=== PATIENT | male | born 1965 | race Caucasian/White ===

== ENCOUNTER 2016-08-06 07:11 | Day surgery (SDC) | payer OTHER ==
[2016-08-03 12:53] VITALS: BMI 48.6
[~2016-08-06 07:11] MED LIST: LACTATED RINGERS 1,000 ML IV SCH; LIDOCAINE 1% 20 ML VIAL (10MG/ML) FOR IV START INTRADERMA PRN
[2016-08-06 07:31] VITALS: RESP 16; TEMP 97.1
[2016-08-06] MEDS ORDERED: LACTATED RINGERS 1,000 ML IV ONE (07:31)
[2016-08-06 07:53] LABS: Glucose,Whole Blood 155 mg/dL (75-99)
[2016-08-06] MEDS ORDERED: PROPOFOL 10 MG/ML 20 ML VIAL IV ONE (08:14)
[2016-08-06] MEDS ORDERED: LIDOCAINE 1% INJ 10MG/ML (20 ML MDV) ONE (08:14)
--- NOTE | 2016-08-06 08:50 | P.PCN ---
Date of Procedure: 08/06/16 Procedure(s) Performed: Procedure: Total colonoscopy. Preoperative diagnosis: Screening for neoplasia. Postoperative diagnosis: Diverticulosis with no evidence of acute diverticulitis , strictures, polyps or cancer. Preparation: HalfLytely prep. Sedation: Was provided by anesthesia. Brief clinical history: The patient is a 51-year-old male who is scheduled for this evaluation for screening for neoplasia because of history of polyps. His last exam was around 5 years ago. He has no abdominal complaints, bleeding or anemia. Procedure: With the patient on his left lateral decubitus position and after informed consent and adequate sedation, the perianal area was inspected and it did not show any fissures or fistulas. There were no masses felt on digital rectal examination. The Olympus CFQ 160L video colonoscope was then inserted in the rectum in the usual fashion and advanced to the cecum. There was diffuse diverticulosis, mostly on the left side, with no evidence of acute diverticulitis or strictures. The mucosa appeared healthy. No polyps or tumors were seen. I retroflexed endoscope in the rectum before the endoscope was withdrawn. The patient tolerated the procedure well. Plan: The patient was reassured. Discussed dietary measures. He will follow up with you as planned and I recommended repeat exam in 5 years.
[2016-08-06 09:15] VITALS: BP 135/78; PULSE 78
== END 2016-08-06 09:51 | disposition home or self-care (01) ==
LOC: ORWHC2ENDO 07:11 → MERGE 07:30 → ORWHC2ENDO 09:51 → EDSEX 11:00
DX: Z12.11 Encounter for screening for malignant neoplasm of colon (principal); Z86.010 Personal history of colon polyps; K57.30 Diverticulosis of large intestine without perforation or abscess without bleeding; I10 Essential (primary) hypertension; E78.5 Hyperlipidemia, unspecified; G47.33 Obstructive sleep apnea (adult) (pediatric); J45.909 Unspecified asthma, uncomplicated; E11.8 Type 2 diabetes mellitus with unspecified complications; K76.0 Fatty (change of) liver, not elsewhere classified; Z79.84 Long term (current) use of oral hypoglycemic drugs; Z79.82 Long term (current) use of aspirin; Z79.51 Long term (current) use of inhaled steroids; Z79.899 Other long term (current) drug therapy; Z88.8 Allergy status to other drugs, medicaments and biological substances
CPT/HCPCS: J2001; J2704; G0105; 45378; 99153

== ENCOUNTER → 2016-08-13 | Outpatient (CLI) | payer OTHER ==
--- NOTE | 2016-08-13 12:24 | FL ---
EXAMINATION: Cervical and Thoracic Esophagram DATE OF EXAM: 08/13/2016 11:42 AM CLINICAL INDICATION: 51 year-old male with dysphasia and food getting stuck in mid chest for one year . COMPARISON: None Total Fluoroscopy Time: 2.2 minutes. FINDINGS: The swallowing mechanism is normal and hypopharyngeal anatomy is preserved. The cervical portion has a normal course and caliber. The thoracic portion has a normal course but shows mild focal indentation along the left lateral mid thoracic esophageal wall at the level of patient complaint. However, as the esophagus further distend s with contrast and air, the focal indentation does not persist. There is normal caliber with mild te rtiary peristalsis. The mucosa is normal and no persistent filling defect is encountered. No significant hiatal hernia seen. There is a single episode of trace gastroesophageal reflux. IMPRESSION: Focal indentation along the left lateral wall of the mid thoracic esophagus at the level of patient s ymptoms. As the esophagus further distends with contrast and air, no persistent filling defect or mas s is identified. Findings could represent extrinsic impression such from anatomic variations such as an aberrant right subclavian artery. Correlate as to the severity of patient's symptoms and the need for either direct visualization or cross-sectional imaging to further evaluate.
== END | disposition home or self-care (01) ==
LOC: RADFLWHC 10:24
PROVIDERS: ATTEND Family Medicine
DX: R13.19 Other dysphagia (principal)
CPT/HCPCS: 74220

== ENCOUNTER → 2016-08-28 | Outpatient (CLI) | payer OTHER ==
--- NOTE | 2016-08-28 08:23 | CT ---
EXAMINATION TYPE: CT chest w con DATE OF EXAM: 08/28/2016 8:17 AM COMPARISON: NONE HISTORY: Barretts esophagus, Lt sided rib pain CT DLP: 1398.8 mGycm Automated exposure control for dose reduction was used. CONTRAST: CT scan of the chest is performed with IV Contrast, patient injected with 100 ml mL of Omnipaque 300. FINDINGS: LUNGS: The lungs are grossly clear, there is no concerning parenchymal mass or nodule identified. T here is no pleural effusion or pneumothorax seen. The tracheobronchial tree is patent. MEDIASTINUM: There are no greater than 1 cm hilar or mediastinal lymph nodes. No pericardial effusi on is seen. Thoracic aorta is of normal caliber. The heart is not enlarged. Calcified hilar and medi astinal lymph nodes. UPPER ABDOMEN: There is evidence of fatty liver. No evidence for visible esophageal mass. OTHER: No additional significant abnormality is seen. IMPRESSION: 1. Remote granulomatous disease. 2. Fatty liver.
== END | disposition home or self-care (01) ==
LOC: RADCTMAIN 07:34
PROVIDERS: ATTEND Family Medicine
DX: K22.719 Barrett's esophagus with dysplasia, unspecified (principal)
CPT/HCPCS: 71260; Q9967

== ENCOUNTER 2016-10-22 06:55 | Day surgery (SDC) | payer OTHER ==
[2016-10-19 12:06] VITALS: BMI 50.6
[~2016-10-22 06:55] MED LIST changes: -LIDOCAINE 1% 20 ML VIAL (10MG/ML) FOR IV START INTRADERMA PRN
[2016-10-22] MEDS ORDERED: LACTATED RINGERS 1,000 ML IV ONE (07:11)
[2016-10-22 07:16] VITALS: RESP 16; TEMP 97.7
[2016-10-22 07:24] LABS: Glucose,Whole Blood 188 mg/dL (75-99)
[2016-10-22] MEDS ORDERED: LIDOCAINE 1% INJ 10MG/ML (20 ML MDV) ONE (07:51)
[2016-10-22] MEDS ORDERED: PROPOFOL 10 MG/ML 20 ML VIAL IV ONE (07:51)
--- NOTE | 2016-10-22 08:20 | P.PCN ---
Date of Procedure: 10/22/16 Procedure(s) Performed: Procedure: Esophagogastroduodenoscopy and biopsy. Preoperative diagnosis: Atypical chest pain and dysphagia. Postoperative diagnosis: Mild gastritis with no evidence of hiatal hernia, esophagitis or complicated reflux disease. Preparation and sedation: Was provided by anesthesia. Brief clinical history: The patient is a 51-year-old male who I have evaluated in the office earlier this month regarding history of reflux and 2 episodes of dysphagia, as well as history of atypical chest pain. This evaluation is to assess for complicated reflux disease or other pathology. Procedure: With the patient on his left lateral decubitus position and after informed consent and adequate sedation, I passed the Olympus-GIF 160 video upper endoscope through the cricopharyngeus down the esophagus. GE junction was around 43 cm from the incisors. The esophagus did not show any obvious erosions or ulcers. There were no strictures or Trivedi's esophagus and there was no obvious hiatal hernia. The endoscope was then passed into the stomach which was insufflated with air and inspected in detail including the retroflex view in the cardia. There was mottling, erythema and submucosal hemorrhage in the antrum consistent with gastritis but there was no ulcers. There may have been some healed erosions judging from the appearance of the mucosa. Pyloric channel did not show any ulcers. Duodenal bulb, post bulbar area and descending duodenum showed minimal erythema. I obtained biopsies from the duodenum, antrum and esophagus then the endoscope was withdrawn. The patient tolerated the procedure well. Plan: The patient was reassured. Will await pathology results. He is instructed to continue antireflux diet and measures. If he continues to be symptomatic I would consider motility studies and further evaluation of his dysphagia. I'll keep you updated on his progress.
[2016-10-22 08:37] VITALS: BP 123/80; PULSE 73
== END 2016-10-22 09:09 | disposition home or self-care (01) ==
LOC: ORWHC2ENDO 06:55
DX: K29.50 Unspecified chronic gastritis without bleeding (principal); K20.9 Esophagitis, unspecified; I10 Essential (primary) hypertension; E78.5 Hyperlipidemia, unspecified; J45.909 Unspecified asthma, uncomplicated; G47.33 Obstructive sleep apnea (adult) (pediatric); E11.9 Type 2 diabetes mellitus without complications; Z79.84 Long term (current) use of oral hypoglycemic drugs; Z79.82 Long term (current) use of aspirin; Z79.51 Long term (current) use of inhaled steroids; Z79.899 Other long term (current) drug therapy; Z88.8 Allergy status to other drugs, medicaments and biological substances
CPT/HCPCS: 88305; 88342; 43239; J2001; J2704

== ENCOUNTER → 2018-11-04 | Outpatient (CLI) | payer OTHER ==
--- NOTE | 2018-11-04 19:05 | P.STRESS ---
- Stress Test Note Stress Test Results/Findings: Exam Performed: stress test Exam Date: 11/04/18 Reason for Exam: SOB Height: 5 ft 8 in Weight: 149.685 kg Protocol: DOC Stage: 2 Duration of Exercise: 3:35 Resting Heart Rate: 74 Resting Blood Pressure: 124/73 Maximum Achieved Heart Rate: 145 Maximum Achieved Blood Pressure: 175/82 85% PMHR: 142 100% PMHR: 167 METS: 5.2 Technologist Comment: TEST STOPPED DUE TO LEG FATIGUE Stress Test Results/Findings: This is a 53-year-old gentleman with history of hypertension, diabetes, being evaluated for symptoms of chest pain and palpitations. Stress data: Baseline EKG showed sinus rhythm with a normal CT interval and QRS duration with occasional PVCs. Patient walked on the Doc protocol for 3 minutes and 35 seconds achieving a maximum heart rate of 145 with a blood pressure 175/82. The test was stopped because of fatigue. EKGs taken during and after exercise did not reveal any significant changes from the baseline. Patient continued to have occasional PVCs. Final impression #1. Limited excess capacity #2. Negative stress test #3. Patient did not express any chest pain #4. Patient had occasional PVCs
--- NOTE | 2018-11-07 17:29 | EST ---
Stress Test Results/Findings: Exam Performed: stress test Exam Date: 11/04/18 Reason for Exam: SOB Height: 5 ft 8 in Weight: 149.685 kg Protocol: DOC Stage: 2 Duration of Exercise: 3:35 Resting Heart Rate: 74 Resting Blood Pressure: 124/73 Maximum Achieved Heart Rate: 145 Maximum Achieved Blood Pressure: 175/82 85% PMHR: 142 100% PMHR: 167 METS: 5.2 Technologist Comment: TEST STOPPED DUE TO LEG FATIGUE Stress Test Results/Findings: This is a 53-year-old gentleman with history of hypertension, diabetes, being evaluated for symptoms of chest pain and palpitations. Stress data: Baseline EKG showed sinus rhythm with a normal MD interval and QRS duration with occasional PVCs. Patient walked on the Doc protocol for 3 minutes and 35 seconds achieving a maximum heart rate of 145 with a blood pressure 175/82. The test was stopped because of fatigue. EKGs taken during and after exercise did not reveal any significant changes from the baseline. Patient continued to have occasional PVCs. Final impression #1. Limited excess capacity #2. Negative stress test #3. Patient did not express any chest pain #4. Patient had occasional PVCs MTDD
== END | disposition home or self-care (01) ==
LOC: RADNMMAIN 10:52
PROVIDERS: ATTEND Family Medicine
DX: R06.02 Shortness of breath (principal)
CPT/HCPCS: 93017

== ENCOUNTER → 2018-11-08 | Outpatient (CLI) | payer OTHER ==
--- NOTE | 2018-11-08 22:41 | MR ---
EXAMINATION TYPE: MR brain wo con DATE OF EXAM: 11/08/2018 COMPARISON: NONE HISTORY: Headaches TECHNIQUE: Multiplanar, multisequence imaging of the brain and brainstem is performed without IV cont rast. FINDINGS: Diffusion weighted images demonstrate no evidence of a recent infarct or other diffusion abnormality. There is no worrisome extra-axial fluid collection. The ventricular system and cisternal spaces are normal in size and appearance. The brain volume is age appropriate. There are roughly 6 scattered wh ite matter lesions, largest is a 5 mm right frontal lesion axial image 21. They are nonspecific in ap pearance and distribution. Midline structures demonstrate normal morphology. The craniocervical junction appears within normal limits. Normal vascular flow voids are present. Dominant vertebral artery incidentally noted. There i s mild mucosal thickening in inferior left maxillary sinus otherwise paranasal sinuses are clear. The globes are intact bilaterally. Patchy fluid signal right mastoid air cells posteriorly axial image 7 is noted for reference. There is some patchy fluid signal towards the petrous apex axial image 4. IMPRESSION: 1. Mild to minimal nonspecific white matter changes may be product of altered vascular mechanics rela zeeshan to product of migraine headaches. 2. Possible right-sided mastoiditis and left-sided petrous apicitis, correlate clinically. 3. Mild left chronic maxillary sinus disease.
== END | disposition home or self-care (01) ==
LOC: RADMRIMAIN 15:39
PROVIDERS: ATTEND Family Medicine
DX: R51 Headache (principal)
CPT/HCPCS: 70551

== ENCOUNTER → 2019-06-16 | Outpatient (CLI) | payer OTHER ==
--- NOTE | 2019-06-16 12:55 | XR ---
EXAMINATION TYPE: XR lumbosacral spine min 4V DATE OF EXAM: 06/16/2019 CLINICAL HISTORY: Back pain TECHNIQUE: Frontal, lateral, and oblique images of the lumbar spine are obtained. COMPARISON: None FINDINGS: There are 5 lumbar type vertebral bodies identified. There is a mild compression deformity of L1 vertebral body and of the T12 vertebral body with vertebral body height loss of approximately 20% at both levels. Minimal grade 1 anterolisthesis of L4 on L5 of 3 mm. Vertebral body heights of th e lumbar spine are within normal limits. Spine with anterior osteophytes and multilevel facet arthro lynda. The oblique images demonstrate no pars interarticularis defects and demonstrate neural foramin al narrowing L3-L4 and L4-5 bilaterally, mild on x-ray. The overlying soft tissue appears unremarkab le. IMPRESSION: 1. Age-indeterminate compression deformities of the T12 and L1 vertebral bodies with height loss of a pproximately 20%. Correlate for point tenderness to determine acuity. 2. Grade 1 anterolisthesis of L4 on L5 is likely on a degenerative basis. 3. Moderate multilevel degenerative disc disease of the lumbar spine.
== END | disposition home or self-care (01) ==
LOC: RADXRYALE 10:22
PROVIDERS: ATTEND Nurse Practitioner
DX: M51.36 Other intervertebral disc degeneration, lumbar region (principal); M43.16 Spondylolisthesis, lumbar region; G95.29 Other cord compression
CPT/HCPCS: 72110

== ENCOUNTER → 2019-08-26 | Outpatient (CLI) | payer OTHER | END | disposition home or self-care (01) | LOC: RADMRIMAIN 14:10 | PROVIDERS: ATTEND Family Medicine | DX: Z53.9 Procedure and treatment not carried out, unspecified reason (principal) ==

== ENCOUNTER 2020-10-20 11:13 | Emergency (ER) | payer OTHER ==
[2020-10-20] MEDS ORDERED: ONDANSETRON 4 MG/2 ML VIAL IVP STA (11:49)
[2020-10-20] MEDS ORDERED: ACETAMINOPHEN TAB 500 MG TAB PO STA (11:50)
[2020-10-20] MEDS ORDERED: SODIUM CHLORIDE 0.9% 1,000 ML IV ONE (11:52)
--- NOTE | 2020-10-20 12:14 | ED ---
Fever HPI - General Chief Complaint: Fever Stated Complaint: SOB, TEMP Time Seen by Provider: 10/20/20 11:31 Source: patient, RN notes reviewed, old records reviewed Mode of arrival: ambulatory Limitations: no limitations - History of Present Illness Initial Comments: Patient's 55-year-old male who presents today for concern for nausea fever body aches. He reports symptoms since . Patient reports his been exposed to positive Covid contacts. Patient reports to have flashes. He does not take Motrin Tylenol today. His biggest concern is nausea. He has history of obesity, hypertension. He denies any previous history of lung problems. - Related Data Home Medications Medication Instructions Recorded Confirmed Atorvastatin [Lipitor] 40 mg PO HS 08/03/16 10/20/20 Baclofen [Lioresal] 20 mg PO TID PRN 08/03/16 10/20/20 Fluticasone Propionate [Flonase 1 spray EA NOSTRIL DAILY 08/03/16 10/20/20 Allergy Relief] Glimepiride [Amaryl] 4 mg PO BID 08/03/16 10/20/20 metFORMIN HCL 1,000 mg PO BID 08/03/16 10/20/20 Albuterol Nebulized [Ventolin 2.5 mg INHALATION RT-Q6H PRN 10/20/20 10/20/20 Nebulized] Budesonide/Formoterol Fumarate 2 puff INHALATION RT-BID 10/20/20 10/20/20 [Symbicort 80-4.5 Mcg Inhaler] Empagliflozin [Jardiance] 25 mg PO DAILY 10/20/20 10/20/20 Famotidine [Pepcid] 20 mg PO DAILY 10/20/20 10/20/20 Montelukast Sodium [Singulair] 10 mg PO DAILY 10/20/20 10/20/20 Valsartan/Hydrochlorothiazide 1 tab PO DAILY 10/20/20 10/20/20 [Valsartan-Hctz 320-25 mg Tab] guaiFENesin [Mucinex] 1,200 mg PO Q12H PRN 10/20/20 10/20/20 traMADol HCL 50 mg PO DAILY PRN 10/20/20 10/20/20 Previous Rx's Medication Instructions Recorded Albuterol Inhaler [Ventolin Hfa 1 puff INHALATION RT-QID #1 inhaler 10/20/20 Inhaler] Benzonatate [Tessalon Perles] 100 mg PO TID PRN #20 capsule 10/20/20 Ondansetron Odt [Zofran Odt] 4 mg PO Q8HR PRN #12 tab 10/20/20 Vit C/Vit D3/E/Zinc/Elderberry 1 each PO TID #30 tab.chew 10/20/20 [Airborne Elderberry Gummy] Allergies Allergy/AdvReac Type Severity Reaction Status Date / Time hydrochlorothiazide Allergy Unknown HEADACHE Verified 10/20/20 12:59 [From Hyzaar] losartan [From Hyzaar] Allergy Unknown HEADACHE Verified 10/20/20 12:59 Review of Systems ROS Statement: Those systems with pertinent positive or pertinent negative responses have been documented in the HPI. ROS Other: All systems not noted in ROS Statement are negative. Past Medical History Past Medical History: Asthma, Chest Pain / Angina, Diabetes Mellitus, Hyper lipidemia, Hypertension, Osteoarthritis (OA), Sleep Apnea/CPAP/BIPAP Additional Past Medical History / Comment(s): FATTY LIVER, USES C-PAP MACHINE, BACK PAIN, CONSTIPATION AND DIARRHEA. History of Any Multi-Drug Resistant Organisms: None Reported Past Surgical History: No Surgical Hx Reported Additional Past Surgical History / Comment(s): COLONOSCOPY Past Anesthesia/Blood Transfusion Reactions: Motion Sickness, No Reported Reaction Past Psychological History: Anxiety Smoking Status: Never smoker Past Alcohol Use History: None Reported Past Drug Use History: None Reported - Past Family History Mother Family Medical History: No Reported History General Exam - General Exam Comments Initial Comments: 55 year old male, no distress. Limitations: no limitations General appearance: alert, in no apparent distress Head exam: Present: atraumatic, normocephalic, normal inspection Eye exam: Present: normal appearance, PERRL, EOMI. Absent: scleral icterus, conjunctival injection, periorbital swelling ENT exam: Present: normal exam, mucous membranes moist Neck exam: Present: normal inspection. Absent: tenderness, meningismus, lymphadenopathy Respiratory exam: Present: normal lung sounds bilaterally. Absent: respiratory distress, wheezes, rales, rhonchi, stridor Cardiovascular Exam: Present: regular rate, normal rhythm, normal heart sounds. Absent: systolic murmur, diastolic murmur, rubs, gallop, clicks GI/Abdominal exam: Present: soft, normal bowel sounds. Absent: distended, tenderness, guarding, rebound, rigid Extremities exam: Present: normal inspection, full ROM, normal capillary refill. Absent: tenderness, pedal edema, joint swelling, calf tenderness Back exam: Present: normal inspection, full ROM Neurological exam: Present: alert, oriented X3, CN II-XII intact Psychiatric exam: Present: normal affect, normal mood Skin exam: Present: warm, dry, intact, normal color. Absent: rash Course Vital Signs 10/20/20 10/20/20 10/20/20 11:20 12:29 13:20 Temperature 99.2 F 99.9 F H Pulse Rate 98 96 88 Respiratory 20 18 18 Rate Blood Pressure 141/96 121/79 122/64 O2 Sat by Pulse 94 L 93 L 94 L Oximetry 10/20/20 14:25 Temperature 99.6 F Pulse Rate 80 Respiratory 18 Rate Blood Pressure 102/60 O2 Sat by Pulse 98 Oximetry Medical Decision Making - Medical Decision Making 55-year-old male presents emergency department today for fever nausea body aches cough. Patient's vital signs are stable oxygen 94% on room air. Chest x-ray shows no evidence of infiltrate. He does test positive for cold and pneumonia. He did receive BAM treatment and is stable for discharge. Counseled the Patient on strict murmur grandmother's worsening symptoms or severe shortness of breath to return to the ER. Patient will be discharged with supportive medication. - Lab Data Result diagrams: 10/20/20 12:14 10/20/20 12:14 Lab Results 10/20/20 10/20/20 10/20/20 Range/Units 11:26 12:14 12:14 WBC 3.3 L (3.8-10.6) k/uL RBC 5.42 (4.30-5.90) m/uL Hgb 17.5 (13.0-17.5) gm/dL Hct 49.7 (39.0-53.0) % MCV 91.7 (80.0-100.0) fL MCH 32.3 (25.0-35.0) pg MCHC 35.2 (31.0-37.0) g/dL RDW 12.7 (11.5-15.5) % Plt Count 163 (150-450) k/uL MPV 6.6 Neutrophils % 69 % Lymphocytes % 18 % Monocytes % 10 % Eosinophils % 0 % Basophils % 1 % Neutrophils # 2.3 (1.3-7.7) k/uL Lymphocytes # 0.6 L (1.0-4.8) k/uL Monocytes # 0.3 (0-1.0) k/uL Eosinophils # 0.0 (0-0.7) k/uL Basophils # 0.0 (0-0.2) k/uL Sodium 132 L (137-145) mmol/L Potassium 3.5 (3.5-5.1) mmol/L Chloride 95 L (98-107) mmol/L Carbon Dioxide 24 (22-30) mmol/L Anion Gap 13 mmol/L BUN 15 (9-20) mg/dL Creatinine 0.90 (0.66-1.25) mg/dL Est GFR (CKD-EPI)AfAm >90 (>60 ml/min/1.73 sqM) Est GFR (CKD-EPI)NonAf >90 (>60 ml/min/1.73 sqM) Glucose 194 H (74-99) mg/dL Calcium 8.9 (8.4-10.2) mg/dL Total Bilirubin 0.7 (0.2-1.3) mg/dL AST 50 (17-59) U/L ALT 54 H (4-49) U/L Alkaline Phosphatase 48 (38-126) U/L Total Protein 6.9 (6.3-8.2) g/dL Albumin 4.2 (3.5-5.0) g/dL Coronavirus (PCR) Detected A (Not Detectd) - Radiology Data Radiology results: report reviewed Chest x-ray is negative for any acute cardiopulmonary process. Disposition Clinical Impression: COVID-19 Disposition: HOME SELF-CARE Condition: Good Instructions (If sedation given, give patient instructions): Coronavirus Disease 2019 (COVID-19) Additional Instructions: Patient should alternate between Tylenol and Motrin every 4-6 hours. Patient can take nausea medication and use inhaler as prescribed. Recommended purc hasing pulse oximeter. A few have a low oxygen below 90% and having worsening symptoms or severe shortness of breath Patient can always return to the ER for reevaluation. Prescriptions: Vit C/Vit D3/E/Zinc/Elderberry [Airborne Elderberry Gummy] 1 each PO TID #30 tab.chew Benzonatate [Tessalon Perles] 100 mg PO TID PRN #20 capsule PRN Reason: Cough Albuterol Inhaler [Ventolin Hfa Inhaler] 1 puff INHALATION RT-QID #1 inhaler Ondansetron Odt [Zofran Odt] 4 mg PO Q8HR PRN #12 tab PRN Reason: Nausea Is patient prescribed a controlled substance at d/c from ED?: No Referrals: Slime Galvin DO [Primary Care Provider] - 1-2 days Time of Disposition: 13:36
[2020-10-20 12:30] VITALS: RESP 18
[2020-10-20 12:30] LABS: Basophils % (A) 1 %; Eosinophils % (A) 0 %; HCT 49.7 % (39.0-53.0); HGB 17.5 gm/dL (13.0-17.5); Lymphocytes # (A) 0.6 k/uL (1.0-4.8); Lymphocytes % (A) 18 %; MCH 32.3 pg (25.0-35.0); MCHC 35.2 g/dL (31.0-37.0); MCV 91.7 fL (80.0-100.0); Mean Platelet Volume 6.6; Monocytes # (A) 0.3 k/uL (0-1.0); Monocytes % (A) 10 %; Neutrophils # (A) 2.3 k/uL (1.3-7.7); Neutrophils % (A) 69 %; Platelet Count 163 k/uL (150-450); RBC 5.42 m/uL (4.30-5.90); RDW 12.7 % (11.5-15.5); WBC 3.3 k/uL (3.8-10.6)
[2020-10-20 12:44] LABS: Potassium 3.5 mmol/L (3.5-5.1)
[2020-10-20 12:45] LABS: ALT 54 U/L (4-49); AST 50 U/L (17-59); African American GFR (CKD) >90 (>60 ml/min/1.73 sqM); Albumin 4.2 g/dL (3.5-5.0); Alkaline Phosphatase 48 U/L (38-126); Anion Gap 13 mmol/L; Blood Urea Nitrogen 15 mg/dL (9-20); Calcium 8.9 mg/dL (8.4-10.2); Carbon Dioxide 24 mmol/L (22-30); Chloride 95 mmol/L (98-107); Glucose 194 mg/dL (74-99); Non-African American GFR(CKD) >90 (>60 ml/min/1.73 sqM); Sodium 132 mmol/L (137-145); Total Bilirubin 0.7 mg/dL (0.2-1.3); Total Protein 6.9 g/dL (6.3-8.2)
--- NOTE | 2020-10-20 12:57 | XR ---
EXAMINATION TYPE: XR chest 1V DATE OF EXAM: 10/20/2020 COMPARISON: NONE HISTORY: Cough TECHNIQUE: Single frontal view of the chest is obtained. FINDINGS: There is no focal air space opacity, pleural effusion, or pneumothorax seen. The cardiac silhouette size is within normal limits. The osseous structures are intact. IMPRESSION: No acute process.
[2020-10-20] MEDS ORDERED: BAMLANIVIMAB 700 MG in SODIUM CHLORIDE 0.9% 50 ML IVPB ONE (13:00)
[2020-10-20 14:27] VITALS: BP 102/60; PULSE 80; TEMP 99.6
== END 2020-10-20 15:11 | disposition home or self-care (01) ==
LOC: EC 11:13
DX: U07.1 COVID-19 (principal); F41.9 Anxiety disorder, unspecified; J45.909 Unspecified asthma, uncomplicated; E11.9 Type 2 diabetes mellitus without complications; E78.5 Hyperlipidemia, unspecified; I10 Essential (primary) hypertension; M19.90 Unspecified osteoarthritis, unspecified site; G47.33 Obstructive sleep apnea (adult) (pediatric); Z79.51 Long term (current) use of inhaled steroids; Z79.84 Long term (current) use of oral hypoglycemic drugs; Z79.899 Other long term (current) drug therapy; Z88.8 Allergy status to other drugs, medicaments and biological substances; Z99.89 Dependence on other enabling machines and devices
CPT/HCPCS: 36415; 80053; 85025; 87635; 71045; 99284; 96365; 96375; 96361; J2405; Q0239

== ENCOUNTER → 2020-11-08 | Outpatient (CLI) | payer OTHER ==
--- NOTE | 2020-11-08 16:01 | CT ---
EXAMINATION TYPE: CT sinus wo con DATE OF EXAM: 11/08/2020 COMPARISON: None HISTORY: Recurrent sinus infections. Headache x [address] DLP: 617 mGycm CONTRAST: 0 mL of Isovue 300 The paranasal sinuses are examined in the axial plane at 2 mm thick sections. Reconstructed images i n the coronal plane were obtained. There is dental amalgam scatter artifact There is opacification of the left maxillary sinus. Some mucosal thickening is within mid left ethmo id air cells. The sphenoid sinuses are clear. The frontal sinuses are clear. Mastoid air cells are clear. The septum is evaluated. There is septal deviation to the right. The ostiomeatal units are patent. Connor air cells are noted bilaterally. IMPRESSIONS: 1. Mucosal thickening left maxillary sinus. There is obstruction of the left ostiomeatal unit. Some mid left ethmoid air cell mucosal thickening is present.
== END | disposition home or self-care (01) ==
LOC: RADCTMAIN 13:31
PROVIDERS: ATTEND Otolaryngology
DX: J32.9 Chronic sinusitis, unspecified (principal)
CPT/HCPCS: 70486

== ENCOUNTER 2022-10-28 11:28 | Inpatient (IN) | payer OTHER ==
[2022-10-28] MEDS ORDERED: NITROGLYCERIN SL TABS 0.4 MG TAB SUBLINGUAL STA (11:55)
--- NOTE | 2022-10-28 12:02 | ED ---
Chest Pain HPI - General Source: patient, RN notes reviewed Mode of arrival: wheelchair - History of Present Illness MD Complaint: chest pain Onset: during rest Pain Location: substernal <Carrol Ramirez - Last Filed: 10/28/22 14:13> <Laurie Salinas Jaime - Last Filed: 10/29/22 12:43> - General Chief Complaint: Chest Pain Stated Complaint: High BP Time Seen by Provider: 10/28/22 11:31 - History of Present Illness Initial Comments: This is a 57-year-old male who presents to the emergency department for chest pain. States that around 3 AM, he had elevated blood pressure of approximately 215/111 and developed central chest pain/pressure that radiated into his back. Also had shortness of breath. This lasted approximately 45 minutes and then improved. When this occurred, he took an aspirin and one of his valsartan and his BP went down into the 140s-150s systolically. Also reports associated left jaw pain. States that this may be related to a dental abscess, as he has had some swelling to the left side of his face. Also reports pain to the right arm. Denies any personal or family history of cardiac issues. While the pain is better, he continues to have some residual chest pressure and also feels clammy. Denies any fevers, chills, sore throat, cough, palpitations, abdominal pain, nausea, vomiting, diarrhea, back pain, or headaches. (Carrol Ramirez) - Related Data Home Medications Medication Instructions Recorded Confirmed Atorvastatin [Lipitor] 40 mg PO HS 08/03/16 10/28/22 Baclofen [Lioresal] 20 mg PO TID PRN 08/03/16 10/28/22 Fluticasone Propionate [Flonase 1 spray EA NOSTRIL DAILY 08/03/16 10/28/22 Allergy Relief] Glimepiride [Amaryl] 4 mg PO BID 08/03/16 10/28/22 metFORMIN HCL [Glucophage] 1,000 mg PO BID 08/03/16 10/28/22 Albuterol Nebulized [Ventolin 2.5 mg INHALATION RT-Q6H PRN 10/20/20 10/28/22 Nebulized] Empagliflozin [Jardiance] 25 mg PO DAILY 10/20/20 10/28/22 Montelukast Sodium [Singulair] 10 mg PO DAILY 10/20/20 10/28/22 Valsartan/Hydrochlorothiazide 1 tab PO DAILY 10/20/20 10/28/22 [Valsartan-Hctz 320-25 mg Tab] Albuterol Inhaler [Ventolin Hfa 2 puff INHALATION RT-QID PRN 10/28/22 10/28/22 Inhaler] Cholecalciferol [Vitamin D3 (25 25 mcg PO DAILY 10/28/22 10/28/22 Mcg = 1000 Iu)] Fluticasone/Umeclidin/Vilanter 1 puff INHALATION RT-DAILY 10/28/22 10/28/22 [Trelegy Ellipta 100-62.5-25] L.acidoph,Paracasei, B.lactis 1 cap PO DAILY 10/28/22 10/28/22 [Probiotic] Ondansetron [Zofran] 4 mg PO TID PRN 10/28/22 10/28/22 Pantoprazole [Protonix] 40 mg PO DAILY 10/28/22 10/28/22 Testosterone Cypionate 200 mg IM Q14D 10/28/22 10/28/22 [Depo-Testosterone] armodafiniL [Armodafinil] 200 mg PO DAILY 10/28/22 10/28/22 clindamycin HCL [Cleocin] 300 mg PO BID 10/28/22 10/28/22 dilTIAZem HCL [dilTIAZem HCL 24Hr 120 mg PO HS 10/28/22 10/28/22 ER] polyethylene glycoL 3350 [Miralax] 17 gm PO DAILY 10/28/22 10/28/22 Allergies Allergy/AdvReac Type Severity Reaction Status Date / Time hydrochlorothiazide Allergy Unknown HEADACHE Verified 10/28/22 12:08 [From Hyzaar] losartan [From Hyzaar] Allergy Unknown HEADACHE Verified 10/28/22 12:08 Review of Systems ROS Other: All systems not noted in ROS Statement are negative. <Carrol Ramirez - Last Filed: 10/28/22 14:13> ROS Other: All systems not noted in ROS Statement are negative. <Laurie Salinas - Last Filed: 10/29/22 12:43> ROS Statement: Those systems with pertinent positive or pertinent negative responses have been documented in the HPI. Past Medical History Past Medical History: Asthma, Chest Pain / Angina, Diabetes Mellitus, Hyperlipidemia, Hypertension, Osteoarthritis (OA), Sleep Apnea/CPAP/BIPAP Additional Past Medical History / Comment(s): FATTY LIVER, USES C-PAP MACHINE, BACK PAIN, CONSTIPATION AND DIARRHEA. History of Any Multi-Drug Resistant Organisms: None Reported Past Surgical History: No Surgical Hx Reported Additional Past Surgical History / Comment(s): COLONOSCOPY Past Anesthesia/Blood Transfusion Reactions: Motion Sickness, No Reported Reaction Past Psychological History: Anxiety Smoking Status: Never smoker Past Alcohol Use History: None Reported Past Drug Use History: None Reported - Past Family History Mother Family Medical History: No Reported History <Carrol Ramirez - Last Filed: 10/28/22 14:13> General Exam Limitations: no limitations General appearance: alert, in no apparent distress Head exam: Present: atraumatic, normocephalic, normal inspection ENT exam: Present: other (No notable swelling to the left lower or upper jaw. There is also no tenderness to palpation or palpable abscess.) Respiratory exam: Present: normal lung sounds bilaterally. Absent: respiratory distress, wheezes, rales, rhonchi, stridor Cardiovascular Exam: Present: regular rate, normal rhythm, normal heart sounds. Absent: systolic murmur, diastolic murmur, rubs, gallop, clicks GI/Abdominal exam: Present: soft, normal bowel sounds. Absent: distended, tenderness, guarding, rebound, rigid Neurological exam: Present: alert, oriented X3, CN II-XII intact Psychiatric exam: Present: normal affect, normal mood Skin exam: Present: warm, dry, intact, normal color. Absent: rash <Carrol Ramirez - Last Filed: 10/28/22 14:13> Course Vital Signs 10/28/22 10/28/22 10/28/22 11:39 12:05 12:12 Temperature 98.4 F Pulse Rate 91 83 87 Pulse Rate [ Software Quality Tester ] Respiratory 18 18 17 Rate Blood Pressure 156/90 137/76 123/67 O2 Sat by Pulse 97 95 95 Oximetry 10/28/22 10/28/22 10/28/22 12:39 13:58 15:15 Temperature 99.2 F Pulse Rate 87 79 Pulse Rate [ 85 Software Quality Tester ] Respiratory 17 17 Rate Blood Pressure 125/76 129/83 O2 Sat by Pulse 95 95 Oximetry 10/28/22 10/28/22 10/28/22 16:57 17:07 17:22 Temperature Pulse Rate 82 84 92 Pulse Rate [ Software Quality Tester ] Respiratory 17 Rate Blood Pressure 116/82 O2 Sat by Pulse 96 Oximetry 10/28/22 10/28/22 18:20 19:35 Temperature 98.4 F Pulse Rate 82 80 Pulse Rate [ Software Quality Tester ] Respiratory 16 18 Rate Blood Pressure 120/73 134/88 O2 Sat by Pulse 96 93 L Oximetry Chest Pain MDM <Carrol Ramirez - Last Filed: 10/28/22 14:13> - MDM This is a 57-year-old male who presents to the emergency department for chest pain. Was pt. sent in by a medical professional or institution? @ -No Did you speak to anyone other than the patient for history? @ -No Did you review nursing and triage notes? @ -Yes, and I agree, it is accurate with regards to the patient's symptoms. Were old charts reviewed? @ -No Differential Diagnosis? @ -Differential Chest Pain: Stable Angina, Unstable Angina, STEMI, NSTEMI Aortic Dissection, Pneumothorax, Musculoskeletal, Esophageal Spasm GERD, Cholecystitis, Pancreatitis, Zoster, this is not meant to be an all-inclusive list. EKG interpreted by me (3pts min.)? @ -Sinus rhythm. Ventricular rate 83 beats per minute, WI interval 175 ms, QRS duration 82 ms, QTC 368 ms. X-rays interpreted by me (1pt min.)? @ -Chest x-ray obtained, my interpretation identifies no localized consolidations or infiltrates. What testing was considered but not performed? (CT, X-rays, U/S, labs)? Why? @ -None What meds were considered but not given? Why? @ -None Did you discuss the management of the patient with other professionals? @ -Yes, Dr. Boyd who accepts the patient for admission. Dr. Salinas also spoke with Dr. Pride, cardiology, to make him aware of the patient. Did you reconcile home meds? @ -No Was smoking cessation discussed for >3mins.? @ -No Was critical care preformed (if so, how long)? @ -No Were there social determinants of health that impacted care today? How? (Homelessness, low income, unemployed, alcoholism, drug addiction, transportation, low edu. Level, literacy, decrease access to med. care, half-way, rehab)? @ -No Was there de-escalation of care discussed even if they declined? (Discuss DNR or withdrawal of care, Hospice)? @ -No What co-morbidities impacted this encounter? (DM, HTN, Smoking, COPD, CAD, Cancer, CVA, Hep., AIDS, mental health diagnosis, sleep apnea, morbid obesity)? @ -DM, HTN, HLD, morbid obesity Was patient admitted / discharged? @ -Admitted. Nitroglycerin administered, which the patient states offered significant improvement in chest pain. Chest x-ray reveals no acute findings. Lab work obtained revealing an elevated troponin of 0.139. Lab work was otherwise nonactionable. Patient started on low intensity heparin protocol for possible NSTEMI. Heart score is 7. Cardiology was consulted and Dr. Salinas spoke with Dr. Pride directly to make him aware of the patient per Dr. Boyd's request Undiagnosed new problem with uncertain prognosis? @ -None Drug Therapy requiring intensive monitoring for toxicity (Heparin, Nitro, Insulin, Cardizem)? @ -None Were any procedures done? @ -None Diagnosis/symptom? @ -NSTEMI Acute, or Chronic, or Acute on Chronic? @ -Acute Uncomplicated (without systemic symptoms) or Complicated (systemic symptoms)? @ -Complicated Side effects of treatment? @ -None Exacerbation, Progression, or Severe Exacerbation] @ -Not applicable Poses a threat to life or bodily function? @ -Yes, patient is at risk for cardiac arrest. This case was discussed in detail with the attending ED physician, Dr. Salinas. Presentation, findings, and treatment plan discussed in detail as well. (Carrol Ramirez) Critical Care Time Critical Care Time: Yes <Laurie Salinas - Last Filed: 10/29/22 12:43> Critical Care Time: 35 minutes for NSTEMI and heparin gtt. Spoke with Dr. Pride (Laurie Salinas) Disposition <Carrol Ramirez - Last Filed: 10/28/22 14:13> <Laurie Salinas - Last Filed: 10/29/22 12:43> Clinical Impression: NSTEMI (non-ST elevated myocardial infarction) Disposition: ADMITTED IP TO THIS HOSP
[2022-10-28 12:16] LABS: Basophils % (A) 1 %; Eosinophils # (A) 0.1 k/uL (0-0.7); Eosinophils % (A) 2 %; HCT 51.6 % (39.0-53.0); HGB 17.9 gm/dL (13.0-17.5); Lymphocytes # (A) 0.9 k/uL (1.0-4.8); Lymphocytes % (A) 17 %; MCH 31.5 pg (25.0-35.0); MCHC 34.7 g/dL (31.0-37.0); MCV 90.8 fL (80.0-100.0); Mean Platelet Volume 6.7; Monocytes # (A) 0.6 k/uL (0-1.0); Monocytes % (A) 11 %; Neutrophils # (A) 3.4 k/uL (1.3-7.7); Neutrophils % (A) 67 %; Platelet Count 216 k/uL (150-450); RBC 5.68 m/uL (4.30-5.90); RDW 12.7 % (11.5-15.5); WBC 5.1 k/uL (3.8-10.6)
--- NOTE | 2022-10-28 12:16 | XR ---
EXAMINATION TYPE: XR chest 2V DATE OF EXAM: 10/28/2022 COMPARISON: Chest x-ray October 12, 2020 HISTORY: Chest pain. TECHNIQUE: Frontal and lateral views of the chest are obtained. FINDINGS: There is mild chronic parenchymal changes bilaterally without suspicious new focal air spa ce opacity, pleural effusion, or pneumothorax seen. The cardiac silhouette size is upper limits of n ormal currently. The osseous structures are intact. IMPRESSION: Chronic changes without acute pulmonary process.
[2022-10-28 12:27] LABS: INR 1.1 (<1.2); Partial Thromboplastin Time 23.6 sec (22.0-30.0)
[2022-10-28 12:31] LABS: ALT 44 U/L (4-49); AST 42 U/L (17-59); African American GFR (CKD) >90 (>60 ml/min/1.73 sqM); Albumin 4.2 g/dL (3.5-5.0); Alkaline Phosphatase 58 U/L (38-126); Anion Gap 9 mmol/L; Blood Urea Nitrogen 12 mg/dL (9-20); Calcium 9.1 mg/dL (8.4-10.2); Carbon Dioxide 27 mmol/L (22-30); Chloride 97 mmol/L (98-107); Glucose 212 mg/dL (74-99); Magnesium 1.8 mg/dL (1.6-2.3); Non-African American GFR(CKD) >90 (>60 ml/min/1.73 sqM); Sodium 133 mmol/L (137-145); Total Protein 7.1 g/dL (6.3-8.2)
[2022-10-28 12:34] LABS: Potassium 4.8 mmol/L (3.5-5.1)
[2022-10-28] MEDS ORDERED: HEPARIN SODIUM 1,000 UN/ML (10ML VL) IV ONE (12:59)
[2022-10-28] MEDS ORDERED: HEPARIN SODIUM 1,000 UN/ML (10ML VL) IV PRN (12:59)
[2022-10-28] MEDS ORDERED: NALOXONE 0.4 MG/ML 1 ML VIAL IV PRN (13:03)
[2022-10-28] MEDS ORDERED: ACETAMINOPHEN TAB 325 MG TAB PO PRN (13:03)
[2022-10-28] MEDS ORDERED: MORPHINE SULFATE 4 MG/ML SYRINGE IV PRN (13:03)
[2022-10-28] MEDS ORDERED: BACLOFEN 10 MG TAB PO PRN (13:44)
[2022-10-28] MEDS ORDERED: ALBUTEROL NEBULIZED 2.5 MG/3 ML INHALATION PRN (13:44)
[2022-10-28] MEDS ORDERED: ALBUTEROL HFA INHALER INHALATION PRN (13:44)
[2022-10-28] MEDS ORDERED: DEXTROSE 50% SYRINGE 50 ML IVP PRN ×2 (13:46)
[2022-10-28] MEDS: HEPARIN SOD,PORK IN 0.45% NACL 25,000 UNIT in 0.45% NACL 1 250ML.BAG IV SCH (13:52)
[2022-10-28 14:25] LABS: Glucose,Whole Blood 134 mg/dL (70-110)
[2022-10-28] MEDS: IPRATROPIUM 0.5 MG/2.5 ML NEBU INHALATION SCH ×2 (16:56→21:50)
[2022-10-28] MEDS ORDERED: METOPROLOL SUCCINATE (ER) 25 MG TAB.ER.24H PO STA (17:16)
[2022-10-28] MEDS: INSULIN ASPART (NovoLOG) 100 UNIT/ML VIAL SQ SCH ×2 (17:20→20:48)
[2022-10-28 17:27] LABS: Glucose,Whole Blood 100 mg/dL (70-110)
--- NOTE | 2022-10-28 17:58 | HP ---
HISTORY AND PHYSICAL CHIEF COMPLAINT: Chest pain. HISTORY OF PRESENT ILLNESS: This is a 57-year-old gentleman with a past medical history of asthma, diabetes mellitus, and multiple medical issues, who was having chest pains on and off for the last several days. Last night, the patient had significant pain of the right arm, and it started as a chest pain, discomfort in the anterior part of the chest and radiated to the back. The patient also had pain in the left cheek and jaw also. Lasted about 45 minutes. The patient came to [facility] and was found to have a troponin elevated up to 0.139. The patient was admitted for further evaluation and treatment. There is no history of any fever, rigors, or chills. EKG done shows nonspecific changes. PAST MEDICAL HISTORY: Reviewed including diabetes mellitus, hypertension, and hyperlipidemia. Rest of the history and rest of the chart are also reviewed. HOME MEDICATIONS: Reviewed include Jardiance. Doses and rest of the medications noted. ALLERGIES: Hyzaar. FAMILY HISTORY: No history of heart disease or strokes in the family. SOCIAL HISTORY: No history of smoking or alcohol. REVIEW OF SYSTEMS: Fourteen-point review is negative except as mentioned earlier. PHYSICAL EXAMINATION: VITAL SIGNS: Pulse 87, blood pressure 124/73, respirations 17. HEENT: Conjunctivae are normal. NECK: No jugular venous distention. CARDIOVASCULAR: S1 and S2 muffled. RESPIRATORY: Breath sounds diminished at the bases. No rhonchi. No crackles ABDOMEN: Soft, obese, and nontender. LEGS: No edema. NERVOUS SYSTEM: No focal deficits. SKIN: No ulcers or rashes. JOINTS: No active deforming arthropathy. LABORATORY DATA: Reviewed. ASSESSMENT: 1. Chest pain, possible acute ccp-UE-cxfyyny-elevation myocardial infarction with troponin 0.139. 2. Diabetes mellitus, type 2. 3. Hypertension. 4. Hyperlipidemia. 5. History of asthma. 6. Multiple medical issues. RECOMMENDATIONS AND DISCUSSION: In this 57-year-old gentleman, who presented with multiple complex medical issues, we will monitor the patient closely. We will initiate acute coronary syndrome protocol. Cardiology consultation, possible cardiac catheterization versus stress test. IV heparin. The prognosis is extremely guarded because of multiple complex medical issues. We will resume the home medications also once they are confirmed. Further recommendations to follow. Monitor blood sugars closely. Hold off metformin at this time. See orders for further details. MMODL / IJN: [id number] /
[2022-10-28] MEDS: HYDROcodone/APAP 5-325MG 1 EACH TAB PO PRN (19:40)
[2022-10-28] MEDS: ONDANSETRON 4 MG/2 ML VIAL IVP PRN (19:41)
[2022-10-28 20:39] LABS: Glucose,Whole Blood 173 mg/dL (70-110)
[2022-10-28] MEDS: GLIMEPIRIDE 4 MG TAB PO SCH (20:48)
[2022-10-28] MEDS: ATORVASTATIN 40 MG TAB PO SCH (20:48)
[2022-10-28] MEDS: CLINDAMYCIN 150 MG CAP PO SCH (20:48)
[2022-10-28] MEDS ORDERED: DILTIAZEM CD 120 MG CAP.ER.24H PO SCH (21:00)
--- NOTE | 2022-10-28 22:07 | CONS ---
CONSULTATION CHIEF COMPLAINT: Chest pain. HISTORY OF PRESENT ILLNESS: Anne is 57-year-old gentleman with history of hypertension, [id number]-[id number] diabetes, dyslipidemia, and asthma who presented to hospital with chest pain. He was woken up from sleep with chest pressure, discomfort in the interscapular area, bilateral arms and left side of his face. He took an extra dose of Diovan. Initially, his blood pressure was elevated, subsequently the blood pressure improved and he went to sleep, woke up, was concerned that the symptoms that he had, hence came to the emergency room. At the time of his evaluation in the ER, his blood pressures were in the 140s and 150s systolic. He had been started on intravenous heparin and has remained symptom free. An EKG shows sinus rhythm with poor R-wave progression suggestive of prior anteroseptal myocardial infarction. His first troponin was 0.13, second set of troponin is 0.2. Creatinine is normal at 0.9, hemoglobin is 17.9 . At the time of my evaluation this afternoon, the patient is chest pain-free and hemodynamically stable. PAST MEDICAL HISTORY: Significant for hypertension, diabetes, dyslipidemia, and asthma. MEDICATIONS AT HOME: 1. Jardiance. 2. Glucophage. 3. Valsartan. 4. Diltiazem. 5. Singulair. 6. MiraLax. 7. Lipitor. 8. Protonix. 9. Cleocin. 10.Zofran. 11.Flonase. 12.Ventolin. ALLERGIES: To Hyzaar. FAMILY HISTORY: Significant for coronary artery disease in his father. SOCIAL HISTORY: Negative for smoking, EtOH abuse or drug abuse. REVIEW OF SYSTEMS: HEENT: Unremarkable. CARDIAC: As described above. RESPIRATORY: As described above. GI: Negative. GENITOURINARY: Negative. ALLERGY/IMMUNOLOGY: Negative. SKIN: Negative. MUSCULOSKELETAL: Significant for arthritis. PSYCHOSOCIAL: Negative. DERM: Negative. CONSTITUTIONAL: Negative. ONCOLOGICAL: Negative. OPERATIONAL COMMUNICATION CHIEF: Negative Rest of the system review is not relevant. PHYSICAL EXAMINATION: GENERAL: Comfortable at rest. VITAL SIGNS: Stable. NECK: There is no jugular venous distention. Carotid upstroke is normal. There is no bruit. CHEST: Reveals good air entry bilaterally. HEART: Reveals first and second heart sounds. No gallop, no murmur, no rub. ABDOMEN: Soft, nontender. EXTREMITIES: Did not reveal any edema. Peripheral pulses are palpable. ASSESSMENT: 1. Acute ioj-CL-whidrjf elevation myocardial infarction. 2. Uncontrolled hypertension. PLAN: I will treat the patient with intravenous heparin. Continue current medications and schedule him for a cardiac cath tomorrow morning. I explained risks, benefits, and alternatives, understood and accepted. YULISA / BAM: [id number] /
[2022-10-29 04:54] LABS: Basophils # (A) 0.1 k/uL (0-0.2); Basophils % (A) 1 %; Eosinophils # (A) 0.2 k/uL (0-0.7); Eosinophils % (A) 3 %; HCT 51.3 % (39.0-53.0); HGB 17.5 gm/dL (13.0-17.5); Lymphocytes # (A) 1.5 k/uL (1.0-4.8); Lymphocytes % (A) 23 %; MCH 31.1 pg (25.0-35.0); MCHC 34.2 g/dL (31.0-37.0); MCV 90.9 fL (80.0-100.0); Mean Platelet Volume 6.5; Monocytes # (A) 0.9 k/uL (0-1.0); Monocytes % (A) 13 %; Neutrophils # (A) 3.9 k/uL (1.3-7.7); Neutrophils % (A) 58 %; Platelet Count 205 k/uL (150-450); RBC 5.65 m/uL (4.30-5.90); RDW 12.8 % (11.5-15.5); WBC 6.7 k/uL (3.8-10.6)
[2022-10-29 04:58] LABS: INR 1.1 (<1.2); Partial Thromboplastin Time 37.9 sec (22.0-30.0); Prothrombin Time 11.8 sec (9.0-12.0)
[2022-10-29 05:50] LABS: African American GFR (CKD) >90 (>60 ml/min/1.73 sqM); Anion Gap 10 mmol/L; Blood Urea Nitrogen 12 mg/dL (9-20); Calcium 9.1 mg/dL (8.4-10.2); Carbon Dioxide 28 mmol/L (22-30); Chloride 97 mmol/L (98-107); Glucose 115 mg/dL (74-99); Non-African American GFR(CKD) 84 (>60 ml/min/1.73 sqM); Potassium 4.3 mmol/L (3.5-5.1); Sodium 135 mmol/L (137-145)
[2022-10-29 06:13] LABS: Glucose,Whole Blood 125 mg/dL (70-110)
[2022-10-29] MEDS: PANTOPRAZOLE 40 MG TABLET PO SCH (06:15)
[2022-10-29] MEDS: INSULIN ASPART (NovoLOG) 100 UNIT/ML VIAL SQ SCH ×4 (06:16→20:46)
[2022-10-29] MEDS: IPRATROPIUM 0.5 MG/2.5 ML NEBU INHALATION SCH ×4 (07:50→20:57)
[2022-10-29] MEDS: SYMBICORT 80-4.5 MCG INHALER INHALATION SCH ×2 (07:54→20:57)
[2022-10-29] MEDS ORDERED: ATORVASTATIN 80 MG TAB PO STA (08:14)
[2022-10-29] MEDS ORDERED: ALPRAZolam 0.5 MG TAB PO PRN (08:14)
[2022-10-29] MEDS ORDERED: ASPIRIN 325 MG TAB PO STA (08:14)
[2022-10-29] MEDS ORDERED: NITROGLYCERIN SL TABS 0.4 MG TAB SUBLINGUAL PRN (08:14)
[2022-10-29] MEDS ORDERED: ALPRAZolam 0.25 MG TAB PO PRN (08:14)
[2022-10-29] MEDS: polyethylene glycoL 3350 17 GM POWD.PACK PO SCH (08:51)
[2022-10-29] MEDS: METOPROLOL SUCCINATE (ER) 25 MG TAB.ER.24H PO SCH (08:51)
[2022-10-29] MEDS: CHOLECALCIFEROL 25 MCG (1000 IU) TABLET PO SCH (08:51)
[2022-10-29] MEDS: VALSARTAN 160 MG TAB PO SCH (08:51)
[2022-10-29] MEDS: LACTOBACILLUS ACIDOPH & BULGAR 1 EACH PACKET PO SCH (08:51)
[2022-10-29] MEDS: MONTELUKAST 10 MG TAB PO SCH (08:51)
[2022-10-29] MEDS: DAPAGLIFLOZIN PROPANEDIOL 10 MG TABLET PO SCH (08:52)
[2022-10-29] MEDS: FLUTICASONE 50MCG/SPRAY NASAL 16GM EA NOSTRIL SCH (08:52)
[2022-10-29] MEDS: GLIMEPIRIDE 4 MG TAB PO SCH ×2 (08:52→20:45)
[2022-10-29] MEDS: CLINDAMYCIN 150 MG CAP PO SCH ×2 (08:52→20:45)
[2022-10-29] MEDS: ARMODAFINIL 200 MG PO SCH (08:53)
[2022-10-29] MEDS: hydroCHLOROthiazide 25 MG TAB PO SCH (08:56)
[2022-10-29] MEDS ORDERED: VALSARTAN 160 MG TAB PO SCH (09:00)
[2022-10-29] MEDS ORDERED: VERAPAMIL 2.5 MG/ML 2 ML AMP ONE (10:05)
[2022-10-29] MEDS ORDERED: HEPARIN SODIUM 1,000 UN/ML (10ML VL) ONE ×3 (10:06→18:46)
[2022-10-29] MEDS ORDERED: fentaNYL (PF) 50 MCG/ML 2 ML AMP ONE ×6 (10:23→18:49)
[2022-10-29] MEDS ORDERED: IV FLUID CONTINUATION 1,000 ML IV ONE (10:32)
[2022-10-29] MEDS ORDERED: fentaNYL (PF) 50 MCG/ML 2 ML AMP IV ONE (10:32)
[2022-10-29] MEDS ORDERED: MIDAZOLAM 2 MG/2 ML VIAL IV ONE ×2 (10:32→18:34)
[2022-10-29] MEDS ORDERED: LIDOCAINE 1% INJ 10MG/ML (5 ML VIAL-PF) SQ ONE (10:33)
[2022-10-29] MEDS ORDERED: VERAPAMIL SYRINGE (5 MG/10 ML) INTRAARTER ONE ×2 (10:34→12:16)
[2022-10-29] MEDS ORDERED: HEPARIN SODIUM 1,000 UN/ML (10ML VL) IV ONE ×2 (10:40→17:44)
[2022-10-29] MEDS ORDERED: IOPAMIDOL-370 125ML BTL INJ ONE ×3 (11:06→19:02)
[2022-10-29] MEDS ORDERED: SODIUM CHLORIDE 0.9% 1,000 ML IV ONE ×2 (11:15→19:21)
[2022-10-29] MEDS: MIDAZOLAM 2 MG/2 ML VIAL IVP ONE ×6 (12:16→14:37)
[2022-10-29] MEDS: fentaNYL (PF) 50 MCG/ML 2 ML AMP IVP ONE ×5 (12:16→14:07)
[2022-10-29] MEDS: HEPARIN SODIUM 1,000 UN/ML (10ML VL) IVP ONE ×4 (12:19→14:40)
[2022-10-29] MEDS: NITROGLYCERIN 1000MCG/10ML SYRINGE INTRACORON ONE ×2 (12:30→12:47)
[2022-10-29] MEDS ORDERED: PRASUGREL 10 MG TAB ONE ×2 (12:32→12:33)
[2022-10-29] MEDS ORDERED: PRASUGREL 10 MG TAB PO ONE (12:35)
[2022-10-29] MEDS ORDERED: NITROGLYCERIN 1000MCG/10ML SYRINGE INTRACORON ONE ×2 (14:08→19:19)
[2022-10-29] MEDS ORDERED: hydrALAZINE HCL 20 MG/ML 1 ML VIAL ONE (14:26)
[2022-10-29] MEDS ORDERED: hydrALAZINE HCL 20 MG/ML 1 ML VIAL IVP ONE (14:28)
[2022-10-29] MEDS ORDERED: fentaNYL (PF) 50 MCG/ML 2 ML AMP IVP ONE (14:36)
[2022-10-29] MEDS ORDERED: TIROFIBAN 12.5MG-250ML NS 250 ML IV ONE (14:45)
[2022-10-29] MEDS ORDERED: TIROFIBAN BOLUS 12.5MG/250 ML BAG IV ONE (14:45)
[2022-10-29] MEDS ORDERED: NITROGLYCERIN-D5W PMX 50 MG in DEXTROSE/WATER 1 250ML.BAG IV ONE (14:45)
--- NOTE | 2022-10-29 14:56 | P.PRCINT ---
Percutaneous Coronary Int. - Percutaneous Coronary Intervention Percutaneous Coronary Intervention: PROCEDURES PERFORMED: Left coronary angiography, PCI mid LAD with a 3.0 x 33mm Xience MELLISA, IVUS LAD, IVUS LAD, iFR LAD, circumflex INDICATION: Non-STEMI PROCEDURE: After the risks, benefits and alternatives of the above mentioned procedure explained in detail with the patient, informed consent was obtained. Patient was taken to the catheterization lab and prepped and draped in usual fashion. A 6-Andorran sheath had already been placed in the right radial artery using modified Seldinger technique. A 6-Andorran CLS 4.0 guide was used to engage the left main. The decision was made to perform iFR of the LAD and circumflex. A 0.014 PressureWire was placed in the left main and then normalized. He was then advanced distal to the LAD was noted to be abnormal at 0.81. He was then advanced into the mid circumflex 1 cm past the lesion and was normal at 0.93. The decision was made to therefore perform PCI of LAD. A 0.014 BMW wire was advanced in the distal LAD. Using a guideliner predilation was performed with a 2.0 x 12 mm, 2.5 x 20 mm and 3.0 noncompliant balloon. Next with some difficulty a 3.0 x 33 mm Xience MELLISA was advanced and deployed in the mid LAD overlapping the small caliber diagonal 1 branch. Initial attempts at postdilated with a 3.0 noncompliant balloon were unsuccessful passing the balloon which appeared mainly related to the tortuosity of the proximal segment along with calcium. Despite the use of Guideliner unable to pass a 2.5 mm balloon and the catheter became disengaged from the left main. Therefore a 4.5 CLS guide was used to engage the left main. The artery was re wired with a 0.014 was for wire, pallor 200 and BMW wire. Numerous attempts were made at passing equipment however able to engage the proximal portion was spent however not able to pass any balloons past the mid or distal portion. IVUS was able to be performed up to the proximal edge of the stent with no dissection noted and calcified plaque. Eventually able to pass a 2.5 x 12 mm noncompliant balloon which was used to post dilate the proximal and distal edge of the stent. The small caliber diagonal branch was jailed and patient did have chest pain with jailing of the diagonal branch. Given Contrast use, radiation and complexity of lesion felt best treated medically. Preintervention there was 80% mid LAD stenosis with KARL 3 flow and postintervention there was less than 10% stenosis of the mid LAD portion with residual 30-40% stenosis of the proximal and distal edge of the stent with jailed diagonal 1 branch with KARL 3 flow with LAD. The right radial sheath was removed and a TR band was placed with hemostasis achieved. The patient tolerated the procedure well. Patient was transported back to the post catheterization holding area in stable condition. Conscious Sedation: Patient was monitored under the direct supervision of myself for conscious sedation using Versed and fentanyl for a total duration of 124 minutes HEMODYNAMICS: Ao: 144/78 SELECTIVE CORONARY ARTERIOGRAPHY: LEFT MAIN: The left main is a large caliber vessel which bifurcates into the LAD and circumflex. There is no significant stenosis. LEFT ANTERIOR DESCENDING CORONARY ARTERY: LAD is a large caliber vessel which wraps around to the apex. There is diffuse mid LAD 40-80% stenosis with more distal 20-30% stenosis. There is a small caliber diagonal 1 branch which has a proximal 80-90% stenosis LEFT CIRCUMFLEX CORONARY ARTERY: Left circumflex is a large caliber vessel with a mid circumflex 60-70% stenosis. RIGHT CORONARY ARTERY: The right coronary artery was not imaged, see separate report FINAL IMPRESSION: 1. CAD as described above with 80% mid LAD stenosis, 70% mid circumflex stenosis 2. iFR abnormal of LAD at 0.81, normal of circumflex at 0.93 3. S/p PCI mid LAD with a 3.0 x 33mm Xience MELLISA 4. Jailed diagonal branch, felt best treated medically 5. Extreme difficulty advancing equipment past the mid LAD stent PLAN: 1. Aggressive risk factor modification per most recent ACC/AHA guidelines. 2. Continue dual antiplatelets for 12 months with aspirin and Effient 3. Continue Aggrastat drip for 24 hours and monitor clinically 4. If further chest pain or recurrent LAD stenosis would have lower threshold for CABG
[2022-10-29] MEDS: HEPARIN SOD,PORK IN 0.45% NACL 25,000 UNIT in 0.45% NACL 1 250ML.BAG IV SCH (15:58)
[2022-10-29 16:36] LABS: Glucose,Whole Blood 148 mg/dL (70-110)
[2022-10-29 17:10] LABS: Glucose,Whole Blood 172 mg/dL (70-110)
[2022-10-29] MEDS ORDERED: SODIUM CHLORIDE 0.9% 500 ML 500 ML IV ONE (17:15)
[2022-10-29] MEDS: fentaNYL (PF) 50 MCG/1 ML VIAL IV ONE ×2 (17:28→18:21)
[2022-10-29] MEDS: MIDAZOLAM 2 MG/2 ML VIAL IV ONE ×2 (17:30→18:40)
[2022-10-29] MEDS ORDERED: LIDOCAINE 1% INJ 10MG/ML (20 ML MDV) SQ ONE (17:30)
[2022-10-29] MEDS: fentaNYL (PF) 50 MCG/ML 2 ML AMP IV ONE ×2 (18:50→19:08)
[2022-10-29] MEDS ORDERED: IOPAMIDOL-370 100ML BTL INJ ONE (19:26)
[2022-10-29] MEDS ORDERED: RX INFO: IV CONTRAST WAS GIVEN 1 EACH MISC MISCELLANE PRN (19:51)
--- NOTE | 2022-10-29 19:51 | P.PRCINT ---
Percutaneous Coronary Int. - Percutaneous Coronary Intervention Percutaneous Coronary Intervention: PROCEDURES PERFORMED: Left coronary angiography, IVUS LAD, PCI proximal to mid LAD with a 3.5 x 28mm Xience MELLISA, PCI mid to distal LAD with a 2.5 x 15mm Xience MELLISA INDICATION: Ongoing chest pain status post PCI with EKG changes HPI: Patient is pleasant 57-year-old male who has been having off-and-on chest pain and was found to have non-STEMI. He underwent diagnostic heart catheterization which showed a mid LAD 80% stenosis and iFR was abnormal. Therefore patient underwent stenting of the mid LAD with a 3.0 x 33 mm stent. Unfortunately there was difficulty advancing equipment past the mid LAD, proximal portion of the stent somewhat related to calcium as well as angulation and tortuosity. There was jailing of the diagonal 1 branch and felt best treated medically. Patient was placed on Aggrastat drip and Nitrol and appeared stable with only 30-40% proximal and distal edge stenosis. On the floor patient had more significant chest pain and EKG showed ST elevations in the inferior leads. Therefore patient emergently brought back to the Pulling [facility] Floor[facility]. By the time patient recently [facility] chest pain is somewhat improved and EKG changes and ST elevations inferiorly had improved. ST elevations felt related to wraparound LAD. CONSENT:I have discussed the risks, benefits and alternative therapies for the above-mentioned procedure and for both sedation/analgesia as well as necessary blood product administration, if indicated, as they pertain to this patient. The patient has indicated understanding and acceptance of the risks and procedures discussed. PROCEDURE: After the risks, benefits and alternatives of the above mentioned procedure explained in detail with the patient, informed consent was obtained. Patient was taken to the catheterization lab and prepped and draped in usual fashion. 1% lidocaine was used to anesthetize the right femoral artery. A 8- Czech sheath was placed in the right femoral artery using modified Seldinger technique, an ultrasound guidance and micro puncture technique. A 8-Czech EBU 4.0 guide disease to engage the left main. Angiography showed a proximal edge dissection as well as distal edge dissection. Using a 0.014 BMW wire with a Corsair microcatheter the dissection was able to be wired. There was difficulty advancing balloons past the distal lesion. Therefore jass wire with a 0.014 whisper wire was attempted. The BMW wire was attempted to be exchanged for a wiggle wire as well as for a mailman wire without success advancing across the mailman. With the help of the mailman as these supports and working across the whisper wire the distal lesion was able to be ballooned with a 1.0, 1.5, 2.5 and 3.0 noncompliant balloons. Next IVUS was performed which showed diffuse calcium throughout the proximal to mid LAD, dissection proximally and distally and distal add calcium. Next a 2.5 x 15 mm Xience MELLISA was placed in the mid to distal LAD overlapping the distal edge of the first stent. The overlap was postdilated at 20 mmHg with the 2.5 balloon. Next a 3.5 x 28 mm Xience MELLISA was placed from the proximal to mid LAD overlapping the proximal edge of the first stent. The 3.5 balloon was advanced in used to post- dilate the overlap. IVUS was performed which showed excellent stent apposition and no dissection. Final cholangiogram as were performed. Preintervention there is 90% stenosis in KARL 3 flow and postintervention there was less than 10% stenosis and KARL-3 flow. The patient tolerated the procedure well. Patient was transported back to the post catheterization holding area in stable condition. Conscious Sedation: Patient was monitored under the direct supervision of myself for conscious sedation using Versed and fentanyl for a total duration of 123 minutes HEMODYNAMICS: Ao: 143/97 SELECTIVE CORONARY ARTERIOGRAPHY: LEFT MAIN: The left main is a large caliber vessel which bifurcates into the LAD and circumflex. There is no significant stenosis. LEFT ANTERIOR DESCENDING CORONARY ARTERY: LAD is a large caliber vessel which wraps around to the apex. There is diffuse proximal to mid LAD 20-30% stenosis and at the proximal edge of the mid LAD stent there is a dissection resulting in 90% stenosis and at the distal edge of the stent there is a dissection with 90% stenosis. LEFT CIRCUMFLEX CORONARY ARTERY: Left circumflex is a moderate to large caliber vessel with 70% mid circumflex stenosis. RIGHT CORONARY ARTERY: The right coronary artery was not imaged. FINAL IMPRESSION: 1. CAD as described above with 90% mid and distal edge stenosis/ dissection 2. S/p PCI proximal to mid LAD with a 3.5 x 28mm Xience MELLISA, PCI mid to distal LAD with a 2.5 x 15mm Xience MELLISA PLAN: 1. Aggressive risk factor modification per most recent ACC/AHA guidelines. 2. Continue dual antiplatelets with aspirin and Effient for 12 months.
[2022-10-29 20:02] LABS: Glucose,Whole Blood 142 mg/dL (70-110)
[2022-10-29] MEDS: ATORVASTATIN 40 MG TAB PO SCH (20:45)
--- NOTE | 2022-10-29 21:31 | CC ---
CARDIAC CATHETERIZATION REPORT INDICATION: Acute non ST-segment elevation WA. PROCEDURE NOTE: After obtaining informed consent, left heart catheterization and coronary angiogram were performed via the right radial artery using standard Lesley catheters. The patient tolerated the procedure well without any obvious immediate complications, received moderate conscious sedation. Total sedation time was 20 minutes. The right radial artery access was obtained using Seldinger technique. A 6-Frisian sheath was placed. Catheters and wires were floated into the ascending aorta under fluoroscopic guidance. The patient received 5 mg of verapamil and 5500 units of heparin as per protocol. He was on heparin and the heparin was just stopped 1.5 hours ago. FINDINGS: 1. HEMODYNAMICS: Left ventricular end-diastolic pressure is 24 mm. There is no significant gradient across the aortic valve. 2. LEFT VENTRICULOGRAM: Left ventriculogram is not performed. 3. ANGIOGRAPHIC DATA: a.Left main coronary artery: Left main coronary artery is a normal-sized vessel and is free of stenosis. Divides into left anterior descending coronary artery and circumflex coronary artery. LAD shows a long segment of narrowing in its midportion with an area of plaque rupture that its worst seems to be a 90% stenosis. There is [id number] atherosclerotic plaque in the ostial portion of the LAD. Circumflex coronary artery and its branches are free of significant stenosis. It is a large dominant vessel. b.Right coronary artery is a nondominant vessel and is free of significant stenosis. CONCLUSION: Focal 90% stenosis in the mid LAD. PLAN: I am going to review the angiographic data with Dr. Dee, the on-call clothing trades workers and proceed with angioplasty of the LAD. He is currently scrubbed in a case at another hospital and will proceed with this as soon as he is available. MMODL / IJN: [id number] /
[2022-10-29] MEDS: HYDROcodone/APAP 5-325MG 1 EACH TAB PO PRN (22:28)
[2022-10-29] MEDS: ONDANSETRON 4 MG/2 ML VIAL IVP PRN (22:30)
--- NOTE | 2022-10-29 22:31 | PN ---
PROGRESS NOTE DATE OF SERVICE: 10/29/2022 SUBJECTIVE: This is a 57-year-old gentleman admitted with acute ebf-KO-gilnmwf-elevation myocardial infarction, had a chest pain last night, scheduled for cardiac catheterization today by Cardiology. OBJECTIVE: VITAL SIGNS: Pulse 74, blood pressure 129/70, respirations 16. CHEST: Clear to auscultation. CARDIOVASCULAR: S1, S2. ABDOMEN: Soft. NERVOUS SYSTEM: Nonfocal. LABORATORY DATA: Reviewed. ASSESSMENT: 1. Chest pain, possible acute gmp-GO-dqjomkw-elevation myocardial infarction. Troponin 0.139. 2. Diabetes mellitus, type 2. 3. Hypertension. 4. Hyperlipidemia. 5. Multiple medical issues. RECOMMENDATIONS AND DISCUSSION: Recommend to continue current management and symptomatic treatment. Cardiac catheterization with possible stenting. Repeat labs. Further recommendations to follow. Continue with antiplatelet agents and beta jorge a. MMODL / IJN: [id number] /
[2022-10-29] MEDS: SODIUM CHLORIDE 0.9% 1,000 ML in EMPTY BAG 1 BAG IV SCH (23:09)
[2022-10-30] MEDS: SODIUM CHLORIDE 0.9% 1,000 ML in EMPTY BAG 1 BAG IV SCH ×4 (03:03→23:40)
[2022-10-30 05:44] LABS: Glucose,Whole Blood 117 mg/dL (70-110)
[2022-10-30] MEDS: INSULIN ASPART (NovoLOG) 100 UNIT/ML VIAL SQ SCH ×4 (05:45→20:40)
[2022-10-30] MEDS: PANTOPRAZOLE 40 MG TABLET PO SCH (05:48)
[2022-10-30] MEDS ORDERED: HEPARIN SODIUM,PORCINE 10,000 UNIT in SODIUM CHLORIDE 0.9% 1,000 ML IRRIGATION PRN (07:00)
[2022-10-30] MEDS ORDERED: HEPARIN SODIUM,PORCINE 2,500 UNIT in SODIUM CHLORIDE 0.9% 250 ML IRRIGATION PRN (07:00)
[2022-10-30] MEDS: IPRATROPIUM 0.5 MG/2.5 ML NEBU INHALATION SCH ×4 (08:18→22:13)
[2022-10-30] MEDS: SYMBICORT 80-4.5 MCG INHALER INHALATION SCH ×2 (08:19→22:13)
[2022-10-30 08:46] LABS: Basophils % (A) 0 %; Eosinophils # (A) 0.1 k/uL (0-0.7); Eosinophils % (A) 1 %; HCT 46.2 % (39.0-53.0); HGB 15.7 gm/dL (13.0-17.5); Lymphocytes # (A) 1.1 k/uL (1.0-4.8); Lymphocytes % (A) 12 %; MCH 31.2 pg (25.0-35.0); MCV 91.7 fL (80.0-100.0); Mean Platelet Volume 6.9; Monocytes # (A) 0.9 k/uL (0-1.0); Monocytes % (A) 10 %; Neutrophils # (A) 6.7 k/uL (1.3-7.7); Neutrophils % (A) 74 %; Platelet Count 211 k/uL (150-450); RBC 5.04 m/uL (4.30-5.90); WBC 9.1 k/uL (3.8-10.6)
[2022-10-30] MEDS: ARMODAFINIL 200 MG PO SCH (09:20)
[2022-10-30 10:08] LABS: African American GFR (CKD) >90 (>60 ml/min/1.73 sqM); Anion Gap 12 mmol/L; Blood Urea Nitrogen 14 mg/dL (9-20); Calcium 8.7 mg/dL (8.4-10.2); Carbon Dioxide 25 mmol/L (22-30); Chloride 98 mmol/L (98-107); Glucose 120 mg/dL (74-99); Non-African American GFR(CKD) >90 (>60 ml/min/1.73 sqM); Sodium 135 mmol/L (137-145)
[2022-10-30 10:11] LABS: Potassium 4.7 mmol/L (3.5-5.1)
[2022-10-30] MEDS: ASPIRIN 81 MG PO SCH (10:19)
[2022-10-30] MEDS: PRASUGREL 10 MG TAB PO SCH (10:19)
[2022-10-30] MEDS: CLINDAMYCIN 150 MG CAP PO SCH ×2 (10:20→20:39)
[2022-10-30] MEDS: CHOLECALCIFEROL 25 MCG (1000 IU) TABLET PO SCH (10:20)
[2022-10-30] MEDS: VALSARTAN 160 MG TAB PO SCH (10:20)
[2022-10-30] MEDS: GLIMEPIRIDE 4 MG TAB PO SCH ×2 (10:20→20:39)
[2022-10-30] MEDS: DAPAGLIFLOZIN PROPANEDIOL 10 MG TABLET PO SCH (10:20)
[2022-10-30] MEDS: METOPROLOL SUCCINATE (ER) 25 MG TAB.ER.24H PO SCH (10:20)
[2022-10-30] MEDS: hydroCHLOROthiazide 25 MG TAB PO SCH (10:21)
[2022-10-30] MEDS: LACTOBACILLUS ACIDOPH & BULGAR 1 EACH PACKET PO SCH (10:21)
[2022-10-30] MEDS: polyethylene glycoL 3350 17 GM POWD.PACK PO SCH (10:22)
[2022-10-30] MEDS: FLUTICASONE 50MCG/SPRAY NASAL 16GM EA NOSTRIL SCH (10:29)
[2022-10-30] MEDS: MONTELUKAST 10 MG TAB PO SCH (10:29)
[2022-10-30 11:59] LABS: Glucose,Whole Blood 228 mg/dL (70-110)
[2022-10-30] MEDS: ONDANSETRON 4 MG/2 ML VIAL IVP PRN (12:50)
[2022-10-30 12:55] VITALS: BMI 48.6
--- NOTE | 2022-10-30 13:16 | P.PN ---
Subjective Progress Note Date: 10/30/22 HISTORY OF PRESENT ILLNESS: This is a 57-year-old patient of Dr. Cobos who presented to the emergency room and chest pain. Patient was found to have non-STEMI. Patient underwent cardiac catheterization yesterday with Dr. Pride and Dr. Dee with 80% mid LAD stenosis, 70% mid circumflex stenosis, iFR abnormal of LAD at 0.81. Patient underwent stenting of the mid LAD. Patient was found to have a jailed diagonal branch which was felt to best treated medically. Yesterday evening the patient developed chest pain again. EKG was performed revealing ST changes and patient was returned to the cardiac Device Sales Consultant. Repeat cardiac catheterization was performed by Dr. Dee revealing CAD with 90% mid and distal LAD stenosis/dissection. Patient underwent PCI of the proximal to mid LAD. Patient examined this morning at the bedside. Patient has had no further episodes of chest pain or pressure. He denies shortness of breath. Vital signs are stable. Right groin and right radial Sites with pulse present. No hematoma noted. PHYSICAL EXAM: VITAL SIGNS: Reviewed. GENERAL: Well-developed in no acute distress. NECK: Supple. No JVD or thyromegaly LUNGS: Respirations even and unlabored. Lungs essentially clear to auscultation bilaterally. HEART: Regular rate and rhythm. S1 and S2 heard. EXTREMITIES: Normal range of motion. No clubbing or cyanosis. Peripheral pulses intact. No lower extremity edema ASSESSMENT: Non-STEMI, status post cardiac catheterization as above Hypertension Hyperlipidemia PLAN: Obtain 2-D echo to assess cardiac structure and function Continue dual antiplatelet therapy with aspirin and Effient Continue high intensity statin Continue additional cardiac medications Further recommendations pending patient course Nurse practitioner note has been reviewed by physician. Signing provider agrees with the documented findings, assessment, and plan of care. Objective - Vital Signs Vital signs: Vital Signs Temp 98 F 10/30/22 12:00 Pulse 65 10/30/22 12:51 Resp 17 10/30/22 12:51 BP 104/69 10/30/22 12:00 Pulse Ox 97 10/30/22 12:00 FiO2 21 10/30/22 08:20 Intake & Output 10/29/22 10/30/22 10/30/22 18:59 06:59 18:59 Intake Total 810 Output Total 750 Balance 810 -750 Weight 145.15 kg Intake: IV 610 Intake, IV Titration 200 Amount Sodium Chloride 0.9% 1, 200 000 ml @ 0 mls/hr IV .[employer] ONE Rx#:[id number] Output: Urine 750 Other: Voiding Method Toilet Toilet Toilet - Labs CBC & Chem 7: 10/30/22 07:38 10/30/22 09:17 Labs: Abnormal Lab Results - Last 24 Hours (Table) 10/29/22 10/29/22 10/29/22 Range/Units 16:33 17:08 19:58 Sodium (137-145) mmol/L Glucose (74-99) mg/dL POC Glucose (mg/dL) 148 H 172 H 142 H (70-110) mg/dL 10/30/22 10/30/22 10/30/22 Range/Units 05:42 09:17 11:58 Sodium 135 L (137-145) mmol/L Glucose 120 H (74-99) mg/dL POC Glucose (mg/dL) 117 H 228 H (70-110) mg/dL
[2022-10-30] MEDS ORDERED: ONDANSETRON 4 MG/2 ML VIAL IVP PRN (14:33)
[2022-10-30 16:24] LABS: Glucose,Whole Blood 169 mg/dL (70-110)
--- NOTE | 2022-10-30 16:57 | CA ---
Transthoracic Echo Report Name: Anne Sheehan Age: 57 Gender: M : 1965 Exam Date: 10/30/2022 13:41 Exam Location: [facility] Ht (in): 68 Wt (lb): 320 Ordering Physician: Leslie Escobedo Attending/Referring Phys: [id number], Gregg Cdl Service Technician Porsha Moseley, LIZ Procedure CPT: Indications: LV function Cardiac Hx: Technical Quality: Technically difficult study Contrast 1: Total Dose (mL): Contrast 2: Total Dose (mL): MEASUREMENTS (Male / Female) Normal Values 2D ECHO LV Diastolic Diameter PLAX 5.3 cm 4.2 - 5.9 / 3.9 - 5.3 cm LV Systolic Diameter PLAX 3.4 cm IVS Diastolic Thickness 1.6 cm 0.6 - 1.0 / 0.6 - 0.9 cm LVPW Diastolic Thickness 1.6 cm 0.6 - 1.0 / 0.6 - 0.9 cm LV Relative Wall Thickness 0.6 RV Internal Dim ED PLAX 3.9 cm LA Systolic Diameter LX 4.2 cm 3.0 - 4.0 / 2.7 - 3.8 cm M-MODE Aortic Root Diameter MM 3.5 cm MV E Point Septal Separation 0.8 cm AV Cusp Separation MM 1.7 cm DOPPLER AV Peak Velocity 131.9 cm/s AV Peak Gradient 7.0 mmHg MV Area PHT 4.8 cm??? Mitral E Point Velocity 79.5 cm/s Mitral A Point Velocity 73.2 cm/s Mitral E to A Ratio 1.1 MV Deceleration Time 159.1 ms TR Peak Velocity 320.5 cm/s TR Peak Gradient 41.1 mmHg Right Ventricular Systolic Press 46.1 mmHg FINDINGS Left Ventricle Left ventricular ejection fraction is estimated at 45-50 %. Left ventricular cavity size normal. Apical septum hypokinesis Right Ventricle Moderate right ventricular dilatation. Moderate pulmonary hypertension. Right Atrium Right atrium not well visualized. Left Atrium Mildly increased left atrial diameter. Mildly increased left atrial area. Mitral Valve Mitral valve not well visualized. Mild mitral regurgitation. Aortic Valve Trileaflet aortic valve. Aortic valve sclerosis. Tricuspid Valve Tricuspid valve not well visualized. Mild tricuspid regurgitation. Pulmonic Valve Pulmonic valve not well visualized. Pericardium Normal pericardium. No pericardial effusion. Aorta Normal size aortic root and proximal ascending aorta. CONCLUSIONS Mild LV systolic dysfunction with an ejection fraction of 45% Apical septal hypokinesis RV systolic pressure is 45 mm Technically suboptimal study secondary to poor echo windows Previewed by: Dr. Shan Pride MD (Electronically Signed) Final Date: 30 October 2022 16:56
[2022-10-30 20:23] LABS: Glucose,Whole Blood 205 mg/dL (70-110)
[2022-10-30] MEDS: PANTOPRAZOLE 40 MG/10 ML VIAL IVP SCH (20:39)
[2022-10-30] MEDS: HYDROcodone/APAP 5-325MG 1 EACH TAB PO PRN (20:39)
[2022-10-30] MEDS ORDERED: ATORVASTATIN 80 MG TAB PO SCH (21:00)
--- NOTE | 2022-10-31 05:26 | P.PN ---
Subjective Progress Note Date: 10/30/22 This is a 57-year-old male who was recently admitted with chest pain and had nstemi. Cardiology following the patient and underwent cardiac catheterization with stenting to the LAD and required additional stenting to the proximal and mid LAD as patient continued to have changes on EKG and chest pain. Cardiology following with medication adjustments recommending follow-up echo today which is currently pending. Patient denies chest pain or shortness of breath at this time and asking when he can go home. Patient is afebrile with no reports of nausea or vomiting. We'll continue to monitor Accu-Cheks discuss further with cardiology about discharge planning. Recommend continue telemetry monitoring and close monitoring overnight for any further arrhythmias. Review of systems: Constitutional: No reports of fatigue, fever, or chills Cardiovascular: No reports of chest pain or palpitations Respiratory: No reports of shortness of breath or cough GI: reports of intermittent nausea and he reports he chronically gets nausea from gastritis, no reports of of vomiting, No diarrhea : No reports of dysuria or retention Neurovascular: no reports of generalized weakness All medications have been reviewed Active Medications Acetaminophen (Acetaminophen Tab 325 Mg Tab) 650 mg PO Q6HR PRN PRN Reason: Mild Pain or Fever > 100.5 Last Admin: 10/30/22 12:50 Dose: 650 mg Hydrocodone Bitart/Acetaminophen (Hydrocodone/Apap 5-325mg 1 Each Tab) 1 each PO Q4HR PRN PRN Reason: Moderate Pain (Scale 4 to 6) Last Admin: 10/30/22 20:39 Dose: 1 each Albuterol Sulfate (Albuterol Nebulized 2.5 Mg/3 Ml) 2.5 mg INHALATION RT-Q6H PRN PRN Reason: Shortness Of Breath Alprazolam (Alprazolam 0.25 Mg Tab) 0.25 mg PO Q6HR PRN PRN Reason: Mild Anxiety Alprazolam (Alprazolam 0.5 Mg Tab) 0.5 mg PO Q6HR PRN PRN Reason: Moderate Anxiety Aspirin (Aspirin 81 Mg) 81 mg PO DAILY [facility] Last Admin: 10/30/22 10:19 Dose: 81 mg Atorvastatin Calcium (Atorvastatin 80 Mg Tab) 80 mg PO HS [facility] Last Admin: 10/30/22 20:39 Dose: 80 mg Baclofen (Baclofen 10 Mg Tab) 20 mg PO TID PRN PRN Reason: Muscle Spasm Budesonide/Formoterol Fumarate (Symbicort 80-4.5 Mcg Inhaler) 2 puff INHALATION RT-BID [facility] Last Admin: 10/30/22 22:13 Dose: Not Given Cholecalciferol (Cholecalciferol 25 Mcg (1000 Iu) Tablet) 25 mcg PO DAILY [facility] Last Admin: 10/30/22 10:20 Dose: 25 mcg Clindamycin HCl (Clindamycin 150 Mg Cap) 300 mg PO BID [facility] Stop: 11/02/22 21:01 Last Admin: 10/30/22 20:39 Dose: 300 mg Dapagliflozin (Dapagliflozin Propanediol 10 Mg Tablet) 10 mg PO DAILY [facility] Last Admin: 10/30/22 10:20 Dose: 10 mg Dextrose/Water (Dextrose 50% Syringe 50 Ml) 25 ml IVP PER PROTOCOL PRN; Protocol PRN Reason: Hypoglycemia Dextrose/Water (Dextrose 50% Syringe 50 Ml) 50 ml IVP PER PROTOCOL PRN; Protocol PRN Reason: Hypoglycemia Fluticasone Propionate (Fluticasone 50mcg/[place] Nasal 16gm) 1 spray EA NOSTRIL DAILY [facility] Last Admin: 10/30/22 10:29 Dose: Not Given Glimepiride (Glimepiride 4 Mg Tab) 4 mg PO BID [facility] Last Admin: 10/30/22 20:39 Dose: 4 mg Hydrochlorothiazide (Hydrochlorothiazide 25 Mg Tab) 25 mg PO DAILY [facility] Last Admin: 10/30/22 10:21 Dose: 25 mg Sodium Chloride 1,000 ml/ IV (Solution) 1,000 mls @ 145.15 mls/hr IV .Q6H54M [facility] Last Admin: 10/30/22 23:40 Dose: Not Given Insulin Aspart (Insulin Aspart (Novolog) 100 Unit/Ml Vial) 0 unit SQ ACHS [facility]; Protocol Last Admin: 10/30/22 20:40 Dose: 2 unit Ipratropium [place] (Ipratropium 0.5 Mg/2.5 Ml Nebu) 0.5 mg INHALATION RT-QID [facility] Last Admin: 10/30/22 22:13 Dose: Not Given Lactobacillus Acidoph/Bulgaricus (Lactobacillus Acidoph & Bulgar 1 Each Packet) 1 each PO DAILY [facility] Last Admin: 10/30/22 10:21 Dose: 1 each Metoprolol Succinate (Metoprolol Succinate (Er) 25 Mg Tab.Er.24h) 25 mg PO DAILY [facility] Last Admin: 10/30/22 10:20 Dose: 25 mg Miscellaneous Information (Rx Info: Iv Contrast Was Given 1 Each Misc) 1 each MISCELLANE DAILY PRN PRN Reason: Per Protocol Stop: 10/31/22 19:51 Montelukast Sodium (Montelukast 10 Mg Tab) 10 mg PO DAILY [facility] Last Admin: 10/30/22 10:29 Dose: Not Given Morphine Sulfate (Morphine Sulfate 4 Mg/Ml Syringe) 4 mg IV Q4HR PRN PRN Reason: Severe Pain (Scale 7 to 10) Naloxone HCl (Naloxone 0.4 Mg/Ml 1 Ml Vial) 0.2 mg IV Q2M PRN PRN Reason: Opioid Reversal Nitroglycerin (Nitroglycerin Sl Tabs 0.4 Mg Tab) 0.4 mg SUBLINGUAL Q5M PRN PRN Reason: Chest Pain Non-Formulary Medication (Armodafinil [Armodafinil]) 200 mg PO DAILY [facility] Last Admin: 10/30/22 09:20 Dose: Not Given Ondansetron HCl (Ondansetron 4 Mg/2 Ml Vial) 4 mg IVP Q6H PRN PRN Reason: Nausea And Vomiting Pantoprazole Sodium (Pantoprazole 40 Mg/10 Ml Vial) 40 mg IVP BID [facility] Last Admin: 10/30/22 20:39 Dose: 40 mg Polyethylene Glycol (Polyethylene Glycol 3350 17 Gm Powd.Pack) 17 gm PO DAILY [facility] Last Admin: 10/30/22 10:22 Dose: 17 gm Prasugrel (Prasugrel 10 Mg Tab) 10 mg PO DAILY [facility]; Protocol Last Admin: 10/30/22 10:19 Dose: 10 mg Valsartan (Valsartan 160 Mg Tab) 160 mg PO DAILY [facility] Last Admin: 10/30/22 10:20 Dose: 160 mg There PHYSICAL EXAMINATION: GENERAL: The patient is alert and oriented x4, Well developed, well nourished. HEENT: Pupils are round and equally reacting to light. EOMI. no scleral icterus. No conjunctival pallor. Normocephalic, atraumatic. No pharyngeal erythema. No thyromegaly. CARDIOVASCULAR: S1 and S2 muffled PULMONARY: diminished breath sounds bilaterally with no wheezing or rhonchi noted. ABDOMEN: soft. Nontender on exam. obese. non-distended, normoactive bowel sounds. No palpable organomegaly. MUSCULOSKELETAL: No joint swelling or deformity. EXTREMITIES: No cyanosis, clubbing, or pedal edema. NEUROLOGICAL: Gross neurological examination did not reveal any focal deficits. SKIN: No rashes. Assessment: Chest pain, acute NSTEMI status post PTCI stenting to the proximal and mid LAD Diabetes mellitus, type II Hypertension Hyperlipidemia Morbid obesity with BMI of 48.7. GI prophylaxis DVT prophylaxis Full code Plan: Recommend to continue with current medications and management per cardiology services. Patient did have cardiac catheterization requiring stenting and repea t stenting with Dr. Dee and had ANODIZER stenting to the proximal and mid LAD Cardiology following the patient with medication adjustments recommending repeat echo and continue telemetry monitoring Will follow-up with repeat labs and await cardiology clearance Due to multiple complex medical issues, prognosis is guarded Possible discharge in the next 24-48 hours The impression and plan of care has been dictated by Jessica Anton, nurse practitioner as directed. Dr. Oliver MD I have performed a history and examination and MDM of this patient, discussed the same with the dictator, and agree with the dictator's assessment and plan as written ,documented as a scribe. Based on total visit time, I have performed more than 50% of the visit. Any additional findings or plans will be noted. Objective - Vital Signs Vital signs: Vital Signs Temp 98.3 F 10/30/22 20:35 Pulse 93 10/31/22 04:25 Resp 19 10/31/22 04:25 BP 114/73 10/31/22 04:25 Pulse Ox 97 10/31/22 04:25 FiO2 21 10/30/22 08:20 Intake & Output 10/30/22 10/30/22 10/31/22 06:59 18:59 06:59 Intake Total 660 Output Total 750 1 Balance -750 660 -1 Weight 145.15 kg Intake: Oral 660 Output: Urine 750 1 Other: Voiding Method Toilet Toilet Toilet # Voids 1 - Labs CBC & Chem 7: 10/30/22 07:38 10/30/22 09:17 Labs: Abnormal Lab Results - Last 24 Hours (Table) 10/30/22 10/30/22 10/30/22 Range/Units 05:42 09:17 11:58 Sodium 135 L (137-145) mmol/L Glucose 120 H (74-99) mg/dL POC Glucose (mg/dL) 117 H 228 H (70-110) mg/dL 10/30/22 10/30/22 Range/Units 16:23 20:22 Sodium (137-145) mmol/L Glucose (74-99) mg/dL POC Glucose (mg/dL) 169 H 205 H (70-110) mg/dL
[2022-10-31 06:27] LABS: Glucose,Whole Blood 123 mg/dL (70-110)
[2022-10-31] MEDS: SODIUM CHLORIDE 0.9% 1,000 ML in EMPTY BAG 1 BAG IV SCH (06:30)
[2022-10-31] MEDS: INSULIN ASPART (NovoLOG) 100 UNIT/ML VIAL SQ SCH (06:30)
[2022-10-31 07:59] LABS: Basophils % (A) 0 %; Eosinophils # (A) 0.1 k/uL (0-0.7); Eosinophils % (A) 1 %; HCT 44.7 % (39.0-53.0); HGB 15.2 gm/dL (13.0-17.5); Lymphocytes # (A) 0.9 k/uL (1.0-4.8); Lymphocytes % (A) 12 %; Mean Platelet Volume 6.8; Monocytes # (A) 0.7 k/uL (0-1.0); Monocytes % (A) 9 %; Neutrophils # (A) 5.8 k/uL (1.3-7.7); Neutrophils % (A) 74 %; Platelet Count 182 k/uL (150-450); RBC 4.91 m/uL (4.30-5.90); RDW 13.3 % (11.5-15.5); WBC 7.9 k/uL (3.8-10.6)
[2022-10-31] MEDS: IPRATROPIUM 0.5 MG/2.5 ML NEBU INHALATION SCH (08:12)
[2022-10-31] MEDS: SYMBICORT 80-4.5 MCG INHALER INHALATION SCH (08:12)
[2022-10-31 08:28] LABS: Albumin 3.7 g/dL (3.5-5.0); Calcium 8.4 mg/dL (8.4-10.2); Potassium 4.5 mmol/L (3.5-5.1); Total Protein 6.3 g/dL (6.3-8.2)
[2022-10-31] MEDS: ARMODAFINIL 200 MG PO SCH (08:42)
[2022-10-31] MEDS: CLINDAMYCIN 150 MG CAP PO SCH (08:48)
[2022-10-31] MEDS: PRASUGREL 10 MG TAB PO SCH (08:48)
[2022-10-31] MEDS: DAPAGLIFLOZIN PROPANEDIOL 10 MG TABLET PO SCH (08:49)
[2022-10-31] MEDS: FLUTICASONE 50MCG/SPRAY NASAL 16GM EA NOSTRIL SCH (08:49)
[2022-10-31] MEDS: hydroCHLOROthiazide 25 MG TAB PO SCH (08:49)
[2022-10-31] MEDS: VALSARTAN 160 MG TAB PO SCH (08:49)
[2022-10-31] MEDS: GLIMEPIRIDE 4 MG TAB PO SCH (08:49)
[2022-10-31] MEDS: ASPIRIN 81 MG PO SCH (08:49)
[2022-10-31] MEDS: CHOLECALCIFEROL 25 MCG (1000 IU) TABLET PO SCH (08:49)
[2022-10-31] MEDS: LACTOBACILLUS ACIDOPH & BULGAR 1 EACH PACKET PO SCH (08:49)
[2022-10-31] MEDS: METOPROLOL SUCCINATE (ER) 25 MG TAB.ER.24H PO SCH (08:49)
[2022-10-31] MEDS: polyethylene glycoL 3350 17 GM POWD.PACK PO SCH (08:49)
[2022-10-31] MEDS: MONTELUKAST 10 MG TAB PO SCH (08:51)
[2022-10-31 08:54] VITALS: BP 107/65; PULSE 109; RESP 18; TEMP 98.1
--- NOTE | 2022-10-31 10:12 | P.PN ---
Subjective Progress Note Date: 10/31/22 HISTORY OF PRESENT ILLNESS: This is a 57-year-old patient of Dr. Cobos who presented to the emergency room and chest pain. Patient was found to have non-STEMI. Patient underwent cardiac catheterization yesterday with Dr. Pride and Dr. Dee with 80% mid LAD stenosis, 70% mid circumflex stenosis, iFR abnormal of LAD at 0.81. Patient underwent stenting of the mid LAD. Patient was found to have a jailed diagonal branch which was felt to best treated medically. Yesterday evening the patient developed chest pain again. EKG was performed revealing ST changes and patient was returned to the cardiac Professional Housing Consultant. Repeat cardiac catheterization was performed by Dr. Dee revealing CAD with 90% mid and distal LAD stenosis/dissection. Patient underwent PCI of the proximal to mid LAD. Patient examined this morning at the bedside. Patient has had no further episodes of chest pain or pressure. He denies shortness of breath. Vital signs are stable. Right groin and right radial Sites with pulse present. No hematoma noted. 10/31/2022 Patient examined this morning. He is sitting up in the chair. Patient states he had issues with constipation yesterday which has since resolved. He denies chest pain or pressure. He denies shortness of breath. Echocardiogram comple zeeshan revealing ejection fraction 45-50%. Vital signs are stable. Patient is hoping to be discharged home today. PHYSICAL EXAM: VITAL SIGNS: Reviewed. GENERAL: Well-developed in no acute distress. NECK: Supple. No JVD or thyromegaly LUNGS: Respirations even and unlabored. Lungs essentially clear to auscultation bilaterally. HEART: Regular rate and rhythm. S1 and S2 heard. EXTREMITIES: Normal range of motion. No clubbing or cyanosis. Peripheral pulses intact. No lower extremity edema ASSESSMENT: Non-STEMI, status post cardiac catheterization as above Hypertension Hyperlipidemia PLAN: Continue dual antiplatelet therapy with aspirin and Effient Continue high intensity statin Continue additional cardiac medications Patient is stable for discharge home today He is to follow up on an outpatient basis with Dr. Pride Nurse practitioner note has been reviewed by physician. Signing provider agrees with the documented findings, assessment, and plan of care. Objective - Vital Signs Vital signs: Vital Signs Temp 98.1 F 10/31/22 08:00 Pulse 104 H 10/31/22 08:27 Resp 18 10/31/22 08:00 BP 107/65 10/31/22 08:00 Pulse Ox 96 10/31/22 08:16 FiO2 21 10/30/22 08:20 Intake & Output 10/30/22 10/31/22 10/31/22 18:59 06:59 18:59 Intake Total 660 Output Total 1 Balance 660 -1 Weight 145.15 kg Intake: Oral 660 Output: Urine 1 Other: Voiding Method Toilet Toilet # Voids 1 - Labs CBC & Chem 7: 10/31/22 07:12 10/31/22 07:12 Labs: Abnormal Lab Results - Last 24 Hours (Table) 10/30/22 10/30/22 10/30/22 Range/Units 09:17 11:58 16:23 Lymphocytes # (1.0-4.8) k/uL Sodium 135 L (137-145) mmol/L Chloride (98-107) mmol/L Carbon Dioxide (22-30) mmol/L Glucose 120 H (74-99) mg/dL POC Glucose (mg/dL) 228 H 169 H (70-110) mg/dL AST (17-59) U/L ALT (4-49) U/L 10/30/22 10/31/22 10/31/22 Range/Units 20:22 06:26 07:12 Lymphocytes # 0.9 L (1.0-4.8) k/uL Sodium (137-145) mmol/L Chloride (98-107) mmol/L Carbon Dioxide (22-30) mmol/L Glucose (74-99) mg/dL POC Glucose (mg/dL) 205 H 123 H (70-110) mg/dL AST (17-59) U/L ALT (4-49) U/L 10/31/22 Range/Units 07:12 Lymphocytes # (1.0-4.8) k/uL Sodium 135 L (137-145) mmol/L Chloride 96 L (98-107) mmol/L Carbon Dioxide 34 H (22-30) mmol/L Glucose 110 H (74-99) mg/dL POC Glucose (mg/dL) (70-110) mg/dL AST 176 H (17-59) U/L ALT 55 H (4-49) U/L
--- NOTE | 2022-10-31 20:09 | P.DS ---
Providers Date of admission: 10/28/22 13:43 Expected date of discharge: 10/31/22 Attending physician: Steve Boyd Consults: 10/28/22 12:59 Consult Physician Urgent Consulting Provider: Shan Pride Consult Reason/Comments: NSTEMI, chest pain, elevated troponin Do you want consulting provider notified?: Yes 10/29/22 19:51 Consult Physician Routine Consulting Provider: [facility] Consult Reason/Comments: Post Interventional Patient Do you want consulting provider notified?: Already Contacted Primary care physician: Slime Galvin Hospital Course: Final diagnosis Chest pain, acute NSTEMI status post PTCI stenting to the proximal and mid LAD Diabetes mellitus, type II Hypertension Hyperlipidemia Morbid obesity with BMI of 48.7. GI prophylaxis DVT prophylaxis Full code Discharge disposition Patient is being discharged in a stable condition with guarded prognosis to home. [place] Patient will follow-up with in the outpatient setting upon discharge. Patient is to continue with current medication regimen and outpatient follow-up with cardiology now as scheduled. Total time taken is greater than 35 minutes. Hospital course This is a 57year-old male who was recently admitted Chest pain and found to have nstemi and was being closely monitored with cardiology following. Patient underwent cardiac catheterization and had stenting to the LAD requiring restenting to the mid to proximal LAD with Dr. Dee. Patient is continued on current medication as mentioned below and close outpatient follow-up with cardiology this week. Patient instructed to follow-up with primary care provider upon discharge. Patient has been cleared by cardiology for outpatient follow-up. Please refer to cardiology note for further HPI. Currently no reports of chest pain, shortness of breath, or palpitations. Patient is afebrile. No reports of nausea or vomiting and patient is tolerating diet. Patient will be discharged home today. Guarded prognosis. Physical exam: Gen: This is a 57-year-old male who is awake, alert and oriented 3, well- developed, well-nourished, morbidly obese HEENT: Head is atraumatic, normocephalic. Pupils equal, round. Sclerae is anicteric. NECK: Supple. No JVD. No lymphadenopathy. No thyromegaly. LUNGS:Diminished breath sounds bilaterally. No wheezes or rhonchi. No intercostal retractions. HEART:S1, S2 are muffled. ABDOMEN: Soft. obese. Bowel sounds are present. No masses. No tenderness. EXTREMITIES: No pedal edema. No calf tenderness. NEUROLOGICAL: Patient is awake, alert and oriented x3. Cranial nerves 2 through 12 are grossly intact. Please refer to medication reconciliation sheet for a list of medications. The impression and plan of care has been dictated by Jessica Anton, Nurse Practitioner as directed. Dr. Oliver MD I have performed a history and examination and MDM of this patient, discussed the same with the dictator, and agree with the dictator's assessment and plan as written ,documented as a scribe. Based on total visit time, I have performed more than 50% of the visit. Patient Condition at Discharge: Fair Plan - Discharge Summary Discharge Rx Participant: No New Discharge Prescriptions: New Valsartan [Diovan] 160 mg PO DAILY #30 tab hydroCHLOROthiazide [Hydrodiuril] 25 mg PO DAILY 30 Days #30 tab Metoprolol Succinate (ER) [Toprol XL] 25 mg PO DAILY #30 tab Aspirin 81 mg PO DAILY #30 tab Prasugrel [Effient] 10 mg PO DAILY #30 tab Nitroglycerin Sl Tabs [Nitrostat] 0.4 mg SUBLINGUAL Q5M PRN #30 tab PRN Reason: Chest Pain Acetaminophen Tab [Tylenol] 650 mg PO Q6HR PRN tab PRN Reason: Mild Pain Or Fever > 100.5 Continue Glimepiride [Amaryl] 4 mg PO BID Fluticasone Propionate [Flonase Allergy Relief] 1 spray EA NOSTRIL DAILY Baclofen [Lioresal] 20 mg PO TID PRN PRN Reason: Muscle Spasm metFORMIN HCL [Glucophage] 1,000 mg PO BID Atorvastatin [Lipitor] 40 mg PO HS Albuterol Nebulized [Ventolin Nebulized] 2.5 mg INHALATION RT-Q6H PRN PRN Reason: Shortness Of Breath Cholecalciferol [Vitamin D3 (25 Mcg = 1000 Iu)] 25 mcg PO DAILY armodafiniL [Armodafinil] 200 mg PO DAILY Testosterone Cypionate [Depo-Testosterone] 200 mg IM Q14D Pantoprazole [Protonix] 40 mg PO DAILY Fluticasone/Umeclidin/Vilanter [Trelegy Ellipta 100-62.5-25] 1 puff INHALATION RT-DAILY L.acidoph,Paracasei, B.lactis [Probiotic] 1 cap PO DAILY Montelukast Sodium [Singulair] 10 mg PO DAILY Empagliflozin [Jardiance] 25 mg PO DAILY polyethylene glycoL 3350 [Miralax] 17 gm PO DAILY clindamycin HCL [Cleocin] 300 mg PO BID Ondansetron [Zofran] 4 mg PO TID PRN PRN Reason: Nausea Albuterol Inhaler [Ventolin Hfa Inhaler] 2 puff INHALATION RT-QID PRN PRN Reason: Shortness Of Breath Discontinued Valsartan/Hydrochlorothiazide [Valsartan-Hctz 320-25 mg Tab] 1 tab PO DAILY dilTIAZem HCL [dilTIAZem HCL 24Hr ER] 120 mg PO HS Discharge Medication List Atorvastatin [Lipitor] 40 mg PO HS 08/03/16 [History] Baclofen [Lioresal] 20 mg PO TID PRN 08/03/16 [History] Fluticasone Propionate [Flonase Allergy Relief] 1 spray EA NOSTRIL DAILY 08/03/16 [History] Glimepiride [Amaryl] 4 mg PO BID 08/03/16 [History] metFORMIN HCL [Glucophage] 1,000 mg PO BID 08/03/16 [History] Albuterol Nebulized [Ventolin Nebulized] 2.5 mg INHALATION RT-Q6H PRN 10/20/20 [History] Empagliflozin [Jardiance] 25 mg PO DAILY 10/20/20 [History] Montelukast Sodium [Singulair] 10 mg PO DAILY 10/20/20 [History] Albuterol Inhaler [Ventolin Hfa Inhaler] 2 puff INHALATION RT-QID PRN 10/28/22 [History] Cholecalciferol [Vitamin D3 (25 Mcg = 1000 Iu)] 25 mcg PO DAILY 10/28/22 [History] Fluticasone/Umeclidin/Vilanter [Trelegy Ellipta 100-62.5-25] 1 puff INHALATION RT-DAILY 10/28/22 [History] L.acidoph,Paracasei, B.lactis [Probiotic] 1 cap PO DAILY 10/28/22 [History] Ondansetron [Zofran] 4 mg PO TID PRN 10/28/22 [History] Pantoprazole [Protonix] 40 mg PO DAILY 10/28/22 [History] Testosterone Cypionate [Depo-Testosterone] 200 mg IM Q14D 10/28/22 [History] armodafiniL [Armodafinil] 200 mg PO DAILY 10/28/22 [History] clindamycin HCL [Cleocin] 300 mg PO BID 10/28/22 [History] polyethylene glycoL 3350 [Miralax] 17 gm PO DAILY 10/28/22 [History] Acetaminophen Tab [Tylenol] 650 mg PO Q6HR PRN tab 10/31/22 [Rx] Aspirin 81 mg PO DAILY #30 tab 10/31/22 [Rx] Metoprolol Succinate (ER) [Toprol XL] 25 mg PO DAILY #30 tab 10/31/22 [Rx] Nitroglycerin Sl Tabs [Nitrostat] 0.4 mg SUBLINGUAL Q5M PRN #30 tab 10/31/22 [Rx] Prasugrel [Effient] 10 mg PO DAILY #30 tab 10/31/22 [Rx] Valsartan [Diovan] 160 mg PO DAILY #30 tab 10/31/22 [Rx] hydroCHLOROthiazide [Hydrodiuril] 25 mg PO DAILY 30 Days #30 tab 10/31/22 [Rx] Follow up Appointment(s)/Referral(s): Slime Galvin DO [Primary Care Provider] - 1-2 days Shan Pride MD [STAFF PHYSICIAN] - 1 Week Patient Instructions/Handouts: Heart Attack (DC) Activity/Diet/Wound Care/Special Instructions: OK for discharge Prescription sent to [facility] yuliya Activity Limited until follow-up Follow-up with primary care provider on discharge Follow-up with cardiology in one week Continue taking medications as prescribed Continue heart healthy diet Discharge Disposition: HOME SELF-CARE
== END 2022-10-31 11:21 | disposition home or self-care (01) | DRG 174 ==
LOC: EC 11:28 → 3SCARD 13:43
PROVIDERS: ADMIT Hospitalist; ATTEND Hospitalist
PROC: B241ZZ3 Ultrasonography of Multiple Coronary Arteries, Intravascular (ICD-10-PCS; 2022-10-29)
PROC: 027035Z Dilation of Coronary Artery, One Artery with Two Drug-eluting Intraluminal Devices, Percutaneous Approach (ICD-10-PCS; 2022-10-29)
PROC: 4A023N7 Measurement of Cardiac Sampling and Pressure, Left Heart, Percutaneous Approach (ICD-10-PCS; 2022-10-29)
PROC: B2111ZZ Fluoroscopy of Multiple Coronary Arteries using Low Osmolar Contrast (ICD-10-PCS; 2022-10-29)
PROC: 027034Z Dilation of Coronary Artery, One Artery with Drug-eluting Intraluminal Device, Percutaneous Approach (ICD-10-PCS; principal; 2022-10-29 08:30)
PROC: B2111ZZ Fluoroscopy of Multiple Coronary Arteries using Low Osmolar Contrast (ICD-10-PCS; 2022-10-29 11:00)
PROC: 4A033BC Measurement of Arterial Pressure, Coronary, Percutaneous Approach (ICD-10-PCS; 2022-10-29 11:00)
DX: I21.4 Non-ST elevation (NSTEMI) myocardial infarction (principal); K76.0 Fatty (change of) liver, not elsewhere classified; E11.9 Type 2 diabetes mellitus without complications; I10 Essential (primary) hypertension; J45.909 Unspecified asthma, uncomplicated; E66.01 Morbid (severe) obesity due to excess calories; Z68.42 Body mass index [BMI] 45.0-49.9, adult; E78.5 Hyperlipidemia, unspecified; G47.30 Sleep apnea, unspecified; I25.119 Atherosclerotic heart disease of native coronary artery with unspecified angina pectoris; Z79.899 Other long term (current) drug therapy; Z79.84 Long term (current) use of oral hypoglycemic drugs; Z82.49 Family history of ischemic heart disease and other diseases of the circulatory system; Z28.311 Partially vaccinated for COVID-19
CPT/HCPCS: 36415; 71046; 80048; 80053; 83036; 83735; 84484; 85025; 85610; 85730; 92978; 93005; 93306; 93454; 93458; 93799; 94640; 94660; 94760; 96365; 96366; 96375; 99291

== ENCOUNTER 2022-11-25 10:38 | Inpatient (IN) | payer OTHER ==
[2022-11-25] MEDS ORDERED: NITROGLYCERIN OINT 1 INCH/GM PACKET TOPICAL STA (11:22)
[2022-11-25] MEDS ORDERED: ASPIRIN 81 MG PO STA (11:22)
--- NOTE | 2022-11-25 11:25 | ED ---
General Adult HPI - General Chief complaint: Chest Pain Stated complaint: Doctor sent over for testing Time Seen by Provider: 11/25/22 11:08 Source: patient, RN notes reviewed Mode of arrival: ambulatory Limitations: no limitations - History of Present Illness Initial comments: Patient is a pleasant 57-year-old male presenting to the emergency Department with chest discomfort. Patient did have stenting done a month ago with similar symptoms. Symptoms this time have been present for the past one week. Symptoms usually occur at nighttime or with exertion. Patient states nitroglycerin does help with his symptoms. Discomfort is minimal at this time. Discomfort is felt like an ache. Patient does get associated dyspnea. Patient did feel some n ausea this morning earlier. No diaphoresis. No leg pain or leg swelling. - Related Data Home Medications Medication Instructions Recorded Confirmed Atorvastatin [Lipitor] 40 mg PO HS 08/03/16 11/25/22 Baclofen [Lioresal] 20 mg PO TID PRN 08/03/16 11/25/22 Fluticasone Propionate [Flonase 1 spray EA NOSTRIL DAILY 08/03/16 11/25/22 Allergy Relief] Glimepiride [Amaryl] 4 mg PO BID 08/03/16 11/25/22 metFORMIN HCL [Glucophage] 1,000 mg PO BID 08/03/16 11/25/22 Albuterol Nebulized [Ventolin 2.5 mg INHALATION RT-Q6H PRN 10/20/20 11/25/22 Nebulized] Empagliflozin [Jardiance] 25 mg PO DAILY 10/20/20 11/25/22 Montelukast Sodium [Singulair] 10 mg PO DAILY 10/20/20 11/25/22 Albuterol Inhaler [Ventolin Hfa 2 puff INHALATION RT-QID PRN 10/28/22 11/25/22 Inhaler] Cholecalciferol [Vitamin D3 (25 25 mcg PO DAILY 10/28/22 11/25/22 Mcg = 1000 Iu)] Fluticasone/Umeclidin/Vilanter 1 puff INHALATION RT-DAILY 10/28/22 11/25/22 [Trelegy Ellipta 100-62.5-25] L.acidoph,Paracasei, B.lactis 1 cap PO DAILY 10/28/22 11/25/22 [Probiotic] Ondansetron [Zofran] 4 mg PO TID PRN 10/28/22 11/25/22 Pantoprazole [Protonix] 40 mg PO DAILY 10/28/22 11/25/22 Testosterone Cypionate 200 mg IM Q14D 10/28/22 11/25/22 [Depo-Testosterone] armodafiniL [Armodafinil] 200 mg PO DAILY 10/28/22 11/25/22 clindamycin HCL [Cleocin] 300 mg PO BID 10/28/22 11/25/22 polyethylene glycoL 3350 [Miralax] 17 gm PO DAILY 10/28/22 11/25/22 Previous Rx's Medication Instructions Recorded Acetaminophen Tab [Tylenol] 650 mg PO Q6HR PRN tab 10/31/22 Aspirin 81 mg PO DAILY #30 tab 10/31/22 Metoprolol Succinate (ER) [Toprol 25 mg PO DAILY #30 tab 10/31/22 XL] Nitroglycerin Sl Tabs [Nitrostat] 0.4 mg SUBLINGUAL Q5M PRN #30 tab 10/31/22 Prasugrel [Effient] 10 mg PO DAILY #30 tab 10/31/22 Valsartan [Diovan] 160 mg PO DAILY #30 tab 10/31/22 hydroCHLOROthiazide [Hydrodiuril] 25 mg PO DAILY 30 Days #30 tab 10/31/22 Allergies Allergy/AdvReac Type Severity Reaction Status Date / Time hydrochlorothiazide Allergy Unknown HEADACHE Verified 11/25/22 13:03 [From Hyzaar] losartan [From Hyzaar] Allergy Unknown HEADACHE Verified 11/25/22 13:03 Review of Systems ROS Statement: Those systems with pertinent positive or pertinent negative responses have been documented in the HPI. ROS Other: All systems not noted in ROS Statement are negative. Constitutional: Denies: fever Eyes: Denies: eye pain ENT: Denies: ear pain Respiratory: Reports: as per HPI Cardiovascular: Reports: as per HPI, chest pain Endocrine: Denies: fatigue Gastrointestinal: Denies: abdominal pain, vomiting Genitourinary: Denies: dysuria Musculoskeletal: Denies: back pain Past Medical History Past Medical History: Asthma, Chest Pain / Angina, Diabetes Mellitus, Hyperlipidemia, Hypertension, Osteoarthritis (OA), Sleep Apnea/CPAP/BIPAP Additional Past Medical History / Comment(s): FATTY LIVER, USES C-PAP MACHINE, BACK PAIN, CONSTIPATION AND DIARRHEA. History of Any Multi-Drug Resistant Organisms: None Reported Past Surgical History: No Surgical Hx Reported Additional Past Surgical History / Comment(s): COLONOSCOPY Past Anesthesia/Blood Transfusion Reactions: Motion Sickness, No Reported Reaction Past Psychological History: Anxiety Smoking Status: Never smoker Past Alcohol Use History: None Reported Past Drug Use History: None Reported - Past Family History Mother Family Medical History: No Reported History General Exam Limitations: no limitations General appearance: alert, in no apparent distress Head exam: Present: normocephalic Eye exam: Present: normal appearance Neck exam: Present: normal inspection Respiratory exam: Present: normal lung sounds bilaterally. Absent: chest wall tenderness Cardiovascular Exam: Present: regular rate, normal rhythm Expanded Peripheral pulses: 2+: Radial (R), Radial (L), Posterior Tibialis (R), Posterior Tibialis (L) GI/Abdominal exam: Present: soft. Absent: tenderness Extremities exam: Present: normal inspection. Absent: pedal edema, calf tend erness Back exam: Present: normal inspection Neurological exam: Present: alert Psychiatric exam: Present: normal affect, normal mood Skin exam: Present: normal color Course Vital Signs 11/25/22 11/25/22 11:02 13:23 Temperature 98 F 98.6 F Pulse Rate 97 80 Respiratory 22 17 Rate Blood Pressure 111/74 110/58 O2 Sat by Pulse 98 100 Oximetry EKG Findings - EKG Results: EKG: interpreted by ERMD (Septal Q waves. Borderline inferior ST depression), sinus rhythm, normal axis Medical Decision Making - Medical Decision Making Was pt. sent in by a medical professional or institution (, PA, RETAIL BAKERY MANAGER, urgent care, hospital, or custodial...) When possible be specific @ -No Did you speak to anyone other than the patient for history (EMS, parent, family, police, friend...)? What history was obtained from this source @ -No Did you review nursing and triage notes (agree or disagree)? Why? @ -I reviewed and agree with nursing and triage notes Were old charts reviewed (outside hosp., previous admission, EMS record, old EKG, old radiological studies, urgent care reports/EKG's, custodial records)? Report findings @ -Prior admission reviewed Differential Diagnosis (chest pain, altered mental status, abdominal pain women, abdominal pain men, vaginal bleeding, weakness, fever, dyspnea, syncope, headache, dizziness, GI bleed, back pain, seizure, CVA, palpatations, mental health)? @ -Differential Chest Pain: Stable Angina, Unstable Angina, STEMI, NSTEMI Aortic Dissection, Pneumothorax, Musculoskeletal, Esophageal Spasm GERD, Cholecystitis, Pancreatitis, Zoster, this is not meant to be an all-inclusive list. EKG interpreted by me (3pts min.). @ -As above X-rays interpreted by me (1pt min.). @ -Chest x-ray shows cardio megally CT interpreted by me (1pt min.). @ -None done U/S interpreted by me (1pt. min.). @ -None done What testing was considered but not performed or refused? (CT, X-rays, U/S, labs)? Why? @ -None What meds were considered but not given or refused? Why? @ -None Did you discuss the management of the patient with other professionals (professionals i.e. , PA, RETAIL BAKERY MANAGER, lab, RT, psych nurse, social media assistant, glass mold repairer, teacher, health officer, ed case manager)? Give summary @ -Case was discussed with Dr. spencer, who will admit covering Dr. Ulrich Was smoking cessation discussed for >3mins.? @ -No Was critical care preformed (if so, how long)? @ -31 minutes could care time Were there social determinants of health that impacted care today? How? (Homelessness, low income, unemployed, alcoholism, drug addiction, transpor tation, low edu. Level, literacy, decrease access to med. care, correction, rehab)? @ -No Was there de-escalation of care discussed even if they declined (Discuss DNR or withdrawal of care, Hospice)? DNR status @ -No What co-morbidities impacted this encounter? (DM, HTN, Smoking, COPD, CAD, Cancer, CVA, ARF, Chemo, Hep., AIDS, mental health diagnosis, sleep apnea, morbid obesity)? @ -None Was patient admitted / discharged? Hospital course, mention meds given and route, prescriptions, significant lab abnormalities, going to OR and other pertinent info. @ -Patient reevaluated and patient is updated. Patient resting comfortably at bedside. There is concern for elevated troponin as this should've normalized from previous admission. Patient will be admitted with heparin and cardiac consultation. Undiagnosed new problem with uncertain prognosis? @ -No Drug Therapy requiring intensive monitoring for toxicity (Heparin, Nitro, Insulin, Cardizem)? @ -Patient will be started on heparin drip and will need to be monitored Were any procedures done? @ -No Diagnosis/symptom? @ -Unstable angina Acute, or Chronic, or Acute on Chronic? @ -Acute Uncomplicated (without systemic symptoms) or Complicated (systemic symptoms)? @ -default Side effects of treatment? @ -No Exacerbation, Progression, or Severe Exacerbation? @ -No Poses a threat to life or bodily function? How? (Chest pain, USA, NV, pneumonia, PE, COPD, DKA, ARF, appy, cholecystitis, CVA, Diverticulitis, Homicidal, Suicidal, threat to staff... and all critical care pts) @ -No - Lab Data Result diagrams: 11/25/22 11:30 11/25/22 11:30 Lab Results 11/25/22 11/25/22 11/25/22 Range/Units 11:30 11:30 11:30 WBC 6.1 (3.8-10.6) k/uL RBC 5.30 (4.30-5.90) m/uL Hgb 15.0 (13.0-17.5) gm/dL Hct 45.9 (39.0-53.0) % MCV 86.6 (80.0-100.0) fL MCH 28.4 (25.0-35.0) pg MCHC 32.8 (31.0-37.0) g/dL RDW 13.4 (11.5-15.5) % Plt Count 249 (150-450) k/uL MPV 7.0 Neutrophils % 66 % Lymphocytes % 19 % Monocytes % 7 % Eosinophils % 4 % Basophils % 1 % Neutrophils # 4.0 (1.3-7.7) k/uL Lymphocytes # 1.2 (1.0-4.8) k/uL Monocytes # 0.4 (0-1.0) k/uL Eosinophils # 0.3 (0-0.7) k/uL Basophils # 0.0 (0-0.2) k/uL Hypochromasia Slight Poikilocytosis Slight PT 11.1 (9.0-12.0) sec INR 1.1 (<1.2) APTT 23.3 (22.0-30.0) sec Sodium 137 (137-145) mmol/L Potassium 4.5 (3.5-5.1) mmol/L Chloride 99 (98-107) mmol/L Carbon Dioxide 27 (22-30) mmol/L Anion Gap 11 mmol/L BUN 12 (9-20) mg/dL Creatinine 0.89 (0.66-1.25) mg/dL Est GFR (CKD-EPI)AfAm >90 (>60 ml/min/1.73 sqM) Est GFR (CKD-EPI)NonAf >90 (>60 ml/min/1.73 sqM) Glucose 155 H (74-99) mg/dL Calcium 9.2 (8.4-10.2) mg/dL Magnesium 2.0 (1.6-2.3) mg/dL Total Bilirubin 1.0 (0.2-1.3) mg/dL AST 33 (17-59) U/L ALT 37 (4-49) U/L Alkaline Phosphatase 49 (38-126) U/L Troponin I (0.000-0.034) ng/mL NT-Pro-B Natriuret Pep pg/mL Total Protein 7.1 (6.3-8.2) g/dL Albumin 4.3 (3.5-5.0) g/dL 11/25/22 11/25/22 Range/Units 11:30 11:30 WBC (3.8-10.6) k/uL RBC (4.30-5.90) m/uL Hgb (13.0-17.5) gm/dL Hct (39.0-53.0) % MCV (80.0-100.0) fL MCH (25.0-35.0) pg MCHC (31.0-37.0) g/dL RDW (11.5-15.5) % Plt Count (150-450) k/uL MPV Neutrophils % % Lymphocytes % % Monocytes % % Eosinophils % % Basophils % % Neutrophils # (1.3-7.7) k/uL Lymphocytes # (1.0-4.8) k/uL Monocytes # (0-1.0) k/uL Eosinophils # (0-0.7) k/uL Basophils # (0-0.2) k/uL Hypochromasia Poikilocytosis PT (9.0-12.0) sec INR (<1.2) APTT (22.0-30.0) sec Sodium (137-145) mmol/L Potassium (3.5-5.1) mmol/L Chloride (98-107) mmol/L Carbon Dioxide (22-30) mmol/L Anion Gap mmol/L BUN (9-20) mg/dL Creatinine (0.66-1.25) mg/dL Est GFR (CKD-EPI)AfAm (>60 ml/min/1.73 sqM) Est GFR (CKD-EPI)NonAf (>60 ml/min/1.73 sqM) Glucose (74-99) mg/dL Calcium (8.4-10.2) mg/dL Magnesium (1.6-2.3) mg/dL Total Bilirubin (0.2-1.3) mg/dL AST (17-59) U/L ALT (4-49) U/L Alkaline Phosphatase (38-126) U/L Troponin I 0.072 H* (0.000-0.034) ng/mL NT-Pro-B Natriuret Pep 256 pg/mL Total Protein (6.3-8.2) g/dL Albumin (3.5-5.0) g/dL Critical Care Time Critical Care Time: Yes Total Critical Care Time: 31 Disposition Clinical Impression: Unstable angina Disposition: ADMITTED IP TO THIS [facility] Is patient prescribed a controlled substance at d/c from ED?: No Referrals: Slime Ulrich DO [Primary Care Provider] - 1-2 days Time of Disposition: 13:29
[2022-11-25 11:48] LABS: Basophils % (A) 1 %; Eosinophils # (A) 0.3 k/uL (0-0.7); Eosinophils % (A) 4 %; HCT 45.9 % (39.0-53.0); Hypochromasia Slight; Lymphocytes # (A) 1.2 k/uL (1.0-4.8); Lymphocytes % (A) 19 %; MCH 28.4 pg (25.0-35.0); MCHC 32.8 g/dL (31.0-37.0); MCV 86.6 fL (80.0-100.0); Monocytes # (A) 0.4 k/uL (0-1.0); Monocytes % (A) 7 %; Neutrophils % (A) 66 %; Platelet Count 249 k/uL (150-450); Poikilocytosis Slight; RDW 13.4 % (11.5-15.5); WBC 6.1 k/uL (3.8-10.6)
--- NOTE | 2022-11-25 11:56 | XR ---
EXAMINATION TYPE: XR chest 2V DATE OF EXAM: 11/25/2022 COMPARISON: 10/28/2022 HISTORY: 57-year-old male with chest pain TECHNIQUE: PA and lateral views FINDINGS: Heart mildly enlarged. Interstitial prominence. Some strandy atelectasis in the lower lungs. Hyperinf lation with flattening of the hemidiaphragms. No pleural effusion. [facility] mid thoracic spine. IMPRESSION: Mild cardiomegaly and COPD. Interstitial prominence could reflect mild pulmonary vascular congestion. Clinically correlate. Otherwise, no acute process seen.
[2022-11-25 11:57] LABS: ALT 37 U/L (4-49); AST 33 U/L (17-59); African American GFR (CKD) >90 (>60 ml/min/1.73 sqM); Albumin 4.3 g/dL (3.5-5.0); Alkaline Phosphatase 49 U/L (38-126); Anion Gap 11 mmol/L; Blood Urea Nitrogen 12 mg/dL (9-20); Calcium 9.2 mg/dL (8.4-10.2); Carbon Dioxide 27 mmol/L (22-30); Chloride 99 mmol/L (98-107); Glucose 155 mg/dL (74-99); Non-African American GFR(CKD) >90 (>60 ml/min/1.73 sqM); Potassium 4.5 mmol/L (3.5-5.1); Sodium 137 mmol/L (137-145); Total Protein 7.1 g/dL (6.3-8.2)
[2022-11-25 12:05] LABS: INR 1.1 (<1.2); Partial Thromboplastin Time 23.3 sec (22.0-30.0); Prothrombin Time 11.1 sec (9.0-12.0)
--- NOTE | 2022-11-25 13:23 | P.HPIM ---
History of Present Illness Patient is a pleasant 57-year-old male with with the recent cardiac original stenting came in with symptoms of left-sided chest pain and midsternal chest pain radiating to the back patient doesn't have gallbladder anymore this chest pain is nonexertional started last night and was having on and off episodes reviewed by nitroglycerin radiating to the jaw as well as left arm no associated shortness of breath or diaphoresis or nausea. Patient just pain is nonpleuritic not associated with food. EKG showed a mild nonspecific ST depressions in lead 2 in lead 3 which were not present in the previous EKG. Patient has mild elevation of troponin to 0.072. REVIEW OF SYSTEMS: CONSTITUTIONAL: No fever, no malaise, no fatigue. HEENT: No recent visual problems or hearing problems. Denied any sore throat. CARDIOVASCULAR: No orthopnea, PND, no palpitations, no syncope. PULMONARY: No shortness of breath, no cough, no hemoptysis. GASTROINTESTINAL: No diarrhea, no nausea, no vomiting, no abdominal pain. NEUROLOGICAL: No headaches, no weakness, no numbness. HEMATOLOGICAL: Denies any bleeding or petechiae. GENITOURINARY: Denies any burning micturition, frequency, or urgency. MUSCULOSKELETAL/RHEUMATOLOGICAL: Denies any joint pain, swelling, or any muscle pain. ENDOCRINE: Denies any polyuria or polydipsia. The rest of the 14-point review of systems is negative. PHYSICAL EXAMINATION: GENERAL: The patient is alert and oriented x3, not in any acute distress. Well developed, well nourished. Obese HEENT: Pupils are round and equally reacting to light. EOMI. No scleral icterus. No conjunctival pallor. Normocephalic, atraumatic. No pharyngeal erythema. No thyromegaly. CARDIOVASCULAR: S1 and S2 present. No murmurs, rubs, or gallops. PULMONARY: Chest is clear to auscultation, no wheezing or crackles. ABDOMEN: Soft, nontender, nondistended, normoactive bowel sounds. No palpable organomegaly. MUSCULOSKELETAL: No joint swelling or deformity. EXTREMITIES: No cyanosis, clubbing, or pedal edema. NEUROLOGICAL: Gross neurological examination did not reveal any focal deficits. SKIN: No rashes. Assessment and plan -Chest pain: Possible non-ST elevation myocardial infarction recent cardiac catheterization patient admits any of his medications. We'll repeat 2 more sets of troponins patient was started on IV heparin cardiology will evaluate the patient. -Obesity -Asthma without any good etc. Plan diabetes mellitus patient will be resumed on home regimen titrate the regimen depending on blood sugars here -Hyperlipidemia Hypertension Sleep apnea and uses CPAP machine at home DVT prophylaxis: Early ambulation, patient will be on IV heparin Past Medical History Past Medical History: Asthma, Chest Pain / Angina, Diabetes Mellitus, Hyperlipidemia, Hypertension, Osteoarthritis (OA), Sleep Apnea/CPAP/BIPAP Additional Past Medical History / Comment(s): FATTY LIVER, USES C-PAP MACHINE, BACK PAIN, CONSTIPATION AND DIARRHEA. History of Any Multi-Drug Resistant Organisms: None Reported Past Surgical History: No Surgical Hx Reported Additional Past Surgical History / Comment(s): COLONOSCOPY Past Anesthesia/Blood Transfusion Reactions: Motion Sickness, No Reported Reaction Past Psychological History: Anxiety Smoking Status: Never smoker Past Alcohol Use History: None Reported Past Drug Use History: None Reported - Past Family History Mother Family Medical History: No Reported History Medications and Allergies Home Medications Medication Instructions Recorded Confirmed Type Atorvastatin [Lipitor] 40 mg PO HS 08/03/16 11/25/22 History Baclofen [Lioresal] 20 mg PO TID PRN 08/03/16 11/25/22 History Fluticasone Propionate [Flonase 1 spray EA NOSTRIL DAILY 08/03/16 11/25/22 History Allergy Relief] Glimepiride [Amaryl] 4 mg PO BID 08/03/16 11/25/22 History metFORMIN HCL [Glucophage] 1,000 mg PO BID 08/03/16 11/25/22 History Albuterol Nebulized [Ventolin 2.5 mg INHALATION RT-Q6H PRN 10/20/20 11/25/22 History Nebulized] Empagliflozin [Jardiance] 25 mg PO DAILY 10/20/20 11/25/22 History Montelukast Sodium [Singulair] 10 mg PO DAILY 10/20/20 11/25/22 History Albuterol Inhaler [Ventolin Hfa 2 puff INHALATION RT-QID PRN 10/28/22 11/25/22 History Inhaler] Cholecalciferol [Vitamin D3 (25 25 mcg PO DAILY 10/28/22 11/25/22 History Mcg = 1000 Iu)] Fluticasone/Umeclidin/Vilanter 1 puff INHALATION RT-DAILY 10/28/22 11/25/22 History [Trelegy Ellipta 100-62.5-25] L.acidoph,Paracasei, B.lactis 1 cap PO DAILY 10/28/22 11/25/22 History [Probiotic] Ondansetron [Zofran] 4 mg PO TID PRN 10/28/22 11/25/22 History Pantoprazole [Protonix] 40 mg PO DAILY 10/28/22 11/25/22 History Testosterone Cypionate 200 mg IM Q14D 10/28/22 11/25/22 History [Depo-Testosterone] armodafiniL [Armodafinil] 200 mg PO DAILY 10/28/22 11/25/22 History clindamycin HCL [Cleocin] 300 mg PO BID 10/28/22 11/25/22 History polyethylene glycoL 3350 [Miralax] 17 gm PO DAILY 10/28/22 11/25/22 History Acetaminophen Tab [Tylenol] 650 mg PO Q6HR PRN tab 10/31/22 11/25/22 Rx Aspirin 81 mg PO DAILY #30 tab 10/31/22 11/25/22 Rx Metoprolol Succinate (ER) [Toprol 25 mg PO DAILY #30 tab 10/31/22 11/25/22 Rx XL] Nitroglycerin Sl Tabs [Nitrostat] 0.4 mg SUBLINGUAL Q5M PRN #30 tab 10/31/22 11/25/22 Rx Prasugrel [Effient] 10 mg PO DAILY #30 tab 10/31/22 11/25/22 Rx Valsartan [Diovan] 160 mg PO DAILY #30 tab 10/31/22 11/25/22 Rx hydroCHLOROthiazide [Hydrodiuril] 25 mg PO DAILY 30 Days #30 tab 10/31/22 11/25/22 Rx Allergies Allergy/AdvReac Type Severity Reaction Status Date / Time hydrochlorothiazide Allergy Unknown HEADACHE Verified 11/25/22 13:03 [From Hyzaar] losartan [From Hyzaar] Allergy Unknown HEADACHE Verified 11/25/22 13:03 Physical Exam Vitals: Vital Signs Temp Pulse Resp BP Pulse Ox 11/25/22 11:02 98 F 97 22 111/74 98 Intake and Output 11/24/22 11/25/2211/25/23 22:59 06:59 14:59 Other: Weight 148.325 kg Results CBC & Chem 7: 11/25/22 11:30 11/25/22 11:30 Labs: Abnormal Lab Results - Last 24 Hours (Table) 11/25/22 11/25/22 Range/Units 11:30 11:30 Glucose 155 H (74-99) mg/dL Troponin I 0.072 H* (0.000-0.034) ng/mL
[2022-11-25] MEDS ORDERED: HEPARIN SODIUM 1,000 UN/ML (10ML VL) IV ONE (13:29)
[2022-11-25] MEDS ORDERED: NITROGLYCERIN SL TABS 0.4 MG TAB SUBLINGUAL PRN ×2 (13:29→13:31)
[2022-11-25] MEDS ORDERED: polyethylene glycoL 3350 17 GM POWD.PACK PO PRN (13:31)
[2022-11-25] MEDS ORDERED: ALBUTEROL NEBULIZED 2.5 MG/3 ML INHALATION PRN (13:31)
[2022-11-25] MEDS ORDERED: BACLOFEN 10 MG TAB PO PRN (13:31)
[2022-11-25] MEDS: HEPARIN SOD,PORK IN 0.45% NACL 25,000 UNIT in 0.45% NACL 1 250ML.BAG IV SCH (13:52)
[2022-11-25] MEDS: NITROGLYCERIN OINT 1 INCH/GM PACKET TOPICAL SCH (17:02)
[2022-11-25 19:58] LABS: Glucose,Whole Blood 186 mg/dL (70-110)
[2022-11-25] MEDS ORDERED: ATORVASTATIN 40 MG TAB PO SCH (21:00)
[2022-11-25] MEDS ORDERED: CALCIUM CARBONATE 500 MG CHEWABLE PO PRN (21:00)
[2022-11-25] MEDS: FAMOTIDINE 20 MG TAB PO SCH (21:56)
[2022-11-26] MEDS: NITROGLYCERIN OINT 1 INCH/GM PACKET TOPICAL SCH ×2 (00:31→05:52)
[2022-11-26] MEDS: HEPARIN SOD,PORK IN 0.45% NACL 25,000 UNIT in 0.45% NACL 1 250ML.BAG IV SCH ×2 (05:52→11:07)
[2022-11-26] MEDS: PANTOPRAZOLE 40 MG TABLET PO SCH (05:52)
[2022-11-26 05:57] LABS: Glucose,Whole Blood 117 mg/dL (70-110)
[2022-11-26] MEDS ORDERED: HEPARIN SODIUM,PORCINE 2,500 UNIT in SODIUM CHLORIDE 0.9% 250 ML IRRIGATION PRN (07:00)
[2022-11-26] MEDS ORDERED: HEPARIN SODIUM,PORCINE 10,000 UNIT in SODIUM CHLORIDE 0.9% 1,000 ML IRRIGATION PRN (07:00)
[2022-11-26] MEDS ORDERED: ATORVASTATIN 80 MG TAB PO STA (07:14)
[2022-11-26] MEDS ORDERED: NITROGLYCERIN SL TABS 0.4 MG TAB SUBLINGUAL PRN (07:14)
[2022-11-26] MEDS: ASPIRIN 81 MG PO SCH (07:19)
[2022-11-26] MEDS ORDERED: fentaNYL (PF) 50 MCG/ML 2 ML AMP IV ONE (07:40)
[2022-11-26] MEDS ORDERED: MIDAZOLAM 2 MG/2 ML VIAL IV ONE (07:40)
[2022-11-26] MEDS ORDERED: VERAPAMIL SYRINGE (5 MG/10 ML) INTRAARTER ONE (07:44)
[2022-11-26] MEDS ORDERED: LIDOCAINE 1% INJ 10MG/ML (20 ML MDV) SQ ONE (07:44)
[2022-11-26] MEDS: IPRATROPIUM 0.5 MG/2.5 ML NEBU INHALATION SCH ×4 (07:49→20:36)
[2022-11-26] MEDS: SYMBICORT 80-4.5 MCG INHALER INHALATION SCH ×2 (07:49→20:36)
[2022-11-26] MEDS ORDERED: IV FLUID CONTINUATION 1,000 ML IV ONE (07:50)
[2022-11-26] MEDS: HEPARIN SODIUM 1,000 UN/ML (10ML VL) IV ONE (07:50)
[2022-11-26] MEDS ORDERED: NITROGLYCERIN-D5W PMX 50 MG in DEXTROSE/WATER 1 250ML.BAG IV ONE (08:37)
[2022-11-26] MEDS ORDERED: hydrALAZINE HCL 20 MG/ML 1 ML VIAL IV ONE (08:42)
[2022-11-26] MEDS ORDERED: IOPAMIDOL-370 100ML BTL INJ ONE (08:45)
[2022-11-26] MEDS ORDERED: METOPROLOL SUCCINATE (ER) 25 MG TAB.ER.24H PO SCH (09:00)
[2022-11-26] MEDS ORDERED: ASPIRIN 325 MG TAB PO SCH (09:00)
[2022-11-26] MEDS ORDERED: PRASUGREL 10 MG TAB PO SCH (09:00)
[2022-11-26] MEDS ORDERED: RX INFO: IV CONTRAST WAS GIVEN 1 EACH MISC MISCELLANE PRN (09:01)
[2022-11-26 09:43] LABS: Basophils % (A) 0 %; Eosinophils # (A) 0.2 k/uL (0-0.7); Eosinophils % (A) 4 %; HCT 42.6 % (39.0-53.0); HGB 13.9 gm/dL (13.0-17.5); Hypochromasia Slight; Lymphocytes % (A) 18 %; MCH 28.3 pg (25.0-35.0); MCHC 32.8 g/dL (31.0-37.0); MCV 86.4 fL (80.0-100.0); Monocytes # (A) 0.4 k/uL (0-1.0); Monocytes % (A) 7 %; Neutrophils # (A) 3.9 k/uL (1.3-7.7); Neutrophils % (A) 67 %; Platelet Count 216 k/uL (150-450); Poikilocytosis Slight; RBC 4.92 m/uL (4.30-5.90); RDW 13.6 % (11.5-15.5); WBC 5.8 k/uL (3.8-10.6)
[2022-11-26] MEDS: NITROGLYCERIN-D5W PMX 50 MG in DEXTROSE/WATER 1 250ML.BAG IV SCH (10:42)
[2022-11-26] MEDS: MONTELUKAST 10 MG TAB PO SCH (10:42)
[2022-11-26] MEDS: FAMOTIDINE 20 MG TAB PO SCH ×2 (10:42→21:11)
[2022-11-26] MEDS: SODIUM CHLORIDE 0.9% 1,000 ML in EMPTY BAG 1 BAG IV SCH ×2 (10:43→14:40)
[2022-11-26] MEDS: ACETAMINOPHEN TAB 325 MG TAB PO PRN (10:43)
[2022-11-26] MEDS: DAPAGLIFLOZIN PROPANEDIOL 10 MG TABLET PO SCH (10:44)
[2022-11-26] MEDS: VALSARTAN 160 MG TAB PO SCH (10:44)
[2022-11-26 11:38] LABS: Glucose,Whole Blood 149 mg/dL (70-110)
[2022-11-26] MEDS ORDERED: MD COMMUNICATION TO PHARMACY 1 EACH MISC PO ONE (12:00)
[2022-11-26 12:34] LABS: ALT 40 U/L (4-49); AST 34 U/L (17-59); African American GFR (CKD) >90 (>60 ml/min/1.73 sqM); Albumin 3.9 g/dL (3.5-5.0); Alkaline Phosphatase 49 U/L (38-126); Anion Gap 13 mmol/L; Blood Urea Nitrogen 11 mg/dL (9-20); Calcium 8.9 mg/dL (8.4-10.2); Carbon Dioxide 23 mmol/L (22-30); Chloride 98 mmol/L (98-107); Glucose 133 mg/dL (74-99); Non-African American GFR(CKD) >90 (>60 ml/min/1.73 sqM); Potassium 4.3 mmol/L (3.5-5.1); Sodium 134 mmol/L (137-145); Total Bilirubin 1.2 mg/dL (0.2-1.3); Total Protein 6.6 g/dL (6.3-8.2)
--- NOTE | 2022-11-26 12:34 | P.GSCN ---
History of Present Illness Consult date: 11/26/22 Reason for Consult: Coronary artery disease, evaluation for myocardial revascularization surgery Requesting physician: Shan Pride History of present illness: This is a 57-year-old gentleman who follows on an outpatient basis with Dr. Slime Ulrich for his primary care service and Dr. Farida Pride for his cardiology ca re. He has a past medical history significant for coronary artery disease and is status post PCI to his mid and distal LAD on 10/28/2022 on Effient for anticoagulation, hypertension, hyperlipidemia, morbid obesity with a BMI of 52.2 kg/m, type 2 diabetes mellitus, GERD, obstructive sleep apnea with home CPAP use, asthma, family history of early onset coronary artery disease with his dad being diagnosed at age 52 and is a lifetime nonsmoker. The patient reports that he has been having chest pain from his mid sternum radiating to his mid back, radiating down his bilateral upper extremities, to his jaw and is associated with some shortness of breath. He reports the pain has been coming and going even with periods of rest and has been taking nitroglycerin with some relief. He he denies any nausea, vomiting, diarrhea, constipation, headache, diaphoresis, palpitations, edema, presyncope or syncope. Due to the complaints of chest pain the patient presented to the emergency department here at [facility] yesterday 11/25/2022. A 12-lead EKG showed mild nonspecific ST depressions in lead II and in lead III with a heart rate of 74 BPM. Initial laboratory results showed a WBC count 16.1, hemoglobin 15.0, hematocrit 45.9, platelets 249, PT 11.1, INR 1.1, PTT 23.3, sodium 137, potassium 4.5, BUN 12, creatinine 0.89, glucose 155, calcium 9.2, magnesium 2.0, proBNP 256, and positive serial troponins as high as 0.113 revealing him in for a non-ST elevated myocardial infarction. A chest x-ray was completed which showed mild cardiomegaly and COPD with no acute process seen. Subsequently, due to the patient's presenting symptoms, history of recent stent to his LAD and positive troponins cardiology cardiology was consulted and the patient was recommended to undergo a cardiac catheterization which was completed today. His cardiac catheterization revealed ostial lesions to his left anterior descending coronary artery and circumflex coronary artery. Due to the findings on the heart catheterization a consult was placed to cardiothoracic surgery for further eval uation and treatment recommendations. Review of Systems A 14 point review of systems was completed and was negative except as mentioned in the HPI. Past Medical History Past Medical History: Asthma, Coronary Artery Disease (CAD) (Stent to his left anterior descending coronary artery 2 on 10/29/2022), Chest Pain / Angina, Diabetes Mellitus, GERD/Reflux, Hyperlipidemia, Hypertension, Myocardial Infarction (non Q-wave), Osteoarthritis (OA), Sleep Apnea/CPAP/BIPAP Additional Past Medical History / Comment(s): FATTY LIVER, USES C-PAP MACHINE, BACK PAIN, CONSTIPATION AND DIARRHEA. History of Any Multi-Drug Resistant Organisms: None Reported Past Surgical History: No Surgical Hx Reported, Heart Catheterization With Stent (10/29/2022) Additional Past Surgical History / Comment(s): COLONOSCOPY Past Anesthesia/Blood Transfusion Reactions: Motion Sickness, No Reported Reaction Date of Last Stent Placement:: 10/29/2022 Past Psychological History: Anxiety, Depression Smoking Status: Never smoker Past Alcohol Use History: None Reported Additional Past Alcohol Use History / Comment(s): SMOKED 1-2 YEARS A TEENAGER. Past Drug Use History: None Reported - Past Family History Mother Additional Family Medical History / Comment(s): Alzheimer's Father Family Medical History: Coronary Artery Disease (CAD) (Early onset coronary artery disease, diagnosed at age 52, history of CABG) Medications and Allergies Home Medications Medication Instructions Recorded Confirmed Type Atorvastatin [Lipitor] 40 mg PO HS 08/03/16 11/25/22 History Baclofen [Lioresal] 20 mg PO TID PRN 08/03/16 11/25/22 History Fluticasone Propionate [Flonase 1 spray EA NOSTRIL DAILY 08/03/16 11/25/22 History Allergy Relief] Glimepiride [Amaryl] 4 mg PO BID 08/03/16 11/25/22 History metFORMIN HCL [Glucophage] 1,000 mg PO BID 08/03/16 11/25/22 History Albuterol Nebulized [Ventolin 2.5 mg INHALATION RT-Q6H PRN 10/20/20 11/25/22 H istory Nebulized] Empagliflozin [Jardiance] 25 mg PO DAILY 10/20/20 11/25/22 History Montelukast Sodium [Singulair] 10 mg PO DAILY 10/20/20 11/25/22 History Albuterol Inhaler [Ventolin Hfa 2 puff INHALATION RT-QID PRN 10/28/22 11/25/22 History Inhaler] Cholecalciferol [Vitamin D3 (25 25 mcg PO DAILY 10/28/22 11/25/22 History Mcg = 1000 Iu)] Fluticasone/Umeclidin/Vilanter 1 puff INHALATION RT-DAILY 10/28/22 11/25/22 History [Trelegy Ellipta 100-62.5-25] L.acidoph,Paracasei, B.lactis 1 cap PO DAILY 10/28/22 11/25/22 History [Probiotic] Ondansetron [Zofran] 4 mg PO TID PRN 10/28/22 11/25/22 History Pantoprazole [Protonix] 40 mg PO DAILY 10/28/22 11/25/22 History Testosterone Cypionate 200 mg IM Q14D 10/28/22 11/25/22 History [Depo-Testosterone] armodafiniL [Armodafinil] 200 mg PO DAILY 10/28/22 11/25/22 History clindamycin HCL [Cleocin] 300 mg PO BID 10/28/22 11/25/22 History polyethylene glycoL 3350 [Miralax] 17 gm PO DAILY 10/28/22 11/25/22 History Acetaminophen Tab [Tylenol] 650 mg PO Q6HR PRN tab 10/31/22 11/25/22 Rx Aspirin 81 mg PO DAILY #30 tab 10/31/22 11/25/22 Rx Metoprolol Succinate (ER) [Toprol 25 mg PO DAILY #30 tab 10/31/22 11/25/22 Rx XL] Nitroglycerin Sl Tabs [Nitrostat] 0.4 mg SUBLINGUAL Q5M PRN #30 tab 10/31/22 11/25/22 Rx Prasugrel [Effient] 10 mg PO DAILY #30 tab 10/31/22 11/25/22 Rx Valsartan [Diovan] 160 mg PO DAILY #30 tab 10/31/22 11/25/22 Rx hydroCHLOROthiazide [Hydrodiuril] 25 mg PO DAILY 30 Days #30 tab 10/31/22 11/25/22 Rx Allergies Allergy/AdvReac Type Severity Reaction Status Date / Time hydrochlorothiazide Allergy Unknown HEADACHE Verified 11/25/22 13:03 [From Hyzaar] losartan [From Hyzaar] Allergy Unknown HEADACHE Verified 11/25/22 13:03 Surgical - Exam Vital Signs Temp Pulse Resp BP Pulse Ox 98 F 97 22 111/74 98 11/25/22 11:02 11/25/22 11:02 11/25/22 11:02 11/25/22 11:02 11/25/22 11:02 - General well developed, well nourished, no distress, no pain, obese (Morbidly obese) - Eyes PERRL, normal ocular movement, no pale, no icteric - ENT normal pinna, normal nares, normal mucosa, no hearing loss, no congestion - Neck Neck is supple, no lymphadenopathy. no masses, no bruits, trachea midline, no venous distension - Respiratory Lungs sounds essentially clear throughout. No wheezes, rhonchi or crackles. Respirations are symmetrical and nonlabored. - Cardiovascular Regular rhythm and rate. S1 and S2 present, negative for S3, gallop or murmur. No edema present. - Abdomen Abdomen is soft, nontender and nondistended. Active bowel sounds present in all 4 abdominal quadrants. No guarding or rigidity. No organomegaly appreciated. Obese. - Genitourinary Deferred - Rectum Deferred - Integumentary Skin is warm and dry. No clubbing or cyanosis is present. no rash, no growths, no abnormal pigmentation - Musculoskeletal Moves all 4 extremities with equal strength bilaterally. - Psychiatric Flat affect oriented to time, oriented to person, oriented to place, speech is normal, memory intact Results - Labs 11/26/22 09:24 11/25/22 11:30 Abnormal Lab Results - Last 24 Hours (Table) 11/25/22 11/25/22 11/25/22 Range/Units 11:30 11:30 13:57 APTT 76.5 H (22.0-30.0) sec Glucose 155 H (74-99) mg/dL POC Glucose (mg/dL) (70-110) mg/dL Troponin I 0.072 H* (0.000-0.034) ng/mL 11/25/22 11/25/22 11/25/22 Range/Units 13:57 15:50 17:42 APTT 30.3 H (22.0-30.0) sec Glucose (74-99) mg/dL POC Glucose (mg/dL) (70-110) mg/dL Troponin I 0.101 H* 0.113 H* (0.000-0.034) ng/mL 11/25/22 11/25/22 11/26/22 Range/Units 19:54 19:56 01:03 APTT 35.0 H (22.0-30.0) sec Glucose (74-99) mg/dL POC Glucose (mg/dL) 186 H (70-110) mg/dL Troponin I 0.101 H* (0.000-0.034) ng/mL 11/26/22 11/26/22 Range/Units 05:55 09:24 APTT 51.6 H (22.0-30.0) sec Glucose (74-99) mg/dL POC Glucose (mg/dL) 117 H (70-110) mg/dL Troponin I (0.000-0.034) ng/mL Diabetes panel 11/25/22 Range/Units 11:30 Sodium 137 (137-145) mmol/L Potassium 4.5 (3.5-5.1) mmol/L Chloride 99 (98-107) mmol/L Carbon Dioxide 27 (22-30) mmol/L BUN 12 (9-20) mg/dL Creatinine 0.89 (0.66-1.25) mg/dL Glucose 155 H (74-99) mg/dL Calcium 9.2 (8.4-10.2) mg/dL AST 33 (17-59) U/L ALT 37 (4-49) U/L Alkaline Phosphatase 49 (38-126) U/L Total Protein 7.1 (6.3-8.2) g/dL Albumin 4.3 (3.5-5.0) g/dL Calcium panel 11/25/22 Range/Units 11:30 Calcium 9.2 (8.4-10.2) mg/dL Albumin 4.3 (3.5-5.0) g/dL Pituitary panel 11/25/22 Range/Units 11:30 Sodium 137 (137-145) mmol/L Potassium 4.5 (3.5-5.1) mmol/L Chloride 99 (98-107) mmol/L Carbon Dioxide 27 (22-30) mmol/L BUN 12 (9-20) mg/dL Creatinine 0.89 (0.66-1.25) mg/dL Glucose 155 H (74-99) mg/dL Calcium 9.2 (8.4-10.2) mg/dL Adrenal panel 11/25/22 Range/Units 11:30 Sodium 137 (137-145) mmol/L Potassium 4.5 (3.5-5.1) mmol/L Chloride 99 (98-107) mmol/L Carbon Dioxide 27 (22-30) mmol/L BUN 12 (9-20) mg/dL Creatinine 0.89 (0.66-1.25) mg/dL Glucose 155 H (74-99) mg/dL Calcium 9.2 (8.4-10.2) mg/dL Total Bilirubin 1.0 (0.2-1.3) mg/dL AST 33 (17-59) U/L ALT 37 (4-49) U/L Alkaline Phosphatase 49 (38-126) U/L Total Protein 7.1 (6.3-8.2) g/dL Albumin 4.3 (3.5-5.0) g/dL - Imaging Chest x-ray: report reviewed, image reviewed EKG: image reviewed Assessment and Plan Assessment: Coronary artery disease with history of recent stent placement to his left anterior descending coronary artery on 10/29/2022, last dose of Effient was yesterday 11/25/2022 Non-ST elevated myocardial infarction this admission Episodes of chest pain, likely secondary to above History of hypertension Hyperlipidemia Diabetes mellitus type 2 Obstructive sleep apnea with home CPAP use Morbid obesity with BMI of 52.2 kg/m Asthma Family history of early onset coronary artery disease with his dad being diagnosed at age 52 GERD Never smoker Plan: The patient was seen and examined at his bedside on the cardiac stepdown unit. His chart and diagnostics were reviewed. This case was discussed in detail with Dr. Garo Gutierrez from cardiothoracic surgery. Preoperative teaching and preoperative testing has been initiated. Continue to hold Effient. Nitroglycerin drip management per cardiology recommendations. Continue to maximize medical management with aspirin, statin and beta jorge a. Usual course of myocardial revascularization surgery was discussed with the patient. Once the patient is able to ambulate a five-year walk test will be completed with the patient. Once the patient's preoperative testing has been completed an STS risk score will be calculated discussed with the patient. More recommendations to follow based on patient's clinical course, once his preoperative testing has been completed and once he has been seen and evaluated by Dr. Gutierrez. Thank you Dr. Pride for this consult and we'll look for to working with you in the care of this patient. I have personally seen and examined the patient, performed the documentation and the assessment and plan as written. 30 minutes spent on the visit . Esau BLACK
--- NOTE | 2022-11-26 14:02 | CC ---
CARDIAC CATHETERIZATION REPORT INDICATIONS: Non ST-segment elevation AK. PROCEDURE NOTE: After obtaining informed consent, left heart catheterization and coronary angiogram were performed via the right radial artery using 3.5 left Lesley catheter and Marcellus catheter. Pressures were obtained using the right Lesley catheter. The patient tolerated the procedure well without any obvious immediate complications, received moderate conscious sedation. Total sedation time was 20 minutes. Right radial artery access was obtained using Seldinger technique. A 6-Chinese sheath was placed. Catheters and wires were floated into the ascending aorta under fluoroscopic guidance. The patient received verapamil and heparin per protocol. A TR band was used for hemostasis at the end of the procedure. FINDINGS: 1. Hemodynamics: Left ventricular end-diastolic pressure is 18 mm. There is no significant gradient across the aortic valve. 2. Left Ventriculogram: Left ventriculogram is not performed. 3. Angiographic Data: a.Right coronary artery is a small nondominant vessel and is free of significant stenosis. b.Left main coronary artery is a large vessel and is free of stenosis. Divides into left anterior descending coronary artery and circumflex coronary artery. Circumflex coronary artery bifurcates into an AV groove circ and an OM branch. While it is not very well documented on the current study, he has a tight stenosis in the ostial portion of the AV groove circ and the OM branch, it is at least 70-80% stenosis. LAD was previously stented from proximal to mid LAD and the stent itself appears patent but in the ostial portion of the LAD there is a 70% to 80% stenosis. CONCLUSION: Severe two-vessel coronary artery disease as described above. PLAN: The patient had angioplasty of the LAD about 4 weeks ago. The intervention is Dr. Dee who performed the angioplasty, has reviewed the angiographic data and felt that the circumflex coronary angioplasty is technically challenging and the ostial LAD will also be difficult to do, hence we decided to seek surgical opinion. I am going to consult Dr. Park, the cardiothoracic surgeon to evaluate the patient and advise on bypass surgery. I discussed these issues at length with the patient. He understands and is in agreement with the plan. MMODL / IJN: [id number] /
[2022-11-26 16:11] LABS: Appearance,Urine Clear (Clear); Bilirubin,Urine Negative (Negative); Blood,Urine Negative (Negative); Color,Urine Yellow; Glucose,Urine (UA) 4+ (Negative); Leukocyte Esterase,Urine Negative (Negative); Nitrite,Urine Negative (Negative); Protein,Urine Negative (Negative); Specific Gravity,Urine 1.034 (1.001-1.035); Urobilinogen,Urine <2.0 mg/dL (<2.0)
[2022-11-26 16:15] LABS: Ketones,Urine 2+ (Negative)
[2022-11-26 16:32] LABS: Glucose,Whole Blood 118 mg/dL (70-110)
[2022-11-26 16:58] LABS: Chol/HDL Ratio 2.92 Ratio; LDL Cholesterol,Calculated 29.6 mg/dL (0.0-131.0)
--- NOTE | 2022-11-26 16:59 | US ---
EXAMINATION TYPE: US carotid duplex BILAT DATE OF EXAM: 11/26/2022 COMPARISON: NONE CLINICAL INDICATION: Male, 57 years old with history of PreOp Cardiac Surgery; heart surgery TECHNIQUE: Carotid duplex ultrasound examination. Indirect Doppler criteria was utilized. FINDINGS: EXAM MEASUREMENTS: RIGHT: Peak Systolic Velocity (PSV) cm/sec ----- Right CCA: 118 ----- Right ICA: 147.5 ----- Right ECA: 219.5 ICA/CCA ratio: 1.2 RIGHT: End Diastole cm/sec ----- Right CCA: 27.4 ----- Right ICA: 49.9 ----- Right ECA: 0 LEFT: Peak Systolic Velocity (PSV) cm/sec ----- Left CCA: 114.1 ----- Left ICA: 141.5 ----- Left ECA: 267.5 ICA/CCA ratio: 1.2 LEFT: End Diastole cm/sec ----- Left CCA: 29.4 ----- Left ICA: 34.6 ----- Left ECA: 49.5 VERTEBRALS (direction of flow): Right Vertebral: Antegrade Left Vertebral: Antegrade Rhythm: Normal SALES HOST NOTES: No significant stenosis seen IMPRESSION: 50-69% stenosis of the bilateral carotid bifurcations by peak systolic velocity. Criteria for Assigning % of Stenosis / Diameter reduction (Estimation based on the indirect measurements of the internal carotid artery velocities (ICA PSV). 1. Normal (no stenosis)=ICA PSV < 125 cm/s: ratio < 2.0: ICA EDV<40 cm/s. 2. Less than 50% stenosis=ICA PSV < 125 cm/s: ratio < 2.0: ICA EDV<40 cm/s. 3. 50 to 69% stenosis=ICA PSV of 125 to 230 cm/s: ration 2.0 ? 4.0: ICA EDV 40-100 cm/s. 4. Greater than 70% stenosis to near occlusion= ICA PSV > 230 cm/s: ratio > 4.0: ICA EDV > 100 cm/s. 5. Near occlusion= ICA PSV velocities may be low or undetectable: variable ratio and ICA EDV. 6. Total occlusion=unable to detect flow.
[2022-11-26 17:32] LABS: Hepatitis A Antibody IgM Nonreactive (Nonreactive); Hepatitis B Core IgM Nonreactive (Nonreactive); Hepatitis B Surface Antigen Nonreactive (Nonreactive); Hepatitis C IgG Antibody Nonreactive (Nonreactive)
[2022-11-26] MEDS ORDERED: HEPARIN SODIUM 1,000 UN/ML (10ML VL) IV PRN (17:58)
[2022-11-26 20:29] LABS: Glucose,Whole Blood 143 mg/dL (70-110)
[2022-11-26] MEDS: METOPROLOL TARTRATE 25 MG TAB PO SCH (21:11)
[2022-11-26] MEDS: ATORVASTATIN 80 MG TAB PO SCH (21:11)
[2022-11-27] MEDS: MUPIROCIN 2% OINT 22 GM TUBE NASAL SCH ×3 (00:10→23:01)
[2022-11-27] MEDS: SODIUM CHLORIDE 0.9% 1,000 ML in EMPTY BAG 1 BAG IV SCH ×5 (00:11→22:59)
[2022-11-27 06:02] LABS: Glucose,Whole Blood 124 mg/dL (70-110)
--- NOTE | 2022-11-27 06:24 | P.PN ---
Subjective Progress Note Date: 11/26/22 Patient is a pleasant 57-year-old male with with the recent cardiac original stenting came in with symptoms of left-sided chest pain and midsternal chest pain radiating to the back patient doesn't have gallbladder anymore this chest pain is nonexertional started last night and was having on and off episodes reviewed by nitroglycerin radiating to the jaw as well as left arm no associated shortness of breath or diaphoresis or nausea. Patient just pain is nonpleuritic not associated with food. EKG showed a mild nonspecific ST depressions in lead 2 in lead 3 which were not present in the previous EKG. Patient has mild elevation of troponin to 0.072. 11/26/2022 Patient is seen in follow-up today with cardiology following maintained on heparin drip along with nitro and just recently underwent cardiac catheterization with no new stenting noted. Patient with ostial lesions to the LAD and circumflex recommending cardiothoracic evaluation for possible CABG. Patient is afebrile currently denies chest pain or palpitations. Patient denies shortness of breath and is currently nothing by mouth. Patient is a diabetic and would recommend monitoring Accu-Cheks and continue with current protocol. Patient is currently on bedrest per cardiac catheterization protocol and continues with catheterization banding on the right wrist. Review of systems: Constitutional: No reports of fatigue, fever, or chills Cardiovascular: No reports of chest pain or palpitations Respiratory: No reports of shortness of breath or cough GI: No reports of nausea, vomiting, or diarrhea : No reports of dysuria or retention Neurovascular: No reports of weakness or numbness All medications have been reviewed PHYSICAL EXAMINATION: GENERAL: The patient is alert and oriented x3, not in any acute distress. Well developed, well nourished. Morbidly Obese HEENT: Pupils are round and equally reacting to light. EOMI. No scleral icterus. No conjunctival pallor. Normocephalic, atraumatic. No pharyngeal erythema. No thyromegaly. CARDIOVASCULAR: S1 and S2 present. No murmurs, rubs, or gallops. PULMONARY: Chest is clear to auscultation, no wheezing or crackles. ABDOMEN: Soft, obese, nontender, nondistended, normoactive bowel sounds. No palpable organomegaly. MUSCULOSKELETAL: No joint swelling or deformity. EXTREMITIES: No cyanosis, clubbing, or pedal edema. NEUROLOGICAL: Gross neurological examination did not reveal any focal deficits. SKIN: No rashes. Assessment: -Chest pain: non-ST elevation myocardial infarction recent cardiac catheterization requiring stenting. Status post cardiac catheterization today with ostial lesions noted to the LAD and circumflex -Morbid Obesity with a BMI of 52.2 -Asthma without exacerbation -diabetes mellitus , type II -Hyperlipidemia -Hypertension -Sleep apnea and uses CPAP machine at home -DVT prophylaxis: Early ambulation, patient on IV heparin Plan: Recommend continue telemetry monitoring with cardiology and no cardiothoracic surgery following Patient is maintained on nitro drip along with IV heparin per cardiology and will continue Patient undergo initiation of CABG with presurgical testing and imaging ordered Patient is a diabetic recommend continue with Accu-Cheks before meals and at bedtime and current regimen Will await CT surgery evaluation and completed testing to determine if patient is a candidate for CABG The impression and plan of care has been dictated by Jessica Anton, Nurse Practitioner as directed. Dr. Jorge A MD I have performed a history and examination and MDM of this patient, discussed the same with the dictator, and agree with the dictator's assessment and plan as written ,documented as a scribe. Based on total visit time, I have performed more than 50% of the visit. Objective - Vital Signs Vital signs: Vital Signs Temp 98.4 F 11/26/22 09:14 Pulse 88 11/26/22 09:46 Resp 16 11/26/22 09:46 BP 106/67 11/26/22 09:46 Pulse Ox 93 L 11/26/22 09:46 FiO2 21 11/26/22 04:14 Intake & Output 11/25/22 11/26/22 11/26/22 18:59 06:59 18:59 Intake Total 287.667 173.790 126.092 Balance 287.667 173.790 126.092 Weight 148.325 kg 155.8 kg Intake: IV 102 Intake, IV Titration 47.667 173.790 24.092 Amount Heparin Sod,Pork in 0.45% 47.667 173.790 24.092 NaCl 25,000 unit In 0.45 % NaCl 1 250ml.bag @ 6. 742 UNITS/KG/HR 10 mls/hr IV .Q24H [facility] Rx#: [id number] Oral 240 Other: # Voids 1 1 - Labs CBC & Chem 7: 11/26/22 09:24 11/26/22 11:31 Labs: Abnormal Lab Results - Last 24 Hours (Table) 11/25/22 11/25/22 11/25/22 Range/Units 11:30 11:30 13:57 APTT 76.5 H (22.0-30.0) sec Glucose 155 H (74-99) mg/dL POC Glucose (mg/dL) (70-110) mg/dL Troponin I 0.072 H* (0.000-0.034) ng/mL 11/25/22 11/25/22 11/25/22 Range/Units 13:57 15:50 17:42 APTT 30.3 H (22.0-30.0) sec Glucose (74-99) mg/dL POC Glucose (mg/dL) (70-110) mg/dL Troponin I 0.101 H* 0.113 H* (0.000-0.034) ng/mL 11/25/22 11/25/22 11/26/22 Range/Units 19:54 19:56 01:03 APTT 35.0 H (22.0-30.0) sec Glucose (74-99) mg/dL POC Glucose (mg/dL) 186 H (70-110) mg/dL Troponin I 0.101 H* (0.000-0.034) ng/mL 11/26/22 Range/Units 05:55 APTT (22.0-30.0) sec Glucose (74-99) mg/dL POC Glucose (mg/dL) 117 H (70-110) mg/dL Troponin I (0.000-0.034) ng/mL
[2022-11-27] MEDS: PANTOPRAZOLE 40 MG TABLET PO SCH (06:52)
--- NOTE | 2022-11-27 07:27 | US ---
EXAMINATION TYPE: US vein mapping BILAT DATE OF EXAM: 11/26/2022 4:33 PM COMPARISON: NONE CLINICAL INDICATION: Male, 57 years old with history of PreOp Cardiac Surgery; Open heart SIDE PERFORMED: Bilateral TECHNIQUE: Lower extremity saphenous vein is examined and measured utilizing real time linear array sonography. DUPLEX FINDINGS: Greater Saphenous: Color flow seen Lesser Saphenous: Color flow seen Measurements in mm: Right Greater Saphenous: Groin: 8.4 x 6.8 mm High Thigh: 3.9 x 2.8 mm Mid Thigh: 5.0 x 3.2 mm Above Knee: 3.9 x 3.3 mm Knee: 6.1 x 4.1 mm Below Knee: 6.2 x 3.7 mm Mid Calf: 4.5 x 4.1 mm At Ankle: 3.6 x 2.9 mm Left Greater Saphenous: Groin: 9.3 x 5.4 mm High Thigh:2.8 x 2.1 mm Mid Thigh: 3.0 x 2.2 mm Above Knee: 1.9 x 1.7 mm Knee: 2.5 x 2.7 mm Below Knee: 1.3 x 1.3 mm Mid Calf: 3.0 x 2.3 mm At Ankle: 4.0 x 2.3 mm IMPRESSION: 1. Bilateral GSV measurements listed above. 2. Performing surgeon to determine viability as conduit.
--- NOTE | 2022-11-27 07:28 | US ---
EXAMINATION TYPE: Pre-Operative Non-Invasive Evaluation of the hand for Potential Radial Artery Claire maria, Measurements only DATE OF EXAM: 11/26/2022 4:33 PM CLINICAL INDICATION: Male, 57 years old with history of Pre-Op Cardiac Surgery; Open heart SIDE PERFORMED: Left TECHNIQUE: Radial artery is measured utilizing real time linear array sonography. Dominant hand: right Duplex Findings: Radial Artery: Color flow seen Measurements in mm, transverse view: Left Radial Proximal: 3.5 x 4.0 mm Mid: 3.9 x 4.1 mm Distal: 3.5 x 2.4 mm IMPRESSION: Patent left radial artery measurements listed above.
--- NOTE | 2022-11-27 07:30 | US ---
EXAMINATION TYPE: US arterial LE multi level DATE OF EXAM: 11/26/2022 8:39 PM CLINICAL INDICATION: Male, 57 years old with history of Ankle Brachial Index (MAYELA) ; open heart vashti date Right Brachial Pressure: Deferred due to IV Left Brachial Pressure: 115 Ankle-Brachial Indices: Right: 1.22 Left: 1.35 Toe Brachial Indices: Right: 1.26 Left: 1.02 Multiphasic waveforms throughout. Monophasic waveforms involving the left digit. IMPRESSION: Normal ankle brachial indexes bilaterally. Monophasic waveforms involving the left digit . Cannot exclude distal left lower extremity peripheral arterial disease.
--- NOTE | 2022-11-27 08:16 | P.PN ---
Subjective Progress Note Date: 11/27/22 Principal diagnosis: Coronary artery disease, NSTEMI this admission. History of CAD with recent PCI to the LAD 10/29/2022, hypertension, hyperlipidemia, diabetes mellitus type 2, obstructive sleep apnea with home CPAP use, morbid obesity, asthma, never smoker, GERD, family history of premature CAD The patient was seen and examined sitting up in bed in the cardiac stepdown unit in no acute distress. Currently denies chest pain or shortness of breath. Remains in sinus rhythm on room air. IV heparin and nitroglycerin infusing. Was seen and examined by Dr. Gutierrez yesterday, Dr. Gutierrez had discussion with Dr. Pride yesterday afternoon, felt patient is better suited for stenting. This was discussed with the patient. He appears in a hurry to be discharged, patient adamantly states "I need to go home today, I have financial things to take care of". Informed patient that he had a heart attack and likely needs intervention this admission. Will defer to cardiology. Objective - Vital Signs Vital signs: Vital Signs Temp 97.0 F L 11/27/22 04:00 Pulse 82 11/27/22 04:00 Resp 18 11/27/22 04:00 BP 108/68 11/27/22 04:00 Pulse Ox 94 L 11/27/22 04:00 FiO2 21 11/27/22 03:50 Intake & Output 11/26/22 11/27/22 11/27/22 18:59 06:59 18:59 Intake Total 763.058 Output Total 400 Balance 363.058 Weight 143.3 kg Intake: IV 102 Intake, IV Titration 181.058 Amount Heparin Sod,Pork in 0.45% 181.058 NaCl 25,000 unit In 0.45 % NaCl 1 250ml.bag @ 6. 742 UNITS/KG/HR 10 mls/hr IV .Q24H [facility] Rx#: [id number] Oral 480 Output: Urine 400 Other: Voiding Method Toilet Toilet Urinal Urinal # Voids 2 2 - Exam CONSTITUTIONAL: Appears comfortable, cooperative, no acute distress RESPIRATORY: Lungs sounds diminished bilaterally. Respirations even, nonlabored. Currently on room air with oxygen saturation 93%. Able to achieve 1500 mL on incentive spirometry. Strong cough. CARDIOVASCULAR: S1, S2 present. Regular rate and rhythm, sinus rhythm on telemetry. Palpable peripheral pulses bilaterally. No edema present. No calf pain or tenderness noted. GASTROINTESTINAL: Abdomen soft, nontender, nondistended, obese. Active bowel sounds present 4 quadrants. Tolerating diet GENITOURINARY: Continues to void INTEGUMENTARY: Skin is warm and dry NEUROLOGIC: Cranial nerves II through XII intact MUSKULOSKELETAL: Able to move all extremities, strength equal bilaterally PSYCHIATRIC: Alert and oriented to person place and time, appropriate affect - Allied health notes Allied health notes reviewed: nursing - Labs CBC & Chem 7: 11/26/22 09:24 11/26/22 11:31 Labs: Abnormal Lab Results - Last 24 Hours (Table) 11/26/22 11/26/22 11/26/22 Range/Units 09:24 09:24 11:31 APTT 51.6 H (22.0-30.0) sec Sodium 134 L (137-145) mmol/L Glucose 133 H (74-99) mg/dL POC Glucose (mg/dL) (70-110) mg/dL Hemoglobin A1c (0.0-6.0) % HDL Cholesterol 26.30 L (40.00-60.00) mg/dL Urine Glucose (UA) (Negative) Urine Ketones (Negative) 11/26/22 11/26/22 11/26/22 Range/Units 11:31 11:37 13:14 APTT 34.2 H (22.0-30.0) sec Sodium (137-145) mmol/L Glucose (74-99) mg/dL POC Glucose (mg/dL) 149 H (70-110) mg/dL Hemoglobin A1c 7.2 H (0.0-6.0) % HDL Cholesterol (40.00-60.00) mg/dL Urine Glucose (UA) (Negative) Urine Ketones (Negative) 11/26/22 11/26/22 11/26/22 Range/Units 15:45 16:30 16:53 APTT 39.3 H (22.0-30.0) sec Sodium (137-145) mmol/L Glucose (74-99) mg/dL POC Glucose (mg/dL) 118 H (70-110) mg/dL Hemoglobin A1c (0.0-6.0) % HDL Cholesterol (40.00-60.00) mg/dL Urine Glucose (UA) 4+ H (Negative) Urine Ketones 2+ H (Negative) 11/26/22 11/27/22 11/27/22 Range/Units 20:28 00:34 05:49 APTT 71.3 H (22.0-30.0) sec Sodium (137-145) mmol/L Glucose (74-99) mg/dL POC Glucose (mg/dL) 143 H 124 H (70-110) mg/dL Hemoglobin A1c (0.0-6.0) % HDL Cholesterol (40.00-60.00) mg/dL Urine Glucose (UA) (Negative) Urine Ketones (Negative) Microbiology - Last 24 Hours (Table) 11/26/22 16:40 Nasal Screen MRSA/MSSA - Preliminary Nasopharyngeal Swab - Imaging and Cardiology Results of carotid doppler, vein mapping, radial artery mapping and bedside spirometry reviewed Assessment and Plan Assessment: Coronary artery disease with recent PCI to the LAD 10/29/2022, NSTEMI this admission History of hypertension Hyperlipidemia, treated, cholesterol 77, LDL 30 Diabetes mellitus type 2, hgbA1c 7.2% Obstructive sleep apnea with home CPAP use Morbid obesity Asthma, FEV1 60% of predicted Never smoker GERD Family history of premature CAD Plan: Continue to maximize medical therapy with ASA, statin, beta jorge a, heparin and nitrate Will defer to cardiology for coronary revascularization and discharge plans Encourage increased activity Medical management of other comorbidities per internal medicine, cardiology
[2022-11-27] MEDS: FAMOTIDINE 20 MG TAB PO SCH ×2 (08:32→20:16)
[2022-11-27] MEDS: VALSARTAN 160 MG TAB PO SCH (08:32)
[2022-11-27] MEDS: ASPIRIN 81 MG PO SCH (08:32)
[2022-11-27] MEDS: METOPROLOL TARTRATE 25 MG TAB PO SCH ×2 (08:32→20:16)
[2022-11-27] MEDS: MONTELUKAST 10 MG TAB PO SCH (08:32)
[2022-11-27] MEDS: DAPAGLIFLOZIN PROPANEDIOL 10 MG TABLET PO SCH (08:32)
[2022-11-27] MEDS: IPRATROPIUM 0.5 MG/2.5 ML NEBU INHALATION SCH ×4 (08:42→19:49)
[2022-11-27] MEDS: SYMBICORT 80-4.5 MCG INHALER INHALATION SCH ×2 (08:42→19:51)
[2022-11-27 09:16] LABS: Platelet Count 207 k/uL (150-450)
[2022-11-27] MEDS: ONDANSETRON 4 MG TAB PO PRN (11:22)
[2022-11-27 11:52] LABS: Glucose,Whole Blood 109 mg/dL (70-110)
--- NOTE | 2022-11-27 12:37 | P.CNPUL ---
History of Present Illness Consult date: 11/27/22 Requesting physician: Reynaldo Vargas Reason for consult: dyspnea, asthma, other Chief complaint: Coronary disease. History of present illness: Pulmonary consult dated 11/27/2022. 57-year-old male who presented to the emergency department, on 11/25/2022, chest pain. We were consulted, for possible preoperative evaluation, in anticipation of a bypass grafting. The patient apparently has a history of a recent PCI with stent placement, and the LAD, about 1 month ago. He sees a primary care p pushpa by the name of Dr. Galvin. The patient is currently on nitroglycerin at 10 mcg/m, saline at 50 mL an hour, and IV heparin. Today he tells us that he is going for stent, rather than open heart surgery. He is receiving a room air, and he is a lifelong nonsmoker. He apparently does have a history of asthma, but doesn't really take any medication for. At one point, he was taking Trelegy , but it did not agree with him. Since he had his stents placed, his breathing is much improved. In addition to asthma, he has a history of CAD, angina, diabetes mellitus, hyperlipidemia, hypertension, osteoarthritis, sleep apnea, currently on CPAP, and chronic anxiety. Labs include a platelet count of 207,000. PTT is 71.3. Glucose 109. The rest of the labs from 2 days ago, and yesterday, all reviewed. Chest x-ray shows mild cardiomegaly, and changes of COPD. In addition, there may be some interstitial edema. Review of Systems REVIEW OF SYSTEMS: CONSTITUTIONAL: [Negative.] NEUROLOGIC: [ Negative.] HEENT: [ Negative.] CARDIAC: Chest pain. PULMONARY: Intermittent shortness of breath, better since having PCI with stent placement, 1 month ago. GI: [Negative.] : [Negative.] RHEUMATOLOGIC: [ Negative.] IMMUNOLOGIC: [ Negative.] ENDOCRINE: [Negative. ] DERMATOLOGIC: [Negative.] Past Medical History Past Medical History: Asthma, Coronary Artery Disease (CAD) (Stent to his left anterior descending coronary artery 2 on 10/29/2022), Chest Pain / Angina, Diabetes Mellitus, GERD/Reflux, Hyperlipidemia, Hypertension, Myocardial Infarction (non Q-wave), Osteoarthritis (OA), Sleep Apnea/CPAP/BIPAP Additional Past Medical History / Comment(s): FATTY LIVER, USES C-PAP MACHINE, BACK PAIN, CONSTIPATION AND DIARRHEA. History of Any Multi-Drug Resistant Organisms: None Reported Past Surgical History: No Surgical Hx Reported, Heart Catheterization With Stent (10/29/2022) Additional Past Surgical History / Comment(s): COLONOSCOPY Past Anesthesia/Blood Transfusion Reactions: Motion Sickness, No Reported Reaction Date of Last Stent Placement:: 10/29/2022 Past Psychological History: Anxiety, Depression Smoking Status: Never smoker Past Alcohol Use History: None Reported Additional Past Alcohol Use History / Comment(s): SMOKED 1-2 YEARS A TEENAGER. Past Drug Use History: None Reported - Past Family History Mother Family Medical History: No Reported History Additional Family Medical History / Comment(s): Alzheimer's Father Family Medical History: Coronary Artery Disease (CAD) (Early onset coronary artery disease, diagnosed at age 52, history of CABG) Medications and Allergies Home Medications Medication Instructions Recorded Confirmed Type Atorvastatin [Lipitor] 40 mg PO HS 08/03/16 11/25/22 History Baclofen [Lioresal] 20 mg PO TID PRN 08/03/16 11/25/22 History Fluticasone Propionate [Flonase 1 spray EA NOSTRIL DAILY 08/03/16 11/25/22 History Allergy Relief] Glimepiride [Amaryl] 4 mg PO BID 08/03/16 11/25/22 History metFORMIN HCL [Glucophage] 1,000 mg PO BID 08/03/16 11/25/22 History Albuterol Nebulized [Ventolin 2.5 mg INHALATION RT-Q6H PRN 10/20/20 11/25/22 History Nebulized] Empagliflozin [Jardiance] 25 mg PO DAILY 10/20/20 11/25/22 History Montelukast Sodium [Singulair] 10 mg PO DAILY 10/20/20 11/25/22 History Albuterol Inhaler [Ventolin Hfa 2 puff INHALATION RT-QID PRN 10/28/22 11/25/22 History Inhaler] Cholecalciferol [Vitamin D3 (25 25 mcg PO DAILY 10/28/22 11/25/22 History Mcg = 1000 Iu)] Fluticasone/Umeclidin/Vilanter 1 puff INHALATION RT-DAILY 10/28/22 11/25/22 History [Trelegy Ellipta 100-62.5-25] L.acidoph,Paracasei, B.lactis 1 cap PO DAILY 10/28/22 11/25/22 History [Probiotic] Ondansetron [Zofran] 4 mg PO TID PRN 10/28/22 11/25/22 History Pantoprazole [Protonix] 40 mg PO DAILY 10/28/22 11/25/22 History Testosterone Cypionate 200 mg IM Q14D 10/28/22 11/25/22 History [Depo-Testosterone] armodafiniL [Armodafinil] 200 mg PO DAILY 10/28/22 11/25/22 History clindamycin HCL [Cleocin] 300 mg PO BID 10/28/22 11/25/22 History polyethylene glycoL 3350 [Miralax] 17 gm PO DAILY 10/28/22 11/25/22 History Acetaminophen Tab [Tylenol] 650 mg PO Q6HR PRN tab 10/31/22 11/25/22 Rx Aspirin 81 mg PO DAILY #30 tab 10/31/22 11/25/22 Rx Metoprolol Succinate (ER) [Toprol 25 mg PO DAILY #30 tab 10/31/22 11/25/22 Rx XL] Nitroglycerin Sl Tabs [Nitrostat] 0.4 mg SUBLINGUAL Q5M PRN #30 tab 10/31/22 11/25/22 Rx Prasugrel [Effient] 10 mg PO DAILY #30 tab 10/31/22 11/25/22 Rx Valsartan [Diovan] 160 mg PO DAILY #30 tab 10/31/22 11/25/22 Rx hydroCHLOROthiazide [Hydrodiuril] 25 mg PO DAILY 30 Days #30 tab 10/31/22 11/25/22 Rx Allergies Allergy/AdvReac Type Severity Reaction Status Date / Time hydrochlorothiazide Allergy Unknown HEADACHE Verified 11/25/22 13:03 [From Hyzaar] losartan [From Hyzaar] Allergy Unknown HEADACHE Verified 11/25/22 13:03 Physical Exam Osteopathic Statement: *. No significant issues noted on an osteopathic structural exam other than those noted in the History and Physical/Consult. Vitals: Vital Signs Temp Pulse Pulse Resp BP Pulse Ox FiO2 11/27/22 11:20 78 18 96/57 95 11/27/22 08:43 94 L 21 11/27/22 08:30 98.2 F 82 18 122/71 96 11/27/22 04:00 97.0 F L 82 18 108/68 94 L 11/27/22 03:50 21 11/27/22 02:00 18 11/27/22 00:33 21 11/27/22 00:00 97.5 F L 81 18 113/72 93 L 11/26/22 21:00 76 18 113/73 94 L 11/26/22 20:45 99 11/26/22 20:36 74 11/26/22 20:00 75 18 108/68 96 11/26/22 18:59 85 18 109/71 93 L 11/26/22 18:17 91 18 100/61 92 L 11/26/22 17:05 92 18 116/74 94 L 11/26/22 16:05 98.0 F 87 18 118/76 94 L 11/26/22 15:54 85 11/26/22 15:45 83 11/26/22 15:05 87 18 115/74 94 L 11/26/22 14:05 82 18 109/67 95 11/26/22 13:14 90 16 134/69 93 L Intake and Output 11/26/22 11/27/22 11/27/22 22:59 06:59 14:59 Intake Total 360.133 Balance 360.133 Intake: Intake, IV Titration 120.133 Amount Heparin Sod,Pork in 0.45% 120.133 NaCl 25,000 unit In 0.45 % NaCl 1 250ml.bag @ 6. 742 UNITS/KG/HR 10 mls/hr IV .Q24H [facility] Rx#: [id number] Oral 240 Other: Voiding Method Toilet Toilet Toilet Urinal Urinal Urinal # Voids 2 2 Weight 143.3 kg No acute distress, oriented 3. No respiratory distress. Currently on room air. Saturations are 96%. HEENT examination is grossly unremarkable. Neck supple. Full range of motion. No adenopathy thyromegaly or neck vein distention. Cardiovascular examination reveals regular rhythm rate. S1-S2 normal. No S3 or S4. No discernible murmur noted. Heart rate 78 bpm. Lungs reveal clear breath sounds. Breath sounds are equal bilaterally. No adventitious lung sounds including wheezes rhonchi or crackles. Abdomen soft bowel sounds are heard. No masses or tenderness. Extremities are intact. No cyanosis clubbing or edema. Skin is without rash or lesion. Neurologic examination is brief but nonfocal. Results - Laboratory Findings CBC and BMP: 11/27/22 08:35 11/26/22 11:31 PT/INR, D-dimer PT 11.1 sec (9.0-12.0) 11/25/22 11:30 INR 1.1 (<1.2) 11/25/22 11:30 Abnormal lab findings: Abnormal Labs 11/25/22 11/25/22 11/25/22 11:30 11:30 13:57 APTT 76.5 H Sodium Glucose 155 H POC Glucose (mg/dL) Hemoglobin A1c Troponin I 0.072 H* HDL Cholesterol Urine Glucose (UA) Urine Ketones 11/25/22 11/25/22 11/25/22 13:57 15:50 17:42 APTT 30.3 H Sodium Glucose POC Glucose (mg/dL) Hemoglobin A1c Troponin I 0.101 H* 0.113 H* HDL Cholesterol Urine Glucose (UA) Urine Ketones 11/25/22 11/25/22 11/26/22 19:54 19:56 01:03 APTT 35.0 H Sodium Glucose POC Glucose (mg/dL) 186 H Hemoglobin A1c Troponin I 0.101 H* HDL Cholesterol Urine Glucose (UA) Urine Ketones 11/26/22 11/26/22 11/26/22 05:55 09:24 09:24 APTT 51.6 H Sodium Glucose POC Glucose (mg/dL) 117 H Hemoglobin A1c Troponin I HDL Cholesterol 26.30 L Urine Glucose (UA) Urine Ketones 11/26/22 11/26/22 11/26/22 11:31 11:31 11:37 APTT Sodium 134 L Glucose 133 H POC Glucose (mg/dL) 149 H Hemoglobin A1c 7.2 H Troponin I HDL Cholesterol Urine Glucose (UA) Urine Ketones 11/26/22 11/26/22 11/26/22 13:14 15:45 16:30 APTT 34.2 H Sodium Glucose POC Glucose (mg/dL) 118 H Hemoglobin A1c Troponin I HDL Cholesterol Urine Glucose (UA) 4+ H Urine Ketones 2+ H 11/26/22 11/26/22 11/27/22 16:53 20:28 00:34 APTT 39.3 H 71.3 H Sodium Glucose POC Glucose (mg/dL) 143 H Hemoglobin A1c Troponin I HDL Cholesterol Urine Glucose (UA) Urine Ketones 11/27/22 05:49 APTT Sodium Glucose POC Glucose (mg/dL) 124 H Hemoglobin A1c Troponin I HDL Cholesterol Urine Glucose (UA) Urine Ketones - Diagnostic Findings Chest x-ray: image reviewed Assessment and Plan Assessment: Coronary artery disease, with anticipated attempted PCI and stent placement today. Recent stent placement, October 2022. History of mild asthma. Lifelong nonsmoker. History of angina pectoris. History of diabetes mellitus. History of hyperlipidemia. History of hypertension. History of obstructive sleep apnea syndrome, maintained on CPAP. Plan: Plan dated 11/27/2022. Initially saw this patient, we thought we were seeing him because he was going to have bypass surgery. Rather, he tells us that he is having a cathet erization, and possible stent placement instead. The patient does have a history of asthma, which seems be relatively mild, maintained on a rescue inhaler as needed. At one point, he was on Trelegy, but he did not agree with him. Should he have an open heart procedure, we'll follow along. Additional recommendations and suggestions are forthcoming. Time with Patient: Greater than 30
[2022-11-27] MEDS ORDERED: LIDOCAINE 1% INJ 10MG/ML (30 ML VIAL-PF) SQ ONE ×2 (12:41→12:44)
[2022-11-27] MEDS: MIDAZOLAM 2 MG/2 ML VIAL IV ONE ×2 (12:44→13:04)
[2022-11-27] MEDS: fentaNYL (PF) 50 MCG/ML 2 ML AMP IV ONE ×2 (12:44→13:04)
[2022-11-27] MEDS ORDERED: SODIUM CHLORIDE 0.9% 1,000 ML IV ONE (12:45)
[2022-11-27] MEDS: HEPARIN SODIUM 1,000 UN/ML (10ML VL) IV ONE ×6 (12:48→15:16)
[2022-11-27] MEDS ORDERED: PRASUGREL 10 MG TAB PO ONE (12:58)
[2022-11-27] MEDS: hydrALAZINE HCL 20 MG/ML 1 ML VIAL IV ONE ×2 (13:04→13:14)
[2022-11-27] MEDS ORDERED: hydrALAZINE HCL 20 MG/ML 1 ML VIAL IV ONE (13:21)
[2022-11-27] MEDS ORDERED: MIDAZOLAM 2 MG/2 ML VIAL IV ONE (13:31)
[2022-11-27] MEDS ORDERED: fentaNYL (PF) 50 MCG/ML 2 ML AMP IV ONE (13:31)
[2022-11-27] MEDS ORDERED: FUROSEMIDE 10 MG/ML 4 ML VIAL IV ONE ×2 (13:43)
--- NOTE | 2022-11-27 13:45 | P.PN ---
Subjective Progress Note Date: 11/27/22 HISTORY OF PRESENT ILLNESS: This is a 57-year-old male who follows in the office with Dr. Pride. Patient has a history of coronary artery disease, hypertension, hyperlipidemia, diabe marcell, obstructive sleep apnea, and morbid obesity. Patient was seen in the office by Dr. Cobos was having chest pain and he was recommended to come to the hospital for further evaluation and cardiac catheterization. He is s/p cardiac cath revealing ostial lesions of the left anterior descending coronary artery and circumflex coronary artery. Cardiothoracic surgery was consulted for evaluation and felt that the patient was best suited for stenting rather than CABG. Patient examined this morning at the bedside. He remains on IV heparin and IV nitro. Patient denies any shortness of breath. He currently denies any chest pain or pressure. However he states that his nitro drip is turned off his chest pain returns. Vital signs are stable. PHYSICAL EXAM: VITAL SIGNS: Reviewed. GENERAL: Well-developed in no acute distress. NECK: Supple. No JVD or thyromegaly LUNGS: Respirations even and unlabored. Lungs essentially clear to auscultation bilaterally. HEART: Regular rate and rhythm. S1 and S2 heard. EXTREMITIES: Normal range of motion. No clubbing or cyanosis. Peripheral pulses intact. No lower extremity edema ASSESSMENT: Chest pain Non-STEMI Coronary artery disease with recent stenting of the proximal to mid LAD and mid to distal LAD Hypertension Hyperlipidemia Diabetes Obstructive sleep apnea Morbid obesity PLAN: Continue current cardiac medications Continue IV heparin Continue IV nitro Patient evaluated by CTS and felt not to be a candidate for CABG and suited for stenting instead Resume Effient as patient is not going for open heart surgery Patient to undergo PCI today with Dr. Dee Further recommendations pending patient course Nurse practitioner note has been reviewed by physician. Signing provider agrees with the documented findings, assessment, and plan of care. Objective - Vital Signs Vital signs: Vital Signs Temp 98.2 F 11/27/22 08:30 Pulse 78 11/27/22 11:20 Resp 18 11/27/22 11:20 BP 96/57 11/27/22 11:20 Pulse Ox 95 11/27/22 11:20 FiO2 21 11/27/22 08:43 Intake & Output 11/26/22 11/27/22 11/27/22 18:59 06:59 18:59 Intake Total 763.058 Output Total 400 Balance 363.058 Weight 143.3 kg Intake: IV 102 Intake, IV Titration 181.058 Amount Heparin Sod,Pork in 0.45% 181.058 NaCl 25,000 unit In 0.45 % NaCl 1 250ml.bag @ 6. 742 UNITS/KG/HR 10 mls/hr IV .Q24H [facility] Rx#: [id number] Oral 480 Output: Urine 400 Other: Voiding Method Toilet Toilet Toilet Urinal Urinal Urinal # Voids 2 2 - Labs CBC & Chem 7: 11/27/22 08:35 11/26/22 11:31 Labs: Abnormal Lab Results - Last 24 Hours (Table) 11/26/22 11/26/22 11/26/22 Range/Units 09:24 11:31 13:14 APTT 34.2 H (22.0-30.0) sec POC Glucose (mg/dL) (70-110) mg/dL Hemoglobin A1c 7.2 H (0.0-6.0) % HDL Cholesterol 26.30 L (40.00-60.00) mg/dL Urine Glucose (UA) (Negative) Urine Ketones (Negative) 11/26/22 11/26/22 11/26/22 Range/Units 15:45 16:30 16:53 APTT 39.3 H (22.0-30.0) sec POC Glucose (mg/dL) 118 H (70-110) mg/dL Hemoglobin A1c (0.0-6.0) % HDL Cholesterol (40.00-60.00) mg/dL Urine Glucose (UA) 4+ H (Negative) Urine Ketones 2+ H (Negative) 11/26/22 11/27/22 11/27/22 Range/Units 20:28 00:34 05:49 APTT 71.3 H (22.0-30.0) sec POC Glucose (mg/dL) 143 H 124 H (70-110) mg/dL Hemoglobin A1c (0.0-6.0) % HDL Cholesterol (40.00-60.00) mg/dL Urine Glucose (UA) (Negative) Urine Ketones (Negative) Microbiology - Last 24 Hours (Table) 11/26/22 16:40 Nasal Screen MRSA/MSSA - Preliminary Nasopharyngeal Swab
[2022-11-27] MEDS ORDERED: IOPAMIDOL-370 125ML BTL INJ ONE (15:30)
[2022-11-27] MEDS ORDERED: IOPAMIDOL-370 100ML BTL INJ ONE (15:37)
[2022-11-27] MEDS ORDERED: RX INFO: IV CONTRAST WAS GIVEN 1 EACH MISC MISCELLANE PRN (16:57)
--- NOTE | 2022-11-27 16:57 | P.PRCINT ---
Percutaneous Coronary Int. - Percutaneous Coronary Intervention Percutaneous Coronary Intervention: PROCEDURES PERFORMED: Left heart catheterization, left coronary angiography, iFR LAD, PCI proximal LAD with a 4.0 x 18mm Xience MELLISA, post dilated with a 4.5 NC balloon, balloon angioplasty OM1 with a 2.25 x 12mm NC balloon, PCI mid circumflex with a 3.5 x 38mm Xience MELLISA, post dilated with a 4.0 NC balloon, Shockwave lithotripsy balloon angioplasty circumflex, Impella CP placement, IVUS LAD, IVUS circumflex INDICATION: NSTEMI, deemed high risk for CABG CONSENT:I have discussed the risks, benefits and alternative therapies for the above-mentioned procedure and for both sedation/analgesia as well as necessary blood product administration, if indicated, as they pertain to this patient. The patient has indicated understanding and acceptance of the risks and procedures discussed. PROCEDURE: After the risks, benefits and alternatives of the above mentioned procedure explained in detail with the patient, informed consent was obtained. Patient was taken to the catheterization lab and prepped and draped in usual fashion. 1% lidocaine was used to anesthetize the right femoral artery. A 6- Khmer sheath was placed in the right femoral artery using modified Seldinger technique. Left coronary angiography was performed with a 6-FR CLS 4.5 catheter. The decision was made initially to perform PCI of OM1. There was steep angulation of the OM1 branch and therefore a super cross 90 microcatheter was used in addition to a 0.014 was required. Balloon angioplasty was performed with 2.0 and 2.25 x 12 mm noncompliant balloon. There was loss of the superior branch with angioplasty and patient developed chest pain. Patient's chest pain worsened and additionally having worsening heart failure symptoms. This was felt additionally likely related to the LAD stenosis. A 0.014 pressure wire was advanced in the left main and normalized. Next the 0.014 wire was advanced into the mid LAD and iFR was performed and was abnormal at 0.83. Therefore the decision was made to perform PCI of LAD. Balloon angioplasty was performed with a 3.5 noncompliant balloon. Next IVUS was performed of the proximal LAD which showed reference vessel approximately 4.0 mm. Patient developed continued chest pain and worsening respiratory status as well as becoming hypotensive consistent with cardiogenic shock. Repeat angiography showed thrombus in the proximal LAD. Therefore left femoral axis was obtained with micropuncture technique and ultrasound guidance. A 6-Khmer sheath was placed in the left femoral artery. Next one Perclose was placed and then the 14-Khmer Impella sheath was placed over the wire. Next a 6-Khmer pigtail catheter was placed in the left ventricle and pressure measurements were obtained. LVEDP was noted to be elevated at 32. The Impella CP was placed and turned on. This helped s ignificantly with his respiratory status and patient not need intubation. Next PCI of the proximal LAD was performed with a 4.0 x 18 mm Xience MELLISA which was postdilated with a 4.5 NC balloon. Balloon angioplasty was performed of the mid circumflex with a 4.0 x 12 NC balloon. IVUS was performed however significant difficulty getting IVUS down due to calcification. There was diffuse calcification. Therefore Lithortipsy shockwave angioplasty was performed with a 4.0 x 12 mm Shockwave balloon. PCI was performed with a 3.5 x 38 mm Xience MELLISA of the mid circumflex. The stent was postdilated with a 4.0 x 12 mm NC balloon. Preintervention there was 90% OM1 stenosis with KARL 3 flow and postintervention there was 30% stenosis with KARL 3 flow in the inferior branch however KARL 0 flow on the superior branch. Given patient a high risk multiple difficulties and angulation felt best treated medically. There is significantly difficult visualization secondary patient's body habitus. Preintervention of the circumflex lesion there is 90% stenosis with KARL 3 flow and postintervention there was less than 10% stenosis and KARL-3 flow. Preintervention of the LAD lesion there was 75% proximal LAD stenosis and AKRL-3 flow and postintervention there was less than 10% stenosis and KARL-3 flow. Patient was chest pain-free by the end of the procedure however with weaning Impella from P7 to P2 he did develop more chest pain and therefore best treated for 24 hrs on Impella. The pull away sheath was removed and the Impella was sutured in place. There was a Doppler pulse of the dorsalis pedis. Patient transferred to ICU on nitro drip as well as Impella chest pain free. The patient tolerated the procedure well. Patient was transported back to the post catheterization holding area in stable condition. Conscious Sedation: Patient was monitored under the direct supervision of myself for conscious sedation using Versed and fentanyl for a total duration of 176 minutes HEMODYNAMICS: Aorta: 122/89 LV: 83/32 SELECTIVE CORONARY ARTERIOGRAPHY: LEFT MAIN: The left main is a large caliber vessel which bifurcates into the LAD and circumflex. There is no significant stenosis. LEFT ANTERIOR DESCENDING CORONARY ARTERY: LAD is a large caliber vessel which wraps around to the apex. There is a long proximal and mid LAD stents with mild 20% in-stent stenosis. There is a proximal LAD 75% stenosis and otherwise distal LAD has diffuse 30-40% stenosis. Diagonal 1 branch is subtotally occluded. LEFT CIRCUMFLEX CORONARY ARTERY: Left circumflex is a large caliber vessel with OM1 a proximal 90% stenosis and shortly thereafter splits into the superior branch and an inferior branch. The OM1 and takes off at a acute angle. Just after OM1 there is a 90% circumflex stenosis. This is heavily calcified. The circumflex then gives off on 2 and on 3 and the PDA and is the dominant vessel. RIGHT CORONARY ARTERY: The right coronary artery was not imaged however known to be nondominant. FINAL IMPRESSION: 1. CAD as described above including 75% proximal LAD stenosis, diagonal 1 branch subtotally occluded, circumflex 90% mid, OM1 proximal 90% stenoses 2. iFR proximal LAD abnormal at 0.83 3. Chest pain with respiratory distress and cardiogenic shock during PCI, status post Impella CP placement 4. S/p PCI proximal LAD with a 4.0 x 18mm Xience MELLISA, post dilated with a 4.5 NC balloon, balloon angioplasty OM1 with a 2.25 x 12mm NC balloon, PCI mid circumflex with a 3.5 x 38mm Xience MELLISA, post dilated with a 4.0 NC balloon, Shockwave lithotripsy balloon angioplasty circumflex PLAN: 1. Aggressive risk factor modification per most recent ACC/AHA guidelines. 2. Continue dual antiplatelets with aspirin and Effient for 12 months. 3. Continue heparin drip and Impella CP for another 24 hrs and hopefully wean and discontinue tomorrow.
[2022-11-27] MEDS: SODIUM BICARB (1 MEQ/ML) 12.5 ML in DEXTROSE 5% IN WATER 500 ML IV SCH ×2 (17:34)
[2022-11-27] MEDS: NITROGLYCERIN-D5W PMX 50 MG in DEXTROSE/WATER 1 250ML.BAG IV SCH (17:47)
[2022-11-27] MEDS: NOREPINEPHRINE 4 MG in SODIUM CHLORIDE 0.9% 250 ML IV SCH (18:24)
[2022-11-27 18:35] LABS: Glucose,Whole Blood 163 mg/dL (70-110)
[2022-11-27 18:54] LABS: Basophils % (A) 0 %; Eosinophils # (A) 0.1 k/uL (0-0.7); Eosinophils % (A) 0 %; HCT 47.1 % (39.0-53.0); HGB 14.7 gm/dL (13.0-17.5); Hypochromasia Moderate; Lymphocytes # (A) 0.6 k/uL (1.0-4.8); Lymphocytes % (A) 4 %; MCH 28.3 pg (25.0-35.0); MCHC 31.1 g/dL (31.0-37.0); MCV 90.8 fL (80.0-100.0); Monocytes # (A) 0.8 k/uL (0-1.0); Monocytes % (A) 5 %; Neutrophils % (A) 90 %; Platelet Count 258 k/uL (150-450); RBC 5.19 m/uL (4.30-5.90); RDW 13.7 % (11.5-15.5); WBC 15.6 k/uL (3.8-10.6)
[2022-11-27 19:35] LABS: INR 1.1 (<1.2); Partial Thromboplastin Time 48.2 sec (22.0-30.0); Prothrombin Time 11.7 sec (9.0-12.0)
[2022-11-27] MEDS: HEPARIN SOD,PORK IN 0.45% NACL 25,000 UNIT in 0.45% NACL 1 250ML.BAG IV SCH (20:08)
--- NOTE | 2022-11-27 20:13 | P.PN ---
Subjective Progress Note Date: 11/27/22 Patient is a pleasant 57-year-old male with with the recent cardiac original stenting came in with symptoms of left-sided chest pain and midsternal chest pain radiating to the back patient doesn't have gallbladder anymore this chest pain is nonexertional started last night and was having on and off episodes reviewed by nitroglycerin radiating to the jaw as well as left arm no associated shortness of breath or diaphoresis or nausea. Patient just pain is nonpleuritic not associated with food. EKG showed a mild nonspecific ST depressions in lead 2 in lead 3 which were not present in the previous EKG. Patient has mild elevation of troponin to 0.072. 11/26/2022 Patient is seen in follow-up today with cardiology following maintained on heparin drip along with nitro and just recently underwent cardiac catheterization with no new stenting noted. Patient with ostial lesions to the LAD and circumflex recommending cardiothoracic evaluation for possible CABG. Patient is afebrile currently denies chest pain or palpitations. Patient denies shortness of breath and is currently nothing by mouth. Patient is a diabetic and would recommend monitoring Accu-Cheks and continue with current protocol. Patient is currently on bedrest per cardiac catheterization protocol and continues with catheterization banding on the right wrist. 11/27/2022 Patient is seen in follow-up this morning has been evaluated by cardiothoracic surgery and reports not a candidate for CABG with cardiology following and plan for cardiac catheterization with stenting again today. Patient is currently afebrile denies chest pain or shortness of breath. Patient is maintained on IV heparin along with IV nitro drip and awaiting cardiac catheterization. Patient is nothing by mouth and will resume diet after procedure. Recommend close monitoring of blood sugars and try glycemic control. Review of systems: Constitutional: No reports of fatigue, fever, or chills Cardiovascular: No reports of chest pain or palpitations Respiratory: No reports of shortness of breath or cough GI: No reports of nausea, vomiting, or diarrhea : No reports of dysuria or retention Neurovascular: No reports of weakness or numbness All medications have been reviewed PHYSICAL EXAMINATION: GENERAL: The patient is alert and oriented x3, Well developed, well nourished. Morbidly Obese HEENT: Pupils are round and equally reacting to light. EOMI. No scleral icterus. No conjunctival pallor. Normocephalic, atraumatic. No pharyngeal erythema. No thyromegaly. CARDIOVASCULAR: S1 and S2 present. No murmurs, rubs, or gallops. PULMONARY: Chest is clear to auscultation, no wheezing or crackles. ABDOMEN: Soft, obese, nontender, nondistended, normoactive bowel sounds. No palpable organomegaly. MUSCULOSKELETAL: No joint swelling or deformity. EXTREMITIES: No cyanosis, clubbing, or pedal edema. NEUROLOGICAL: Gross neurological examination did not reveal any focal deficits. SKIN: No rashes. Assessment: -Chest pain: non-ST elevation myocardial infarction recent cardiac catheterization requiring stenting. Status post cardiac catheterization 11/26/2022 day with ostial lesions noted to the LAD and circumflex -Morbid Obesity with a BMI of 52.2 -Asthma without exacerbation -diabetes mellitus , type II -Hyperlipidemia -Hypertension -Sleep apnea and uses CPAP machine at home -DVT prophylaxis: Early ambulation, patient on IV heparin -Full code Plan: Recommend continue telemetry monitoring with cardiology and cardiothoracic surgery following and evaluated for possible CABG although deemed not to be a candidate at this time and cardiology planning on cardiac catheterization with PCI stenting today along with maximizing medical management. Patient is currently maintained on a nitro drip along with IV heparin and will await cardiology report from catheterization Patient is a diabetic recommend continue with Accu-Cheks before meals and at bedtime and current regimen Overall prognosis is guarded at this time Recommend follow-up labs in a.m. The impression and plan of care has been dictated by Jessica Anton, Nurse Practitioner as directed. Dr. Jorge A MD I have performed a history and examination and MDM of this patient, discussed the same with the dictator, and agree with the dictator's assessment and plan as written ,documented as a scribe. Based on total visit time, I have performed more than 50% of the visit. Objective - Vital Signs Vital signs: Vital Signs Temp 97.0 F L 11/27/22 04:00 Pulse 82 11/27/22 04:00 Resp 18 11/27/22 04:00 BP 108/68 11/27/22 04:00 Pulse Ox 94 L 11/27/22 08:43 FiO2 21 11/27/22 08:43 Intake & Output 11/26/22 11/27/22 11/27/22 18:59 06:59 18:59 Intake Total 763.058 Output Total 400 Balance 363.058 Weight 143.3 kg Intake: IV 102 Intake, IV Titration 181.058 Amount Heparin Sod,Pork in 0.45% 181.058 NaCl 25,000 unit In 0.45 % NaCl 1 250ml.bag @ 6. 742 UNITS/KG/HR 10 mls/hr IV .Q24H [facility] Rx#: [id number] Oral 480 Output: Urine 400 Other: Voiding Method Toilet Toilet Urinal Urinal # Voids 2 2 - Labs CBC & Chem 7: 11/27/22 18:31 11/26/22 11:31 Labs: Abnormal Lab Results - Last 24 Hours (Table) 11/26/22 11/26/22 11/26/22 Range/Units 09:24 09:24 11:31 APTT 51.6 H (22.0-30.0) sec Sodium 134 L (137-145) mmol/L Glucose 133 H (74-99) mg/dL POC Glucose (mg/dL) (70-110) mg/dL Hemoglobin A1c (0.0-6.0) % HDL Cholesterol 26.30 L (40.00-60.00) mg/dL Urine Glucose (UA) (Negative) Urine Ketones (Negative) 11/26/22 11/26/22 11/26/22 Range/Units 11:31 11:37 13:14 APTT 34.2 H (22.0-30.0) sec Sodium (137-145) mmol/L Glucose (74-99) mg/dL POC Glucose (mg/dL) 149 H (70-110) mg/dL Hemoglobin A1c 7.2 H (0.0-6.0) % HDL Cholesterol (40.00-60.00) mg/dL Urine Glucose (UA) (Negative) Urine Ketones (Negative) 11/26/22 11/26/22 11/26/22 Range/Units 15:45 16:30 16:53 APTT 39.3 H (22.0-30.0) sec Sodium (137-145) mmol/L Glucose (74-99) mg/dL POC Glucose (mg/dL) 118 H (70-110) mg/dL Hemoglobin A1c (0.0-6.0) % HDL Cholesterol (40.00-60.00) mg/dL Urine Glucose (UA) 4+ H (Negative) Urine Ketones 2+ H (Negative) 11/26/22 11/27/22 11/27/22 Range/Units 20:28 00:34 05:49 APTT 71.3 H (22.0-30.0) sec Sodium (137-145) mmol/L Glucose (74-99) mg/dL POC Glucose (mg/dL) 143 H 124 H (70-110) mg/dL Hemoglobin A1c (0.0-6.0) % HDL Cholesterol (40.00-60.00) mg/dL Urine Glucose (UA) (Negative) Urine Ketones (Negative) Microbiology - Last 24 Hours (Table) 11/26/22 16:40 Nasal Screen MRSA/MSSA - Preliminary Nasopharyngeal Swab
[2022-11-27] MEDS: ATORVASTATIN 80 MG TAB PO SCH (20:16)
[2022-11-27] MEDS: ALPRAZolam 0.25 MG TAB PO PRN (20:28)
--- NOTE | 2022-11-27 20:29 | XR ---
EXAMINATION TYPE: XR chest 1V portable DATE OF EXAM: 11/27/2022 8:25 PM COMPARISON: Chest radiographs from 11/25/2022 TECHNIQUE: XR chest 1V portable Frontal view of the chest. CLINICAL INDICATION:Male, 57 years old with history of Shortness of breath; FINDINGS: Lungs/Pleura: There is no evidence of pleural effusion, focal consolidation, or pneumothorax. Pulmonary vascularity: Pulmonary vascular congestion. Heart/mediastinum: Cardiomediastinal silhouette is enlarged and stable. Musculoskeletal: No acute osseous pathology. Other findings: None Lines/Tubes: Left ventricular assist device in appropriate position. IMPRESSION: 1. Cardiomegaly and mild pulmonary vascular congestion. Correlate with BNP for congestive heart fail ure. 2. Left ventricular assist device in appropriate position.
[2022-11-27 21:34] LABS: African American GFR (CKD) >90 (>60 ml/min/1.73 sqM); Anion Gap 15 mmol/L; Blood Urea Nitrogen 16 mg/dL (9-20); Calcium 8.2 mg/dL (8.4-10.2); Carbon Dioxide 19 mmol/L (22-30); Chloride 101 mmol/L (98-107); Glucose 139 mg/dL (74-99); Magnesium 2.1 mg/dL (1.6-2.3); Non-African American GFR(CKD) 79 (>60 ml/min/1.73 sqM); Sodium 135 mmol/L (137-145)
[2022-11-27 21:48] LABS: LDH 1388 U/L (120-246)
[2022-11-27 21:50] LABS: Partial Thromboplastin Time 26.8 sec (22.0-30.0)
[2022-11-27] MEDS ORDERED: FUROSEMIDE 10 MG/ML 2 ML VIAL IV ONE (22:54)
[2022-11-27] MEDS: SODIUM CHLORIDE 0.9% 1,000 ML IV SCH (23:07)
[2022-11-28 01:35] LABS: Partial Thromboplastin Time 27.5 sec (22.0-30.0)
[2022-11-28] MEDS: ALPRAZolam 0.25 MG TAB PO PRN (01:36)
[2022-11-28] MEDS: HEPARIN SODIUM 1,000 UN/ML (10ML VL) IV PRN ×2 (02:55→10:28)
[2022-11-28] MEDS: HEPARIN SOD,PORK IN 0.45% NACL 25,000 UNIT in 0.45% NACL 1 250ML.BAG IV SCH ×2 (02:56→14:18)
[2022-11-28 03:12] LABS: Calcium 8.2 mg/dL (8.4-10.2); Magnesium 2.2 mg/dL (1.6-2.3)
[2022-11-28 03:14] LABS: Potassium 5.3 mmol/L (3.5-5.1)
[2022-11-28 05:13] LABS: Basophils % (A) 0 %; Eosinophils # (A) 0.1 k/uL (0-0.7); Eosinophils % (A) 1 %; HCT 44.3 % (39.0-53.0); HGB 13.4 gm/dL (13.0-17.5); Hypochromasia Marked; Lymphocytes # (A) 1.1 k/uL (1.0-4.8); Lymphocytes % (A) 7 %; MCH 27.8 pg (25.0-35.0); MCHC 30.2 g/dL (31.0-37.0); Mean Platelet Volume 7.5; Monocytes # (A) 1.2 k/uL (0-1.0); Monocytes % (A) 8 %; Neutrophils # (A) 12.4 k/uL (1.3-7.7); Neutrophils % (A) 81 %; Platelet Count 251 k/uL (150-450); RBC 4.81 m/uL (4.30-5.90); WBC 15.2 k/uL (3.8-10.6)
[2022-11-28 05:21] LABS: Partial Thromboplastin Time 51.2 sec (22.0-30.0)
[2022-11-28] MEDS: SODIUM CHLORIDE 0.9% 1,000 ML in EMPTY BAG 1 BAG IV SCH ×3 (05:24→17:34)
[2022-11-28 05:50] LABS: Calcium 7.8 mg/dL (8.4-10.2); Potassium 4.9 mmol/L (3.5-5.1)
[2022-11-28] MEDS ORDERED: FUROSEMIDE 10 MG/ML 2 ML VIAL IV ONE ×2 (07:00→11:30)
[2022-11-28] MEDS: SYMBICORT 80-4.5 MCG INHALER INHALATION SCH ×2 (07:30→19:45)
[2022-11-28] MEDS: IPRATROPIUM 0.5 MG/2.5 ML NEBU INHALATION SCH ×4 (07:30→19:45)
[2022-11-28] MEDS: NOREPINEPHRINE 4 MG in SODIUM CHLORIDE 0.9% 250 ML IV SCH (07:43)
--- NOTE | 2022-11-28 07:49 | XR ---
EXAMINATION TYPE: XR chest 1V portable DATE OF EXAM: 11/28/2022 6:35 AM COMPARISON: Chest radiographs from by 12/12/2022 TECHNIQUE: XR chest 1V portable Frontal view of the chest. CLINICAL INDICATION:Male, 57 years old with history of LVAD placement. Perform with HOB at 0 degrees. ; FINDINGS: Lungs/Pleura: There is no evidence of pleural effusion, focal consolidation, or pneumothorax. Pulmonary vascularity: Pulmonary vascular congestion. Heart/mediastinum: Cardiomediastinal silhouette is enlarged and stable. Musculoskeletal: No acute osseous pathology. Other findings: None Lines/Tubes: Left ventricular assist device is in stable/appropriate position. IMPRESSION: Cardiomegaly and stable pulmonary vascular congestion. Correlate with BNP for congestive heart failur e.
[2022-11-28] MEDS: ALPRAZolam 0.5 MG TAB PO PRN ×3 (08:00→23:30)
[2022-11-28] MEDS: PANTOPRAZOLE 40 MG TABLET PO SCH (08:01)
[2022-11-28] MEDS: ACETAMINOPHEN TAB 325 MG TAB PO PRN ×2 (08:01→16:13)
--- NOTE | 2022-11-28 08:27 | P.PN ---
Subjective Progress Note Date: 11/28/22 Principal diagnosis: Chest pain, unstable angina. Pulmonary consult dated 11/27/2022. 57-year-old male who presented to the emergency department, on 11/25/2022, chest pain. We were consulted, for possible preoperative evaluation, in anticipation of a bypass grafting. The patient apparently has a history of a recent PCI with stent placement, and the LAD, about 1 month ago. He sees a primary care physician by the name of Dr. Galvin. The patient is currently on nitroglycerin at 10 mcg/m, saline at 50 mL an hour, and IV heparin. Today he tells us that he is going for stent, rather than open heart surgery. He is receiving a room air, and he is a lifelong nonsmoker. He apparently does have a history of asthma, but doesn't really take any medication for. At one point, he was taking Trelegy, but it did not agree with him. Since he had his stents placed, his breathing is much improved. In addition to asthma, he has a history of CAD, angina, diabetes mellitus, hyperlipidemia, hypertension, osteoarthritis, sleep apnea, currently on CPAP, and chronic anxiety. Labs include a platelet count of 207,000. PTT is 71.3. Glucose 109. The rest of the labs from 2 days ago, and yesterday, all reviewed. Chest x-ray shows mild cardiomegaly, and changes of COPD. In addition, there may be some interstitial edema. Progress note dated 11/28/2022. The patient is seen today in room 251. He was seen in consultation yesterday. The patient is currently on BiPAP, with settings of IPAP 14, EPAP 5, and 40%. The patient had a stent placed in his LAD and circumflex coronary artery, yesterday, by Dr. Dee. He is currently on IV heparin, saline at 75 mL an hour, and norepinephrine at 5.8 mcg/m. He had a Impella device inserted. I told the nurse, the patient could be transferred over to nasal prongs. Clinically, he is doing reasonably well. Chest x-ray shows fluid overload. I will give him some additional Lasix today. Currently labs include a white count 15.2, hemoglobin 13.4, hematocrit 44.3, and a platelet count of 251,000. Sodium 134, potassium 4.9, chlorides 100, CO2 19, anion gap 15, BUN 17, and creatinine 1.15. The patient's LDH is 1935. Chest x-ray is consistent with cardiomegaly, and pulmonary vascular congestion. Objective - Vital Signs Vital signs: Vital Signs Temp 98.0 F 11/28/22 08:00 Pulse 75 11/28/22 08:00 Resp 23 11/28/22 08:00 BP 126/84 11/28/22 08:00 Pulse Ox 98 11/28/22 08:00 FiO2 40 11/28/22 08:00 Intake & Output 11/27/22 11/28/22 11/28/22 18:59 06:59 18:59 Intake Total 1250.20 1332.310 155.896 Output Total 1145 1695 450 Balance 105.20 -362.690 -294.104 Weight 147.2 kg Intake: IV 1000 Intake, IV Titration 250.20 1332.310 155.896 Amount Heparin Sod,Pork in 0.45% 68.014 NaCl 25,000 unit In 0.45 % NaCl 1 250ml.bag @ 6.98 UNITS/KG/HR 10.002 mls/ hr IV .Q24H [facility] Rx#: [id number] Nitroglycerin-D5w Pmx 50 95.20 mg In Dextrose/Water 1 250ml.bag @ 10 MCG/MIN 3 mls/hr IV .Q24H [facility] Rx#: [id number] Norepinephrine 4 mg In 124.296 80.896 Sodium Chloride 0.9% 250 ml @ 0.03 MCG/KG/MIN 16. 379 mls/hr IV .[id number] [facility] Rx#:[id number] Sodium Chloride 0.9% 1, 155 1140 75 000 ml @ 0 mls/hr IV .[facility] -[facility] Rx#:[id number] Output: Urine 1145 1695 450 Other: Voiding Method Toilet Indwelling Catheter Urinal - Exam No acute distress, oriented 3. No respiratory distress. Currently on BiPAP. HEENT examination is grossly unremarkable. Neck supple. Full range of motion. No adenopathy thyromegaly or neck vein distention. Cardiovascular examination reveals regular rhythm rate. S1-S2 normal. No S3 or S4. No discernible murmur noted. Heart rate 75 bpm. Lungs reveal mostly clear breath sounds. No wheezes or rhonchi. Minimal basilar crackles are noted. Saturations are 98%. Abdomen soft bowel sounds are heard. No masses or tenderness. Extremities are intact. No cyanosis clubbing or edema. Skin is without rash or lesion. Neurologic examination is brief but nonfocal. - Labs CBC & Chem 7: 11/28/22 04:53 11/28/22 04:53 Labs: Abnormal Lab Results - Last 24 Hours (Table) 11/27/22 11/27/22 11/27/22 Range/Units 18:31 18:31 18:34 WBC 15.6 H (3.8-10.6) k/uL MCHC (31.0-37.0) g/dL Neutrophils # 14.0 H (1.3-7.7) k/uL Lymphocytes # 0.6 L (1.0-4.8) k/uL Monocytes # (0-1.0) k/uL APTT 48.2 H (22.0-30.0) sec Sodium (137-145) mmol/L Potassium (3.5-5.1) mmol/L Carbon Dioxide (22-30) mmol/L Glucose (74-99) mg/dL POC Glucose (mg/dL) 163 H (70-110) mg/dL Calcium (8.4-10.2) mg/dL Lactate Dehydrogenase (120-246) U/L 11/27/22 11/28/22 11/28/22 Range/Units 21:03 01:01 01:01 WBC (3.8-10.6) k/uL MCHC (31.0-37.0) g/dL Neutrophils # (1.3-7.7) k/uL Lymphocytes # (1.0-4.8) k/uL Monocytes # (0-1.0) k/uL APTT (22.0-30.0) sec Sodium 135 L 135 L (137-145) mmol/L Potassium 5.3 H (3.5-5.1) mmol/L Carbon Dioxide 19 L 17 L (22-30) mmol/L Glucose 139 H 160 H (74-99) mg/dL POC Glucose (mg/dL) (70-110) mg/dL Calcium 8.2 L 8.2 L (8.4-10.2) mg/dL Lactate Dehydrogenase 1388 H 1819 H (120-246) U/L 11/28/22 11/28/22 11/28/22 Range/Units 04:53 04:53 04:53 WBC 15.2 H (3.8-10.6) k/uL MCHC 30.2 L (31.0-37.0) g/dL Neutrophils # 12.4 H (1.3-7.7) k/uL Lymphocytes # (1.0-4.8) k/uL Monocytes # 1.2 H (0-1.0) k/uL APTT 51.2 H (22.0-30.0) sec Sodium 134 L (137-145) mmol/L Potassium (3.5-5.1) mmol/L Carbon Dioxide 19 L (22-30) mmol/L Glucose 161 H (74-99) mg/dL POC Glucose (mg/dL) (70-110) mg/dL Calcium 7.8 L (8.4-10.2) mg/dL Lactate Dehydrogenase 1935 H (120-246) U/L Microbiology - Last 24 Hours (Table) 11/26/22 16:40 Nasal Screen MRSA/MSSA - Final Nasopharyngeal Swab Assessment and Plan Assessment: Coronary artery disease,S/P PCI with stenting of his LAD and circumflex coronary artery, and insertion of an Impella device. Recent stent placement, October 2022. History of mild asthma. Lifelong nonsmoker. History of angina pectoris. History of diabetes mellitus. History of hyperlipidemia. History of hypertension. History of obstructive sleep apnea syndrome, maintained on CPAP. Plan: Plan dated 11/27/2022. Initially saw this patient, we thought we were seeing him because he was going to have bypass surgery. Rather, he tells us that he is having a catheterization, and possible stent placement instead. The patient does have a history of asthma, which seems be relatively mild, maintained on a rescue inhaler as needed. At one point, he was on Trelegy, but he did not agree with him. Should he have an open heart procedure, we'll follow along. Additional recommendations and suggestions are forthcoming. Plan dated 11/28/2022. The patient came back to the intensive care unit, on BiPAP. The settings are 14/508%. Get some additional Lasix today, 20 mm IV push. He's currently on IV heparin, and norepinephrine 5.8 mcg/m. The patient is currently on an Impella device for cardiovascular support. Labs, x-rays, and medications are reviewed. We will continue to follow the patient and make recommendations were appropriate. Prognosis is guarded. Time with Patient: Greater than 30
[2022-11-28] MEDS: ASPIRIN 81 MG PO SCH (08:41)
[2022-11-28] MEDS: MONTELUKAST 10 MG TAB PO SCH (08:41)
[2022-11-28] MEDS: FAMOTIDINE 20 MG TAB PO SCH ×2 (08:42→20:01)
[2022-11-28] MEDS: METOPROLOL TARTRATE 25 MG TAB PO SCH ×2 (08:42→20:01)
[2022-11-28] MEDS: PRASUGREL 10 MG TAB PO SCH (08:42)
[2022-11-28] MEDS: DAPAGLIFLOZIN PROPANEDIOL 10 MG TABLET PO SCH (08:42)
[2022-11-28] MEDS: VALSARTAN 160 MG TAB PO SCH (08:43)
--- NOTE | 2022-11-28 08:45 | P.PN ---
Subjective Progress Note Date: 11/28/22 PROGRESS NOTE The patient is a 57-year-old male with a known history of CAD status post stenting of the LAD who presented with non-STEMI and underwent complex PCI yesterday by Dr. Dee, received stenting to the left circumflex and ostial LAD with placement of Impella catheter. He is hemodynamically stable this morning, he is in sinus mechanism and denies any chest discomfort. He is complaining of back discomfort and discomfort in the left groin at the site of the catheter insertion. He received IV diuretics with improvement in his urinary output. He continues to be on BiPAP. He denies any dizziness or palpitation. He is anxious to sit up. Medications: IV heparin, aspirin, Lipitor 80 mg daily, metoprolol 25 mg twice a day, Effient 10 mg daily, Diovan 160 mg daily, on hold, Singulair,Farxiga, low-dose norepinephrine PHYSICAL EXAMINATION: Blood pressure 126/80 heart rate 75 LUNGS: Clear to auscultation HEART: Regular rate and rhythm, S1, S2. No S3. systolic ejection murmur ABDOMEN: Soft, nontender, no organomegaly, obese EXTREMETIES: No edema, catheter in left groin, pulse noted LAB: BUN 17, creatinine 1.15, hemoglobin 13.4, LDH 1935 IMPRESSION: 1. Status post non-STEMI stenting of the LAD and left circumflex 2. Impella catheter placement during procedure because of hemodynamic instability, stable at this time 3. History of hypertension 4. And obesity PLAN: 1. Wean Impella and if stable removed today 2. Continue dual antiplatelet treatment 3. Wean oxygen supplementation as tolerated 4. Add Aldactone 5. Depending on his progress further recommendations will be made. Objective - Vital Signs Vital signs: Vital Signs Temp 98.0 F 11/28/22 08:00 Pulse 75 11/28/22 08:00 Resp 23 11/28/22 08:00 BP 126/84 11/28/22 08:00 Pulse Ox 98 11/28/22 08:00 FiO2 40 11/28/22 08:00 Intake & Output 11/27/22 11/28/22 11/28/22 18:59 06:59 18:59 Intake Total 1250.20 1332.310 155.896 Output Total 1145 1695 450 Balance 105.20 -362.690 -294.104 Weight 147.2 kg Intake: IV 1000 Intake, IV Titration 250.20 1332.310 155.896 Amount Heparin Sod,Pork in 0.45% 68.014 NaCl 25,000 unit In 0.45 % NaCl 1 250ml.bag @ 6.98 UNITS/KG/HR 10.002 mls/ hr IV .Q24H [facility] Rx#: [id number] Nitroglycerin-D5w Pmx 50 95.20 mg In Dextrose/Water 1 250ml.bag @ 10 MCG/MIN 3 mls/hr IV .Q24H [facility] Rx#: [id number] Norepinephrine 4 mg In 124.296 80.896 Sodium Chloride 0.9% 250 ml @ 0.03 MCG/KG/MIN 16. 379 mls/hr IV .[id number] [facility] Rx#:[id number] Sodium Chloride 0.9% 1, 155 1140 75 000 ml @ 0 mls/hr IV .STK -[facility] Rx#:[id number] Output: Urine 1145 1695 450 Other: Voiding Method Toilet Indwelling Catheter Urinal - Labs CBC & Chem 7: 11/28/22 04:53 11/28/22 04:53 Labs: Abnormal Lab Results - Last 24 Hours (Table) 11/27/22 11/27/22 11/27/22 Range/Units 18:31 18:31 18:34 WBC 15.6 H (3.8-10.6) k/uL MCHC (31.0-37.0) g/dL Neutrophils # 14.0 H (1.3-7.7) k/uL Lymphocytes # 0.6 L (1.0-4.8) k/uL Monocytes # (0-1.0) k/uL APTT 48.2 H (22.0-30.0) sec Sodium (137-145) mmol/L Potassium (3.5-5.1) mmol/L Carbon Dioxide (22-30) mmol/L Glucose (74-99) mg/dL POC Glucose (mg/dL) 163 H (70-110) mg/dL Calcium (8.4-10.2) mg/dL Lactate Dehydrogenase (120-246) U/L 11/27/22 11/28/22 11/28/22 Range/Units 21:03 01:01 01:01 WBC (3.8-10.6) k/uL MCHC (31.0-37.0) g/dL Neutrophils # (1.3-7.7) k/uL Lymphocytes # (1.0-4.8) k/uL Monocytes # (0-1.0) k/uL APTT (22.0-30.0) sec Sodium 135 L 135 L (137-145) mmol/L Potassium 5.3 H (3.5-5.1) mmol/L Carbon Dioxide 19 L 17 L (22-30) mmol/L Glucose 139 H 160 H (74-99) mg/dL POC Glucose (mg/dL) (70-110) mg/dL Calcium 8.2 L 8.2 L (8.4-10.2) mg/dL Lactate Dehydrogenase 1388 H 1819 H (120-246) U/L 11/28/22 11/28/22 11/28/22 Range/Units 04:53 04:53 04:53 WBC 15.2 H (3.8-10.6) k/uL MCHC 30.2 L (31.0-37.0) g/dL Neutrophils # 12.4 H (1.3-7.7) k/uL Lymphocytes # (1.0-4.8) k/uL Monocytes # 1.2 H (0-1.0) k/uL APTT 51.2 H (22.0-30.0) sec Sodium 134 L (137-145) mmol/L Potassium (3.5-5.1) mmol/L Carbon Dioxide 19 L (22-30) mmol/L Glucose 161 H (74-99) mg/dL POC Glucose (mg/dL) (70-110) mg/dL Calcium 7.8 L (8.4-10.2) mg/dL Lactate Dehydrogenase 1935 H (120-246) U/L Microbiology - Last 24 Hours (Table) 11/26/22 16:40 Nasal Screen MRSA/MSSA - Final Nasopharyngeal Swab
[2022-11-28] MEDS: MUPIROCIN 2% OINT 22 GM TUBE NASAL SCH ×2 (09:12→20:02)
[2022-11-28] MEDS: SPIRONOLACTONE 25 MG TAB PO SCH (09:19)
[2022-11-28 10:01] LABS: Partial Thromboplastin Time 39.4 sec (22.0-30.0)
[2022-11-28] MEDS: NITROGLYCERIN-D5W PMX 50 MG in DEXTROSE/WATER 1 250ML.BAG IV SCH (11:09)
[2022-11-28] MEDS: SODIUM CHLORIDE 0.9% 1,000 ML IV SCH (12:03)
--- NOTE | 2022-11-28 13:08 | CA ---
Transthoracic Echo Report Name: Anne Sheehan Age: 57 Gender: M : 1965 Exam Date: 11/28/2022 10:32 Exam Location: [place] [facility] Ht (in): 68 Wt (lb): 324 Ordering Physician: Laurence Shook MD ([id number]) Attending/Referring Phys: General Scrap Worker Porsha Moseley RDCS Procedure CPT: Indications: impella placement/LV function Cardiac Hx: Technical Quality: Technically difficult study Contrast 1: Lumason Total Dose (mL): 3 Contrast 2: Total Dose (mL): MEASUREMENTS (Male / Female) Normal Values 2D ECHO LV Diastolic Volume MOD BP 108.7 cm??? 67 - 155 / 56 - 104 cm??? LV Systolic Volume MOD BP 63.7 cm??? 22 - 58 / 19 - 49 cm??? LV Ejection Fraction MOD BP 41.4 % >= 55 % LV Diastolic Volume MOD 4C 120.6 cm??? LV Systolic Volume MOD 4C 65.3 cm??? LV Ejection Fraction MOD 4C 45.8 % LV Diastolic Length 4C 9.1 cm LV Systolic Length 4C 6.4 cm LV Diastolic Volume MOD 2C 84.9 cm??? LV Systolic Volume MOD 2C 58.5 cm??? LV Ejection Fraction MOD 2C 31.1 % LV Diastolic Length 2C 7.8 cm LV Systolic Length 2C 6.9 cm FINDINGS Left Ventricle Left ventricular ejection fraction is estimated at 40-45 %. Mildly increased left ventricular systolic volume. Moderately decreased left ventricular ejection fraction. Lateral wall hypokinesis. Impella catheter in place Right Ventricle Right Atrium Left Atrium Mitral Valve Aortic Valve Tricuspid Valve Pulmonic Valve Pericardium No pericardial effusion. Normal pericardium. Aorta CONCLUSIONS 1. Moderately impaired systolic function with segmental wall motion abnormality 2. A catheter was noted in the LV outflow track Previewed by: Dr. Laurence Shook MD (Electronically Signed) Final Date: 28 Nov 2022 13:07
--- NOTE | 2022-11-28 13:29 | CA ---
Transthoracic Echo Report Name: Anne Sheehan Age: 57 Gender: M : 1965 Exam Date: 11/27/2022 17:40 Exam Location: [place] [facility] Ht (in): 68 Wt (lb): 315 Ordering Physician: Bry Dee DO ([id number]) Attending/Referring Phys: Trawl Net Maker Porsha Moseley RDCS Procedure CPT: Indications: re: LVAD placement Cardiac Hx: Technical Quality: Technically difficult study Contrast 1: Lumason Total Dose (mL): 3 Contrast 2: Total Dose (mL): MEASUREMENTS (Male / Female) Normal Values 2D ECHO LV Diastolic Volume MOD BP 58.4 cm??? 67 - 155 / 56 - 104 cm??? LV Systolic Volume MOD BP 38.5 cm??? 22 - 58 / 19 - 49 cm??? LV Ejection Fraction MOD BP 34.1 % >= 55 % LV Diastolic Volume MOD 4C 44.9 cm??? LV Systolic Volume MOD 4C 34.2 cm??? LV Ejection Fraction MOD 4C 23.9 % LV Diastolic Length 4C 6.8 cm LV Systolic Length 4C 6.5 cm LV Diastolic Volume MOD 2C 70.8 cm??? LV Systolic Volume MOD 2C 42.1 cm??? LV Ejection Fraction MOD 2C 40.5 % LV Diastolic Length 2C 7.4 cm LV Systolic Length 2C 7.1 cm DOPPLER TR Peak Velocity 271.8 cm/s TR Peak Gradient 29.5 mmHg Right Ventricular Systolic Press 34.5 mmHg FINDINGS Left Ventricle Left ventricular ejection fraction is estimated at 35-40 %. Moderately decreased left ventricular ejection fraction. Impala catheter in LVOT in place Right Ventricle Right ventricle not well visualized. Mild pulmonary hypertension. Right Atrium Left Atrium Mitral Valve Mild mitral regurgitation. Aortic Valve Tricuspid Valve Mild tricuspid regurgitation. Pulmonic Valve Pericardium Normal pericardium. No pericardial effusion. Aorta CONCLUSIONS Limited echo. Moderately impaired systolic function with inferolateral hypokinesis A catheter is noted in the outflow tract of the left ventricle Previewed by: Dr. Laurence Shook MD (Electronically Signed) Final Date: 28 Nov 2022 13:28
--- NOTE | 2022-11-28 13:33 | P.PN ---
Subjective Progress Note Date: 11/28/22 Patient is a pleasant 57-year-old male with with the recent cardiac original stenting came in with symptoms of left-sided chest pain and midsternal chest pain radiating to the back patient doesn't have gallbladder anymore this chest pain is nonexertional started last night and was having on and off episodes reviewed by nitroglycerin radiating to the jaw as well as left arm no associated shortness of breath or diaphoresis or nausea. Patient just pain is nonpleuritic not associated with food. EKG showed a mild nonspecific ST depressions in lead 2 in lead 3 which were not present in the previous EKG. Patient has mild elevation of troponin to 0.072. 11/26/2022 Patient is seen in follow-up today with cardiology following maintained on heparin drip along with nitro and just recently underwent cardiac catheterization with no new stenting noted. Patient with ostial lesions to the LAD and circumflex recommending cardiothoracic evaluation for possible CABG. Patient is afebrile currently denies chest pain or palpitations. Patient denies shortness of breath and is currently nothing by mouth. Patient is a diabetic and would recommend monitoring Accu-Cheks and continue with current protocol. Patient is currently on bedrest per cardiac catheterization protocol and continues with catheterization banding on the right wrist. 11/27/2022 Patient is seen in follow-up this morning has been evaluated by cardiothoracic surgery and reports not a candidate for CABG with cardiology following and plan for cardiac catheterization with stenting again today. Patient is currently afebrile denies chest pain or shortness of breath. Patient is maintained on IV heparin along with IV nitro drip and awaiting cardiac catheterization. Patient is nothing by mouth and will resume diet after procedure. Recommend close monitoring of blood sugars and try glycemic control. 11/28/22. Patient seen and examined. Labs this morning showed white count of 15.2, hemoglobin of 13.4. Sodium 134, potassium 4.9, chloride 100, CO2 19. Vital signs heart rate 87, respiratory rate 18, blood pressure 120/80, Patient currently on BiPAP with FiO2 40%. REVIEW OF SYSTEMS: CONSTITUTIONAL: No fever, no malaise,. CARDIOVASCULAR: No chest pain, no palpitations, no syncope. PULMONARY: No shortness of breath, no cough, GASTROINTESTINAL: No diarrhea, no nausea, no vomiting, no abdominal pain. NEUROLOGICAL: No headaches, no weakness, PHYSICAL EXAMINATION: GENERAL: The patient is alert and oriented x3, not in any acute distress. Well developed, well nourished. HEENT: Pupils are round and equally reacting to light. EOMI. No scleral icterus. No conjunctival pallor. Normocephalic, atraumatic. No pharyngeal erythema. No thyromegaly. CARDIOVASCULAR: S1 and S2 present. No murmurs, rubs, or gallops. PULMONARY: Chest is clear to auscultation, no wheezing or crackles. ABDOMEN: Soft, nontender, nondistended, normoactive bowel sounds. No palpable organomegaly. MUSCULOSKELETAL: No joint swelling or deformity. EXTREMITIES: No cyanosis, clubbing, or pedal edema. NEUROLOGICAL: Gross neurological examination did not reveal any focal deficits. SKIN: No rashes. Assessment and plan Status post non-STEMI stenting of the LAD and left circumflex Impella catheter placement during procedure because of hemodynamic instability, stable at this time -Morbid Obesity with a BMI of 52.2 -Asthma without exacerbation -diabetes mellitus , type II -Hyperlipidemia -Hypertension -Sleep apnea and uses CPAP machine at home Plan; Monitor vital signs Monitor CBC Monitor CMP Continue telemetry monitoring Wean Impella by cardiology Continue dual antiplatelet treatment Currently on Levothroid and heparin Patient given Lasix 20 mg once Follow-up on critical care recommendation follow up on cardiology recommendations Objective - Vital Signs Vital signs: Vital Signs Temp 98.0 F 11/28/22 08:00 Pulse 87 11/28/22 09:00 Resp 18 11/28/22 09:00 BP 120/80 11/28/22 09:00 Pulse Ox 94 L 11/28/22 09:00 FiO2 40 11/28/22 08:20 Intake & Output 11/27/22 11/28/22 11/28/22 18:59 06:59 18:59 Intake Total 1250.20 1332.310 637.175 Output Total 1145 1695 575 Balance 105.20 -362.690 62.175 Weight 147.2 kg Intake: IV 1000 Intake, IV Titration 250.20 1332.310 237.175 Amount Heparin Sod,Pork in 0.45% 68.014 NaCl 25,000 unit In 0.45 % NaCl 1 250ml.bag @ 6.98 UNITS/KG/HR 10.002 mls/ hr IV .Q24H [facility] Rx#: [id number] Nitroglycerin-D5w Pmx 50 95.20 mg In Dextrose/Water 1 250ml.bag @ 10 MCG/MIN 3 mls/hr IV .Q24H [facility] Rx#: [id number] Norepinephrine 4 mg In 124.296 87.175 Sodium Chloride 0.9% 250 ml @ 0.03 MCG/KG/MIN 16. 379 mls/hr IV .[id number] [facility] Rx#:[id number] Sodium Chloride 0.9% 1, 155 1140 150 000 ml @ 0 mls/hr [facility] Rx#:[id number] Oral 400 Output: Urine 1145 2384 575 Other: Voiding Method Toilet Indwelling Catheter Urinal - Labs CBC & Chem 7: 11/28/22 04:53 11/28/22 04:53 Labs: Abnormal Lab Results - Last 24 Hours (Table) 11/27/22 11/27/22 11/27/22 Range/Units 18:31 18:31 18:34 WBC 15.6 H (3.8-10.6) k/uL MCHC (31.0-37.0) g/dL Neutrophils # 14.0 H (1.3-7.7) k/uL Lymphocytes # 0.6 L (1.0-4.8) k/uL Monocytes # (0-1.0) k/uL APTT 48.2 H (22.0-30.0) sec Sodium (137-145) mmol/L Potassium (3.5-5.1) mmol/L Carbon Dioxide (22-30) mmol/L Glucose (74-99) mg/dL POC Glucose (mg/dL) 163 H (70-110) mg/dL Calcium (8.4-10.2) mg/dL Lactate Dehydrogenase (120-246) U/L 11/27/22 11/28/22 11/28/22 Range/Units 21:03 01:01 01:01 WBC (3.8-10.6) k/uL MCHC (31.0-37.0) g/dL Neutrophils # (1.3-7.7) k/uL Lymphocytes # (1.0-4.8) k/uL Monocytes # (0-1.0) k/uL APTT (22.0-30.0) sec Sodium 135 L 135 L (137-145) mmol/L Potassium 5.3 H (3.5-5.1) mmol/L Carbon Dioxide 19 L 17 L (22-30) mmol/L Glucose 139 H 160 H (74-99) mg/dL POC Glucose (mg/dL) (70-110) mg/dL Calcium 8.2 L 8.2 L (8.4-10.2) mg/dL Lactate Dehydrogenase 1388 H 1819 H (120-246) U/L 11/28/22 11/28/22 11/28/22 Range/Units 04:53 04:53 04:53 WBC 15.2 H (3.8-10.6) k/uL MCHC 30.2 L (31.0-37.0) g/dL Neutrophils # 12.4 H (1.3-7.7) k/uL Lymphocytes # (1.0-4.8) k/uL Monocytes # 1.2 H (0-1.0) k/uL APTT 51.2 H (22.0-30.0) sec Sodium 134 L (137-145) mmol/L Potassium (3.5-5.1) mmol/L Carbon Dioxide 19 L (22-30) mmol/L Glucose 161 H (74-99) mg/dL POC Glucose (mg/dL) (70-110) mg/dL Calcium 7.8 L (8.4-10.2) mg/dL Lactate Dehydrogenase 1935 H (120-246) U/L Microbiology - Last 24 Hours (Table) 11/26/22 16:40 Nasal Screen MRSA/MSSA - Final Nasopharyngeal Swab
[2022-11-28] MEDS: ONDANSETRON 4 MG TAB PO PRN ×2 (14:51→21:26)
[2022-11-28 15:59] VITALS: BMI 49.3
[2022-11-28] MEDS ORDERED: IV FLUID CONTINUATION 1,000 ML IV ONE (16:54)
--- NOTE | 2022-11-28 17:10 | P.PCN ---
Date of Procedure: 11/28/22 Description of Procedure: Removal of Impella catheter AsstJluis Dee Patient was brought to the microbiology lab technician, he was draped and prepped in the conventional fashion, the Impella catheter was removed, hemostasis was obtained with closure of the Perclose that was placed prior at the time of his cardiac catheterization. There was no immediate complications. No hematoma was noted. The patient was returned to his room in stable condition.
[2022-11-28] MEDS: ATORVASTATIN 80 MG TAB PO SCH (20:01)
[2022-11-28] MEDS: FUROSEMIDE 10 MG/ML 4 ML VIAL IV SCH (20:01)
[2022-11-29] MEDS: SODIUM CHLORIDE 0.9% 1,000 ML in EMPTY BAG 1 BAG IV SCH ×4 (01:29→19:13)
[2022-11-29 03:49] LABS: Basophils % (A) 0 %; Eosinophils % (A) 0 %; HGB 11.7 gm/dL (13.0-17.5); Hypochromasia Moderate; Lymphocytes % (A) 8 %; MCH 28.1 pg (25.0-35.0); MCHC 30.8 g/dL (31.0-37.0); MCV 91.2 fL (80.0-100.0); Mean Platelet Volume 7.3; Monocytes % (A) 8 %; Neutrophils # (A) 9.9 k/uL (1.3-7.7); Neutrophils % (A) 81 %; Platelet Count 197 k/uL (150-450); RBC 4.16 m/uL (4.30-5.90); RDW 14.3 % (11.5-15.5); WBC 12.2 k/uL (3.8-10.6)
[2022-11-29 03:56] LABS: Albumin 3.4 g/dL (3.5-5.0); Potassium 4.5 mmol/L (3.5-5.1); Total Bilirubin 1.7 mg/dL (0.2-1.3); Total Protein 5.8 g/dL (6.3-8.2)
[2022-11-29] MEDS: ACETAMINOPHEN TAB 325 MG TAB PO PRN (05:27)
--- NOTE | 2022-11-29 07:34 | XR ---
EXAMINATION TYPE: XR chest 1V portable DATE OF EXAM: 11/29/2022 5:31 AM COMPARISON: Chest radiograph from one day prior. TECHNIQUE: XR chest 1V portable Frontal view of the chest. CLINICAL INDICATION:Male, 57 years old with history of assess lungs; FINDINGS: Lungs/Pleura: Low lung volumes are present. Generalized haziness which is felt to be mildly improved from one day prior. There is no evidence of pleural effusion, focal consolidation, or pneumothorax. Pulmonary vascularity: Unremarkable. Heart/mediastinum: Cardiomediastinal silhouette is enlarged and stable. Musculoskeletal: No acute osseous pathology. Interval removal of left ventricular assist device. IMPRESSION: 1. Low lung volumes with a generalized hazy appearance which could represent atelectasis versus pulm onary edema correlate with serum BNP. 2. Interval removal of left ventricular assist device.
[2022-11-29] MEDS: IPRATROPIUM 0.5 MG/2.5 ML NEBU INHALATION SCH ×4 (07:54→20:23)
[2022-11-29] MEDS: SYMBICORT 80-4.5 MCG INHALER INHALATION SCH ×2 (07:54→20:23)
[2022-11-29] MEDS: NOREPINEPHRINE 4 MG in SODIUM CHLORIDE 0.9% 250 ML IV SCH ×2 (08:27→19:30)
[2022-11-29] MEDS: METOPROLOL TARTRATE 25 MG TAB PO SCH ×3 (08:44→20:11)
[2022-11-29] MEDS: MONTELUKAST 10 MG TAB PO SCH (08:44)
[2022-11-29] MEDS: SPIRONOLACTONE 25 MG TAB PO SCH (08:44)
[2022-11-29] MEDS: PANTOPRAZOLE 40 MG TABLET PO SCH (08:45)
[2022-11-29] MEDS: FAMOTIDINE 20 MG TAB PO SCH ×2 (08:45→20:11)
[2022-11-29] MEDS: ENOXAPARIN 40 MG/0.4 ML SYRINGE SQ SCH (08:45)
[2022-11-29] MEDS: ASPIRIN 81 MG PO SCH (08:45)
[2022-11-29] MEDS: PRASUGREL 10 MG TAB PO SCH (08:49)
[2022-11-29] MEDS: DAPAGLIFLOZIN PROPANEDIOL 10 MG TABLET PO SCH (08:49)
--- NOTE | 2022-11-29 09:12 | P.PN ---
Subjective Progress Note Date: 11/29/22 PROGRESS NOTE The patient is a 57-year-old male with a known history of CAD status post stenting of the LAD who presented with non-STEMI and underwent complex PCI yesterday by Dr. Dee, received stenting to the left circumflex and ostial LAD with placement of Impella catheter. He is hemodynamically stable this morning, he is in sinus mechanism and denies any chest discomfort. He is complaining of back discomfort and discomfort in the left groin at the site of the catheter insertion. He received IV diuretics with improvement in his urinary output. He continues to be on BiPAP. He denies any dizziness or palpitation. He is anxious to sit up. November 29: The patient sitting up in the chair, feels better. His Impella catheter was removed yesterday. He denies any chest discomfort. His breathing is stable. He denies any dizziness or palpitations. He denies any nausea. He is in sinus mechanism with episodes of sinus tachycardia. He has no evidence of ventricular ectopic activity.. Medications: aspirin, Lipitor 80 mg daily, metoprolol 25 mg twice a day, Effient 10 mg daily, on hold, Singulair,Farxiga, Aldactone 25 mg daily, Lasix 40 mg IV every 12 hours PHYSICAL EXAMINATION: Blood pressure 92/50 heart rate 100 LUNGS: Clear to auscultation HEART: Regular rate and rhythm, S1, S2. No S3. systolic ejection murmur ABDOMEN: Soft, nontender, no organomegaly, obese EXTREMETIES: No edema, left groin no hematoma with mild ecchymosis LAB: BUN 21, creatinine 1.29, hemoglobin 11.7, potassium 4.5 IMPRESSION: 1. Status post non-STEMI stenting of the LAD and left circumflex 2. Impella catheter placement during procedure because of hemodynamic instability, stable at this time, removed, stable 3. History of hypertension, now mild hypotension 4. Symptoms of CHF, patient probably hypovolemic at this time. PLAN: 1. Change to oral diuretics 2. IV fluid bolus 1 3. Follow blood pressure and renal functions 4. Increase activity as tolerated 5. Depending on his progress further recommendations will be made. Objective - Vital Signs Vital signs: Vital Signs Temp 98.9 F 11/29/22 04:00 Pulse 100 11/29/22 07:00 Resp 23 11/29/22 06:00 BP 92/50 11/29/22 07:00 Pulse Ox 100 11/29/22 07:35 FiO2 40 11/29/22 01:16 Intake & Output 11/28/22 11/29/22 11/29/22 18:59 06:59 18:59 Intake Total 1331.603 753.188 Output Total 1610 1370 Balance -278.397 -616.812 Weight 147.2 kg 142.3 kg Intake: IV 50 Intake, IV Titration 881.603 753.188 Amount Heparin Sod,Pork in 0.45% 194.428 NaCl 25,000 unit In 0.45 % NaCl 1 250ml.bag @ 6.98 UNITS/KG/HR 10.002 mls/ hr IV .Q24H [facility] Rx#: [id number] Norepinephrine 4 mg In 87.175 103.188 Sodium Chloride 0.9% 250 ml @ 0.03 MCG/KG/MIN 16. 379 mls/hr IV .[id number] [facility] Rx#:[id number] Sodium Chloride 0.9% 1, 300 000 ml @ 0 mls/hr IV .STK -MED ONE Rx#:[id number] Sodium Chloride 0.9% 1, 300 650 000 ml @ 50 mls/hr IV . Q20H [facility] Rx#:[id number] Oral 400 Output: Urine 1610 1370 Other: Voiding Method Indwelling Catheter Urinal - Labs CBC & Chem 7: 11/29/22 03:10 11/29/22 03:10 Labs: Abnormal Lab Results - Last 24 Hours (Table) 11/28/22 11/28/22 11/29/22 Range/Units 09:34 09:34 03:10 WBC (3.8-10.6) k/uL RBC (4.30-5.90) m/uL Hgb (13.0-17.5) gm/dL Hct (39.0-53.0) % MCHC (31.0-37.0) g/dL Neutrophils # (1.3-7.7) k/uL APTT 39.4 H (22.0-30.0) sec Sodium 134 L (137-145) mmol/L Chloride 96 L (98-107) mmol/L BUN 21 H (9-20) mg/dL Creatinine 1.29 H (0.66-1.25) mg/dL Glucose 176 H (74-99) mg/dL Calcium 8.0 L (8.4-10.2) mg/dL Total Bilirubin 1.7 H (0.2-1.3) mg/dL AST 331 H (17-59) U/L ALT 74 H (4-49) U/L Lactate Dehydrogenase 2069 H (120-246) U/L Total Protein 5.8 L (6.3-8.2) g/dL Albumin 3.4 L (3.5-5.0) g/dL 11/29/22 Range/Units 03:10 WBC 12.2 H (3.8-10.6) k/uL RBC 4.16 L (4.30-5.90) m/uL Hgb 11.7 L (13.0-17.5) gm/dL Hct 38.0 L (39.0-53.0) % MCHC 30.8 L (31.0-37.0) g/dL Neutrophils # 9.9 H (1.3-7.7) k/uL APTT (22.0-30.0) sec Sodium (137-145) mmol/L Chloride (98-107) mmol/L BUN (9-20) mg/dL Creatinine (0.66-1.25) mg/dL Glucose (74-99) mg/dL Calcium (8.4-10.2) mg/dL Total Bilirubin (0.2-1.3) mg/dL AST (17-59) U/L ALT (4-49) U/L Lactate Dehydrogenase (120-246) U/L Total Protein (6.3-8.2) g/dL Albumin (3.5-5.0) g/dL
[2022-11-29] MEDS ORDERED: SODIUM CHLORIDE 0.9% 500 ML 250 ML IV ONE ×2 (09:21→09:57)
[2022-11-29] MEDS ORDERED: HYDROCORTISONE SUCCINATE 100 MG/2 ML VIAL IV STA (09:54)
[2022-11-29] MEDS: MUPIROCIN 2% OINT 22 GM TUBE NASAL SCH (09:56)
--- NOTE | 2022-11-29 10:42 | US ---
EXAMINATION TYPE: US abdomen limited DATE OF EXAM: 11/29/2022 COMPARISON: CT 12/05/2014 CLINICAL INDICATION: Male, 57 years old with history of Elevated LFTs; Elevated LFT's TECHNIQUE: Multiple sonographic images of the right upper quadrant are obtained. FINDINGS: EXAM MEASUREMENTS: Liver Length: 25.1 cm Gallbladder Wall: 0.2 cm CBD: 0.6 cm Right Kidney: 12.6 x 6.2 x 6.2 cm JAMMER HOOKER NOTES: Severely, morbidly obese pt Pancreas: wnl, tail obscured by overlying bowel gas Liver: Enlarged, heterogeneous Gallbladder: wnl, pt unable to roll LLD position Evidence for sonographic Higgins's sign: No CBD: wnl Right Kidney: wnl IMPRESSION: 1. Hepatic steatosis. 2. No evidence for acute process.
[2022-11-29] MEDS: SODIUM CHLORIDE 0.9% 1,000 ML IV SCH (11:30)
--- NOTE | 2022-11-29 12:13 | P.PN ---
Subjective Progress Note Date: 11/29/22 Principal diagnosis: Chest pain, unstable angina. Pulmonary consult dated 11/27/2022. 57-year-old male who presented to the emergency department, on 11/25/2022, chest pain. We were consulted, for possible preoperative evaluation, in anticipation of a bypass grafting. The patient apparently has a history of a recent PCI with stent placement, and the LAD, about 1 month ago. He sees a primary care physician by the name of Dr. Galvin. The patient is currently on nitroglycerin at 10 mcg/m, saline at 50 mL an hour, and IV heparin. Today he tells us that he is going for stent, rather than open heart surgery. He is receiving a room air, and he is a lifelong nonsmoker. He apparently does have a history of asthma, but doesn't really take any medication for. At one point, he was taking Trelegy, but it did not agree with him. Since he had his stents placed, his breathing is much improved. In addition to asthma, he has a history of CAD, angina, diabetes mellitus, hyperlipidemia, hypertension, osteoarthritis, sleep apnea, currently on CPAP, and chronic anxiety. Labs include a platelet count of 207,000. PTT is 71.3. Glucose 109. The rest of the labs from 2 days ago, and yesterday, all reviewed. Chest x-ray shows mild cardiomegaly, and changes of COPD. In addition, there may be some interstitial edema. Progress note dated 11/28/2022. The patient is seen today in room 251. He was seen in consultation yesterday. The patient is currently on BiPAP, with settings of IPAP 14, EPAP 5, and 40%. The patient had a stent placed in his LAD and circumflex coronary artery, yesterday, by Dr. Dee. He is currently on IV heparin, saline at 75 mL an hour, and norepinephrine at 5.8 mcg/m. He had a Impella device inserted. I told the nurse, the patient could be transferred over to nasal prongs. Clinically, he is doing reasonably well. Chest x-ray shows fluid overload. I will give him some additional Lasix today. Currently labs include a white count 15.2, hemoglobin 13.4, hematocrit 44.3, and a platelet count of 251,000. Sodium 134, potassium 4.9, chlorides 100, CO2 19, anion gap 15, BUN 17, and creatinine 1.15. The patient's LDH is 1935. Chest x-ray is consistent with cardiomegaly, and pulmonary vascular congestion. Progress note dated 11/29/2022. The patient is again seen today in room 251. Yesterday, the Impella device was removed. The patient is currently on 2 L of oxygen, and saline at 50 mL an hour. The patient is also on norepinephrine at 13 mcg/m. He did get a fluid bolus given to him by cardiology. We will give another fluid bolus, in addition, we'll check a cortisol level and a TSH. In addition, we will give him some hydrocortisone 100 mg IV push. The patient had a stent placed in his LAD, and circumflex coronary artery. This was done on November 27. Currently labs include a white count 12.2, hemoglobin 11.7, hematocrit 38, and platelet count 197,000. Sodium 134, potassium 4.5, chlorides 96, CO2 28, BUN 21, creatinine 1.29. His AST is 331. ALT is 74. TSH is normal. Cortisol was only 15. Chest x-ray show ed diffuse haziness. Objective - Vital Signs Vital signs: Vital Signs Temp 98.8 F 11/29/22 08:00 Pulse 110 H 11/29/22 10:30 Resp 17 11/29/22 10:30 BP 97/58 11/29/22 10:30 Pulse Ox 96 11/29/22 10:30 FiO2 40 11/29/22 01:16 Intake & Output 11/28/22 11/29/22 11/29/22 18:59 06:59 18:59 Intake Total 1331.603 753.188 3.640 Output Total 1610 1370 Balance -278.397 -616.812 3.640 Weight 147.2 kg 142.3 kg Intake: IV 50 Intake, IV Titration 881.603 753.188 3.640 Amount Heparin Sod,Pork in 0.45% 194.428 NaCl 25,000 unit In 0.45 % NaCl 1 250ml.bag @ 6.98 UNITS/KG/HR 10.002 mls/ hr IV .Q24H [facility] Rx#: [id number] Norepinephrine 4 mg In 87.175 103.188 3.640 Sodium Chloride 0.9% 250 ml @ 0.03 MCG/KG/MIN 16. 379 mls/hr IV .[id number] [facility] Rx#:[id number] Sodium Chloride 0.9% 1, 300 000 ml @ 0 mls/hr IV .STK -[facility] ONE Rx#:[id number] Sodium Chloride 0.9% 1, 300 650 000 ml @ 50 mls/hr IV . Q20H [facility] Rx#:[id number] Oral 400 Output: Urine 1610 1370 Other: Voiding Method Indwelling Catheter Urinal - Exam No acute distress, oriented 3. No respiratory distress. Currently on nasal O2 at 2 L. HEENT examination is grossly unremarkable. Neck supple. Full range of motion. No adenopathy thyromegaly or neck vein distention. Cardiovascular examination reveals regular rhythm rate. S1-S2 normal. No S3 or S4. No discernible murmur noted. Heart rate 100 bpm. Lungs reveal mostly clear breath sounds. No wheezes or rhonchi. Minimal basilar crackles are noted. Saturations are 97 %. Abdomen soft bowel sounds are heard. No masses or tenderness. Extremities are intact. No cyanosis clubbing or edema. Skin is without rash or lesion. Neurologic examination is brief but nonfocal. - Labs CBC & Chem 7: 11/29/22 03:10 11/29/22 03:10 Labs: Abnormal Lab Results - Last 24 Hours (Table) 11/29/22 11/29/22 Range/Units 03:10 03:10 WBC 12.2 H (3.8-10.6) k/uL RBC 4.16 L (4.30-5.90) m/uL Hgb 11.7 L (13.0-17.5) gm/dL Hct 38.0 L (39.0-53.0) % MCHC 30.8 L (31.0-37.0) g/dL Neutrophils # 9.9 H (1.3-7.7) k/uL Sodium 134 L (137-145) mmol/L Chloride 96 L (98-107) mmol/L BUN 21 H (9-20) mg/dL Creatinine 1.29 H (0.66-1.25) mg/dL Glucose 176 H (74-99) mg/dL Calcium 8.0 L (8.4-10.2) mg/dL Total Bilirubin 1.7 H (0.2-1.3) mg/dL AST 331 H (17-59) U/L ALT 74 H (4-49) U/L Total Protein 5.8 L (6.3-8.2) g/dL Albumin 3.4 L (3.5-5.0) g/dL Assessment and Plan Assessment: Coronary artery disease,S/P PCI with stenting of his LAD and circumflex coronary artery, and insertion of an Impella device, 11/27/2022. Recent stent placement, October 2022. Possible adrenal insufficiency. History of mild asthma. Lifelong nonsmoker. History of angina pectoris. History of diabetes mellitus. History of hyperlipidemia. History of hypertension. History of obstructive sleep apnea syndrome, maintained on CPAP. Plan: Plan dated 11/27/2022. Initially saw this patient, we thought we were seeing him because he was going t o have bypass surgery. Rather, he tells us that he is having a catheterization, and possible stent placement instead. The patient does have a history of asthma, which seems be relatively mild, maintained on a rescue inhaler as needed. At one point, he was on Trelegy, but he did not agree with him. Should he have an open heart procedure, we'll follow along. Additional recommendations and suggestions are forthcoming. Plan dated 11/28/2022. The patient came back to the intensive care unit, on BiPAP. The settings are 14/508%. Get some additional Lasix today, 20 mm IV push. He's currently on IV heparin, and norepinephrine 5.8 mcg/m. The patient is currently on an Impella device for cardiovascular support. Labs, x-rays, and medications are reviewed. We will continue to follow the patient and make recommendations were appropriate. Prognosis is guarded. Plan dated 11/29/2022. The patient's Impella device was removed yesterday. The patient is currently on 2 L of oxygen, and saline at 50 mL an hour. In addition, the patient's on norepinephrine at 13 g per his cortisol level was only 15, so I gave the patient 100 mg of hydrocortisone, to see if there is any response and blood pressure. In addition, both cardiology and I felt the patient may of been a bit dry, we gave him some additional volume. Labs, x-rays, and medications are reviewed. Prognosis is guarded. No surgery for now. We will continue to follow the patient and make recommendations along the way. Time with Patient: Greater than 30
--- NOTE | 2022-11-29 12:31 | P.PN ---
Subjective Progress Note Date: 11/29/22 Patient is a pleasant 57-year-old male with with the recent cardiac original stenting came in with symptoms of left-sided chest pain and midsternal chest pain radiating to the back patient doesn't have gallbladder anymore this chest pain is nonexertional started last night and was having on and off episodes reviewed by nitroglycerin radiating to the jaw as well as left arm no associated shortness of breath or diaphoresis or nausea. Patient just pain is nonpleuritic not associated with food. EKG showed a mild nonspecific ST depressions in lead 2 in lead 3 which were not present in the previous EKG. Patient has mild elevation of troponin to 0.072. 11/26/2022 Patient is seen in follow-up today with cardiology following maintained on heparin drip along with nitro and just recently underwent cardiac catheterization with no new stenting noted. Patient with ostial lesions to the LAD and circumflex recommending cardiothoracic evaluation for possible CABG. Patient is afebrile currently denies chest pain or palpitations. Patient denies shortness of breath and is currently nothing by mouth. Patient is a diabetic and would recommend monitoring Accu-Cheks and continue with current protocol. Patient is currently on bedrest per cardiac catheterization protocol and continues with catheterization banding on the right wrist. 11/27/2022 Patient is seen in follow-up this morning has been evaluated by cardiothoracic surgery and reports not a candidate for CABG with cardiology following and plan for cardiac catheterization with stenting again today. Patient is currently afebrile denies chest pain or shortness of breath. Patient is maintained on IV heparin along with IV nitro drip and awaiting cardiac catheterization. Patient is nothing by mouth and will resume diet after procedure. Recommend close monitoring of blood sugars and try glycemic control. 11/28/22. Patient seen and examined. Labs this morning showed white count of 15.2, hemoglobin of 13.4. Sodium 134, potassium 4.9, chloride 100, CO2 19. Vital signs heart rate 87, respiratory rate 18, blood pressure 120/80, Patient currently on BiPAP with FiO2 40%. 11/29/22. Patient seen and examined. Patient impalla was removed. Denies any chest pain. Patient was ambulating in the room without any difficulty, Labs this morning showed WBC 12.2, hemoglobin 11.7, sodium 134, bilirubin 1.7, AST 331, ALT 74 REVIEW OF SYSTEMS: CONSTITUTIONAL: No fever, no malaise,. CARDIOVASCULAR: No chest pain, no palpitations, no syncope. PULMONARY: No shortness of breath, no cough, GASTROINTESTINAL: No diarrhea, no nausea, no vomiting, no abdominal pain. NEUROLOGICAL: No headaches, no weakness, PHYSICAL EXAMINATION: GENERAL: The patient is alert and oriented x3, not in any acute distress. Well developed, well nourished. HEENT: Pupils are round and equally reacting to light. EOMI. No scleral icterus. No conjunctival pallor. Normocephalic, atraumatic. No pharyngeal erythema. No thyromegaly. CARDIOVASCULAR: S1 and S2 present. No murmurs, rubs, or gallops. PULMONARY: Chest is clear to auscultation, no wheezing or crackles. ABDOMEN: Soft, nontender, nondistended, normoactive bowel sounds. No palpable organomegaly. MUSCULOSKELETAL: No joint swelling or deformity. EXTREMITIES: No cyanosis, clubbing, or pedal edema. NEUROLOGICAL: Gross neurological examination did not reveal any focal deficits. SKIN: No rashes. Assessment and plan Status post non-STEMI stenting of the LAD and left circumflex Impella catheter placement during procedure because of hemodynamic instability , stable at this time -Morbid Obesity with a BMI of 52.2 -Asthma without exacerbation -diabetes mellitus , type II -Hyperlipidemia -Hypertension -Sleep apnea and uses CPAP machine at home Elevated LFTs Plan; Monitor vital signs Monitor CBC Monitor CMP Continue telemetry monitoring Continue dual antiplatelet treatment Continue Lopressor 25 twice a day Continue Lasix 20 twice a day Ordered ultrasound abdominal for elevated LFTs Follow-up on critical care recommendation follow up on cardiology recommendations Objective - Vital Signs Vital signs: Vital Signs Temp 98.9 F 11/29/22 04:00 Pulse 100 11/29/22 07:00 Resp 23 11/29/22 06:00 BP 92/50 11/29/22 07:00 Pulse Ox 100 11/29/22 07:35 FiO2 40 11/29/22 01:16 Intake & Output 11/28/22 11/29/22 11/29/22 18:59 06:59 18:59 Intake Total 1331.603 753.188 Output Total 1610 1370 Balance -278.397 -616.812 Weight 147.2 kg 142.3 kg Intake: IV 50 Intake, IV Titration 881.603 753.188 Amount Heparin Sod,Pork in 0.45% 194.428 NaCl 25,000 unit In 0.45 % NaCl 1 250ml.bag @ 6.98 UNITS/KG/HR 10.002 mls/ hr IV .Q24H [facility] Rx#: [id number] Norepinephrine 4 mg In 87.175 103.188 Sodium Chloride 0.9% 250 ml @ 0.03 MCG/KG/MIN 16. 379 mls/hr IV .[id number] [facility] Rx#:[id number] Sodium Chloride 0.9% 1, 300 000 ml @ 0 mls/hr IV .STK -MED ONE Rx#:[id number] Sodium Chloride 0.9% 1, 300 650 000 ml @ 50 mls/hr IV . Q20H [facility] Rx#:[id number] Oral 400 Output: Urine 1610 1370 Other: Voiding Method Indwelling Catheter Urinal - Labs CBC & Chem 7: 11/29/22 03:10 11/29/22 03:10 Labs: Abnormal Lab Results - Last 24 Hours (Table) 11/28/22 11/28/22 11/29/22 Range/Units 09:34 09:34 03:10 WBC (3.8-10.6) k/uL RBC (4.30-5.90) m/uL Hgb (13.0-17.5) gm/dL Hct (39.0-53.0) % MCHC (31.0-37.0) g/dL Neutrophils # (1.3-7.7) k/uL APTT 39.4 H (22.0-30.0) sec Sodium 134 L (137-145) mmol/L Chloride 96 L (98-107) mmol/L BUN 21 H (9-20) mg/dL Creatinine 1.29 H (0.66-1.25) mg/dL Glucose 176 H (74-99) mg/dL Calcium 8.0 L (8.4-10.2) mg/dL Total Bilirubin 1.7 H (0.2-1.3) mg/dL AST 331 H (17-59) U/L ALT 74 H (4-49) U/L Lactate Dehydrogenase 2069 H (120-246) U/L Total Protein 5.8 L (6.3-8.2) g/dL Albumin 3.4 L (3.5-5.0) g/dL 11/29/22 Range/Units 03:10 WBC 12.2 H (3.8-10.6) k/uL RBC 4.16 L (4.30-5.90) m/uL Hgb 11.7 L (13.0-17.5) gm/dL Hct 38.0 L (39.0-53.0) % MCHC 30.8 L (31.0-37.0) g/dL Neutrophils # 9.9 H (1.3-7.7) k/uL APTT (22.0-30.0) sec Sodium (137-145) mmol/L Chloride (98-107) mmol/L BUN (9-20) mg/dL Creatinine (0.66-1.25) mg/dL Glucose (74-99) mg/dL Calcium (8.4-10.2) mg/dL Total Bilirubin (0.2-1.3) mg/dL AST (17-59) U/L ALT (4-49) U/L Lactate Dehydrogenase (120-246) U/L Total Protein (6.3-8.2) g/dL Albumin (3.5-5.0) g/dL
[2022-11-29] MEDS: ONDANSETRON 4 MG TAB PO PRN (17:52)
[2022-11-29] MEDS: FUROSEMIDE 20 MG TAB PO SCH (20:11)
[2022-11-29] MEDS: ATORVASTATIN 80 MG TAB PO SCH (20:11)
[2022-11-30] MEDS: NOREPINEPHRINE 4 MG in SODIUM CHLORIDE 0.9% 250 ML IV SCH ×2 (04:00→13:22)
[2022-11-30] MEDS: MUPIROCIN 2% OINT 22 GM TUBE NASAL SCH (04:21)
[2022-11-30] MEDS: SODIUM CHLORIDE 0.9% 1,000 ML IV SCH (04:30)
[2022-11-30 05:36] LABS: Basophils % (A) 0 %; Eosinophils # (A) 0.1 k/uL (0-0.7); Eosinophils % (A) 1 %; HGB 11.7 gm/dL (13.0-17.5); Hypochromasia Moderate; Lymphocytes # (A) 1.3 k/uL (1.0-4.8); Lymphocytes % (A) 12 %; MCH 28.3 pg (25.0-35.0); MCHC 31.6 g/dL (31.0-37.0); MCV 89.4 fL (80.0-100.0); Mean Platelet Volume 7.8; Monocytes # (A) 0.8 k/uL (0-1.0); Monocytes % (A) 7 %; Neutrophils # (A) 8.6 k/uL (1.3-7.7); Neutrophils % (A) 77 %; Platelet Count 182 k/uL (150-450); Poikilocytosis Slight; RBC 4.14 m/uL (4.30-5.90); RDW 14.5 % (11.5-15.5); WBC 11.3 k/uL (3.8-10.6)
[2022-11-30 05:53] LABS: ALT 58 U/L (4-49); AST 124 U/L (17-59); African American GFR (CKD) >90 (>60 ml/min/1.73 sqM); Albumin 3.4 g/dL (3.5-5.0); Alkaline Phosphatase 53 U/L (38-126); Anion Gap 13 mmol/L; Blood Urea Nitrogen 16 mg/dL (9-20); Carbon Dioxide 23 mmol/L (22-30); Chloride 100 mmol/L (98-107); Glucose 128 mg/dL (74-99); Non-African American GFR(CKD) >90 (>60 ml/min/1.73 sqM); Potassium 4.4 mmol/L (3.5-5.1); Sodium 136 mmol/L (137-145); Total Bilirubin 1.2 mg/dL (0.2-1.3); Total Protein 5.8 g/dL (6.3-8.2)
[2022-11-30] MEDS: SODIUM CHLORIDE 0.9% 1,000 ML in EMPTY BAG 1 BAG IV SCH ×2 (06:32→10:26)
--- NOTE | 2022-11-30 07:41 | XR ---
EXAMINATION TYPE: XR chest 1V portable DATE OF EXAM: 11/30/2022 COMPARISON: 11/29/2022 INDICATION: Dyspnea TECHNIQUE: Single frontal view of the chest is obtained. FINDINGS: The heart size is enlarged. The pulmonary vasculature is prominent. Diffuse increased lung markings are present. Costophrenic angles are excluded from the [id number]. IMPRESSION: 1. Clinical correlation recommended for congestive heart failure.
--- NOTE | 2022-11-30 08:02 | P.PN ---
Subjective Progress Note Date: 11/30/22 57-year-old male patient was being seen in the intensive care unit. The patient is established to have multivessel coronary artery disease. The patient declined having a bypass surgery. The patient has undergone further intervention via supported with impela device. The patient underwent stent to LAD and circumflex. The impela device was removed. Is being monitored in the intensive care unit. He is known to have severe persistent bronchial asthma .He has been maintained on Trelegy Ellipta on an outpatient basis. He also has diabetes mellitus, hypertension hyperlipidemia and obstructive sleep apnea maintained on CPAP therapy and he has chronic anxiety disorder. The patient this morning is hypotensive. Overnight, he developed hypotension and he was started on norepinephrine and currently norepinephrine is running at 0.06 mcg/kg/m. Urine output is in order of 30-40 mL an hour. He is still on a combination of metoprolol and Lasix. Chest x-ray shows cardiomegaly and pulmonary vascular congestion. No echocardiogram is available from this recent admission. Nevertheless, his previous echocardiogram from 10/30/2022 showed mild LV dysfunction. His ejection fraction is 45%. He does have apical septal hypokinesis. RV systolic pressure was 45 mmHg. This was a technically diffic ult window. The nares cause of 11.3 hemoglobin 11.7 and a platelet count is 182. BUN 16 with a creatinine of 0.9 and sodium is at 136. In terms of treatment, the patient is currently on a combination of aspirin and Effient. He is also on metoprolol as long as the blood pressure tolerates. He is supposed to take 25 mg by mouth twice a day. Lasix has been switched to 20 mg orally twice a day. IV fluids are currently at 50 mL an hour. He is also on Aldactone 25 mg by mouth daily. Oxygen is at room air with a pulse ox of 98%. The patient utilizing BiPAP overnight as the patient is known to have obstructive sleep apnea. He is free of any chest pain. Objective - Vital Signs Vital signs: Vital Signs Temp 99.0 F 11/30/22 04:00 Pulse 76 11/30/22 07:00 Resp 10 L 11/30/22 06:15 BP 119/56 11/30/22 07:00 Pulse Ox 98 11/30/22 06:45 FiO2 50 11/30/22 04:15 Intake & Output 11/29/22 11/30/22 11/30/22 18:59 06:59 18:59 Intake Total 130.229 3252.000 50 Output Total 2850 1900 0 Balance -2162.838 -556.000 50 Weight 141.3 kg Intake: IV 550 600 50 Sodium Chloride 0.9% 1, 550 600 50 000 ml @ 50 mls/hr IV . Q20H [facility] Rx#:[id number] Intake, IV Titration 137.162 254.000 Amount Norepinephrine 4 mg In 137.162 254.000 Sodium Chloride 0.9% 250 ml @ 0.03 MCG/KG/MIN 16. 379 mls/hr IV .[id number] [facility] Rx#:[id number] Oral 490 Output: Urine 2850 1900 0 Other: Voiding Method Urinal Urinal # Voids 1 1 - Exam No acute distress, oriented 3. No respiratory distress. Currently on nasal O2 at [facility] examination is grossly unremarkable. Neck supple. Full range of motion. No adenopathy thyromegaly or neck vein distention. Cardiovascular examination reveals regular rhythm rate. S1-S2 normal. No S3 or S4. No discernible murmur noted. Lungs reveal mostly clear breath sounds. No wheezes or rhonchi. Minimal basilar crackles are noted. S Abdomen soft bowel sounds are heard. No masses or tenderness. Extremities are intact. No cyanosis clubbing or edema. Skin is without rash or lesion. Neurologic examination is brief but nonfocal. - Labs CBC & Chem 7: 11/30/22 04:46 11/30/22 04:46 Labs: Abnormal Lab Results - Last 24 Hours (Table) 11/30/22 11/30/22 Range/Units 04:46 04:46 WBC 11.3 H (3.8-10.6) k/uL RBC 4.14 L (4.30-5.90) m/uL Hgb 11.7 L (13.0-17.5) gm/dL Hct 37.0 L (39.0-53.0) % Neutrophils # 8.6 H (1.3-7.7) k/uL Sodium 136 L (137-145) mmol/L Glucose 128 H (74-99) mg/dL Calcium 8.0 L (8.4-10.2) mg/dL AST 124 H (17-59) U/L ALT 58 H (4-49) U/L Total Protein 5.8 L (6.3-8.2) g/dL Albumin 3.4 L (3.5-5.0) g/dL Assessment and Plan Plan: Coronary artery disease,S/P PCI with stenting of his LAD and circumflex coronary artery, and insertion of an Impella device, 11/27/2022. The patient is curr ently free of any chest pain. He is known to have multivessel disease. Declined bypass surgery. Hypotension, currently on low-dose norepinephrine. Likely cardiogenic in nature. Obesity with a BMI of 47 Obstructive sleep apnea Previous coronary intervention and stenting from October 2022 History of severe persistent bronchial asthma and the patient has limited on trilogy and Singulair and outpatient basis Lifelong nonsmoker. History of angina pectoris. History of diabetes mellitus. History of hyperlipidemia. History of hypertension. Plan: Condition is rather stable for now and the norepinephrine is running at a low- dose Wean off norepinephrine Continue metoprolol Continue diuretics Cardiac rhythm is sinus Oxygen patient is stable Blood sugars are under adequate control We'll move the patient ultimately intensive care unit once is off pressors. History of any chest pain He is currently on combination of aspirin and Effient Time with Patient: Greater than 30
[2022-11-30] MEDS: MONTELUKAST 10 MG TAB PO SCH (08:57)
[2022-11-30] MEDS: FAMOTIDINE 20 MG TAB PO SCH ×2 (08:58→19:48)
[2022-11-30] MEDS: PANTOPRAZOLE 40 MG TABLET PO SCH (08:58)
[2022-11-30] MEDS: ASPIRIN 81 MG PO SCH (08:59)
[2022-11-30] MEDS: ENOXAPARIN 40 MG/0.4 ML SYRINGE SQ SCH (09:00)
[2022-11-30] MEDS: DAPAGLIFLOZIN PROPANEDIOL 10 MG TABLET PO SCH (09:03)
[2022-11-30] MEDS: PRASUGREL 10 MG TAB PO SCH (09:04)
[2022-11-30] MEDS: SYMBICORT 80-4.5 MCG INHALER INHALATION SCH ×2 (09:14→20:45)
[2022-11-30] MEDS: IPRATROPIUM 0.5 MG/2.5 ML NEBU INHALATION SCH ×4 (09:14→20:44)
[2022-11-30] MEDS: FUROSEMIDE 20 MG TAB PO SCH ×2 (10:47→19:48)
[2022-11-30] MEDS: SPIRONOLACTONE 25 MG TAB PO SCH (10:48)
[2022-11-30] MEDS: METOPROLOL TARTRATE 25 MG TAB PO SCH ×2 (10:51→23:51)
--- NOTE | 2022-11-30 12:52 | P.PN ---
Subjective Patient is a pleasant 57-year-old male with with the recent cardiac original stenting came in with symptoms of left-sided chest pain and midsternal chest pain radiating to the back patient doesn't have gallbladder anymore this chest pain is nonexertional started last night and was having on and off episodes reviewed by nitroglycerin radiating to the jaw as well as left arm no associated shortness of breath or diaphoresis or nausea. Patient just pain is nonpleuritic not associated with food. EKG showed a mild nonspecific ST depressions in lead 2 in lead 3 which were not present in the previous EKG. Patient has mild elevation of troponin to 0.072. 11/26/2022 Patient is seen in follow-up today with cardiology following maintained on hepa rin drip along with nitro and just recently underwent cardiac catheterization with no new stenting noted. Patient with ostial lesions to the LAD and circumflex recommending cardiothoracic evaluation for possible CABG. Patient is afebrile currently denies chest pain or palpitations. Patient denies shortness of breath and is currently nothing by mouth. Patient is a diabetic and would recommend monitoring Accu-Cheks and continue with current protocol. Patient is currently on bedrest per cardiac catheterization protocol and continues with catheterization banding on the right wrist. 11/27/2022 Patient is seen in follow-up this morning has been evaluated by cardiothoracic surgery and reports not a candidate for CABG with cardiology following and plan for cardiac catheterization with stenting again today. Patient is currently afebrile denies chest pain or shortness of breath. Patient is maintained on IV heparin along with IV nitro drip and awaiting cardiac catheterization. Patient is nothing by mouth and will resume diet after procedure. Recommend close monitoring of blood sugars and try glycemic control. 11/28/22. Patient seen and examined. Labs this morning showed white count of 15.2, hemoglobin of 13.4. Sodium 134, potassium 4.9, chloride 100, CO2 19. Vital signs heart rate 87, respiratory rate 18, blood pressure 120/80, Patient currently on BiPAP with FiO2 40%. 11/29/22. Patient seen and examined. Patient impalla was removed. Denies any chest pain. Patient was ambulating in the room without any difficulty, Labs this morning showed WBC 12.2, hemoglobin 11.7, sodium 134, bilirubin 1.7, AST 331, ALT 74 11/30/22. Patient seen and examined. Patient developed hypotension overnight, had to started on Levothroid. Used BiPAP overnight. Labs this morning sodium 136, potassium 4.4, AST 124, ALT 58. Currently sitting upright in the chair. Denies any chest pain at rest, get short of breath on exertion REVIEW OF SYSTEMS: CONSTITUTIONAL: No fever, no malaise,. CARDIOVASCULAR: no palpitations, no syncope. PULMONARY: no cough, GASTROINTESTINAL: No diarrhea, no nausea, no vomiting, no abdominal pain. NEUROLOGICAL: No headaches, no weakness, PHYSICAL EXAMINATION: GENERAL: The patient is alert and oriented x3, not in any acute distress. Well developed, well nourished. HEENT: Pupils are round and equally reacting to light. EOMI. No scleral icterus. No conjunctival pallor. Normocephalic, atraumatic. No pharyngeal erythema. No thyromegaly. CARDIOVASCULAR: S1 and S2 present. No murmurs, rubs, or gallops. PULMONARY: Chest is clear to auscultation, no wheezing or crackles. ABDOMEN: Soft, nontender, nondistended, normoactive bowel sounds. No palpable organomegaly. MUSCULOSKELETAL: No joint swelling or deformity. EXTREMITIES: No cyanosis, clubbing, or pedal edema. NEUROLOGICAL: Gross neurological examination did not reveal any focal deficits. SKIN: No rashes. Assessment and plan Status post non-STEMI stenting of the LAD and left circumflex Impella catheter placement during procedure because of hemodynamic instability, stable at this time -Morbid Obesity with a BMI of 52.2 -Asthma without exacerbation -diabetes mellitus , type II -Hyperlipidemia -Hypertension -Sleep apnea and uses CPAP machine at home Elevated LFTs Plan; Monitor vital signs Monitor CBC Monitor CMP Continue telemetry monitoring Continue to wean off Levophed Continue dual antiplatelet treatment in the form of aspirin and Effient Continue Lopressor 25 twice a day Continue Lasix 20 twice a day Ultrasound abdomin, showed hepatic steatosis Follow-up on critical care recommendation follow up on cardiology recommendations Objective - Vital Signs Vital signs: Vital Signs Temp 99.0 F 11/30/22 04:00 Pulse 89 11/30/22 09:16 Resp 19 11/30/22 09:00 BP 92/65 11/30/22 09:00 Pulse Ox 93 L 11/30/22 09:16 FiO2 21 05/08/23 09:16 Intake & Output 11/29/22 11/30/22 11/30/22 18:59 06:59 18:59 Intake Total 254.338 0198.000 311.061 Output Total 2850 1900 450 Balance -2162.838 -556.000 -138.939 Weight 141.3 kg Intake: IV 550 600 150 Sodium Chloride 0.9% 1, 550 600 150 000 ml @ 50 mls/hr IV . Q20H [facility] Rx#:[id number] Intake, IV Titration 137.162 254.000 161.061 Amount Norepinephrine 4 mg In 137.162 254.000 161.061 Sodium Chloride 0.9% 250 ml @ 0.03 MCG/KG/MIN 16. 379 mls/hr IV .[id number] [facility] Rx#:[id number] Oral 490 Output: Urine 2850 1900 450 Other: Voiding Method Urinal Urinal # Voids 1 1 - Labs CBC & Chem 7: 11/30/22 04:46 11/30/22 04:46 Labs: Abnormal Lab Results - Last 24 Hours (Table) 11/30/22 11/30/22 Range/Units 04:46 04:46 WBC 11.3 H (3.8-10.6) k/uL RBC 4.14 L (4.30-5.90) m/uL Hgb 11.7 L (13.0-17.5) gm/dL Hct 37.0 L (39.0-53.0) % Neutrophils # 8.6 H (1.3-7.7) k/uL Sodium 136 L (137-145) mmol/L Glucose 128 H (74-99) mg/dL Calcium 8.0 L (8.4-10.2) mg/dL AST 124 H (17-59) U/L ALT 58 H (4-49) U/L Total Protein 5.8 L (6.3-8.2) g/dL Albumin 3.4 L (3.5-5.0) g/dL
--- NOTE | 2022-11-30 19:07 | P.PN ---
Subjective Patient is stable. He is walking around the room in the bathroom He suffered a non-Q-wave DC status post stenting to the LAD and left circumflex and underwent in [place] placement Impala has been removed now His blood pressure is low and he was receiving IV fluids initially He remains on Lasix low-dose Blood pressure 101/69 190/60 mmHg pulse rate 109 beats a minute Sodium 136 potassium 4.4 Admitting 0.93 AST 124 and ALT 58 Hemoglobin 11.7 Impression acute myocardial infarction Stenting to the LAD and left circumflex Cardiac shock status post Impala placement which has been removed Suggest Based upon his blood pressure response his cardiac medications will be maximized gradually Continue ICU stay and management Objective - Vital Signs Vital signs: Vital Signs Temp 100.0 F H 11/30/22 16:00 Pulse 104 H 11/30/22 19:00 Resp 22 11/30/22 19:00 BP 119/68 11/30/22 19:00 Pulse Ox 92 L 11/30/22 19:00 FiO2 21 11/30/22 09:16 Intake & Output 11/30/22 11/30/22 12/01/22 06:59 18:59 06:59 Intake Total 1344.000 854.000 50 Output Total 1900 701 Balance -556.000 153.000 50 Weight 141.3 kg Intake: IV 600 600 50 Sodium Chloride 0.9% 1, 600 600 50 000 ml @ 50 mls/hr IV . Q20H [facility] Rx#:[id number] Intake, IV Titration 254.000 254.000 Amount Norepinephrine 4 mg In 254.000 254.000 Sodium Chloride 0.9% 250 ml @ 0.03 MCG/KG/MIN 16. 379 mls/hr IV .[id number] [facility] Rx#:[id number] Oral 490 Output: Urine 1900 701 Other: Voiding Method Urinal Urinal # Voids 1 1 - Labs CBC & Chem 7: 11/30/22 04:46 11/30/22 04:46 Labs: Abnormal Lab Results - Last 24 Hours (Table) 11/30/22 11/30/22 Range/Units 04:46 04:46 WBC 11.3 H (3.8-10.6) k/uL RBC 4.14 L (4.30-5.90) m/uL Hgb 11.7 L (13.0-17.5) gm/dL Hct 37.0 L (39.0-53.0) % Neutrophils # 8.6 H (1.3-7.7) k/uL Sodium 136 L (137-145) mmol/L Glucose 128 H (74-99) mg/dL Calcium 8.0 L (8.4-10.2) mg/dL AST 124 H (17-59) U/L ALT 58 H (4-49) U/L Total Protein 5.8 L (6.3-8.2) g/dL Albumin 3.4 L (3.5-5.0) g/dL
[2022-11-30] MEDS: ACETAMINOPHEN TAB 325 MG TAB PO PRN (19:48)
[2022-11-30] MEDS: ATORVASTATIN 80 MG TAB PO SCH (19:49)
[2022-11-30] MEDS ORDERED: bisacodyL 10 MG SUPP RECTAL STA (23:14)
[2022-12-01 06:25] LABS: Basophils % (A) 0 %; Eosinophils # (A) 0.1 k/uL (0-0.7); Eosinophils % (A) 1 %; HCT 34.9 % (39.0-53.0); HGB 10.8 gm/dL (13.0-17.5); Hypochromasia Moderate; Lymphocytes # (A) 0.9 k/uL (1.0-4.8); Lymphocytes % (A) 12 %; MCH 27.9 pg (25.0-35.0); MCHC 30.8 g/dL (31.0-37.0); MCV 90.8 fL (80.0-100.0); Mean Platelet Volume 7.6; Monocytes # (A) 0.6 k/uL (0-1.0); Monocytes % (A) 7 %; Neutrophils # (A) 5.7 k/uL (1.3-7.7); Neutrophils % (A) 77 %; Platelet Count 190 k/uL (150-450); RBC 3.85 m/uL (4.30-5.90); RDW 14.6 % (11.5-15.5); WBC 7.5 k/uL (3.8-10.6)
[2022-12-01 06:33] LABS: African American GFR (CKD) >90 (>60 ml/min/1.73 sqM); Anion Gap 7 mmol/L; Blood Urea Nitrogen 15 mg/dL (9-20); Calcium 7.8 mg/dL (8.4-10.2); Carbon Dioxide 27 mmol/L (22-30); Chloride 101 mmol/L (98-107); Glucose 113 mg/dL (74-99); Non-African American GFR(CKD) >90 (>60 ml/min/1.73 sqM); Potassium 3.9 mmol/L (3.5-5.1); Sodium 135 mmol/L (137-145)
[2022-12-01] MEDS: SYMBICORT 80-4.5 MCG INHALER INHALATION SCH ×2 (07:39→21:43)
[2022-12-01] MEDS: IPRATROPIUM 0.5 MG/2.5 ML NEBU INHALATION SCH ×4 (07:39→21:44)
--- NOTE | 2022-12-01 07:53 | XR ---
EXAMINATION TYPE: XR chest 1V portable DATE OF EXAM: 12/01/2022 5:48 AM COMPARISON: Chest radiographs from 11/30/2022 TECHNIQUE: XR chest 1V portable Frontal view of the chest. CLINICAL INDICATION:Male, 57 years old with history of chf; FINDINGS: Lungs/Pleura: There is no evidence of pleural effusion, focal consolidation, or pneumothorax. Pulmonary vascularity: Improved pulmonary vascular congestion Heart/mediastinum: Cardiomediastinal silhouette is unremarkable. Musculoskeletal: No acute osseous pathology. Degenerative changes of the thoracic spine. IMPRESSION: Cardiomegaly with improved part vascular congestion from prior exam.
--- NOTE | 2022-12-01 09:06 | P.PN ---
Subjective Progress Note Date: 12/01/22 57-year-old male patient was being seen in the intensive care unit. The patient is established to have multivessel coronary artery disease. The patient declined having a bypass surgery. The patient has undergone further intervention via supported with impela device. The patient underwent stent to LAD and circumflex. The impela device was removed. Is being monitored in the intensive care unit. He is known to have severe persistent bronchial asthma .He has been maintained on Trelegy Ellipta on an outpatient basis. He also has diabetes mellitus, hypertension hyperlipidemia and obstructive sleep apnea maintained on CPAP therapy and he has chronic anxiety disorder. The patient this morning is hypotensive. Overnight, he developed hypotension and he was started on norepinephrine and currently norepinephrine is running at 0.06 mcg/kg/m. Urine output is in order of 30-40 mL an hour. He is still on a combination of metoprolol and Lasix. Chest x-ray shows cardiomegaly and pulmonary vascular congestion. No echocardiogram is available from this recent admission. Nevertheless, his previous echocardiogram from 10/30/2022 showed mild LV dysfunction. His ejection fraction is 45%. He does have apical septal hypokinesis. RV systolic pressure was 45 mmHg. This was a technically diffic ult window. The nares cause of 11.3 hemoglobin 11.7 and a platelet count is 182. BUN 16 with a creatinine of 0.9 and sodium is at 136. In terms of treatment, the patient is currently on a combination of aspirin and Effient. He is also on metoprolol as long as the blood pressure tolerates. He is supposed to take 25 mg by mouth twice a day. Lasix has been switched to 20 mg orally twice a day. IV fluids are currently at 50 mL an hour. He is also on Aldactone 25 mg by mouth daily. Oxygen is at room air with a pulse ox of 98%. The patient utilizing BiPAP overnight as the patient is known to have obstructive sleep apnea. He is free of any chest pain. On today's evaluation of 12/01/2022, the patient is doing extremely well. No complaints. His been off the norepinephrine and is maintaining his own blood pressure. History of any chest pain. Hemodynamically stable. No cardiac arr hythmias. Medications remain unchanged. The white cell count is down to 7.5 with a hemoglobin of 10.8. BUN is a 50 with a creatinine of 0.9 and a sodium level is at 135. The patient remains on a combination of aspirin and Effient. The patient is also on diuretics and a combination of Lasix 20 mg twice a day and Aldactone 25 mg by mouth daily. He is taking metoprolol 25 mg twice a day. He is using his CPAP overnight is also on Symbicort and Ventolin on an as-needed basis. He is on high-dose statins and is on Lipitor 80 mg by mouth daily. Blood sugars under adequate control for now. The patient was started on Farxiga Objective - Vital Signs Vital signs: Vital Signs Temp 99.0 F 12/01/22 04:00 Pulse 95 12/01/22 07:55 Resp 24 12/01/22 06:00 BP 97/61 12/01/22 06:00 Pulse Ox 98 12/01/22 06:00 FiO2 40 12/01/22 04:45 Intake & Output 11/30/22 12/01/22 12/01/22 18:59 06:59 18:59 Intake Total 599.463 7670 50 Output Total 701 350 Balance 648.741 4927 50 Weight 143.7 kg Intake: IV 600 600 50 Sodium Chloride 0.9% 1, 600 600 50 000 ml @ 50 mls/hr IV . Q20H [facility] Rx#:[id number] Intake, IV Titration 254.000 Amount Norepinephrine 4 mg In 254.000 Sodium Chloride 0.9% 250 ml @ 0.03 MCG/KG/MIN 16. 379 mls/hr IV .[id number] [facility] Rx#:[id number] Oral 1070 Output: Urine 701 350 Other: Voiding Method Urinal Urinal # Voids 1 1 1 - Exam No acute distress, oriented 3. No respiratory distress. Currently on nasal O2 at [facility] examination is grossly unremarkable. Neck supple. Full range of motion. No adenopathy thyromegaly or neck vein distention. Cardiovascular examination reveals regular rhythm rate. S1-S2 normal. No S3 or S4. No discernible murmur noted. Lungs reveal mostly clear breath sounds. No wheezes or rhonchi. Minimal basilar crackles are noted. S Abdomen soft bowel sounds are heard. No masses or tenderness. Extremities are intact. No cyanosis clubbing or edema. Skin is without rash or lesion. Neurologic examination is brief but nonfocal. - Labs CBC & Chem 7: 12/01/22 05:40 12/01/22 05:40 Labs: Abnormal Lab Results - Last 24 Hours (Table) 12/01/22 12/01/22 Range/Units 05:40 05:40 RBC 3.85 L (4.30-5.90) m/uL Hgb 10.8 L (13.0-17.5) gm/dL Hct 34.9 L (39.0-53.0) % MCHC 30.8 L (31.0-37.0) g/dL Lymphocytes # 0.9 L (1.0-4.8) k/uL Sodium 135 L (137-145) mmol/L Glucose 113 H (74-99) mg/dL Calcium 7.8 L (8.4-10.2) mg/dL Assessment and Plan Plan: Coronary artery disease,S/P PCI with stenting of his LAD and circumflex coronary artery, and insertion of an Impella device, 11/27/2022. The patient is currently free of any chest pain. He is known to have multivessel disease. Declined bypass surgery. Remains hemodynamically stable. No cardiac arrhythmias. Off pressors this morning. Hypotension, currently on low-dose norepinephrine. Likely cardiogenic in nature. The patient is normotensive for now and the patient is off pressors. Obesity with a BMI of 47 Obstructive sleep apnea Previous coronary intervention and stenting from October 2022 History of severe persistent bronchial asthma and the patient has limited on Trelegy Ellipta and Singulair and outpatient basis Lifelong nonsmoker. History of angina pectoris. History of diabetes mellitus. History of hyperlipidemia. History of hypertension. Plan: Clinically stable and hemodynamically stable Continue metoprolol Continue diuretics Cardiac rhythm is sinus Oxygenation is stable and the patient is currently on room air oxygen Blood sugars are under adequate control No chest pain He is currently on combination of aspirin and Effient Transfer the patient to a medical floor with telemetry monitoring. We will also initiate discharge planning.
--- NOTE | 2022-12-01 10:12 | P.PN ---
Subjective Progress Note Date: 12/01/22 The patient is a 57-year-old male who is currently admitted with non-ST elevated myocardial infarction. He underwent stenting of the proximal LAD, OM1, and mid circumflex with the use of Impella on 11/27/22. Initial echocardiogram showed ejection fraction of 35-40% with follow-up echocardiogram showing improvement to 45% post Impella removal. The patient was interviewed and examined sitting up in the recliner chair. He states he was up ambulating the unit. Heart rates her resting in the 90s. He denies any chest pain or chest pressure. No difficulty breathing. GENERAL: Well-appearing, well-nourished and in no acute distress. NECK: Supple without JVD or thyromegaly. LUNGS: Breath sounds clear to auscultation bilaterally. Respiration equal and unlabored. No wheezes, rales or rhonchi. HEART: Regular rate and rhythm without murmurs, rubs or gallops. S1 and S2 heard. EXTREMITIES: Normal range of motion, no edema. No clubbing or cyanosis. Peripheral pulses intact and strong. VITALS: Blood pressure 100/66, respiratory rate 32, pulse 100, SpO2 99% on room air TELEMETRY: Sinus rhythm to sinus tachycardia IMPRESSION: Non-ST elevated myocardial infarction Status post stenting of proximal LAD, OM1, and mid circumflex with use of impella Ischemic cardiomyopathy, EF 40-45% History of hypertension History of hyperlipidemia History diabetes Obstructive sleep apnea Morbid obesity PLAN: Continue current medication regimen Maximize beta blockers as tolerated Encourage ambulation and monitor for NSVT Further recommendations to be based upon clinical course Patient may be transferred to [facility]. I am dictating on behalf of Dr Alphonso Calhoun's history/physical and assessment/plan. Objective - Vital Signs Vital signs: Vital Signs Temp 98.7 F 12/01/22 08:00 Pulse 100 12/01/22 08:00 Resp 32 H 12/01/22 08:00 BP 100/66 12/01/22 08:00 Pulse Ox 99 12/01/22 08:00 FiO2 40 12/01/22 04:45 Intake & Output 11/30/22 12/01/22 12/01/22 18:59 06:59 18:59 Intake Total 595.842 8938 500 Output Total 701 350 Balance 562.146 8642 500 Weight 143.7 kg Intake: IV 600 600 50 Sodium Chloride 0.9% 1, 600 600 50 000 ml @ 50 mls/hr IV . Q20H [facility] Rx#:[id number] Intake, IV Titration 254.000 50 Amount Norepinephrine 4 mg In 254.000 Sodium Chloride 0.9% 250 ml @ 0.03 MCG/KG/MIN 16. 379 mls/hr IV .[id number] [facility] Rx#:[id number] Sodium Chloride 0.9% 1, 50 000 ml @ 50 mls/hr IV . Q20H [facility] Rx#:[id number] Oral 1070 400 Output: Urine 701 350 Other: Voiding Method Urinal Urinal # Voids 1 1 1 - Labs CBC & Chem 7: 12/01/22 05:40 12/01/22 05:40 Labs: Abnormal Lab Results - Last 24 Hours (Table) 12/01/22 12/01/22 Range/Units 05:40 05:40 RBC 3.85 L (4.30-5.90) m/uL Hgb 10.8 L (13.0-17.5) gm/dL Hct 34.9 L (39.0-53.0) % MCHC 30.8 L (31.0-37.0) g/dL Lymphocytes # 0.9 L (1.0-4.8) k/uL Sodium 135 L (137-145) mmol/L Glucose 113 H (74-99) mg/dL Calcium 7.8 L (8.4-10.2) mg/dL
[2022-12-01] MEDS: ACETAMINOPHEN TAB 325 MG TAB PO PRN ×2 (10:50→20:09)
[2022-12-01] MEDS: MONTELUKAST 10 MG TAB PO SCH (10:51)
[2022-12-01] MEDS: ASPIRIN 81 MG PO SCH (10:51)
[2022-12-01] MEDS: SPIRONOLACTONE 25 MG TAB PO SCH (10:51)
[2022-12-01] MEDS: FUROSEMIDE 20 MG TAB PO SCH ×2 (10:51→20:00)
[2022-12-01] MEDS: PANTOPRAZOLE 40 MG TABLET PO SCH (10:51)
[2022-12-01] MEDS: FAMOTIDINE 20 MG TAB PO SCH ×2 (10:51→19:59)
[2022-12-01] MEDS: ENOXAPARIN 40 MG/0.4 ML SYRINGE SQ SCH (10:51)
[2022-12-01] MEDS: METOPROLOL TARTRATE 25 MG TAB PO SCH ×2 (10:52→19:59)
[2022-12-01] MEDS: PRASUGREL 10 MG TAB PO SCH (11:19)
[2022-12-01] MEDS: DAPAGLIFLOZIN PROPANEDIOL 10 MG TABLET PO SCH (11:19)
--- NOTE | 2022-12-01 12:04 | P.PN ---
Subjective Progress Note Date: 12/01/22 Patient is a pleasant 57-year-old male with with the recent cardiac original stenting came in with symptoms of left-sided chest pain and midsternal chest pain radiating to the back patient doesn't have gallbladder anymore this chest pain is nonexertional started last night and was having on and off episodes reviewed by nitroglycerin radiating to the jaw as well as left arm no associated shortness of breath or diaphoresis or nausea. Patient just pain is nonpleuritic not associated with food. EKG showed a mild nonspecific ST depressions in lead 2 in lead 3 which were not present in the previous EKG. Patient has mild elevation of troponin to 0.072. 11/26/2022 Patient is seen in follow-up today with cardiology following maintained on heparin drip along with nitro and just recently underwent cardiac catheterization with no new stenting noted. Patient with ostial lesions to the LAD and circumflex recommending cardiothoracic evaluation for possible CABG. Patient is afebrile currently denies chest pain or palpitations. Patient denies shortness of breath and is currently nothing by mouth. Patient is a diabetic and would recommend monitoring Accu-Cheks and continue with current protocol. Patient is currently on bedrest per cardiac catheterization protocol and continues with catheterization banding on the right wrist. 11/27/2022 Patient is seen in follow-up this morning has been evaluated by cardiothoracic surgery and reports not a candidate for CABG with cardiology following and plan for cardiac catheterization with stenting again today. Patient is currently afebrile denies chest pain or shortness of breath. Patient is maintained on IV heparin along with IV nitro drip and awaiting cardiac catheterization. Patient is nothing by mouth and will resume diet after procedure. Recommend close monitoring of blood sugars and try glycemic control. 11/28/22. Patient seen and examined. Labs this morning showed white count of 15.2, hemoglobin of 13.4. Sodium 134, potassium 4.9, chloride 100, CO2 19. Vital signs heart rate 87, respiratory rate 18, blood pressure 120/80, Patient currently on BiPAP with FiO2 40%. 11/29/22. Patient seen and examined. Patient impalla was removed. Denies any chest pain. Patient was ambulating in the room without any difficulty, Labs this morning showed WBC 12.2, hemoglobin 11.7, sodium 134, bilirubin 1.7, AST 331, ALT 74 11/30/22. Patient seen and examined. Patient developed hypotension overnight, had to started on Levothroid. Used BiPAP overnight. Labs this morning sodium 136, potassium 4.4, AST 124, ALT 58. Currently sitting upright in the chair. Denies any chest pain at rest, get short of breath on exertion 12/01. Patient seen and examined. White count this morning is 1, hemoglobin 10.8, sodium 135, potassium 3.9, BUN 15, creatinine 0.9. Vital signs morning temperature afebrile, heart rate 95, blood pressure 97/61, on room air patient has been weaned off Levophed REVIEW OF SYSTEMS: CONSTITUTIONAL: No fever, no malaise,. CARDIOVASCULAR: no palpitations, no syncope. PULMONARY: no cough, GASTROINTESTINAL: No diarrhea, no nausea, no vomiting, no abdominal pain. NEUROLOGICAL: No headaches, no weakness, PHYSICAL EXAMINATION: GENERAL: The patient is alert and oriented x3, not in any acute distress. Well developed, well nourished. HEENT: Pupils are round and equally reacting to light. EOMI. No scleral icterus. No conjunctival pallor. Normocephalic, atraumatic. No pharyngeal erythema. No thyromegaly. CARDIOVASCULAR: S1 and S2 present. No murmurs, rubs, or gallops. PULMONARY: Chest is clear to auscultation, no wheezing or crackles. ABDOMEN: Soft, nontender, nondistended, normoactive bowel sounds. No palpable organomegaly. MUSCULOSKELETAL: No joint swelling or deformity. EXTREMITIES: No cyanosis, clubbing, or pedal edema. NEUROLOGICAL: Gross neurological examination did not reveal any focal deficits. SKIN: No rashes. Assessment and plan Status post non-STEMI stenting of the LAD and left circumflex Impella catheter placement during procedure because of hemodynamic instability, stable at this time -Morbid Obesity with a BMI of 52.2 -Asthma without exacerbation -diabetes mellitus , type II -Hyperlipidemia -Hypertension -Sleep apnea and uses CPAP machine at home Elevated LFTs Plan; Monitor vital signs Monitor CBC Monitor CMP Continue telemetry monitoring patient has been weaned off Levophed Continue dual antiplatelet treatment in the form of aspirin and Effient Continue Lopressor 25 twice a day Continue Aldactone Continue Lasix 20 twice a day Ultrasound abdomin, showed hepatic steatosis Follow-up on critical care recommendation follow up on cardiology recommendations Transfer the patient to a medical floor with telemetry monitoring Objective - Vital Signs Vital signs: Vital Signs Temp 99.0 F 12/01/22 04:00 Pulse 95 12/01/22 07:55 Resp 24 12/01/22 06:00 BP 97/61 12/01/22 06:00 Pulse Ox 98 12/01/22 06:00 FiO2 40 12/01/22 04:45 Intake & Output 11/30/22 12/01/22 12/01/22 18:59 06:59 18:59 Intake Total 287.684 9275 50 Output Total 701 350 Balance 937.624 2457 50 Weight 143.7 kg Intake: IV 600 600 50 Sodium Chloride 0.9% 1, 600 600 50 000 ml @ 50 mls/hr IV . Q20H [facility] Rx#:[id number] Intake, IV Titration 254.000 Amount Norepinephrine 4 mg In 254.000 Sodium Chloride 0.9% 250 ml @ 0.03 MCG/KG/MIN 16. 379 mls/hr IV .[id number] [facility] Rx#:[id number] Oral 1070 Output: Urine 701 350 Other: Voiding Method Urinal Urinal # Voids 1 1 1 - Labs CBC & Chem 7: 12/01/22 05:40 12/01/22 05:40 Labs: Abnormal Lab Results - Last 24 Hours (Table) 12/01/22 12/01/22 Range/Units 05:40 05:40 RBC 3.85 L (4.30-5.90) m/uL Hgb 10.8 L (13.0-17.5) gm/dL Hct 34.9 L (39.0-53.0) % MCHC 30.8 L (31.0-37.0) g/dL Lymphocytes # 0.9 L (1.0-4.8) k/uL Sodium 135 L (137-145) mmol/L Glucose 113 H (74-99) mg/dL Calcium 7.8 L (8.4-10.2) mg/dL
[2022-12-01] MEDS: MUPIROCIN 2% OINT 22 GM TUBE NASAL SCH (16:08)
[2022-12-01] MEDS: SODIUM CHLORIDE 0.9% 1,000 ML IV SCH ×2 (16:08→21:51)
[2022-12-01] MEDS: FUROSEMIDE 10 MG/ML 4 ML VIAL IV SCH (16:09)
[2022-12-01 16:10] LABS: Glucose,Whole Blood 143 mg/dL (70-110)
[2022-12-01] MEDS: SODIUM BICARB (1 MEQ/ML) 12.5 ML in DEXTROSE 5% IN WATER 500 ML IV SCH ×2 (16:10)
[2022-12-01 16:32] VITALS: RESP 16
[2022-12-01] MEDS: ATORVASTATIN 80 MG TAB PO SCH (20:00)
[2022-12-01 20:01] LABS: Glucose,Whole Blood 149 mg/dL (70-110)
[2022-12-02] MEDS: PANTOPRAZOLE 40 MG TABLET PO SCH (05:15)
[2022-12-02 05:58] LABS: Glucose,Whole Blood 110 mg/dL (70-110)
[2022-12-02] MEDS: SYMBICORT 80-4.5 MCG INHALER INHALATION SCH (07:41)
[2022-12-02] MEDS: IPRATROPIUM 0.5 MG/2.5 ML NEBU INHALATION SCH ×3 (07:41→16:16)
[2022-12-02] MEDS: METOPROLOL TARTRATE 25 MG TAB PO SCH (08:34)
[2022-12-02] MEDS: MONTELUKAST 10 MG TAB PO SCH (08:34)
[2022-12-02] MEDS: DAPAGLIFLOZIN PROPANEDIOL 10 MG TABLET PO SCH (08:34)
[2022-12-02] MEDS: FAMOTIDINE 20 MG TAB PO SCH (08:34)
[2022-12-02] MEDS: ASPIRIN 81 MG PO SCH (08:34)
[2022-12-02] MEDS: FUROSEMIDE 20 MG TAB PO SCH (08:35)
[2022-12-02] MEDS: SPIRONOLACTONE 25 MG TAB PO SCH (08:35)
[2022-12-02] MEDS: ENOXAPARIN 40 MG/0.4 ML SYRINGE SQ SCH (08:36)
--- NOTE | 2022-12-02 10:11 | P.PN ---
Subjective Progress Note Date: 12/02/22 57-year-old male patient was being seen in the intensive care unit. The patient is established to have multivessel coronary artery disease. The patient declined having a bypass surgery. The patient has undergone further intervention via supported with impela device. The patient underwent stent to LAD and circumflex. The impela device was removed. Is being monitored in the intensive care unit. He is known to have severe persistent bronchial asthma .He has been maintained on Trelegy Ellipta on an outpatient basis. He also has diabetes mellitus, hypertension hyperlipidemia and obstructive sleep apnea maintained on CPAP therapy and he has chronic anxiety disorder. The patient this morning is hypotensive. Overnight, he developed hypotension and he was started on norepinephrine and currently norepinephrine is running at 0.06 mcg/kg/m. Urine output is in order of 30-40 mL an hour. He is still on a combination of metoprolol and Lasix. Chest x-ray shows cardiomegaly and pulmonary vascular congestion. No echocardiogram is available from this recent admission. Nevertheless, his previous echocardiogram from 10/30/2022 showed mild LV dysfunction. His ejection fraction is 45%. He does have apical septal hypokinesis. RV systolic pressure was 45 mmHg. This was a technically diffic ult window. The nares cause of 11.3 hemoglobin 11.7 and a platelet count is 182. BUN 16 with a creatinine of 0.9 and sodium is at 136. In terms of treatment, the patient is currently on a combination of aspirin and Effient. He is also on metoprolol as long as the blood pressure tolerates. He is supposed to take 25 mg by mouth twice a day. Lasix has been switched to 20 mg orally twice a day. IV fluids are currently at 50 mL an hour. He is also on Aldactone 25 mg by mouth daily. Oxygen is at room air with a pulse ox of 98%. The patient utilizing BiPAP overnight as the patient is known to have obstructive sleep apnea. He is free of any chest pain. On today's evaluation of 12/01/2022, the patient is doing extremely well. No complaints. His been off the norepinephrine and is maintaining his own blood pressure. History of any chest pain. Hemodynamically stable. No cardiac arr hythmias. Medications remain unchanged. The white cell count is down to 7.5 with a hemoglobin of 10.8. BUN is a 50 with a creatinine of 0.9 and a sodium level is at 135. The patient remains on a combination of aspirin and Effient. The patient is also on diuretics and a combination of Lasix 20 mg twice a day and Aldactone 25 mg by mouth daily. He is taking metoprolol 25 mg twice a day. He is using his CPAP overnight is also on Symbicort and Ventolin on an as-needed basis. He is on high-dose statins and is on Lipitor 80 mg by mouth daily. Blood sugars under adequate control for now. The patient was started on Farxiga 12/02/2022, the patient is on the medical floor. Doing extremely well. I transferred this patient out of the intensive care unit yesterday. His free of any chest pain. No signs of any fluid overload. No complaints. He has been using his CPAP overnight. He has a home CPAP also. Objective - Vital Signs Vital signs: Vital Signs Temp 98.2 F 12/02/22 08:00 Pulse 105 H 12/02/22 08:00 Resp 16 12/02/22 08:00 BP 120/69 12/02/22 08:00 Pulse Ox 95 12/02/22 08:00 FiO2 21 12/02/22 07:41 Intake & Output 12/01/22 12/02/22 12/02/22 18:59 06:59 18:59 Intake Total 1218 240 Output Total 0 Balance 1218 240 Weight 144.2 kg Intake: IV 50 Sodium Chloride 0.9% 1, 50 000 ml @ 50 mls/hr IV . Q20H [facility] Rx#:[id number] Intake, IV Titration 50 Amount Sodium Chloride 0.9% 1, 50 000 ml @ 50 mls/hr IV . Q20H [facility] Rx#:[id number] Oral 1118 240 Output: Urine 0 Other: Voiding Method Toilet Urinal # Voids 1 - Exam No acute distress, oriented 3. No respiratory distress. Currently on nasal O2 at [facility] examination is grossly unremarkable. Neck supple. Full range of motion. No adenopathy thyromegaly or neck vein distention. Cardiovascular examination reveals regular rhythm rate. S1-S2 normal. No S3 or S4. No discernible murmur noted. Lungs reveal mostly clear breath sounds. No wheezes or rhonchi. Minimal basilar crackles are noted. S Abdomen soft bowel sounds are heard. No masses or tenderness. Extremities are intact. No cyanosis clubbing or edema. Skin is without rash or lesion. Neurologic examination is brief but nonfocal. - Labs CBC & Chem 7: 12/01/22 05:40 12/01/22 05:40 Labs: Abnormal Lab Results - Last 24 Hours (Table) 12/01/22 12/01/22 Range/Units 16:08 19:58 POC Glucose (mg/dL) 143 H 149 H (70-110) mg/dL Assessment and Plan Plan: Coronary artery disease,S/P PCI with stenting of his LAD and circumflex coronary artery, and insertion of an Impella device, 11/27/2022. The patient is currently free of any chest pain. He is known to have multivessel disease. Declined bypass surgery. Remains hemodynamically stable. No cardiac arrhythmias. Off pressors this morning. Hypotension, currently on low-dose norepinephrine. Likely cardiogenic in nature. The patient is normotensive for now and the patient is off pressors. Obesity with a BMI of 47 Obstructive sleep apnea Previous coronary intervention and stenting from October 2022 History of severe persistent bronchial asthma and the patient has limited on Trele Ellipta and Singulair and outpatient basis Lifelong nonsmoker. History of angina pectoris. History of diabetes mellitus. History of hyperlipidemia. History of hypertension. Plan: Patient doing extremely well Clinically stable and hemodynamically stable Continue metoprolol Continue diuretics Cardiac rhythm is sinus Oxygenation is stable and the patient is currently on room air oxygen The patient's condition is stable and the patient is being discharged home today to be followed up by cardiology, Dr. Richey
--- NOTE | 2022-12-02 10:49 | P.PN ---
Subjective Progress Note Date: 12/02/22 The patient is a 57-year-old male who is currently admitted with non-ST elevated myocardial infarction. He underwent stenting of the proximal LAD, OM1, and mid circumflex with the use of Impella on 11/27/22. Initial echocardiogram showed ejection fraction of 35-40% with follow-up echocardiogram showing improvement to 45% post Impella removal. Patient has been moved to the cardiac stepdown unit. The patient was interviewed and examined sitting up in the recliner chair. He states he was up ambulating the unit. Heart rate in the 90s up to 105, telemetry sinus rhythm. He denies having any shortness of breath. He states he has been ambulating in the hallway. He does not like using our BiPAP at night and usually has a CPAP of his own at home. He is really wanting to go home today. We'll plan to increase frequency of the beta jorge a for better heart rate control. GENERAL: Well-appearing, well-nourished and in no acute distress. NECK: Supple without JVD or thyromegaly. LUNGS: Breath sounds clear to auscultation bilaterally. Respiration equal and unlabored. No wheezes, rales or rhonchi. HEART: Regular rate and rhythm without murmurs, rubs or gallops. S1 and S2 heard. EXTREMITIES: Normal range of motion, no edema. No clubbing or cyanosis. Peripheral pulses intact and strong. VITALS: Blood pressure 120/69, heart rate 105, SpO2 95% on room air TELEMETRY: Sinus rhythm to sinus tachycardia IMPRESSION: Non-ST elevated myocardial infarction Status post stenting of proximal LAD, OM1, and mid circumflex with use of impella Ischemic cardiomyopathy, EF 40-45% History of hypertension History of hyperlipidemia History diabetes Obstructive sleep apnea Morbid obesity PLAN: Continue current medication regimen Continue Lopressor 25 mg increase frequency to 3 times daily Encourage ambulation and monitor for NSVT Plan to monitor patient until after 6 PM of blood pressure is stable and patient does not have any significant shortness of breath, patient is cleared for discharge by cardiology. Patient will follow-up in the office with Dr. Cobos in one week. I am dictating on behalf of Dr Alphonso Calhoun's history/physical and assessment/plan. Objective - Vital Signs Vital signs: Vital Signs Temp 98.2 F 12/02/22 08:00 Pulse 105 H 12/02/22 08:00 Resp 16 12/02/22 08:00 BP 120/69 12/02/22 08:00 Pulse Ox 95 12/02/22 08:00 FiO2 21 12/02/22 07:41 Intake & Output 12/01/22 12/02/22 12/02/22 18:59 06:59 18:59 Intake Total 1218 240 Output Total 0 Balance 1218 240 Weight 144.2 kg Intake: IV 50 Sodium Chloride 0.9% 1, 50 000 ml @ 50 mls/hr IV . Q20H [facility] Rx#:[id number] Intake, IV Titration 50 Amount Sodium Chloride 0.9% 1, 50 000 ml @ 50 mls/hr IV . Q20H [facility] Rx#:[id number] Oral 1118 240 Output: Urine 0 Other: Voiding Method Toilet Urinal # Voids 1 - Labs CBC & Chem 7: 12/01/22 05:40 12/01/22 05:40 Labs: Abnormal Lab Results - Last 24 Hours (Table) 12/01/22 12/01/22 Range/Units 16:08 19:58 POC Glucose (mg/dL) 143 H 149 H (70-110) mg/dL
[2022-12-02 11:36] LABS: Glucose,Whole Blood 131 mg/dL (70-110)
[2022-12-02] MEDS: PRASUGREL 10 MG TAB PO SCH (11:58)
--- NOTE | 2022-12-02 12:03 | P.DS ---
Providers Date of admission: 11/25/22 13:29 Expected date of discharge: 12/02/22 Attending physician: Reynaldo Vargas MD Consults: 11/25/22 13:29 Consult Physician Urgent Consulting Provider: Mike Taylor Consult Reason/Comments: ua Do you want consulting provider notified?: Yes 11/26/22 09:03 Consult Physician Routine Consulting Provider: Bob Park Consult Reason/Comments: CABG Do you want consulting provider notified?: Yes 11/26/22 15:32 Consult Physician Routine Consulting Provider: Yeison Hughes Consult Reason/Comments: Pulmonary management pre op CABG Do you want consulting provider notified?: Yes, Notify in am 11/27/22 16:57 Consult Physician Routine Consulting Provider: [facility] Consult Reason/Comments: Post Interventional Patient Do you want consulting provider notified?: Already Contacted Primary care physician: Slime Galvin Hospital Course: Discharge diagnoses; Status post non-STEMI stenting of the LAD and left circumflex Impella catheter placement during procedure because of hemodynamic instability, stable at this time -Morbid Obesity with a BMI of 52.2 -Asthma without exacerbation -diabetes mellitus , type II -Hyperlipidemia -Hypertension -Sleep apnea and uses CPAP machine at home Elevated LFTs Hospital course; Patient is a pleasant 57-year-old male with with the recent cardiac original stenting came in with symptoms of left-sided chest pain and midsternal chest pain radiating to the back patient doesn't have gallbladder anymore this chest pain is nonexertional started last night and was having on and off episodes reviewed by nitroglycerin radiating to the jaw as well as left arm no associated shortness of breath or diaphoresis or nausea. Patient just pain is nonpleuritic not associated with food. EKG showed a mild nonspecific ST depressions in lead 2 in lead 3 which were not present in the previous EKG. Patient has mild elevation of troponin to 0.072. 11/26/2022 Patient is seen in follow-up today with cardiology following maintained on heparin drip along with nitro and just recently underwent cardiac catheterization with no new stenting noted. Patient with ostial lesions to the LAD and circumflex recommending cardiothoracic evaluation for possible CABG. Patient is afebrile currently denies chest pain or palpitations. Patient denies shortness of breath and is currently nothing by mouth. Patient is a diabetic and would recommend monitoring Accu-Cheks and continue with current protocol. Patient is currently on bedrest per cardiac catheterization protocol and continues with catheterization banding on the right wrist. 11/27/2022 Patient is seen in follow-up this morning has been evaluated by cardiothoracic surgery and reports not a candidate for CABG with cardiology following and plan for cardiac catheterization with stenting again today. Patient is currently afebrile denies chest pain or shortness of breath. Patient is maintained on IV heparin along with IV nitro drip and awaiting cardiac catheterization. Patient is nothing by mouth and will resume diet after procedure. Recommend close monitoring of blood sugars and try glycemic control. 11/28/22. Patient seen and examined. Labs this morning showed white count of 15.2, hemoglobin of 13.4. Sodium 134, potassium 4.9, chloride 100, CO2 19. Vital signs heart rate 87, respiratory rate 18, blood pressure 120/80, Patient currently on BiPAP with FiO2 40%. 11/29/22. Patient seen and examined. Patient impalla was removed. Denies any chest pain. Patient was ambulating in the room without any difficulty, Labs this morning showed WBC 12.2, hemoglobin 11.7, sodium 134, bilirubin 1.7, AST 331, ALT 74 11/30/22. Patient seen and examined. Patient developed hypotension overnight, had to started on Levothroid. Used BiPAP overnight. Labs this morning sodium 136, potassium 4.4, AST 124, ALT 58. Currently sitting upright in the chair. Denies any chest pain at rest, get short of breath on exertion 12/01. Patient seen and examined. White count this morning is 1, hemoglobin 10.8, sodium 135, potassium 3.9, BUN 15, creatinine 0.9. Vital signs morning temperature afebrile, heart rate 95, blood pressure 97/61, on room air patient has been weaned off Levophed 12/02. Patient seen and examined. Cardiology increased Lopressor to 25 mg3 times daily. Outpatient follow-up with cardiology PHYSICAL EXAMINATION: GENERAL: The patient is alert and oriented x3, not in any acute distress. Well developed, well nourished. HEENT: Pupils are round and equally reacting to light. EOMI. No scleral icterus. No conjunctival pallor. Normocephalic, atraumatic. No pharyngeal erythema. No thyromegaly. CARDIOVASCULAR: S1 and S2 present. No murmurs, rubs, or gallops. PULMONARY: Chest is clear to auscultation, no wheezing or crackles. ABDOMEN: Soft, nontender, nondistended, normoactive bowel sounds. No palpable organomegaly. MUSCULOSKELETAL: No joint swelling or deformity. EXTREMITIES: No cyanosis, clubbing, or pedal edema. NEUROLOGICAL: Gross neurological examination did not reveal any focal deficits. SKIN: No rashes. Plan - Discharge Summary Discharge Rx Participant: No New Discharge Prescriptions: New Atorvastatin [Lipitor] 80 mg PO HS #90 tab Calcium Carbonate [Tums] 1,000 mg PO QID PRN tab PRN Reason: Heartburn Spironolactone [Aldactone] 25 mg PO DAILY #90 tab Furosemide [Lasix] 20 mg PO BID #120 tab Metoprolol Tartrate [Lopressor] 25 mg PO TID #90 tab Continue Glimepiride [Amaryl] 4 mg PO BID Fluticasone Propionate [Flonase Allergy Relief] 1 spray EA NOSTRIL DAILY Baclofen [Lioresal] 20 mg PO TID PRN PRN Reason: Muscle Spasm metFORMIN HCL [Glucophage] 1,000 mg PO BID Albuterol Nebulized [Ventolin Nebulized] 2.5 mg INHALATION RT-Q6H PRN PRN Reason: Shortness Of Breath Cholecalciferol [Vitamin D3 (25 Mcg = 1000 Iu)] 25 mcg PO DAILY armodafiniL [Armodafinil] 200 mg PO DAILY Testosterone Cypionate [Depo-Testosterone] 200 mg IM Q14D Pantoprazole [Protonix] 40 mg PO DAILY Fluticasone/Umeclidin/Vilanter [Trelegy Ellipta 100-62.5-25] 1 puff INHALATION RT-DAILY L.acidoph,Paracasei, B.lactis [Probiotic] 1 cap PO DAILY Montelukast Sodium [Singulair] 10 mg PO DAILY Empagliflozin [Jardiance] 25 mg PO DAILY polyethylene glycoL 3350 [Miralax] 17 gm PO DAILY Ondansetron [Zofran] 4 mg PO TID PRN PRN Reason: Nausea Albuterol Inhaler [Ventolin Hfa Inhaler] 2 puff INHALATION RT-QID PRN PRN Reason: Shortness Of Breath Aspirin 81 mg PO DAILY #30 tab Prasugrel [Effient] 10 mg PO DAILY #30 tab Nitroglycerin Sl Tabs [Nitrostat] 0.4 mg SUBLINGUAL Q5M PRN #30 tab PRN Reason: Chest Pain Acetaminophen Tab [Tylenol] 650 mg PO Q6HR PRN tab PRN Reason: Mild Pain Or Fever > 100.5 Discontinued Atorvastatin [Lipitor] 40 mg PO HS Valsartan [Diovan] 160 mg PO DAILY #30 tab hydroCHLOROthiazide [Hydrodiuril] 25 mg PO DAILY 30 Days #30 tab Metoprolol Succinate (ER) [Toprol XL] 25 mg PO DAILY #30 tab clindamycin HCL [Cleocin] 300 mg PO BID Discharge Medication List Baclofen [Lioresal] 20 mg PO TID PRN 08/03/16 [History] Fluticasone Propionate [Flonase Allergy Relief] 1 spray EA NOSTRIL DAILY 08/03/16 [History] Glimepiride [Amaryl] 4 mg PO BID 08/03/16 [History] metFORMIN HCL [Glucophage] 1,000 mg PO BID 08/03/16 [History] Albuterol Nebulized [Ventolin Nebulized] 2.5 mg INHALATION RT-Q6H PRN 10/20/20 [History] Empagliflozin [Jardiance] 25 mg PO DAILY 10/20/20 [History] Montelukast Sodium [Singulair] 10 mg PO DAILY 10/20/20 [History] Albuterol Inhaler [Ventolin Hfa Inhaler] 2 puff INHALATION RT-QID PRN 10/28/22 [History] Cholecalciferol [Vitamin D3 (25 Mcg = 1000 Iu)] 25 mcg PO DAILY 10/28/22 [History] Fluticasone/Umeclidin/Vilanter [Trelegy Ellipta 100-62.5-25] 1 puff INHALATION RT-DAILY 10/28/22 [History] L.acidoph,Paracasei, B.lactis [Probiotic] 1 cap PO DAILY 10/28/22 [History] Ondansetron [Zofran] 4 mg PO TID PRN 10/28/22 [History] Pantoprazole [Protonix] 40 mg PO DAILY 10/28/22 [History] Testosterone Cypionate [Depo-Testosterone] 200 mg IM Q14D 10/28/22 [History] armodafiniL [Armodafinil] 200 mg PO DAILY 10/28/22 [History] polyethylene glycoL 3350 [Miralax] 17 gm PO DAILY 10/28/22 [History] Acetaminophen Tab [Tylenol] 650 mg PO Q6HR PRN tab 10/31/22 [Rx] Aspirin 81 mg PO DAILY #30 tab 10/31/22 [Rx] Nitroglycerin Sl Tabs [Nitrostat] 0.4 mg SUBLINGUAL Q5M PRN #30 tab 10/31/22 [Rx] Prasugrel [Effient] 10 mg PO DAILY #30 tab 10/31/22 [Rx] Atorvastatin [Lipitor] 80 mg PO HS #90 tab 12/02/22 [Rx] Calcium Carbonate [Tums] 1,000 mg PO QID PRN tab 12/02/22 [Rx] Furosemide [Lasix] 20 mg PO BID #120 tab 12/02/22 [Rx] Metoprolol Tartrate [Lopressor] 25 mg PO TID #90 tab 12/02/22 [Rx] Spironolactone [Aldactone] 25 mg PO DAILY #90 tab 12/02/22 [Rx] Follow up Appointment(s)/Referral(s): Slime Galvin DO [Primary Care Provider] - 1-2 days Shan Pride MD [STAFF PHYSICIAN] - 1 Week Discharge Disposition: HOME SELF-CARE
[2022-12-02] MEDS ORDERED: METOPROLOL TARTRATE 25 MG TAB PO SCH (16:00)
[2022-12-02 16:29] LABS: Glucose,Whole Blood 121 mg/dL (70-110)
[2022-12-02 16:39] VITALS: BP 122/84; PULSE 101; TEMP 98.2
--- NOTE | 2022-12-03 11:46 | CDI ---
Documentation Clarification Form Date: 12/03/2022 11:30:22 AM From: Nikkie Sprague Phone: Admit Date: 11/25/2022 1:29:00 PM Patient Name: Anne Sheehan Visit Number: [id number] Discharge Date: 12/02/2022 6:19:00 PM ATTENTION: The Clinical Documentation Specialists (CDI) and [facility] Coding Staff appreciate your assistance in clarifying documentation. Please respond to the clarification below the line at the bottom and electronically sign. The CDI & [facility] Coding staff will review the response and follow-up if needed. Please note: Queries are made part of the Legal Health Record. If you have any questions, please contact the author of this message via ITS. Dr. Shemar Soto Your patient has the documented worseningheart failuresymptoms per PCI Note 11/27/22. Additional information regarding the type and acuity of CHF is requested. History/Risk Factors: 57yo M, NSTEMI w stenting, Morbid Obesity, asthma, DMII, HLD, HTN, SHANELLE, CAD w previous stent, COPD, cardiomegaly, fluid overload, cardiogenic shock Clinical Indicators: VS/Pulse OX: 11/25 98 11/26 93 11/27 94 BNP: 256 Echocardiogram Results: Moderatelyimpairedsystolic function with inferolateral hypokinesis a catheter is noted in the outflow tract of the left ventricle. Chest X Ray: MildcardiomegalyandCOPD. Interstitial prominence could reflect mild pulmonary vascularcongestion. Clinically correlate. Otherwise, no acute process seen. Treatment: additional Lasix In your professional opinion, can you please clarify the type and acuity of CHF if known? [x ] Acute Systolic Heart Failure (reduced EF) [ ] Acute on Chronic Systolic Heart Failure (reduced EF) [ ] Other, please specify [ ] Unable to determine (Template Last Revised: August 2020) MTDD
== END 2022-12-02 18:19 | disposition home or self-care (01) | DRG 178 ==
LOC: EC 10:38 → 3SCARD 13:29 → 2SICU 11-27 15:49 → 3SCARD 12-01 15:56
PROVIDERS: ADMIT Internal Medicine; ATTEND Internal Medicine
PROC: 4A023N7 Measurement of Cardiac Sampling and Pressure, Left Heart, Percutaneous Approach (ICD-10-PCS; 2022-11-26)
PROC: B2111ZZ Fluoroscopy of Multiple Coronary Arteries using Low Osmolar Contrast (ICD-10-PCS; 2022-11-26)
PROC: 027135Z Dilation of Coronary Artery, Two Arteries with Two Drug-eluting Intraluminal Devices, Percutaneous Approach (ICD-10-PCS; 2022-11-27)
PROC: 02HA3RZ Insertion of Short-term External Heart Assist System into Heart, Percutaneous Approach (ICD-10-PCS; principal; 2022-11-27 07:30)
PROC: 4A023N7 Measurement of Cardiac Sampling and Pressure, Left Heart, Percutaneous Approach (ICD-10-PCS; 2022-11-27 07:30)
PROC: B2111ZZ Fluoroscopy of Multiple Coronary Arteries using Low Osmolar Contrast (ICD-10-PCS; 2022-11-27 07:30)
PROC: 4A033BC Measurement of Arterial Pressure, Coronary, Percutaneous Approach (ICD-10-PCS; 2022-11-27 07:30)
PROC: 02F03ZZ Fragmentation in Coronary Artery, One Artery, Percutaneous Approach (ICD-10-PCS; 2022-11-27 07:30)
PROC: [UNRECOGNIZED PROCEDURE] (2022-11-27 07:30)
PROC: 5A0221D Assistance with Cardiac Output using Impeller Pump, Continuous (ICD-10-PCS; 2022-11-27 07:30)
PROC: 02PA3RZ Removal of Short-term External Heart Assist System from Heart, Percutaneous Approach (ICD-10-PCS; 2022-11-28)
PROC: 5A09357 Assistance with Respiratory Ventilation, Less than 24 Consecutive Hours, Continuous Positive Airway Pressure (ICD-10-PCS; 2022-11-28)
PROC: 3E033XZ Introduction of Vasopressor into Peripheral Vein, Percutaneous Approach (ICD-10-PCS; 2022-11-28)
DX: I21.4 Non-ST elevation (NSTEMI) myocardial infarction (principal); R57.0 Cardiogenic shock; I50.21 Acute systolic (congestive) heart failure; E27.40 Unspecified adrenocortical insufficiency; K76.0 Fatty (change of) liver, not elsewhere classified; I11.0 Hypertensive heart disease with heart failure; E11.9 Type 2 diabetes mellitus without complications; E66.01 Morbid (severe) obesity due to excess calories; J44.9 Chronic obstructive pulmonary disease, unspecified; J45.50 Severe persistent asthma, uncomplicated; I25.110 Atherosclerotic heart disease of native coronary artery with unstable angina pectoris; G47.33 Obstructive sleep apnea (adult) (pediatric); E78.5 Hyperlipidemia, unspecified; M19.90 Unspecified osteoarthritis, unspecified site; F41.9 Anxiety disorder, unspecified; K21.9 Gastro-esophageal reflux disease without esophagitis; R79.89 Other specified abnormal findings of blood chemistry; E86.1 Hypovolemia; I25.5 Ischemic cardiomyopathy; Z68.43 Body mass index [BMI] 50.0-59.9, adult; Z88.8 Allergy status to other drugs, medicaments and biological substances; Z82.49 Family history of ischemic heart disease and other diseases of the circulatory system; Z79.899 Other long term (current) drug therapy; Z79.82 Long term (current) use of aspirin; Z79.02 Long term (current) use of antithrombotics/antiplatelets; Z79.51 Long term (current) use of inhaled steroids; Z79.84 Long term (current) use of oral hypoglycemic drugs; Z95.5 Presence of coronary angioplasty implant and graft; Z28.311 Partially vaccinated for COVID-19
CPT/HCPCS: 0715T; 33990; 33992; 36415; 71045; 71046; 76705; 80048; 80053; 80061; 80074; 81003; 82533; 83036; 83605; 83615; 83735; 83880; 84443; 84484; 85025; 85049; 85384; 85610; 85730; 87070; 92978; 92979; 93005; 93308; 93458; 93799; 93880; 93922; 93970; 94150; 94640; 94660; 94760; 96365; 96366; 99291

== ENCOUNTER 2022-12-07 19:41 | Inpatient (IN) | payer OTHER ==
[2022-12-07 20:17] LABS: Basophils % (A) 0 %; Eosinophils # (A) 0.1 k/uL (0-0.7); Eosinophils % (A) 1 %; HCT 36.2 % (39.0-53.0); HGB 11.5 gm/dL (13.0-17.5); Hypochromasia Slight; Lymphocytes % (A) 12 %; MCH 28.3 pg (25.0-35.0); MCHC 31.8 g/dL (31.0-37.0); MCV 89.2 fL (80.0-100.0); Mean Platelet Volume 7.4; Monocytes # (A) 0.4 k/uL (0-1.0); Monocytes % (A) 5 %; Neutrophils % (A) 81 %; Poikilocytosis Slight; RBC 4.06 m/uL (4.30-5.90); RDW 15.2 % (11.5-15.5); WBC 8.7 k/uL (3.8-10.6)
[2022-12-07 20:27] LABS: INR 1.1 (<1.2); Partial Thromboplastin Time 23.5 sec (22.0-30.0); Prothrombin Time 11.3 sec (9.0-12.0)
[2022-12-07 20:47] LABS: ALT 49 U/L (4-49); AST 38 U/L (17-59); African American GFR (CKD) >90 (>60 ml/min/1.73 sqM); Albumin 3.5 g/dL (3.5-5.0); Alkaline Phosphatase 54 U/L (38-126); Anion Gap 10 mmol/L; Blood Urea Nitrogen 13 mg/dL (9-20); Calcium 8.5 mg/dL (8.4-10.2); Carbon Dioxide 27 mmol/L (22-30); Chloride 99 mmol/L (98-107); Glucose 124 mg/dL (74-99); Magnesium 2.2 mg/dL (1.6-2.3); Non-African American GFR(CKD) 86 (>60 ml/min/1.73 sqM); Potassium 4.4 mmol/L (3.5-5.1); Sodium 136 mmol/L (137-145); Total Bilirubin 1.1 mg/dL (0.2-1.3); Total Protein 6.2 g/dL (6.3-8.2)
[2022-12-07 20:51] LABS: Platelet Count 466 k/uL (150-450)
--- NOTE | 2022-12-07 21:28 | ED ---
General Adult HPI - General Chief complaint: Shortness of Breath Stated complaint: SOB-sent by drs Time Seen by Provider: 12/07/22 21:08 Source: patient, RN notes reviewed Mode of arrival: ambulatory Limitations: no limitations - History of Present Illness Initial comments: Patient is a pleasant 57-year-old male presenting to the emergency department wi concerns with shortness of breath. Onset of symptoms was a couple days ago. Patient states symptoms do worsen with exertion. Patient leaves he may have a history of similar symptoms previously associated with CHF. Patient has been in the hospital twice recently with heart catheterization and stent placement. Patient believes he did have stents placed both times. Patient is unclear of any pending surgery. Patient denies any chest pain. No leg pain or leg swelling. - Related Data Home Medications Medication Instructions Recorded Confirmed Baclofen [Lioresal] 20 mg PO TID PRN 08/03/16 11/25/22 Fluticasone Propionate [Flonase 1 spray EA NOSTRIL DAILY 08/03/16 11/25/22 Allergy Relief] Glimepiride [Amaryl] 4 mg PO BID 08/03/16 11/25/22 metFORMIN HCL [Glucophage] 1,000 mg PO BID 08/03/16 11/25/22 Albuterol Nebulized [Ventolin 2.5 mg INHALATION RT-Q6H PRN 10/20/20 11/25/22 Nebulized] Empagliflozin [Jardiance] 25 mg PO DAILY 10/20/20 11/25/22 Montelukast Sodium [Singulair] 10 mg PO DAILY 10/20/20 11/25/22 Albuterol Inhaler [Ventolin Hfa 2 puff INHALATION RT-QID PRN 10/28/22 11/25/22 Inhaler] Cholecalciferol [Vitamin D3 (25 25 mcg PO DAILY 10/28/22 11/25/22 Mcg = 1000 Iu)] Fluticasone/Umeclidin/Vilanter 1 puff INHALATION RT-DAILY 10/28/22 11/25/22 [Trelegy Ellipta 100-62.5-25] L.acidoph,Paracasei, B.lactis 1 cap PO DAILY 10/28/22 11/25/22 [Probiotic] Ondansetron [Zofran] 4 mg PO TID PRN 10/28/22 11/25/22 Pantoprazole [Protonix] 40 mg PO DAILY 10/28/22 11/25/22 Testosterone Cypionate 200 mg IM Q14D 10/28/22 11/25/22 [Depo-Testosterone] armodafiniL [Armodafinil] 200 mg PO DAILY 10/28/22 11/25/22 polyethylene glycoL 3350 [Miralax] 17 gm PO DAILY 10/28/22 11/25/22 Previous Rx's Medication Instructions Recorded Acetaminophen Tab [Tylenol] 650 mg PO Q6HR PRN tab 10/31/22 Aspirin 81 mg PO DAILY #30 tab 10/31/22 Nitroglycerin Sl Tabs [Nitrostat] 0.4 mg SUBLINGUAL Q5M PRN #30 tab 10/31/22 Prasugrel [Effient] 10 mg PO DAILY #30 tab 10/31/22 Atorvastatin [Lipitor] 80 mg PO HS #90 tab 12/02/22 Calcium Carbonate [Tums] 1,000 mg PO QID PRN tab 12/02/22 Furosemide [Lasix] 20 mg PO BID #120 tab 12/02/22 Metoprolol Tartrate [Lopressor] 25 mg PO TID #90 tab 12/02/22 Spironolactone [Aldactone] 25 mg PO DAILY #90 tab 12/02/22 Allergies Allergy/AdvReac Type Severity Reaction Status Date / Time hydrochlorothiazide Allergy Unknown HEADACHE Verified 12/07/22 19:53 [From Hyzaar] losartan [From Hyzaar] Allergy Unknown HEADACHE Verified 12/07/22 19:53 Review of Systems ROS Statement: Those systems with pertinent positive or pertinent negative responses have been documented in the HPI. ROS Other: All systems not noted in ROS Statement are negative. Constitutional: Denies: fever Eyes: Denies: eye pain ENT: Denies: ear pain Respiratory: Reports: as per HPI, cough (Minimal), dyspnea Cardiovascular: Reports: dyspnea on exertion. Denies: chest pain Endocrine: Denies: fatigue Gastrointestinal: Denies: abdominal pain Genitourinary: Denies: dysuria Musculoskeletal: Denies: back pain Skin: Denies: rash Neurological: Denies: weakness Past Medical History Past Medical History: Asthma, Coronary Artery Disease (CAD), Chest Pain / Angina, Diabetes Mellitus, GERD/Reflux, Hyperlipidemia, Hypertension, Myocardial Infarction (non Q-wave), Osteoarthritis (OA), Sleep Apnea/CPAP/BIPAP Additional Past Medical History / Comment(s): FATTY LIVER, USES C-PAP MACHINE, BACK PAIN, CONSTIPATION AND DIARRHEA. History of Any Multi-Drug Resistant Organisms: None Reported Past Surgical History: No Surgical Hx Reported, Heart Catheterization With Stent Additional Past Surgical History / Comment(s): COLONOSCOPY Past Anesthesia/Blood Transfusion Reactions: Motion Sickness, No Reported Reaction Date of Last Stent Placement:: 10/29/2022 Past Psychological History: Anxiety, Depression Smoking Status: Never smoker Past Alcohol Use History: None Reported Past Drug Use History: None Reported - Past Family History Mother Family Medical History: No Reported History Additional Family Medical History / Comment(s): Alzheimer's Father Family Medical History: Coronary Artery Disease (CAD) (Early onset coronary artery disease, diagnosed at age 52, history of CABG) General Exam Limitations: no limitations General appearance: alert, in no apparent distress Head exam: Present: normocephalic Eye exam: Present: normal appearance Neck exam: Present: normal inspection Respiratory exam: Present: decreased breath sounds Cardiovascular Exam: Present: regular rate, normal rhythm GI/Abdominal exam: Present: soft. Absent: tenderness Extremities exam: Present: normal inspection. Absent: pedal edema, calf tenderness Neurological exam: Present: alert Psychiatric exam: Present: normal affect, normal mood Skin exam: Present: normal color Course Vital Signs 12/07/22 12/07/22 19:51 21:30 Temperature 97.9 F 98.0 F Pulse Rate 99 92 Respiratory 18 20 Rate Blood Pressure 127/85 140/90 O2 Sat by Pulse 94 L 97 Oximetry EKG Findings - EKG Results: EKG: interpreted by ERMD (Nonspecific intraventricular conduction delay), sinus rhythm, normal axis, normal ST/T Medical Decision Making - Medical Decision Making Was pt. sent in by a medical professional or institution (, PA, HEATER OPERATOR HELPER, urgent care, hospital, or penitentiary...) When possible be specific @ -Patient did see Dr. Ulrich earlier and was advised come to emergency depart ment Did you speak to anyone other than the patient for history (EMS, parent, family, police, friend...)? What history was obtained from this source @ -No Did you review nursing and triage notes (agree or disagree)? Why? @ -I reviewed and agree with nursing and triage notes Were old charts reviewed (outside hosp., previous admission, EMS record, old EKG, old radiological studies, urgent care reports/EKG's, penitentiary records)? Report findings @ -Previous admission and heart catheterization reviewed Differential Diagnosis (chest pain, altered mental status, abdominal pain women, abdominal pain men, vaginal bleeding, weakness, fever, dyspnea, syncope, head ache, dizziness, GI bleed, back pain, seizure, CVA, palpatations, mental health)? @ -Differential Dyspnea: Coronary syndrome, arrhythmia, tamponade, asthma, COPD, pulmonary embolism, pneumonia, pneumothorax, pulmonary effusion, anaphylaxis, diabetic ketoacidosis, flailed chest, pulmonary contusion, diaphragmatic rupture, anemia, neuromuscular, this is not meant to be an all-inclusive list. EKG interpreted by me (3pts min.). @ -As above X-rays interpreted by me (1pt min.). @ -Chest x-ray does show increased lung markings/cephalization concerning for CHF CT interpreted by me (1pt min.). @ -None done U/S interpreted by me (1pt. min.). @ -None done What testing was considered but not performed or refused? (CT, X-rays, U/S, labs)? Why? @ -None What meds were considered but not given or refused? Why? @ -None Did you discuss the management of the patient with other professionals (professionals i.e. , PA, HEATER OPERATOR HELPER, lab, RT, psych nurse, social science manager, respiratory therapy instructor, teacher, retirement officer, porter sample case)? Give summary @ -Case was discussed with Dr. spencer, who will admit covering Dr. Ulrich. Case also discussed with Dr. Shook who will consult and agrees with care Was smoking cessation discussed for >3mins.? @ -No Was critical care preformed (if so, how long)? @ -33 minutes critical care time Were there social determinants of health that impacted care today? How? (Homelessness, low income, unemployed, alcoholism, drug addiction, transportation, low edu. Level, literacy, decrease access to med. care, long term, rehab)? @ -No Was there de-escalation of care discussed even if they declined (Discuss DNR or withdrawal of care, Hospice)? DNR status @ -No What co-morbidities impacted this encounter? (DM, HTN, Smoking, COPD, CAD, Cancer, CVA, ARF, Chemo, Hep., AIDS, mental health diagnosis, sleep apnea, morbid obesity)? @ -None Was patient admitted / discharged? Hospital course, mention meds given and route, prescriptions, significant lab abnormalities, going to OR and other pertinent info. @ -Patient is updated on results and plan. Patient will be admitted and heparinized with cardiology consult. Undiagnosed new problem with uncertain prognosis? @ -No Drug Therapy requiring intensive monitoring for toxicity (Heparin, Nitro, Insulin, Cardizem)? @ -Patient will be heparinized and need monitoring for this Were any procedures done? @ -No Diagnosis/symptom? @ -Non-STEMI, CHF Acute, or Chronic, or Acute on Chronic? @ -Acute, acute Uncomplicated (without systemic symptoms) or Complicated (systemic symptoms)? @ -Complicated with CHF Side effects of treatment? @ -No Exacerbation, Progression, or Severe Exacerbation? @ -No Poses a threat to life or bodily function? How? (Chest pain, [place], [place], pneumonia, PE, COPD, DKA, ARF, appy, cholecystitis, CVA, Diverticulitis, Homicidal, Suicidal, threat to staff... and all critical care pts) @ -Non-STEMI a threat to myocardial function with congestive heart failure - Lab Data Result diagrams: 12/07/22 20:08 12/07/22 20:08 Lab Results 12/07/22 12/07/22 12/07/22 Range/Units 20:08 20:08 20:08 WBC 8.7 (3.8-10.6) k/uL RBC 4.06 L (4.30-5.90) m/uL Hgb 11.5 L (13.0-17.5) gm/dL Hct 36.2 L (39.0-53.0) % MCV 89.2 (80.0-100.0) fL MCH 28.3 (25.0-35.0) pg MCHC 31.8 (31.0-37.0) g/dL RDW 15.2 (11.5-15.5) % Plt Count 466 H D (150-450) k/uL MPV 7.4 Neutrophils % 81 % Lymphocytes % 12 % Monocytes % 5 % Eosinophils % 1 % Basophils % 0 % Neutrophils # 7.0 (1.3-7.7) k/uL Lymphocytes # 1.0 (1.0-4.8) k/uL Monocytes # 0.4 (0-1.0) k/uL Eosinophils # 0.1 (0-0.7) k/uL Basophils # 0.0 (0-0.2) k/uL Hypochromasia Slight Poikilocytosis Slight PT 11.3 (9.0-12.0) sec INR 1.1 (<1.2) APTT 23.5 (22.0-30.0) sec Sodium 136 L (137-145) mmol/L Potassium 4.4 (3.5-5.1) mmol/L Chloride 99 (98-107) mmol/L Carbon Dioxide 27 (22-30) mmol/L Anion Gap 10 mmol/L BUN 13 (9-20) mg/dL Creatinine 0.98 (0.66-1.25) mg/dL Est GFR (CKD-EPI)AfAm >90 (>60 ml/min/1.73 sqM) Est GFR (CKD-EPI)NonAf 86 (>60 ml/min/1.73 sqM) Glucose 124 H (74-99) mg/dL Calcium 8.5 (8.4-10.2) mg/dL Magnesium 2.2 (1.6-2.3) mg/dL Total Bilirubin 1.1 (0.2-1.3) mg/dL AST 38 (17-59) U/L ALT 49 (4-49) U/L Alkaline Phosphatase 54 (38-126) U/L Troponin I (0.000-0.034) ng/mL Total Protein 6.2 L (6.3-8.2) g/dL Albumin 3.5 (3.5-5.0) g/dL 12/07/22 Range/Units 20:08 WBC (3.8-10.6) k/uL RBC (4.30-5.90) m/uL Hgb (13.0-17.5) gm/dL Hct (39.0-53.0) % MCV (80.0-100.0) fL MCH (25.0-35.0) pg MCHC (31.0-37.0) g/dL RDW (11.5-15.5) % Plt Count (150-450) k/uL MPV Neutrophils % % Lymphocytes % % Monocytes % % Eosinophils % % Basophils % % Neutrophils # (1.3-7.7) k/uL Lymphocytes # (1.0-4.8) k/uL Monocytes # (0-1.0) k/uL Eosinophils # (0-0.7) k/uL Basophils # (0-0.2) k/uL Hypochromasia Poikilocytosis PT (9.0-12.0) sec INR (<1.2) APTT (22.0-30.0) sec Sodium (137-145) mmol/L Potassium (3.5-5.1) mmol/L Chloride (98-107) mmol/L Carbon Dioxide (22-30) mmol/L Anion Gap mmol/L BUN (9-20) mg/dL Creatinine (0.66-1.25) mg/dL Est GFR (CKD-EPI)AfAm (>60 ml/min/1.73 sqM) Est GFR (CKD-EPI)NonAf (>60 ml/min/1.73 sqM) Glucose (74-99) mg/dL Calcium (8.4-10.2) mg/dL Magnesium (1.6-2.3) mg/dL Total Bilirubin (0.2-1.3) mg/dL AST (17-59) U/L ALT (4-49) U/L Alkaline Phosphatase (38-126) U/L Troponin I 2.590 H* (0.000-0.034) ng/mL Total Protein (6.3-8.2) g/dL Albumin (3.5-5.0) g/dL Critical Care Time Critical Care Time: Yes Total Critical Care Time: 33 Disposition Clinical Impression: NSTEMI (non-ST elevated myocardial infarction), Congestive heart failure Disposition: ADMITTED IP TO THIS HOSP Condition: Serious Is patient prescribed a controlled substance at d/c from ED?: No Referrals: Slime Ulrich DO [Primary Care Provider] - 1-2 days Time of Disposition: 21:36
[2022-12-07] MEDS ORDERED: NITROGLYCERIN SL TABS 0.4 MG TAB SUBLINGUAL PRN (21:38)
[2022-12-07] MEDS ORDERED: HEPARIN SODIUM 1,000 UN/ML (10ML VL) IV ONE (21:38)
[2022-12-07] MEDS ORDERED: ASPIRIN 325 MG TAB PO STA (21:38)
[2022-12-07] MEDS: FUROSEMIDE 10 MG/ML 4 ML VIAL IV SCH (22:00)
[2022-12-07] MEDS: HEPARIN SOD,PORK IN 0.45% NACL 25,000 UNIT in 0.45% NACL 1 250ML.BAG IV SCH (22:05)
--- NOTE | 2022-12-07 22:42 | XR ---
EXAMINATION TYPE: XR chest 2V DATE OF EXAM: 12/07/2022 COMPARISON: Chest x-ray 6 days ago HISTORY: Chest pain. TECHNIQUE: Frontal and lateral views of the chest are obtained. FINDINGS: Persistent cardiomegaly with increased interstitial markings bilaterally and small to tiny bilateral pleural effusions. Multilevel spurring in the thoracic spine is redemonstrated. IMPRESSION: Findings suspicious for CHF exacerbation. Correlate clinically.
[2022-12-08] MEDS: NITROGLYCERIN OINT 1 INCH/GM PACKET TOPICAL SCH ×5 (00:23→23:38)
[2022-12-08] MEDS ORDERED: ACETAMINOPHEN TAB 325 MG TAB PO PRN (00:27)
[2022-12-08] MEDS ORDERED: ALBUTEROL NEBULIZED 2.5 MG/3 ML INHALATION PRN (00:27)
[2022-12-08] MEDS ORDERED: ALBUTEROL HFA INHALER INHALATION PRN (00:27)
[2022-12-08 03:49] LABS: Mean Platelet Volume 7.5; Platelet Count 484 k/uL (150-450)
[2022-12-08] MEDS ORDERED: HEPARIN SODIUM 1,000 UN/ML (10ML VL) IV ONE (06:46)
[2022-12-08] MEDS: FUROSEMIDE 10 MG/ML 4 ML VIAL IV SCH ×3 (06:54→20:48)
[2022-12-08] MEDS ORDERED: ASPIRIN 325 MG TAB PO SCH (09:00)
[2022-12-08] MEDS: GLIMEPIRIDE 4 MG TAB PO SCH ×2 (09:04→09:05)
[2022-12-08] MEDS: METOPROLOL TARTRATE 25 MG TAB PO SCH ×3 (09:05→20:48)
[2022-12-08] MEDS: DAPAGLIFLOZIN PROPANEDIOL 10 MG TABLET PO SCH (09:05)
[2022-12-08] MEDS: PANTOPRAZOLE 40 MG TABLET PO SCH (09:05)
[2022-12-08] MEDS: SPIRONOLACTONE 25 MG TAB PO SCH (09:05)
[2022-12-08] MEDS: metFORMIN 500 MG TAB PO SCH ×2 (09:05→20:46)
[2022-12-08] MEDS: ARMODAFINIL 200 MG PO SCH (09:05)
[2022-12-08 09:54] LABS: Chol/HDL Ratio 3.56 Ratio
--- NOTE | 2022-12-08 10:14 | P.HPIM ---
History of Present Illness This is a pleasant 57 years old male with past medical history of asthma, coronary artery disease status post stent, diabetes mellitus, hypertension, hyperlipidemia and osteoarthritis, sleep apnea on CPAP/BiPAP, anxiety depression patient was recently discharged from this hospital about 1 week ago for a non- STEMI and he has PCI to LAD, OM1, mid circumflex Patient presents because of dyspnea for the last 2-3 days, he wants to see his PCP Dr. Ulrich who referred him to the hospital However patient denies chest pain or coughing or phlegm He has mild bilateral pitting leg edema. He denies any GI or urinary or neurological symptoms No smoking alcohol or illicit drugs vitals are stable Labs showing mild anemia with hemoglobin 11.5. Platelet count elevated at 466. INR is normal 1.1. Basic metabolic panel and liver enzymes are unremarkable. ProBNP is 1410. Troponin are elevated 2.5-2.63 Chest x-ray: Suspicious for CHF EKG is normal sinus rhythm at [address]-T changes. Patient was given aspirin 1 on heparin drip and other Lasix 40 mg. Patient admitted with cco & president consulted Review of Systems Review of systems CONSTITUTIONAL: No fever, no malaise, no fatigue. HEENT: No recent visual problems or hearing problems. Denied any sore throat. CARDIOVASCULAR: No orthopnea, PND, no palpitations, no syncope. PULMONARY: No chest wall tenderness, no cough, no hemoptysis. GASTROINTESTINAL: No diarrhea, no nausea, no vomiting, no abdominal pain. Normoactive bowel sounds. NEUROLOGICAL: No headaches, no weakness, no numbness. HEMATOLOGICAL: Denies any bleeding or petechiae. GENITOURINARY: Denies any burning micturition, frequency, or urgency. MUSCULOSKELETAL/RHEUMATOLOGICAL: Denies any joint pain, swelling, or any muscle pain. ENDOCRINE: Denies any polyuria or polydipsia. Past Medical History Past Medical History: Asthma, Coronary Artery Disease (CAD), Chest Pain / Angina, Diabetes Mellitus, GERD/Reflux, Hyperlipidemia, Hypertension, Myocardial Infarction (non Q-wave), Osteoarthritis (OA), Sleep Apnea/CPAP/BIPAP Additional Past Medical History / Comment(s): FATTY LIVER, USES C-PAP MACHINE, BACK PAIN, CONSTIPATION AND DIARRHEA. History of Any Multi-Drug Resistant Organisms: None Reported Past Surgical History: No Surgical Hx Reported, Heart Catheterization With Stent Additional Past Surgical History / Comment(s): COLONOSCOPY Past Anesthesia/Blood Transfusion Reactions: Motion Sickness, No Reported Reaction Date of Last Stent Placement:: 10/29/2022 Past Psychological History: Anxiety, Depression Smoking Status: Never smoker Past Alcohol Use History: None Reported Past Drug Use History: None Reported - Past Family History Mother Family Medical History: No Reported History Additional Family Medical History / Comment(s): Alzheimer's Father Family Medical History: Coronary Artery Disease (CAD) (Early onset coronary artery disease, diagnosed at age 52, history of CABG) Medications and Allergies Home Medications Medication Instructions Recorded Confirmed Type Baclofen [Lioresal] 20 mg PO TID PRN 08/03/16 12/07/22 History Fluticasone Propionate [Flonase 1 spray EA NOSTRIL DAILY 08/03/16 12/07/22 History Allergy Relief] Glimepiride [Amaryl] 4 mg PO BID 08/03/16 12/07/22 History metFORMIN HCL [Glucophage] 1,000 mg PO BID 08/03/16 12/07/22 History Albuterol Nebulized [Ventolin 2.5 mg INHALATION RT-Q6H PRN 10/20/20 12/07/22 History Nebulized] Empagliflozin [Jardiance] 25 mg PO DAILY 10/20/20 12/07/22 History Montelukast Sodium [Singulair] 10 mg PO DAILY 10/20/20 12/07/22 History Albuterol Inhaler [Ventolin Hfa 2 puff INHALATION RT-QID PRN 10/28/22 12/07/22 History Inhaler] Cholecalciferol [Vitamin D3 (25 25 mcg PO DAILY 10/28/22 12/07/22 History Mcg = 1000 Iu)] Fluticasone/Umeclidin/Vilanter 1 puff INHALATION RT-DAILY 10/28/22 12/07/22 History [Trelegy Ellipta 100-62.5-25] L.acidoph,Paracasei, B.lactis 1 cap PO DAILY 10/28/22 12/07/22 History [Probiotic] Ondansetron [Zofran] 4 mg PO TID PRN 10/28/22 12/07/22 History Pantoprazole [Protonix] 40 mg PO DAILY 10/28/22 12/07/22 History Testosterone Cypionate 200 mg IM Q14D 10/28/22 12/07/22 History [Depo-Testosterone] armodafiniL [Armodafinil] 200 mg PO DAILY 10/28/22 12/07/22 History polyethylene glycoL 3350 [Miralax] 17 gm PO DAILY 10/28/22 12/07/22 History Acetaminophen Tab [Tylenol] 650 mg PO Q6HR PRN tab 10/31/22 12/07/22 Rx Aspirin 81 mg PO DAILY #30 tab 10/31/22 12/07/22 Rx Nitroglycerin Sl Tabs [Nitrostat] 0.4 mg SUBLINGUAL Q5M PRN #30 tab 10/31/22 12/07/22 Rx Prasugrel [Effient] 10 mg PO DAILY #30 tab 10/31/22 12/07/22 Rx Atorvastatin [Lipitor] 80 mg PO HS #90 tab 12/02/22 12/07/22 Rx Calcium Carbonate [Tums] 1,000 mg PO QID PRN tab 12/02/22 12/07/22 Rx Furosemide [Lasix] 20 mg PO BID #120 tab 12/02/22 12/07/22 Rx Metoprolol Tartrate [Lopressor] 25 mg PO TID #90 tab 12/02/22 12/07/22 Rx Spironolactone [Aldactone] 25 mg PO DAILY #90 tab 12/02/22 12/07/22 Rx Allergies Allergy/AdvReac Type Severity Reaction Status Date / Time hydrochlorothiazide Allergy Unknown HEADACHE Verified 12/07/22 22:05 [From Hyzaar] losartan [From Hyzaar] Allergy Unknown HEADACHE Verified 12/07/22 22:05 Physical Exam Vitals: Vital Signs Temp Pulse Resp BP Pulse Ox 12/08/22 07:28 90 18 141/96 95 12/08/22 06:00 80 16 132/91 94 L 12/08/22 05:00 79 16 113/76 96 12/08/22 04:00 77 16 116/80 95 12/08/22 03:00 75 16 109/72 94 L 12/08/22 02:00 81 16 111/76 94 L 12/08/22 01:00 93 16 118/76 95 12/08/22 00:30 81 16 120/85 96 12/08/22 00:00 96 16 118/76 95 12/07/22 23:30 85 16 134/91 95 12/07/22 22:10 96 20 137/90 97 12/07/22 21:30 98.0 F 92 20 140/90 97 12/07/22 19:51 97.9 F 99 18 127/85 94 L Intake and Output 12/07/22 12/08/22 12/08/22 22:59 06:59 14:59 Intake Total 85.007 Balance 85.007 Intake: Intake, IV Titration 85.007 Amount Heparin Sod,Pork in 0.45% 85.007 NaCl 25,000 unit In 0.45 % NaCl 1 250ml.bag @ 7. 0888 UNITS/KG/HR 10 mls/ hr IV .Q[facility]H [facility] Rx#: [id number] Other: Weight 141.067 kg -GENERAL: The patient is alert and oriented x3, not in any acute distress. obese HEENT: Pupils are round and equally reacting to light. EOMI. No scleral icterus. No conjunctival pallor. Normocephalic, atraumatic. No pharyngeal erythema. No thyromegaly. CARDIOVASCULAR: S1 and S2 present. No murmurs, rubs, or gallops. -PULMONARY: Chest is clear to auscultation, no wheezing , distant breath sounds secondary to his body habitus ABDOMEN: Soft, nontender, nondistended, normoactive bowel sounds. No palpable organomegaly. MUSCULOSKELETAL: No joint swelling or deformity. -EXTREMITIES: No cyanosis, clubbing, bilateral pitting leg edema NEUROLOGICAL: Gross neurological examination did not reveal any focal deficits. SKIN: No rashes. no petechiae. Results CBC & Chem 7: 12/08/22 03:00 12/07/22 20:08 Labs: Abnormal Lab Results - Last 24 Hours (Table) 12/07/22 12/07/22 12/07/22 Range/Units 20:08 20:08 20:08 RBC 4.06 L (4.30-5.90) m/uL Hgb 11.5 L (13.0-17.5) gm/dL Hct 36.2 L (39.0-53.0) % Plt Count 466 H D (150-450) k/uL Sodium 136 L (137-145) mmol/L Glucose 124 H (74-99) mg/dL Troponin I 2.590 H* (0.000-0.034) ng/mL Total Protein 6.2 L (6.3-8.2) g/dL 12/07/22 12/08/22 12/08/22 Range/Units 23:43 03:00 03:00 RBC (4.30-5.90) m/uL Hgb (13.0-17.5) gm/dL Hct (39.0-53.0) % Plt Count 484 H (150-450) k/uL Sodium (137-145) mmol/L Glucose (74-99) mg/dL Troponin I 2.650 H* 2.560 H* (0.000-0.034) ng/mL Total Protein (6.3-8.2) g/dL Assessment and Plan Assessment: Dyspnea with elevated troponin, suspicious for non-STEMI Acute CHF exacerbation recent non-STEMI , s/p PCI to LAD, OM1, mid circumflex Diabetes mellitus Hypertension Hyperlipidemia History of osteoarthritis History of sleep apnea Obesity with BMI 47.3 Plan: Continue with heparin infusion Continue with IV Lasix Check echocardiogram Cardiology consult Labs and medication were reviewed.. Continue same treatment. Continue with symptomatic treatment. Resume home medication. Monitor labs and vitals. DVT and GI prophylaxis. Further recommendations as per clinical course of the patient DVT prophylaxis: heparin GI Prophylaxis: Pepcid PT/OT: Pending Prognosis is guarded
[2022-12-08] MEDS ORDERED: ALPRAZolam 0.25 MG TAB PO PRN (10:18)
[2022-12-08] MEDS ORDERED: ALPRAZolam 0.5 MG TAB PO PRN (10:18)
[2022-12-08] MEDS ORDERED: NITROGLYCERIN SL TABS 0.4 MG TAB SUBLINGUAL PRN (10:18)
[2022-12-08] MEDS: PRASUGREL 10 MG TAB PO SCH (10:28)
[2022-12-08 12:58] LABS: INR 1.1 (<1.2); Prothrombin Time 11.5 sec (9.0-12.0)
[2022-12-08] MEDS: HEPARIN SODIUM 1,000 UN/ML (10ML VL) IV PRN ×2 (14:40→21:44)
[2022-12-08 16:53] LABS: Glucose,Whole Blood 74 mg/dL (70-110)
--- NOTE | 2022-12-08 20:06 | CONS ---
CONSULTATION CHIEF COMPLAINT: Shortness of breath. HISTORY OF PRESENT ILLNESS: Anne is a 57-year-old gentleman with coronary artery disease, status post cardiac catheterization and angioplasty of the LAD and circumflex coronary artery, which was very complicated, the patient went into failure and needed to have Impella device placement. The patient was initially evaluated by a cardiothoracic surgeon, who felt that this was high-risk, following which, the angioplasty was done. The patient was discharged home, was doing fairly well and suddenly woke up with shortness of breath, came to the emergency room, was found to be in heart failure, treated with Lasix with significant improvement in his symptoms. His chest x-ray was significant for fluid overload. EKG showed sinus rhythm, intraventricular conduction delay, and nonspecific ST-T wave changes. Troponins were elevated at 2.5, 2.6, and 2.5, and the BNP was 1410. The patient does not have any angina, and at the time of my evaluation, his heart failure seemed to have resolved. PAST MEDICAL HISTORY: Significant for coronary artery disease, status post multivessel angioplasty; hypertension; hod-pwduegj-befzzartf diabetes; morbid obesity; and dyslipidemia. MEDICATIONS: Include: 1. Lipitor 80 daily. 2. Aspirin. 3. Glucophage. 4. Aldactone. 5. Effient. 6. Protonix. 7. Singulair. 8. Lopressor. 9. Amaryl. 10.Lasix. 11.Jardiance. 12.Ventolin. ALLERGIES: Losartan. FAMILY HISTORY: Negative for premature coronary artery disease. SOCIAL HISTORY: Negative for smoking, EtOH abuse, or drug abuse. REVIEW OF SYSTEMS: A 14 out of 14 review of systems has been performed. Pertinents are as documented. PHYSICAL EXAMINATION: GENERAL: Comfortable at rest. VITAL SIGNS: Stable. NECK: There is no jugular venous distention. Carotid upstroke is normal. There is no bruit. CHEST: Reveals good air entry bilaterally. HEART: Reveals first and second heart sounds. No gallop. No murmur. ABDOMEN: Soft. EXTREMITIES: Did not reveal any edema. Peripheral pulses are felt. LABORATORY DATA: Showed potassium of 4.4, creatinine is 0.9. Troponins are elevated at 2.5, 2.6, and 2.5. BNP is elevated at 1410. ASSESSMENT AND PLAN: 1. Acute onset congestive heart failure, probably systolic. 2. Fov-BO-rnseswv elevation myocardial infarction. 3. Complex coronary artery disease, status post recent coronary intervention. PLAN: I am going to treat the patient with IV heparin and IV diuretics and resume his medications including aspirin, Lipitor, Lopressor, Effient, nitro paste, and beta- blockers. We will consider cardiac catheterization on him once he is stable. YULISA / RAJEEVN: [id number] /
[2022-12-08 20:38] LABS: Glucose,Whole Blood 78 mg/dL (70-110)
[2022-12-08] MEDS: FAMOTIDINE 20 MG/2 ML VIAL IV SCH (20:48)
[2022-12-08] MEDS: ATORVASTATIN 80 MG TAB PO SCH (20:48)
[2022-12-08] MEDS: SODIUM CHLORIDE 0.9% 1,000 ML in EMPTY BAG 1 BAG IV SCH (23:39)
[2022-12-09 04:00] LABS: Basophils % (A) 0 %; Eosinophils # (A) 0.1 k/uL (0-0.7); Eosinophils % (A) 1 %; HCT 38.4 % (39.0-53.0); HGB 11.9 gm/dL (13.0-17.5); Hypochromasia Moderate; Lymphocytes # (A) 1.5 k/uL (1.0-4.8); Lymphocytes % (A) 18 %; MCHC 31.1 g/dL (31.0-37.0); MCV 90.2 fL (80.0-100.0); Mean Platelet Volume 7.4; Monocytes # (A) 0.4 k/uL (0-1.0); Monocytes % (A) 5 %; Neutrophils % (A) 73 %; Platelet Count 478 k/uL (150-450); Poikilocytosis Slight; RBC 4.26 m/uL (4.30-5.90); RDW 15.2 % (11.5-15.5); WBC 8.2 k/uL (3.8-10.6)
[2022-12-09 04:40] LABS: African American GFR (CKD) >90 (>60 ml/min/1.73 sqM); Anion Gap 13 mmol/L; Blood Urea Nitrogen 19 mg/dL (9-20); Calcium 8.4 mg/dL (8.4-10.2); Carbon Dioxide 24 mmol/L (22-30); Chloride 99 mmol/L (98-107); Glucose 79 mg/dL (74-99); Non-African American GFR(CKD) 80 (>60 ml/min/1.73 sqM); Potassium 4.2 mmol/L (3.5-5.1); Sodium 136 mmol/L (137-145)
[2022-12-09] MEDS ORDERED: ATORVASTATIN 80 MG TAB PO ONE (05:00)
[2022-12-09] MEDS ORDERED: ASPIRIN 325 MG TAB PO ONE (05:00)
[2022-12-09] MEDS: HEPARIN SOD,PORK IN 0.45% NACL 25,000 UNIT in 0.45% NACL 1 250ML.BAG IV SCH ×2 (05:31→19:53)
[2022-12-09] MEDS: ARMODAFINIL 200 MG PO SCH (05:36)
[2022-12-09] MEDS: METOPROLOL TARTRATE 25 MG TAB PO SCH ×3 (05:42→22:59)
[2022-12-09] MEDS: FAMOTIDINE 20 MG/2 ML VIAL IV SCH ×2 (05:42→19:53)
[2022-12-09] MEDS: FUROSEMIDE 10 MG/ML 4 ML VIAL IV SCH ×3 (05:42→19:53)
[2022-12-09] MEDS: SPIRONOLACTONE 25 MG TAB PO SCH (05:42)
[2022-12-09] MEDS: PANTOPRAZOLE 40 MG TABLET PO SCH (05:42)
[2022-12-09] MEDS: DAPAGLIFLOZIN PROPANEDIOL 10 MG TABLET PO SCH (05:49)
[2022-12-09] MEDS: PRASUGREL 10 MG TAB PO SCH (05:49)
[2022-12-09 06:01] LABS: Glucose,Whole Blood 127 mg/dL (70-110)
[2022-12-09] MEDS: ONDANSETRON 4 MG/2 ML VIAL IVP PRN (06:04)
[2022-12-09] MEDS ORDERED: HEPARIN SODIUM,PORCINE 2,500 UNIT in SODIUM CHLORIDE 0.9% 250 ML IRRIGATION PRN (07:00)
[2022-12-09] MEDS ORDERED: HEPARIN SODIUM,PORCINE 10,000 UNIT in SODIUM CHLORIDE 0.9% 1,000 ML IRRIGATION PRN (07:00)
[2022-12-09] MEDS: metFORMIN 500 MG TAB PO SCH ×2 (08:50→19:54)
[2022-12-09] MEDS: GLIMEPIRIDE 4 MG TAB PO SCH ×2 (08:51→21:14)
--- NOTE | 2022-12-09 10:10 | CA ---
Transthoracic Echo Report Name: Anne Sheehan Age: 57 Gender: M : 1965 Exam Date: 12/08/2022 11:41 Exam Location: [facility] Ht (in): 68 Wt (lb): 311 Ordering Physician: Shan Pride MD ([id number]) Attending/Referring Phys: Shannen COLLAZO Erp Manager Bella Yung RDCS Procedure CPT: Indications: SOB, heart cath in morning Cardiac Hx: Technical Quality: Technically difficult study Contrast 1: Lumason Total Dose (mL): 4 Contrast 2: Total Dose (mL): MEASUREMENTS (Male / Female) Normal Values 2D ECHO LV Diastolic Diameter PLAX 6.0 cm 4.2 - 5.9 / 3.9 - 5.3 cm LV Systolic Diameter PLAX 5.7 cm IVS Diastolic Thickness 1.8 cm 0.6 - 1.0 / 0.6 - 0.9 cm LVPW Diastolic Thickness 1.4 cm 0.6 - 1.0 / 0.6 - 0.9 cm LV Relative Wall Thickness 0.5 FINDINGS Left Ventricle Severely increased septal wall thickness. Mildly increased left ventricular diastolic diameter. Quality of the study was suboptimal echo contrast was used. There is hypokinesia involving the basal and mid inferior wall as well as the anterolateral wall. Ejection fractions in the 35-40% range Right Ventricle Right Atrium Left Atrium Mitral Valve Aortic Valve Tricuspid Valve Pulmonic Valve Pericardium No pericardial effusion. Aorta CONCLUSIONS As above Previewed by: Dr. Mike Taylor MD (Electronically Signed) Final Date: 09 Dec 2022 10:09
[2022-12-09 11:09] VITALS: BMI 45.2
[2022-12-09 11:34] LABS: Glucose,Whole Blood 127 mg/dL (70-110)
--- NOTE | 2022-12-09 14:34 | PN ---
PROGRESS NOTE SUBJECTIVE: This is a 57-year-old gentleman who presented to the hospital with sudden-onset shortness of breath and was found to be in congestive heart failure. He is treated with intravenous Lasix with significant improvement in his symptoms, had elevated troponins on his initial presentation and the plan was to do a cardiac catheterization on him today. The patient became short of breath when he received pre catheterization fluids. I decided not to do the cardiac cath today and will do it tomorrow. OBJECTIVE: GENERAL: At the time of my evaluation this morning, the patient appears comfortable at rest. VITAL SIGNS: Afebrile. O2 saturation is 96% on room air. Blood pressure is 120/80, respiratory rate is 19. NECK: There is no jugular venous distention. CHEST: Reveals good air entry bilaterally. I do not hear any crackles or rhonchi. HEART: Reveals first and second heart sounds. No gallop. I am not getting any murmur. ABDOMEN: Soft. EXTREMITIES: Exam of extremities did not reveal any edema. Peripheral pulses are palpable. LABORATORY DATA: BNP was elevated on his initial presentation at 1410. Troponins were high. Labs this morning show a potassium of 4.2, creatinine is 1. ASSESSMENT: 1. Acute onset congestive heart failure, probably systolic. 2. Non ST-segment elevation myocardial infarction in the patient with recent complex coronary intervention. PLAN: I am going to follow the echo results. Continue the IV heparin. Continue the IV Lasix. Schedule him for a catheterization tomorrow. I am not going to give any pre catheterization hydration. I spoke to the patient at length. He understands and is in agreement with the plan. MMRONNIEL / RAJEEVN: [id number] /
[2022-12-09] MEDS ORDERED: ALPRAZolam 0.5 MG TAB PO PRN (14:46)
[2022-12-09] MEDS ORDERED: NITROGLYCERIN SL TABS 0.4 MG TAB SUBLINGUAL PRN (14:46)
[2022-12-09] MEDS ORDERED: ALPRAZolam 0.25 MG TAB PO PRN (14:46)
[2022-12-09 16:21] LABS: Glucose,Whole Blood 78 mg/dL (70-110)
[2022-12-09] MEDS: SODIUM CHLORIDE 0.9% 1,000 ML in EMPTY BAG 1 BAG IV SCH ×2 (16:53→16:54)
[2022-12-09] MEDS: ATORVASTATIN 80 MG TAB PO SCH (19:53)
[2022-12-09 20:18] LABS: Glucose,Whole Blood 98 mg/dL (70-110)
[2022-12-10] MEDS: DAPAGLIFLOZIN PROPANEDIOL 10 MG TABLET PO SCH (04:47)
[2022-12-10] MEDS: GLIMEPIRIDE 4 MG TAB PO SCH ×2 (04:47→22:46)
[2022-12-10] MEDS: ARMODAFINIL 200 MG PO SCH (04:47)
[2022-12-10] MEDS: metFORMIN 500 MG TAB PO SCH ×2 (04:47→20:08)
[2022-12-10] MEDS: FUROSEMIDE 10 MG/ML 4 ML VIAL IV SCH ×3 (04:48→20:08)
[2022-12-10] MEDS: SPIRONOLACTONE 25 MG TAB PO SCH (04:50)
[2022-12-10] MEDS: FAMOTIDINE 20 MG/2 ML VIAL IV SCH ×2 (04:58→20:08)
[2022-12-10] MEDS: METOPROLOL TARTRATE 25 MG TAB PO SCH ×3 (04:59→22:46)
[2022-12-10] MEDS: PANTOPRAZOLE 40 MG TABLET PO SCH (04:59)
[2022-12-10] MEDS ORDERED: ATORVASTATIN 80 MG TAB PO ONE (05:00)
[2022-12-10] MEDS ORDERED: ASPIRIN 325 MG TAB PO ONE (05:00)
[2022-12-10] MEDS: PRASUGREL 10 MG TAB PO SCH (05:08)
[2022-12-10 06:04] LABS: Glucose,Whole Blood 128 mg/dL (70-110)
[2022-12-10] MEDS: ONDANSETRON 4 MG/2 ML VIAL IVP PRN (06:07)
[2022-12-10] MEDS ORDERED: HEPARIN SODIUM,PORCINE 10,000 UNIT in SODIUM CHLORIDE 0.9% 1,000 ML IRRIGATION PRN (07:00)
[2022-12-10] MEDS ORDERED: HEPARIN SODIUM,PORCINE 2,500 UNIT in SODIUM CHLORIDE 0.9% 250 ML IRRIGATION PRN (07:00)
[2022-12-10 09:32] LABS: Mean Platelet Volume 7.3; Platelet Count 540 k/uL (150-450)
[2022-12-10 09:57] LABS: Potassium 5.1 mmol/L (3.5-5.1)
[2022-12-10] MEDS ORDERED: LIDOCAINE 1% INJ 10MG/ML (5 ML VIAL-PF) SQ ONE ×2 (10:22→10:27)
[2022-12-10] MEDS ORDERED: fentaNYL (PF) 50 MCG/ML 2 ML AMP IV ONE (10:26)
[2022-12-10] MEDS ORDERED: MIDAZOLAM 2 MG/2 ML VIAL IV ONE (10:26)
[2022-12-10] MEDS ORDERED: VERAPAMIL SYRINGE (5 MG/10 ML) INTRAARTER ONE (10:27)
[2022-12-10] MEDS ORDERED: IV FLUID CONTINUATION 200 ML IV ONE (10:33)
[2022-12-10] MEDS ORDERED: HEPARIN SODIUM 1,000 UN/ML (10ML VL) IV ONE (10:33)
--- NOTE | 2022-12-10 10:57 | P.CARDCATH ---
Description of Procedure: PROCEDURES PERFORMED: Left heart catheterization, bilateral coronary angiography INDICATION: Non-STEMI CONSENT:I have discussed the risks, benefits and alternative therapies for the above-mentioned procedure and for both sedation/analgesia as well as necessary blood product administration, if indicated, as they pertain to this patient. The patient has indicated understanding and acceptance of the risks and procedures discussed. PROCEDURE: After the risks, benefits and alternatives of the above mentioned procedure explained in detail with the patient, informed consent was obtained. Patient was taken to the catheterization lab and prepped and draped in usual fashion. 1% lidocaine was used to anesthetize the right radial artery. A 6- Venezuelan sheath was placed in the right radial artery using modified Seldinger technique. Left coronary angiography was performed with a 6-Venezuelan CLS 4.0 guide catheter and right coronary angiography was performed with a 5-Venezuelan JR5 catheter in various views. A 5-Venezuelan FR5 catheter was inserted into the left ventricle and pressure measurements were obtained. The right radial sheath was removed and a TR band was placed with hemostasis achieved. The patient tolerated the procedure well. Patient was transported back to the post catheterization holding area in stable condition. Conscious Sedation: Patient was monitored under the direct supervision of myself for conscious sedation using Versed and fentanyl for a total duration of 20 minutes HEMODYNAMICS: Aorta: 110/72 LV: 108/12, LVEDP 39 SELECTIVE CORONARY ARTERIOGRAPHY: LEFT MAIN: The left main is a large caliber vessel which bifurcates into the LAD and circumflex. There is no significant stenosis. LEFT ANTERIOR DESCENDING CORONARY ARTERY: LAD is a large caliber vessel which wraps around to the apex. There is an ostial LAD 20-30% stenosis with a patent proximal to mid LAD stent without significant stenosis. Diagonal 1 is subtotally occluded with KARL 1-2 flow. Otherwise there are mild luminal irregularities. LEFT CIRCUMFLEX CORONARY ARTERY: Left circumflex is a large caliber vessel ostial 20-30% stenosis and a patent proximal and mid circumflex stent. There are mild 20-30% circumflex stenoses. This stent is jailing OM1 which is moderate caliber with superior branch of OM1 occluded. The proximal portion of OM1 has a 70% stenosis. RIGHT CORONARY ARTERY: The right coronary artery is a small caliber vessel which gives off a acute marginal branch and is the non-dominant vessel. There is no significant stenosis. FINAL IMPRESSION: 1. CAD as described above including 2030% LAD stenosis, 20-30% circumflex stenosis, patent proximal and mid LAD stents, patent proximal to mid circumflex stent and occluded sidebranch diagonal 1 as well as OM1 70% stenosis. 2. Significantly elevated left sided filling pressures PLAN: 1. Aggressive risk factor modification per most recent ACC/AHA guidelines. 2. No significant change from prior coronary angiograms and majority of presentation appears related to heart failure with significantly elevated LVEDP. Continue with diuretics and medical therapy.
--- NOTE | 2022-12-10 11:01 | P.PN ---
Subjective Progress Note Date: 12/09/22 This is a pleasant 57 years old male with past medical history of asthma, coronary artery disease status post stent, diabetes mellitus, hypertension, hyperlipidemia and osteoarthritis, sleep apnea on CPAP/BiPAP, anxiety depression patient was recently discharged from this hospital about 1 week ago for a non- STEMI and he has PCI to LAD, OM1, mid circumflex Patient presents because of dyspnea for the last 2-3 days, he wants to see his PCP Dr. Ulrich who referred him to the hospital However patient denies chest pain or coughing or phlegm He has mild bilateral pitting leg edema. He denies any GI or urinary or neurological symptoms No smoking alcohol or illicit drugs vitals are stable Labs showing mild anemia with hemoglobin 11.5. Platelet count elevated at 466. INR is normal 1.1. Basic metabolic panel and liver enzymes are unremarkable. ProBNP is 1410. Troponin are elevated 2.5-2.63 Chest x-ray: Suspicious for CHF EKG is normal sinus rhythm at [address]-T changes. Patient was given aspirin 1 on heparin drip and other Lasix 40 mg. 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 Awake alert and oriented 3. Still having shortness of breath and significant bilateral lower extremity swelling. Continued on IV Lasix 40 mg daily.. Also on heparin drip. Cardiology is planning for catheterization tomorrow. 2-D echocardiogram showed severely increased septal wall thickness, mildly increased left ventricular diastole diameter. There is hypokinesia involving the basilar and mid inferior wall as well as the anterior lateral wall. Ejection fraction 35-40%. Objective - Vital Signs Vital signs: Vital Signs Temp 98 F 12/09/22 19:58 Pulse 78 12/09/22 19:58 Resp 18 12/09/22 19:58 BP 104/70 12/09/22 19:58 Pulse Ox 97 12/09/22 19:58 FiO2 Intake & Output 12/09/22 12/09/22 12/10/22 06:59 18:59 06:59 Intake Total 52.576 658 250 Output Total 700 2425 Balance -661.540 -4112 250 Weight 135 kg 135 kg Intake: Intake, IV Titration 52.576 250 Amount Heparin Sod,Pork in 0.45% 52.576 250 NaCl 25,000 unit In 0.45 % NaCl 1 250ml.bag @ 7. 0888 UNITS/KG/HR 10 mls/ hr IV .Q24H [facility] Rx#: [id number] Oral 658 Output: Urine 700 2425 Other: Voiding Method Toilet Toilet Urinal Urinal # Voids 1 - Exam -GENERAL: The patient is alert and oriented x3, not in any acute distress. obese HEENT: Pupils are round and equally reacting to light. EOMI. No scleral icterus. No conjunctival pallor. Normocephalic, atraumatic. No pharyngeal erythema. No thyromegaly. CARDIOVASCULAR: S1 and S2 present. No murmurs, rubs, or gallops. -PULMONARY: Chest is clear to auscultation, no wheezing , distant breath sounds secondary to his body habitus. Bibasilar diminished sounds and mild crackles. ABDOMEN: Soft, nontender, nondistended, normoactive bowel sounds. No palpable organomegaly. MUSCULOSKELETAL: No joint swelling or deformity. -EXTREMITIES: No cyanosis, clubbing, bilateral 3+ pitting leg edema NEUROLOGICAL: Gross neurological examination did not reveal any focal deficits. SKIN: No rashes. no petechiae. - Labs CBC & Chem 7: 12/10/22 08:27 12/10/22 08:27 Labs: Abnormal Lab Results - Last 24 Hours (Table) 12/09/22 12/09/22 12/09/22 Range/Units 03:42 03:42 03:42 RBC 4.26 L (4.30-5.90) m/uL Hgb 11.9 L (13.0-17.5) gm/dL Hct 38.4 L (39.0-53.0) % Plt Count 478 H (150-450) k/uL APTT 81.6 H (22.0-30.0) sec Sodium 136 L (137-145) mmol/L POC Glucose (mg/dL) (70-110) mg/dL 12/09/22 12/09/22 12/09/22 Range/Units 05:59 11:12 11:29 RBC (4.30-5.90) m/uL Hgb (13.0-17.5) gm/dL Hct (39.0-53.0) % Plt Count (150-450) k/uL APTT 53.1 H (22.0-30.0) sec Sodium (137-145) mmol/L POC Glucose (mg/dL) 127 H 127 H (70-110) mg/dL Assessment and Plan Assessment: Acute non-ST TN. Dyspnea with elevated troponin Acute CHF exacerbation with systolic dysfunction ejection fraction 35-40%. recent non-STEMI , s/p PCI to LAD, OM1, mid circumflex Diabetes mellitus2 Hypertension Hyperlipidemia History of osteoarthritis History of sleep apnea Morbid Obesity with BMI 47.3 Plan: Continue with heparin infusion and IV Lasix 40 mg every 8 hourly. Cardiology is on board. Planning for catheterization tomorrow. Continue with aspirin, statins and Prasugrel and metoprolol. DVT prophylaxis: On heparin drip. GI Prophylaxis: Pepcid PT/OT: Pending Prognosis is guarded Time with Patient: Greater than 30
[2022-12-10 11:50] LABS: Glucose,Whole Blood 143 mg/dL (70-110)
[2022-12-10 15:58] LABS: % Iron Saturation 11.05 (15.00-50.00)
[2022-12-10] MEDS: HEPARIN SODIUM,PORCINE/PF 5,000 UNIT/0.5 ML SYRINGE SQ SCH ×2 (16:26→22:46)
[2022-12-10 16:38] LABS: Glucose,Whole Blood 126 mg/dL (70-110)
[2022-12-10] MEDS: ATORVASTATIN 80 MG TAB PO SCH (20:08)
[2022-12-10 20:14] LABS: Glucose,Whole Blood 126 mg/dL (70-110)
[2022-12-11] MEDS: FUROSEMIDE 10 MG/ML 4 ML VIAL IV SCH (05:51)
[2022-12-11] MEDS: PANTOPRAZOLE 40 MG TABLET PO SCH (05:51)
[2022-12-11 05:57] VITALS: RESP 18
[2022-12-11 06:24] LABS: Glucose,Whole Blood 145 mg/dL (70-110)
[2022-12-11 08:51] VITALS: BP 101/70; PULSE 92; TEMP 98.1
[2022-12-11] MEDS: DAPAGLIFLOZIN PROPANEDIOL 10 MG TABLET PO SCH (08:59)
[2022-12-11] MEDS: FAMOTIDINE 20 MG/2 ML VIAL IV SCH (08:59)
[2022-12-11] MEDS: HEPARIN SODIUM,PORCINE/PF 5,000 UNIT/0.5 ML SYRINGE SQ SCH (08:59)
[2022-12-11] MEDS: SPIRONOLACTONE 25 MG TAB PO SCH (09:00)
[2022-12-11] MEDS ORDERED: ASPIRIN 81 MG PO SCH (09:00)
[2022-12-11] MEDS: METOPROLOL TARTRATE 25 MG TAB PO SCH (09:00)
[2022-12-11] MEDS: PRASUGREL 10 MG TAB PO SCH (09:01)
[2022-12-11] MEDS: ARMODAFINIL 200 MG PO SCH (09:02)
[2022-12-11] MEDS: metFORMIN 500 MG TAB PO SCH (09:03)
[2022-12-11] MEDS: GLIMEPIRIDE 4 MG TAB PO SCH (09:03)
[2022-12-11 09:04] LABS: Glucose,Whole Blood 263 mg/dL (70-110)
[2022-12-11 09:27] LABS: Basophils % (A) 0 %; Eosinophils # (A) 0.1 k/uL (0-0.7); Eosinophils % (A) 2 %; HCT 40.7 % (39.0-53.0); HGB 12.8 gm/dL (13.0-17.5); Hypochromasia Marked; Lymphocytes % (A) 15 %; MCH 28.1 pg (25.0-35.0); MCHC 31.4 g/dL (31.0-37.0); MCV 89.6 fL (80.0-100.0); Mean Platelet Volume 7.2; Monocytes # (A) 0.4 k/uL (0-1.0); Monocytes % (A) 7 %; Neutrophils # (A) 4.6 k/uL (1.3-7.7); Neutrophils % (A) 74 %; Platelet Count 537 k/uL (150-450); Poikilocytosis Slight; RBC 4.54 m/uL (4.30-5.90); RDW 14.9 % (11.5-15.5); WBC 6.3 k/uL (3.8-10.6)
[2022-12-11 09:36] LABS: Potassium 4.5 mmol/L (3.5-5.1)
[2022-12-11] MEDS ORDERED: INSULIN ASPART (NovoLOG) 100 UNIT/ML VIAL SQ SCH (12:30)
--- NOTE | 2022-12-11 13:00 | PN ---
PROGRESS NOTE SUBJECTIVE: This is a 57-year-old gentleman with multivessel coronary artery disease with complex percutaneous revascularization, who is admitted to hospital with exc-WP-kdiqhww elevation [place] and acute exacerbation of chronic systolic heart failure. He underwent repeat cardiac catheterization and was found to have patent stents. He is feeling much better now. He is ambulating without any issues. He is able to lie flat without becoming short of breath. He is currently on Lasix 40 mg q.8h, aspirin Lipitor, Farxiga, eager, insulin, Glucophage, Lopressor 25 t.i.d., Effient, Protonix, and Aldactone. OBJECTIVE: GENERAL: Afebrile. VITAL SIGNS: Stable. NECK: There is no jugular venous distention. Carotid upstroke is normal. There is no bruit. CHEST: Reveals good air entry bilaterally. HEART: Reveals first and second heart sounds. No gallop, no murmur. ABDOMEN: Soft. EXTREMITIES: Did not reveal any edema. Peripheral pulses are felt. LABORATORY DATA: Show that the potassium is 4.5, creatinine is 1.1. Hemoglobin is 12.8, platelet count is 537. Echocardiogram on this admission showed an ejection fraction of 35% to 40% with lateral wall hypokinesis. ASSESSMENT: 1. Acute exacerbation of chronic systolic heart failure. 2. Grr-IJ-lkhrpcq elevation [place]. The patient has had cardiac catheterization and did not require another intervention. Cath showed 20 to 30% circumflex coronary artery stenosis, patent stent within the proximal and mid LAD with an occluded diagonal branch and 70% stenosis involving the OM branch. PLAN: The patient will be treated with optimal medical therapy. Discharge home today and follow up with me next week. MMODL / IJN: [id number] /
== END 2022-12-11 11:18 | disposition home or self-care (01) | DRG 190 ==
LOC: EC 19:41 → 3SCARD 21:39
PROVIDERS: ADMIT Internal Medicine; ATTEND Internal Medicine
PROC: B2111ZZ Fluoroscopy of Multiple Coronary Arteries using Low Osmolar Contrast (ICD-10-PCS; 2022-12-10)
PROC: B2151ZZ Fluoroscopy of Left Heart using Low Osmolar Contrast (ICD-10-PCS; 2022-12-10)
PROC: 4A023N7 Measurement of Cardiac Sampling and Pressure, Left Heart, Percutaneous Approach (ICD-10-PCS; principal; 2022-12-10 10:30)
DX: I21.4 Non-ST elevation (NSTEMI) myocardial infarction (principal); I11.0 Hypertensive heart disease with heart failure; E66.01 Morbid (severe) obesity due to excess calories; Z68.42 Body mass index [BMI] 45.0-49.9, adult; I50.23 Acute on chronic systolic (congestive) heart failure; D64.9 Anemia, unspecified; E78.5 Hyperlipidemia, unspecified; F32.A Depression, unspecified; F41.9 Anxiety disorder, unspecified; M19.90 Unspecified osteoarthritis, unspecified site; G47.30 Sleep apnea, unspecified; I25.10 Atherosclerotic heart disease of native coronary artery without angina pectoris; K76.0 Fatty (change of) liver, not elsewhere classified; Z95.5 Presence of coronary angioplasty implant and graft; Z79.02 Long term (current) use of antithrombotics/antiplatelets; Z79.82 Long term (current) use of aspirin; Z79.84 Long term (current) use of oral hypoglycemic drugs; Z79.899 Other long term (current) drug therapy; Z82.49 Family history of ischemic heart disease and other diseases of the circulatory system; Z88.8 Allergy status to other drugs, medicaments and biological substances
CPT/HCPCS: 36415; 71046; 80048; 80053; 80061; 83540; 83550; 83735; 83880; 84484; 85025; 85049; 85610; 85730; 93005; 93308; 93458; 94760; 96365; 96366; 96375; 96376; 99291

== ENCOUNTER → 2023-01-14 | Outpatient (CLI) | payer OTHER ==
--- NOTE | 2023-01-14 16:04 | FL ---
Modified barium swallow. HISTORY: Dysphagia. Modified barium swallow was performed with the department of speech pathology. The patient was prese nted with various consistencies of barium. There is no evidence for aspiration or penetration. Full report is to follow from the department of speech pathology. Impression: Normal study.
== END | disposition home or self-care (01) ==
LOC: RADUSWWP 10:48
PROVIDERS: ATTEND Family Medicine
DX: K22.4 Dyskinesia of esophagus (principal); K44.9 Diaphragmatic hernia without obstruction or gangrene; Q27.8 Other specified congenital malformations of peripheral vascular system
CPT/HCPCS: 74220

== ENCOUNTER → 2023-06-09 | Outpatient (CLI) | payer OTHER ==
[2023-06-09 20:56] LABS: ALT 28 U/L (10-49); AST 24 U/L (14-35); Chol/HDL Ratio 3.11 Ratio; LDL Cholesterol,Calculated 53.3 mg/dL (0.0-131.0); VLDL Calculation 19.98 mg/dL (5.00-40.00)
== END | disposition home or self-care (01) ==
LOC: LABWHC1 14:25
PROVIDERS: ATTEND Internal Medicine Cardiovascular Disease
DX: E78.2 Mixed hyperlipidemia (principal)
CPT/HCPCS: 36415; 80061; 84450; 84460

== ENCOUNTER → 2023-07-14 | Outpatient (CLI) | payer OTHER ==
--- NOTE | 2023-07-14 13:24 | CA ---
Lexiscan Nuclear Stress Test Report Name: Anne Sheehan Exam Date: 07/14/2023 09:40 Exam Location: [facility] Ht (in): 68 Wt (lb): 290 BSA: 2.39 Ordering Phys: Slime Galvin DO Referring Phys: Laurie Santana Technologist: Alfonso Awad Age: 58 Gender: M : 1965 Procedure CPT: Indications: R06.00 DYSPNEA, UNSPECIFIED ICD-10 Codes: Patient History: Medications: Meds past 24 hrs: Pretest Chest Pain: STRESS TEST Lexiscan Protocol Exercise Duration (min:sec): 02:[address] Depressions (mm): Angina Score: Cohen Score: Resting HR (bpm): 73 Peak HR (bpm): 94 Resting BP (mmHg): 121 / 72 Peak BP (mmHg): 115 / 62 MPHR: 162 Target HR: 138 % MPHR: 58 METS: 1.0 Total Dose: Peak Dose: Atropine: Double Product: 78690 BP Response: Stress Termination: PROTOCOL COMPLETE Stress Symptoms: No chest pain or symptoms Stress Summary: ECG ANALYSIS Resting ECG: Sinus rhythm. No arrhythmias. Normal repolarization. Stress ECG: No ECG changes from baseline with Lexiscan infusion. CONCLUSIONS No ECG evidence of ischemia with Lexiscan infusion. Nuclear test results to follow. Dr. Laurence Shook MD (Electronically Signed) Final Date: 14 July 2023 13:23
--- NOTE | 2023-07-14 14:28 | NM ---
EXAMINATION TYPE: NM stress lexiscan cardiolite DATE OF EXAM: 07/14/2023 COMPARISON: NONE CLINICAL INDICATION: Male, 58 years old with history of shortness of breath, R06.00 DYSPNEA, UNSPECIF IED; TECHNIQUE: After the intravenous administration of 9.52 mCi Tc 99m Sestamibi - Cardiolite resting SP ECT images acquired 45 minutes post injection. The patient received 0.4mg Lexiscan, 25.5 mCi Tc 99m Sestamibi - Stress images obtained [address] injection FINDINGS: Review of stress and rest SPECT images demonstrates large fixed perfusion abnormality along the entir ety of the lateral wall which becomes more pronounced on stress. Gated analysis shows global hypokinesis with an estimated left ventricular ejection fraction of 38 %. TID upper limits of normal at 1.17. IMPRESSION: 1. Large fixed defect involving the entirety of the lateral wall which accentuates on stress. Correla te for prior infarct with inducible wood-infarct ischemia. 2. Global hypokinesis with estimated LVEF of 38%. Consider ischemic cardiomyopathy.
== END | disposition home or self-care (01) ==
LOC: RADNMMAIN 08:10
PROVIDERS: ATTEND Family Medicine
DX: R06.00 Dyspnea, unspecified (principal)
CPT/HCPCS: 93017; 78452; A9500

== ENCOUNTER → 2024-01-18 | Outpatient (CLI) | payer OTHER ==
--- NOTE | 2024-01-20 03:56 | MR ---
EXAMINATION TYPE: MR shoulder RT wo con DATE OF EXAM: 01/18/2024 COMPARISON: None. HISTORY: Right shoulder pain and limited mobility, TECHNIQUE: Multiplanar, multisequence imaging of the right shoulder is performed without contrast. FINDINGS: Rotator Cuff: Increased signal distal supraspinatus and to a lesser degree distal infraspinatus tendo n. Heterogeneous thickened subscapularis tendon with adjacent fluid along the superior aspect. Rotato r cuff muscle bulk is preserved. Acromioclavicular Joint: Moderate narrowing with wkmd-dv-jftyqzeh superior capsular hypertrophy. Mild spurring. Glenohumeral Joint: Small to moderate size joint effusion. Prominent bony projection inferior medial humeral head coronal image 22. Significant Narrowing is present. Labrum: Blunted superior labrum consistent with tear.. Biceps Tendon: The long head of biceps is in normal location within bicipital groove. Intracapsular p ortion not well visualized. Bone marrow signal: Heterogeneity consistent with red marrow reconversion.. Other: No additional significant abnormality is appreciated. IMPRESSION: 1. Advanced glenohumeral joint arthropathy is present. 2. Superior labral tear. 3. Tendinosis/partial tearing of the supraspinatus and infraspinatus tendons along with the subscapul [place] tendons. 4. Suspect tear of long head of biceps anchor as the intracapsular portion is not well seen. .
== END | disposition home or self-care (01) ==
LOC: RADMRIMAIN 16:56
PROVIDERS: ATTEND Family Medicine
DX: M19.011 Primary osteoarthritis, right shoulder (principal); S46.011A Strain of muscle(s) and tendon(s) of the rotator cuff of right shoulder, initial encounter; M67.813 Other specified disorders of tendon, right shoulder

== ENCOUNTER → 2024-06-26 | Outpatient (CLI) | payer OTHER ==
[2024-06-26 16:18] LABS: ALT 35 U/L (10-49); AST 34 U/L (14-35); Chol/HDL Ratio 3.57 Ratio; LDL Cholesterol,Calculated 72.8 mg/dL (0.0-131.0)
== END | disposition home or self-care (01) ==
LOC: LABWHC1 11:09
PROVIDERS: ATTEND Internal Medicine Cardiovascular Disease
DX: E78.2 Mixed hyperlipidemia (principal)
CPT/HCPCS: 36415; 80061; 84450; 84460